=== PATIENT | female | born 1945 | race Caucasian/White ===

== ENCOUNTER → 2016-10-30 | Outpatient (REF) | payer MEDICARE, OTHER ==
[~2016-10-30] MED LIST: /ADVA50050; /BENA10TA; /ESCI10TA; /WARF25TA OR; ACE65ERTAB PO; ACET500C PO; ACET65TA; ACIPHEX; ADVA230A INH; ALBU17IN INH; ASPI1TAB6 PO; ASPI325T; ATEN25TA OR; ATEN50TA2; ATEN50TA2 OR; BACL-67 PO; BACL10TA2 PO; BYST10TA2 PO; BYST2.5T2 PO; CIPR250T3; CITRTAB14 PO; CITRTAB15 PO; CO Q200C PO; COLA100C PO; DICL13PA TD; FERR325T3 PO; HYDR12.55 PO; HYDR25TA6; I CAP; LEXA1TAB PO; LUTE25CA PO; LUTE6CAP2 PO; LYRI75CA PO; MAG-OX PO; NASACORT; NEUR300C PO; OCEA0.654; OMEG100011 PO; OPTIVE; PERC5TAB8 OR; PERC7.5T8 OR; POTA10CA OR; PRAV40TA2 PO; PRED20TA PO; PREG50CA PO; PRIL20CA PO; REFR0.1D OU; REFR0.5D8 OU; SPIR25TA2 PO; TELM1TAB PO; TRAM50TA2 PO; TUMS500C; TYLE325T5 PO; TYLE500T78 PO; VITAMIN D50000 UNT OR; XARELTO PO; XOPE1.252 INH; XOPENEX
[2016-10-30 19:16] LABS: FERRITIN 5 NG/ML (8-252)
== END ==
LOC: M LAB REF 16:48
PROVIDERS: ATTEND Family Medicine
DX: D50.9 Iron deficiency anemia, unspecified (principal)

== ENCOUNTER → 2016-11-13 | Outpatient (CLI) | payer MEDICARE, OTHER ==
[~2016-11-13] MED LIST changes: -PRIL20CA PO; +PRIL20CA9 PO
--- NOTE | 2016-11-15 23:40 | ECWPNPC ---
PATIENT NAME: SON BUCKNER : 1945 GENDER: FEMALE VISIT DATE: 11/13/2016 DISCHARGE DATE: 11/13/16 1247 VISIT LOCKED DATE TIME: PHYSICIAN: SON CHAPMAN RESOURCE: SON CHAPMAN REASON FOR APPOINTMENT 1. BACK HISTORY OF PRESENT ILLNESS HISTORY OF PRESENT ILLNESS: PAIN THE PATIENT DESCRIBES THE PAIN... FALL RISK SCREENING: SCREENING :NO FALLS IN THE PAST YEAR TODAY'S VISIT: NOTES: RATES PAIN TODAY 5/10. PAIN IS STARTING TO SHOOT DOWN RIGHT LEG. IS S/P BILATERAL SIJ INJECTION WHICH PRODUCED SIGNIFICANT PAIN RELIEF AND IMPROVED THE ABILITY TO FULLY URINATE. WAS NOT PREMEDICATRED WITH PREDNISONE AND HAD NO ISSUES WITH MARCAINE ANESTHETIC AGENT. THIS IS BEGINNING TO RETURN TO A DIFFICULT STATE. HAS BEEN HAVING INCREASED BALANCE ISSUES AND SOME MEMORY TROUBLES. WILL BE SEEING DR ELAINE AT [facility] NEUROS[facility]ERY AND HAVING A REPEAT CT OF BRAIN 12/13/16. STILL WAITING ON REFERRAL TO RHEUMATOLOGY. CURRENT MEDICATIONS TAKING SOMA 350 MG TABLET 1 TABLET NEEDED ORALLY BEFORE BEDTIME FOR SPASMS AND PAIN MDD1 TAKING SPIRONOLACTONE 25 MG TABLET ONE TABLET ORALLY DAILY TAKING MAGNESIUM OXIDE 400 MG CAPSULE 1 CAP ORALLY ONCE DAILY TAKING BYSTOLIC 2.5 MG TABLET 1 TABLET ORALLY ONCE A DAY TAKING XARELTO 20 MG TABLET 1 TABLET WITH FOOD ORALLY ONCE A DAY TAKING PRAVASTATIN SODIUM 40 MG TABLET 1 TABLET ORALLY ONCE A DAY TAKING OMEPRAZOLE 20 MG CAPSULE DELAYED RELEASE 1 CAPSULE ORALLY ONCE A DAY TAKING ACETAMINOPHEN 650 MG TABLET 1 ORALLY BID TAKING LUTEIN-ZEAXANTHIN 25-5 MG CAPSULE ORALLY DAILY TAKING COQ-10 200 MG CAPSULE 1 CAPSULE WITH A MEAL ORALLY ONCE A DAY TAKING CITRACAL + D 1500-200 MG-IU TABLET 1 TABLET WITH MEALS ORALLY DAILY TAKING OMEGA 3 1000 MG CAPSULE 1 CAPSULE ORALLY ONCE A DAY TAKING ADVAIR DISKUS 500-50 MCG/DOSE MISCELLANEOUS 1 INHALATION EVERY 12 HRS TAKING LEXAPRO 10 MG TABLET 1 TABLET ORALLY ONCE A DAY TAKING NASACORT AQ 55 MCG/ACT AEROSOL SOLUTION 2 PUFFS IN EACH NOSTRIL NASALLY ONCE A DAY TAKING DRISDOL 19218 UNIT CAPSULE 1 CAPSULE ORALLY ONCE A WEEK TAKING ULTRAM 50 MG TABLET 1 TABLET NEEDED FOR PAIN ORALLY EVERY 6 HRS TAKING BACLOFEN 10 MG TABLET 2 TABS ORALLY AT HS NEEDED TAKING REFRESH OPTIVE . 2 DROPS OU TWICE DAILY TAKING PROAIR HFA 2 PUFFS NEEDED DIRECTED TAKING GABAPENTIN 100 MG CAPSULE 2 CAP ORALLY BID TAKING DILTIAZEM CD 240 MG CAPSULE EXTENDED RELEASE 24 HOUR 1 CAPSULE ORALLY ONCE A DAY TAKING TORSEMIDE 20 MG TABLET ORALLY DAILY TAKING TORSEMIDE 10 MG TABLET 1 TABLET ORALLY ONCE A DAY AT 1600 NOT-TAKING VOLTAREN 1 % GEL DIRECTED TRANSDERMAL APPLY 4 GM FOUR TIMES DAILY TO LOW BACK NEEDED NOT-TAKING LASIX 20 MG TABLET 1 TABLET ORALLY ONCE A DAY NOT-TAKING PREDNISONE 10 MG TABLET 5 TABLET ORALLY TAKE 5 TABS DAY PRIOR , 5 TABS, MORNING OF PROCEDURE AND 1 TAB EVERY 8 HRS UNTIL COMPLETED, NOTES: 08/19/16 1100 NOT-TAKING BENADRYL 50 MG CAPSULE 2CAPSULE ORALLY PRE [PROCEDURE, NOTES: 08/19/16 1200 NOT-TAKING LORTAB 5-325 MG TABLET 1 TABLET NEEDED ORALLY EVERY 6 HRS, NOTES: 06-21-16 0400 NOT-TAKING FERROUS SULFATE 325 (65 FE) MG TABLET 1 TABLET ORALLY ONCE A DAY NOT-TAKING ALBUTEROL SULFATE HFA 108 (90 BASE) MCG/ACT AEROSOL SOLUTION 2 PUFFS INHALATION ONCE A DAY NOT-TAKING TUMS 500 MG TABLET CHEWABLE 2 TABLETS ORALLY THREE TIMES A DAY NOT-TAKING OPTIVE SENSITIVE 0.5-0.9 % SOLUTION DIRECTED OPHTHALMIC MEDICATION LIST REVIEWED AND RECONCILED WITH THE PATIENT PAST MEDICAL HISTORY HTN ASTHMA OA SPINAL STENOSIS GERD ATRIAL FIB DJD ARTHRITIS ELEVATED CHOL HYDROCEPHALUS ALLERGIES LIDOCAINE: ANAPHYLAXIS: ALLERGY NOVOCAIN: ANAPHYLAXIS: ALLERGY DOXYCYCLINE (ROSACEA): RASH: ALLERGY ALL NSAIDS INCLUDING VOLTAREN GEL: CARDIAC CONCERNS PER DR WILL: CONTRAINDICATION SOCIAL HISTORY GENERAL: TOBACCO USE ARE YOU A:NONSMOKER LEARNING BARRIERS / SPECIAL NEEDS ORIENTED TO PLAN OF CARE: PATIENT, PAIN MANAGEMENT PATIENT, ORIENTED TO PLAN OF CARE: PATIENT, PAIN MANAGEMENT PATIENT. NEW PATIENT PAIN DIARY TODAY'S VISITNOTES FROM 0-10, WHAT LEVEL IS YOUR PAIN TODAY?0 PAIN CLINIC PFS, CLERGY, PUBLIC HEALTH REFERRALS PFS REFERRAL NEEDED?NO CLERGY REFERRAL NEEDED?NO PUBLIC HEALTH REFERRAL NEEDED?NO WAS THE PROVIDER NOTIFIED OF ANY PERTINENT INFO?NO PFS REFERRAL NEEDED?NO CLERGY REFERRAL NEEDED?NO PUBLIC HEALTH REFERRAL NEEDED?NO WAS THE PROVIDER NOTIFIED OF ANY PERTINENT INFO?NO REVIEW OF SYSTEMS CONSTITUTIONAL: ANY CHANGE IN YOUR MEDICAL CONDITION? NO . CHILLS NO . FEVER NO . INFECTION: DO YOU HAVE NEW INFECTIONS? NO . DO YOU HAVE HISTORY OF MRSA? NO . MUSCULOSKELETAL: ANY NEW PATTERNS OF PAIN OR NUMBNESS? NO . GASTROENTEROLOGY: ANY NEW CHANGE IN BOWEL CONTROL? NO . GENITOURINARY: ANY NEW CHANGE IN BLADDER CONTROL? YES, DIFFICULTY/DELAY IN URINATING . IS THERE A CHANCE YOU COULD BE ? NO . HEMATOLOGY/LYMPH: DO YOU TAKE ANY BLOOD THINNERS? (FOR EXAMPLE- COUMADIN, PLAVIX, AGGRENOX, PLATEL, PRADAXA, OR XARELTO) YES, XARELTO . WHEN WAS YOUR LAST DOSE? DATE: TIME: . NEUROLOGY: HAVE YOU FALLEN IN THE PAST 6 MONTHS? NO . ANY NEW EXTREMITY NUMBNESS OR WEAKNESS? NO . CARDIOLOGY: DO YOU HAVE A PACEMAKER OR DEFIBRILLATOR? NO . RESPIRATORY: HAVE YOU BEEN SICK IN THE PAST WEEK? NO . FEVER NO . FLU LIKE SYMPTOMS? NO . COUGH NO . INTEGUMENTARY: DO YOU HAVE ANY RASHES OR OPEN SORES? NO . ALLERGIC/IMMUNO: ARE YOU ALLERGIC TO SHELLFISH OR IV DYE? NO . ANY NEW ALLERGIES? NO . PSYCHIATRIC: DO YOU HAVE THOUGHTS OF HURTING YOURSELF OR SOMEONE ELSE? NO . ARE YOU ABUSED, NEGLECTED, OR IN AN UNSAFE ENVIRONMENT? NO . ENDOCRINOLOGY: ARE YOU DIABETIC? NO . OTHER: DO YOU NEED ANY PRESCRIPTIONS? YES . IF YES, PLEASE LIST: SOMA . ANY NEW PROBLEMS WITH YOUR MEDICATIONS? NO . WHEN DID YOU LAST EAT? ____ . WHEN DID YOU LAST DRINK? ____ . WHAT DID YOU LAST DRINK? ____ . NAME OF PERSON DRIVING YOU HOME? ____ . DO YOU HAVE ANY OTHER QUESTIONS OR CONCERNS YES, INCREASED PRICKLING IN ENTIRE RIGHT LEG INTO FOOT . REVIEWED BY: PROVIDER: SON MCCLURE . VITAL SIGNS WT 196.2 LBS, HT 63 IN, BMI 34.75 INDEX, BP 142/67 MM HG, HR 84 /MIN, RR 16 /MIN, TEMP 97.2 F, OXYGEN SAT % 94, NA INITIALS TL 1201, REVIEWED BY: CS. EXAMINATION GENERAL EXAMINATION: PSYCHALERT , APPROPRIATE MOOD AND AFFECT , ORIENTED X 3 . SPEACH SOFT AND QUIET. LUNGS:CLEAR TO AUSCULTATION BILATERALLY. HEART:HEART RATE REGULAR. MUSCULOSKELETAL:TENDERNESS WITH PALPATION OVER LUMBAR FACETS BILATERALLY. MILD WEAKNESS NOTED IN QUADRICEP MUSCLES, ABLE TO FLEX AND EXTEND AT HIP AND ANKLES. POSTURE STOOPED. POOR BALANCE. POINT TENDERNESS OVER BILATERAL SACRAL ILIAC JOINTS.. ASSESSMENTS SACROILIITIS - M46.1 (PRIMARY) MYALGIA - M79.1 TREATMENT SACROILIITIS REFILL SOMA TABLET, 350 MG, 1 TABLET NEEDED, ORALLY, BEFORE BEDTIME FOR SPASMS AND PAIN MDD1, 30 DAY(S), 20, REFILLS 0 INJECTION ANESTHETIC SACROILIAC JOINTSON CHAPMAN 11/13/2016 12:31:28 PM > BILATERAL. NO ALLERGY TO MARCAINE PER [employer] TENDER NOTES: #128 - SCREENING BMI AND F/U PLAN IN : BMI ABOVE NORMAL TODAY. DISCUSSED WITH PATIENT NUTRITIONAL FOOD CHOICES TO ASSIST WITH WEIGHT LOSS. RECCOMMENDED REDUCING SALT, SUGAR, SODA INTAKE. RECOMMEND INCREASE ACTIVITY TO INCLUDE WALKING ON A REGULAR BASIS. REFERRAL TO: REASON: PROCEDURE CODES FA211 ESTABILISHED PATIENT [facility] FACILITY CHARGE G8783 BP SCR PRFRM RCMDD DEFIND SCR INTVL G8730 PAIN ASSESS POS TOOL F/U PLAN DOC 3016F PT SCRND UNHLTHY [place] USE 1123F ACP DISCUSS/DSCN MKR DOCD 1036F TOBACCO NON-USER 0518F FALL PLAN OF CARE DOCD G8427 DOC MEDS VERIFIED W/PT OR RE G8417 BMI >=30 CALCUATE W/FOLLOWUP 3288F FALL RISK ASSESSMENT DOCD FOLLOW UP BILATERAL SIJ NEARLY NEXT WEEK (REASON: LETTER TO DR WILL WITH OK TO STOP XARALTO FOR FUTURE PROCEDURES) ELECTRONICALLY SIGNED BY APURVA FAITH ON 11/15/2016 AT 10:41 AM EST DISCLAIMER : THIS IS A VISIT SUMMARY EXTRACTED FROM THE [employer] CHART. IT IS NOT A COPY OF THE [employer] PROGRESS NOTE. MTDD
== END ==
LOC: M PAIN 11:40
PROVIDERS: ATTEND Nurse Practitioner Family
DX: M46.1 Sacroiliitis, not elsewhere classified (principal); M79.1 Myalgia; Z79.891 Long term (current) use of opiate analgesic; Z79.899 Other long term (current) drug therapy; Z88.1 Allergy status to other antibiotic agents; Z88.6 Allergy status to analgesic agent

== ENCOUNTER → 2016-11-20 | Outpatient (CLI) | payer MEDICARE, OTHER ==
[~2016-11-20] MED LIST changes: +BUPIVACAINE HCL 0.25% 30 ML VIAL As Ordered ONE; +CARD240T2 PO; +CARI350T20 PO; +CITRTAB18 PO; +DRIS50002 PO; +FLUC100T PO; +FLUTISP; +GABA-279 PO; +INSUDET SC; +INSUHUMDS SC; +ISOVUE-M 300 61% 15ML VIAL (Q9967) As Ordered ONE; +LIDOCAINE 1% SDV INJ 30 ML VIAL As Ordered ONE; +MAGN400T5 PO; +TORS10TA3 PO; +TORS20TA2 PO; +TRIAMCINOLONE ACETONIDE SUSP 40 MG/ML VIAL (J3301) As Ordered ONE; +XARE20TA PO; +diazePAM 5 MG TAB As Ordered ONE
--- NOTE | 2016-11-20 18:11 | REP ---
SI joint series: Two views: History: SI joint injection for pain. 23 seconds of fluoroscopy time is reported. Findings: A sequence of two fluoroscopically obtained intraprocedural spot radiographs of the SI joints document needle position for SI joint injection procedure. Signed by Willam More MD 11/20/2016 06:42 P
--- NOTE | 2016-11-22 00:07 | ECWPNPC ---
PATIENT NAME: SON BUCKNER : 1945 GENDER: FEMALE VISIT DATE: 11/20/2016 DISCHARGE DATE: 11/20/16 1528 VISIT LOCKED DATE TIME: PHYSICIAN: TAMELA CASTANEDA RESOURCE: TAMELA CASTANEDA REASON FOR APPOINTMENT 1. BILATERAL SIJ HISTORY OF PRESENT ILLNESS HISTORY OF PRESENT ILLNESS: PAIN THE PATIENT DESCRIBES THE PAIN... FALL RISK SCREENING: SCREENING :NO FALLS IN THE PAST YEAR CURRENT MEDICATIONS TAKING SPIRONOLACTONE 25 MG TABLET ONE TABLET ORALLY DAILY, NOTES: 11-20-16799 TAKING MAGNESIUM OXIDE 400 MG CAPSULE 1 CAP ORALLY ONCE DAILY, NOTES: 11-20-16799 TAKING BYSTOLIC 2.5 MG TABLET 1 TABLET ORALLY ONCE A DAY, NOTES: 11-20-16799 TAKING XARELTO 20 MG TABLET 1 TABLET WITH FOOD ORALLY ONCE A DAY, NOTES: 11-19-16 1800 TAKING PRAVASTATIN SODIUM 40 MG TABLET 1 TABLET ORALLY ONCE A DAY, NOTES: 11-19-162099 TAKING OMEPRAZOLE 20 MG CAPSULE DELAYED RELEASE 1 CAPSULE ORALLY ONCE A DAY, NOTES: 11-19-162199 TAKING ACETAMINOPHEN 650 MG TABLET 1 ORALLY BID, NOTES: 11-20-16799 TAKING LUTEIN-ZEAXANTHIN 25-5 MG CAPSULE ORALLY DAILY, NOTES: 11-20-16799 TAKING COQ-10 200 MG CAPSULE 1 CAPSULE WITH A MEAL ORALLY ONCE A DAY, NOTES: 11-20-16799 TAKING CITRACAL + D 1500-200 MG-IU TABLET 1 TABLET WITH MEALS ORALLY DAILY, NOTES: 11-20-16799 TAKING OMEGA 3 1000 MG CAPSULE 1 CAPSULE ORALLY ONCE A DAY, NOTES: 11-20-16799 TAKING ADVAIR DISKUS 500-50 MCG/DOSE MISCELLANEOUS 1 INHALATION EVERY 12 HRS, NOTES: 11-20-16799 TAKING LEXAPRO 10 MG TABLET 1 TABLET ORALLY ONCE A DAY, NOTES: 11-19-162199 TAKING NASACORT AQ 55 MCG/ACT AEROSOL SOLUTION 2 PUFFS IN EACH NOSTRIL NASALLY ONCE A DAY, NOTES: 11-20-16799 TAKING DRISDOL 85964 UNIT CAPSULE 1 CAPSULE ORALLY ONCE A WEEK, NOTES: 11-19-16 TAKING ULTRAM 50 MG TABLET 1 TABLET NEEDED FOR PAIN ORALLY EVERY 6 HRS, NOTES: 11-20-16699 TAKING BACLOFEN 10 MG TABLET 2 TABS ORALLY AT HS NEEDED, NOTES: NONE TAKING REFRESH OPTIVE . 2 DROPS OU TWICE DAILY, NOTES: 11-20-16 08 TAKING PROAIR HFA 2 PUFFS NEEDED DIRECTED, NOTES: NONE TAKING GABAPENTIN 100 MG CAPSULE 2 CAP ORALLY BID, NOTES: 11-20-16 08 TAKING DILTIAZEM CD 240 MG CAPSULE EXTENDED RELEASE 24 HOUR 1 CAPSULE ORALLY ONCE A DAY, NOTES: 11-20-16 08 TAKING TORSEMIDE 20 MG TABLET ORALLY DAILY, NOTES: 11-20-16 08 TAKING TORSEMIDE 10 MG TABLET 1 TABLET ORALLY ONCE A DAY AT 1600, NOTES: 11-19-16 1600 TAKING SOMA 350 MG TABLET 1 TABLET NEEDED ORALLY BEFORE BEDTIME FOR SPASMS AND PAIN MDD1, NOTES: NONE NOT-TAKING BENADRYL 50 MG CAPSULE 2CAPSULE ORALLY PRE [PROCEDURE, NOTES: 08/19/16 1200 NOT-TAKING ALBUTEROL SULFATE HFA 108 (90 BASE) MCG/ACT AEROSOL SOLUTION 2 PUFFS INHALATION ONCE A DAY NOT-TAKING TUMS 500 MG TABLET CHEWABLE 2 TABLETS ORALLY THREE TIMES A DAY NOT-TAKING OPTIVE SENSITIVE 0.5-0.9 % SOLUTION DIRECTED OPHTHALMIC DISCONTINUED VOLTAREN 1 % GEL DIRECTED TRANSDERMAL APPLY 4 GM FOUR TIMES DAILY TO LOW BACK NEEDED DISCONTINUED LASIX 20 MG TABLET 1 TABLET ORALLY ONCE A DAY DISCONTINUED PREDNISONE 10 MG TABLET 5 TABLET ORALLY TAKE 5 TABS DAY PRIOR , 5 TABS, MORNING OF PROCEDURE AND 1 TAB EVERY 8 HRS UNTIL COMPLETED, NOTES: 08/19/16 1100 DISCONTINUED LORTAB 5-325 MG TABLET 1 TABLET NEEDED ORALLY EVERY 6 HRS, NOTES: 06-21-16 0400 DISCONTINUED FERROUS SULFATE 325 (65 FE) MG TABLET 1 TABLET ORALLY ONCE A DAY MEDICATION LIST REVIEWED AND RECONCILED WITH THE PATIENT PAST MEDICAL HISTORY HTN ASTHMA OA SPINAL STENOSIS GERD ATRIAL FIB DJD ARTHRITIS ELEVATED CHOL HYDROCEPHALUS ALLERGIES LIDOCAINE: ANAPHYLAXIS: ALLERGY NOVOCAIN: ANAPHYLAXIS: ALLERGY DOXYCYCLINE (ROSACEA): RASH: ALLERGY ALL NSAIDS INCLUDING VOLTAREN GEL: CARDIAC CONCERNS PER DR WILL: CONTRAINDICATION SOCIAL HISTORY GENERAL: TOBACCO USE ARE YOU A:NONSMOKER LEARNING BARRIERS / SPECIAL NEEDS ORIENTED TO PLAN OF CARE: PATIENT, PAIN MANAGEMENT PATIENT, ORIENTED TO PLAN OF CARE: PATIENT, PAIN MANAGEMENT PATIENT. NEW PATIENT PAIN DIARY TODAY'S VISITNOTES FROM 0-10, WHAT LEVEL IS YOUR PAIN TODAY?0 PAIN CLINIC PFS, CLERGY, PUBLIC HEALTH REFERRALS PFS REFERRAL NEEDED?NO CLERGY REFERRAL NEEDED?NO PUBLIC HEALTH REFERRAL NEEDED?NO WAS THE PROVIDER NOTIFIED OF ANY PERTINENT INFO?NO PFS REFERRAL NEEDED?NO CLERGY REFERRAL NEEDED?NO PUBLIC HEALTH REFERRAL NEEDED?NO WAS THE PROVIDER NOTIFIED OF ANY PERTINENT INFO?NO REVIEW OF SYSTEMS CONSTITUTIONAL: ANY CHANGE IN YOUR MEDICAL CONDITION? NO . CHILLS NO . FEVER NO . INFECTION: DO YOU HAVE NEW INFECTIONS? NO . DO YOU HAVE HISTORY OF MRSA? NO . MUSCULOSKELETAL: ANY NEW PATTERNS OF PAIN OR NUMBNESS? NO . GASTROENTEROLOGY: ANY NEW CHANGE IN BOWEL CONTROL? NO . GENITOURINARY: ANY NEW CHANGE IN BLADDER CONTROL? NO . IS THERE A CHANCE YOU COULD BE ? NO . HEMATOLOGY/LYMPH: DO YOU TAKE ANY BLOOD THINNERS? (FOR EXAMPLE- COUMADIN, PLAVIX, AGGRENOX, PLATEL, PRADAXA, OR XARELTO) YES, XARELTO . WHEN WAS YOUR LAST DOSE? DATE: TIME: 11-19-16 1800 . NEUROLOGY: HAVE YOU FALLEN IN THE PAST 6 MONTHS? NO . ANY NEW EXTREMITY NUMBNESS OR WEAKNESS? NO . CARDIOLOGY: DO YOU HAVE A PACEMAKER OR DEFIBRILLATOR? NO . RESPIRATORY: HAVE YOU BEEN SICK IN THE PAST WEEK? NO . FEVER NO . FLU LIKE SYMPTOMS? NO . COUGH NO . INTEGUMENTARY: DO YOU HAVE ANY RASHES OR OPEN SORES? NO . ALLERGIC/IMMUNO: ARE YOU ALLERGIC TO SHELLFISH OR IV DYE? NO . ANY NEW ALLERGIES? NO . PSYCHIATRIC: DO YOU HAVE THOUGHTS OF HURTING YOURSELF OR SOMEONE ELSE? NO . ARE YOU ABUSED, NEGLECTED, OR IN AN UNSAFE ENVIRONMENT? NO . ENDOCRINOLOGY: ARE YOU DIABETIC? NO . OTHER: DO YOU NEED ANY PRESCRIPTIONS? NO . IF YES, PLEASE LIST: ____ . ANY NEW PROBLEMS WITH YOUR MEDICATIONS? NO . WHEN DID YOU LAST EAT? 11-20-16 0700 . WHEN DID YOU LAST DRINK? 11-20-16 1100 . WHAT DID YOU LAST DRINK? WATER/ SPRITE . NAME OF PERSON DRIVING YOU HOME? SCOTT . DO YOU HAVE ANY OTHER QUESTIONS OR CONCERNS NO . REVIEWED BY: PROVIDER: . VITAL SIGNS WT 196 LBS, HT 63 IN, BMI 34.72 INDEX, BP 140/64 MM HG, HR 77 /MIN, RR 18 /MIN, TEMP 97.3 F, OXYGEN SAT % 97, NA INITIALS TL 1339, REVIEWED BY: CM. ASSESSMENTS SACROILIITIS, NOT ELSEWHERE CLASSIFIED - M46.1 (PRIMARY) PROCEDURES PN SI PRE PROCEDURE DIAGNOSIS SACROILIITIS, SACROILIAC JOINT DYSFUNCTION POST PROCEDURE DIAGNOSIS SACROILIITIS, SACROILIAC JOINT DYSFUNCTION PROCEDURE BILATERAL SACROILIAC JOINT BLOCK SURGEON DR. TAMELA CASTANEDA [employer] OPERATOR NONE ANESTHESIA LOCAL PRE PROCEDURE NOTE PATIENT WITH HISTORY OF CHRONIC LOW BACK PAIN. I EVALUATED THE PATIENT AND REVIEWED THE CHART. I WENT OVER THE RISKS, ALTERNATIVES, AND BENEFITS ASSOCIATED WITH THIS PROCEDURE. THE PATIENT WOULD LIKE TO PROCEED AND GAVE CONSENT TO PERFORM THE PROCEDURE. THE PATIENT DENIES UNEXPLAINABLE WEIGHT LOSS, FEVER, CHILLS, OR NEW CHANGES IN URINARY OR BOWEL CONTROL DESCRIPTION OF PROCEDURE THE PATIENT WAS BROUGHT TO THE PROCEDURE ROOM AND PLACED IN THE PRONE POSITION. THE LUMBOSACRAL AREA WAS CLEANED WITH CHLORAPREP SOLUTION AND DRAPED ASEPTICALLY. THE PROCEDURE WAS DONE UNDER STERILE CONDITIONS. I CHECKED LATERALITY AND THE LEVEL WHERE THE PROCEDURE WAS GOING TO BE PERFORMED WITH THE PATIENT AND THE SUPPORTING STAFF AT THE MOMENT OF THE TIME OUT IN THE PROCEDURE ROOM. UNDER FLUOROSCOPIC GUIDANCE, TARGET POINT WAS SELECTED AT THE LOWER BORDER OF THE RIGHT AND LEFT SACROILIAC JOINT. TARGET POINT WAS SELECTED AFTER MEDIAL ROTATION AND TILT OF THE MAGNIFIER OF THE C-ARM. LIDOCAINE WAS USED TO NUMB THE SKIN AND SUBCUTANEOUS TISSUE BELOW IT. A SPINAL NEEDLE, 22-GAUGE, WAS ADVANCED UNDER FLUOROSCOPIC GUIDANCE AND FOLLOWING PATIENT FEEDBACK UNTIL THE TARGET AREA WAS TOUCHED. THE POSITION OF THE NEEDLE WAS VERIFIED WITH AP AND LATERAL VIEWS. AFTER PROPER POSITION OF THE NEEDLE WAS ACHIEVED, ISOVUE M DYE 30%, 0.25 ML, WAS INJECTED SHOWING SPREAD OF THE DYE. THEN, A SOLUTION OF 20 MG OF KENALOG WAS INJECTED IN RIGHT JOINT WITH 3 ML OF BUPIVACAINE 0.125%. THERE WAS NO EVIDENCE OF BLOOD, PARESTHESIA OR CEREBROSPINAL FLUID DURING THE PROCEDURE. THE PATIENT WAS SENT TO THE RECOVERY ROOM. THE PATIENT WAS MOVING THE EXTREMITIES AND DOING WELL. THERE WAS NO COMPLICATION DURING THE PROCEDURE. FLUOROSCOPY TIME WAS 23 SECONDS POST PROCEDURE NOTE THE PATIENT WILL BE SEEN IN A FOLLOW UP IN THE NEXT FEW WEEKS. INSTRUCTIONS WERE GIVEN, QUESTIONS WERE ANSWERED, AND THE PATIENT EXPRESSED UNDERSTANDING AND AGREED WITH THE PLAN. I, KERRY QIU, DOCUMENTED THE ABOVE INFORMATION ACTING A SCRIBE FOR DR. CASTANEDA. I, DR. CASTANEDA, HAVE REVIEWED THE ABOVE DOCUMENT, SCRIBED BY KERRY QIU, AND I VERIFY THAT IT IS [facility] FLUORO GUIDANCE (PAIN)[id number] PROCEDURE CODES 62039 INJECT SACROILIAC JOINT 6045F RADXPS IN END [id number] PXD FOLLOW UP 3 WEEKS ELECTRONICALLY SIGNED BY TAMELA CASTANEDA MD ON 11/21/2016 AT 08:44 PM EST DISCLAIMER : THIS IS A VISIT SUMMARY EXTRACTED FROM THE [employer] CHART. IT IS NOT A COPY OF THE [employer] PROGRESS NOTE. MTDD
== END ==
LOC: M PAIN 13:20
PROVIDERS: ATTEND Anesthesiology
DX: G89.29 Other chronic pain (principal); M46.1 Sacroiliitis, not elsewhere classified; Z79.899 Other long term (current) drug therapy
CPT/HCPCS: G0260; J3301; Q9967

== ENCOUNTER 2016-11-29 10:28 | Inpatient (IN) | payer MEDICARE, BC, OTHER ==
[~2016-11-29] VITALS: Ht 157.5 cm; Wt 81.9 kg
[2016-11-29] MEDS: ADVAIR HFA 230/21 INHALER INH SCH (08:30)
[~2016-11-29 10:28] MED LIST changes: -ACETAMINOPHEN TAB 650MG DOSE (2X325MG) PO PRN; -CARD240T2 PO; -CARI350T20 PO; -CITRTAB18 PO; -DEXTROSE 50% 50 ML SYRINGE IV PRN; -DRIS50002 PO; -FLUC100T PO; -FLUTISP; -GABA-279 PO; -GLUCAGON FOR INJ 1 MG VIAL (J1610) SC PRN; -GLUCOSE 4 GM CHEW TABLET PO PRN; -HEPARIN SOD (PORCINE) 5000 UNITS/ML VIAL SC SCH; -HumaLOG INSULIN (NovoLOG) PER UNIT SC SCH; -INSUDET SC; -INSUHUMDS SC; -LEVEMIR (INSULIN DETEMIR) 1 UNITS/0.01ML SC SCH; -MAGN400T5 PO; -NS 1,000 ML IV SCH; -ONDANSETRON 4MG/2ML VIAL (J2405) IV PRN; -PANTOPRAZOLE 40MG TAB (PROTONIX) PO SCH; -TORS10TA3 PO; -TORS20TA2 PO; -XARE20TA PO
[2016-11-29 11:48] LABS: VENOUS BASE EXCESS -3.9 (-2.0-2.0); VENOUS O2 SATURATION 73.7 % (60.0-80.0); VENOUS PARTIAL PRESSURE CO2 37.7 mmHg (38.0-50.0); VENOUS PARTIAL PRESSURE O2 43.3 mmHg (30.0-50.0); VENOUS STANDARD HCO3 20.8 MEQ/L; VENOUS TOTAL CO2 22.2 MEQ/L (24.0-28.0)
[2016-11-29 11:57] LABS: INR 1.58
[2016-11-29 12:06] LABS: BASO % 0.1 % (0.0-1.0); EOS % 0.1 % (0.0-3.0); LARGE UNSTAINED CELL # 0.2 K/mm3 (0.0-0.4); LARGE UNSTAINED CELL % 1.4 % (0.0-4.0); LYMPH # 1.2 K/mm3 (1.5-4.5); LYMPH % 7.5 % (24.0-44.0); MEAN CORPUSCULAR HEMOGLOBIN 19.2 pg (27.0-33.0); MEAN CORPUSCULAR HGB CONC 28.3 g/dl (32.0-36.5); MONO # 0.7 K/mm3 (0.0-0.8); MONO % 4.7 % (0.0-5.0); NEUTROPHILS # 13.7 K/mm3 (1.8-7.7); NEUTROPHILS % 86.2 % (36.0-66.0); PLATELET COUNT, AUTOMATED 547 k/mm3 (150-450); RED CELL DISTRIBUTION WIDTH 16.6 % (11.5-14.5); WHITE BLOOD COUNT 15.9 K/mm3 (4.0-10.0)
[2016-11-29 12:08] LABS: ADD MORPHOLOGY? YES
[2016-11-29 12:16] LABS: CALCIUM LEVEL 9.9 MG/DL (8.8-10.2); CREATININE FOR GFR 1.72 MG/DL (0.55-1.02); POTASSIUM SERUM 4.4 MEQ/L (3.5-5.1)
[2016-11-29 12:27] LABS: ANISOCYTOSIS 2+; HYPOCHROMASIA 2+; MICROCYTOSIS 2+; POIKILOCYTOSIS 1+
[2016-11-29] MEDS ORDERED: HumuLIN R (REGULAR) INSULIN (NovoLIN R) **100U/ML** PER UNIT As Ordered ONE (13:06)
--- NOTE | 2016-11-29 14:03 | REP ---
Abdominal series: Four views. History: Vomiting. Findings: EKG monitoring electrodes overlie the chest. There are clips in the right axillary soft tissues. Post thoracotomy changes are noted on the right. Heart size is borderline. Lung conner are otherwise clear. Supine and cross-table lateral views of the abdomen demonstrate a normal bowel gas pattern with air and stool in a nondistended colon. There is no evidence of free air. No evidence of obstruction is seen. The patient is status post L3-4 posterior element fusion with transpedicular screws and rods. Impression: Normal bowel gas pattern. Right-sided ventriculoperitoneal shunt. Post thoracotomy changes on the right. Status post lumbar spine fusion. Signed by Willam More MD 11/29/2016 07:27 P
[2016-11-29] MEDS ORDERED: TORS10TA3 PO (15:37)
[2016-11-29] MEDS ORDERED: TORS20TA2 PO (15:40)
[2016-11-29] MEDS ORDERED: MAGN400T5 PO (15:41)
[2016-11-29] MEDS ORDERED: XARE20TA PO (15:41)
[2016-11-29] MEDS ORDERED: ALBU17IN INH (15:41)
[2016-11-29] MEDS ORDERED: DRIS50002 PO (15:41)
[2016-11-29] MEDS ORDERED: FLUTISP (15:41)
[2016-11-29] MEDS ORDERED: CARD240T2 PO (15:44)
[2016-11-29] MEDS ORDERED: GABA-279 PO (15:44)
[2016-11-29] MEDS ORDERED: CARI350T20 PO (15:44)
[2016-11-29] MEDS ORDERED: CITRTAB18 PO (15:44)
[2016-11-29] MEDS ORDERED: FLUC100T PO (15:44)
[2016-11-29] MEDS ORDERED: GLUCOSE 4 GM CHEW TABLET PO PRN (16:00)
[2016-11-29] MEDS ORDERED: ONDANSETRON 4MG/2ML VIAL (J2405) IV PRN (16:00)
[2016-11-29] MEDS ORDERED: ACETAMINOPHEN TAB 650MG DOSE (2X325MG) PO PRN (16:00)
[2016-11-29] MEDS ORDERED: DEXTROSE 50% 50 ML SYRINGE IV PRN (16:00)
[2016-11-29] MEDS ORDERED: GLUCAGON FOR INJ 1 MG VIAL (J1610) SC PRN (16:00)
--- NOTE | 2016-11-29 16:10 | HPEPDOC ---
General Date of Admission 11/29/16 408PM Chief Complaint The patient is a 71-year-old female Presented to the ER from [facility] because of abnormal lab work. History of Present Illness Patient is a 71 year old female with a PMHx of HTN, DLP, COPD, BRANDON on CPAP, Lung CA (s/p R lobectomy), Pulm HTN, A. fib (on Xarelto), R breast CA (s/ p mastectomy), NPH s/p C.O.D. BILLER shunt, Neuropathy and GERD who presented to the ER from [facility] because of abnormal lab work. Patient noted that she went to the infusion center today to receive iron infusion because she was unable to tolerate oral pills. Patient has a history of iron deficiency anemia. Her last colonoscopy and EGD was in in 2006 and was reported normal. She denies any blood in her stool, weight loss or change in appetite. Patient noted that over the last 1 week she has been getting short of breath and having palpitations. She noticed that over the last 3 days she has been having increased urinary frequency, and thirst. She notes that she has been a pre-diabetic in the past, but has not required medications. She has had nausea and vomiting this morning, and vomited 3 times (non bloody, non bilious, mostly food stuff). She notes her appetite has been poor and. She denies any dysuria. She denies any chest pain, cough, fever or chills. Denies abdominal pain, constipation or diarrhea. Home Medications Scheduled (Co Q-10) 200 Mg Cap 200 MG PO QHS (Reported) (Lutein/Zeaxanthin 25-5 mg) 1 Cap Cap 1 CAP PO DAILY (Reported) (Citracal + D3 Maximum 315-250 mg-Unit) 1 Tab Tab 1 TAB PO DAILY (Reported) Carboxymethylcellulose Sodium (Refresh Plus) 1 [place] 1 DROP OU BID (Reported) Diltiazem HCl (Cardizem LA) 240 Mg Tab 240 MG PO DAILY (Reported) Escitalopram Oxalate (Lexapro) 10 Mg Tab 10 MG PO QHS (Reported) Fluconazole (Fluconazole) 100 Mg Tab 100 MG PO DAILY (Reported) FILLED 11/26/16 FOR 7 DAYS Fluticasone Propionate (Fluticasone Propionate) 50 Mcg/Act Spr 2 SPRAY NA QHS ( Reported) Gabapentin (Gabapentin) 100 Mg Cap 200 MG PO BID (Reported) Magnesium Oxide (Magnesium Oxide 400) 400 Mg Tab 400 MG PO DAILY (Reported) Nebivolol (Bystolic) 2.5 Mg Tab 2.5 MG PO DAILY (Reported) [place] 3 Polyunsat Fatty Acids ([place] 3 1000 mg) 1 Cap Cap 1 CAP PO DAILY ( Reported) Omeprazole (Prilosec) 20 Mg Cap 20 MG PO QHS (Reported) Pravastatin Sod (Pravastatin Sodium) 40 Mg Tab 40 MG PO QHS (Reported) Rivaroxaban (Xarelto) 20 Mg Tab 20 MG PO QPM (Reported) Salmeterol/Fluticasone (Advair Hfa 230-21 Mcg/Act) 1 Aer Aer 1 PUFF INH BID ( Reported) Spironolactone (Spironolactone) 25 Mg Tab 25 MG PO DAILY (Reported) Torsemide (Torsemide) 10 Mg Tab 10 MG PO QPM (Reported) TAKES AT 1600 Torsemide (Torsemide) 20 Mg Tab 20 MG PO QAM (Reported) Vitamin D (Drisdol) 50,000 Unit Cap 50,000 UNIT PO QWEEK (Reported) TUESDAYS Scheduled PRN Albuterol Sulfate (Ventolin Hfa) 200 Puff/8 Gm Aers 2 PUFF INH QID PRN PRN SHORTNESS OF BREATH (Reported) Baclofen (Baclofen) 20 Mg Tab 20 MG PO QHS PRN PRN SPASMS (Reported) Carisoprodol (Carisoprodol) 350 Mg Tab 350 MG PO QHS PRN PRN SPASMS (Reported) Tramadol HCl (Tramadol HCl) 50 Mg Tab 50 MG PO Q4HP PRN PRN PAIN (Reported) Allergies Coded Allergies: Tetracycline (Verified Allergy, Intermediate, RASH, 01/26/13) Doxycycline (Unverified Allergy, Unknown, RASH, 11/29/16) Lidocaine (Verified Adverse Reaction, Severe, INCREASED PULSE, DECREASED BP, 01/26/13) Procaine (Verified Adverse Reaction, Severe, INCREASED PULSE, DECREASED BP , 01/26/13) Past Medical History Medical History HTN, DLP, COPD, BRANDON on CPAP, Lung CA (s/p R lobectomy), Pulm HTN, A. fib (on Xarelto), R breast CA (s/p mastectomy), NPH s/p C.O.D. BILLER shunt, Neuropathy and GERD Surgical History Right knee replacement Left knee arthroscopy Left breast reduction Right breast mastectomy Right eye cataract surgery Right lobectomy C.O.D. 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 Review of Symptoms Other systems Constitutional: Denies weight loss, change in appetite, or recent trauma Eyes: No visual changes or eye pain Ears, Nose, Throat: Denies nose bleeds, or difficulty swallowing Cardiovascular: Denies chest pain, sweating, or orthopnea Respiratory: Denies cough, or wheezing, Positive shortness of breath GI: Positive nausea and vomiting, Denies abdominal pain, diarrhea or constipation : Denies pain with urination, but positive for frequency Musculoskeletal: Denies joint pain or swelling Neuro / Psych: Denies muscle weakness or sensory loss Skin: No skin rashes noted All other review of systems negative; otherwise stated in history of present illness Screening: - Colonoscopy and EGD done in 2006 reported normal - Pap smear no longer done - Mammogram done 2016 reported normal Vital Signs - Vitals: BP 169/78, HR 88, RR 20, Sat 99%RA, Temp 98.9F - General: Lying in bed, No acute distress, Speaking in full sentences, AAOx3 - HEENT: NC, AT, PERRLA, EOMI, Pale conjunctiva - CVS: RRR, +S1S2, - Murmurs / rubs / gallops - Lungs: Fair air entry bilaterally, Clear to auscultation, No wheezing / rales / rhonchi - Abdomen: Soft, Non-distended, Mild tenderness at Left lower quadrant, + Bowel sounds x 4, - Extremities: + PPx4, No lower extremity edema, No calf tenderness - Neuro: No focal motor or sensory deficit - Skin: No visible rashes Laboratory Data Labs 24H Laboratory Tests 2 11/29/16 00:00: Estimated Mean Plasma Glucose 269H, Hemoglobin A1c 11.0H 11/29/16 11:16: Urine Amorphous Sediment , Urine Appearance CLEAR, Urine Color STRAW, Urine pH 5.0, Urine Specific [place] 1.026, Urine Protein NEGATIVE, Urine Glucose (UA) 3+ H, Urine Ketones TRACEH, Urine Urobilinogen 0.2, Urine Bilirubin NEGATIVE, Urine Leukocyte Esterase NEGATIVE, Urine Bacteria (Auto) NEGATIVE, Urine Blood NEGATIVE, Urine Calcium Carbonate Cryst(Auto) , Urine Calcium Oxalate Cryst ( Auto) , Urine Calcium Phosphate Marissa (Auto) , Urine Cellular Casts , Urine Cystine Crystals , Urine Granular Casts (Auto) , Urine Hyaline Casts (Auto) 0, Urine Leucine Crystals , Urine Mucus (Auto) , Urine Nitrite NEGATIVE, Urine Oval Fat Bodies (Auto) , Urine RBC (Auto) 4H, Urine Renal Epithelial Cells , Urine Sperm (Auto) , Urine Squamous Epithelial Cells 0, Urine Transitional Epithelial Cells , Urine Trichomonas (Auto) , Urine Triple Phosphate Cryst (Auto ) , Urine Tyrosine Crystals , Urine Uric Acid Crystals (Auto) , Urine WBC (Auto ) 2, Urine Waxy Casts (Auto) , Urine Yeast-Like Cells (Auto) 11/29/16 11:41: Activated Partial Thromboplast Time 24.7L, Anion Gap 14, Anisocytosis 2+, White Blood Count 15.9H, Red Blood Count 5.01, Hemoglobin 9.6L, Hematocrit 34.0L, Mean Corpuscular Volume 68.0L, Mean Corpuscular Hemoglobin 19.2L, Mean Corpuscular Hemoglobin Concent 28.3L, Red Cell Distribution Width 16.6H, Platelet Count 547H, Neutrophils (%) (Auto) 86.2H, Lymphocytes (%) (Auto) 7.5L, Monocytes (%) (Auto) 4.7, Eosinophils (%) (Auto) 0.1, Basophils (%) (Auto) 0.1, Neutrophils # (Auto) 13.7H, Lymphocytes # (Auto) 1.2L, Monocytes # (Auto) 0.7, Eosinophils # (Auto) 0.0, Basophils # (Auto) 0.0, Blood Gas Bicarbonate Standard 20.8, Blood Urea Nitrogen 34H, Creatinine 1.72H, Sodium Level 142, Potassium Level 4.4, Chloride Level 103, Carbon Dioxide Level 25, Calcium Level 9.9, Glomerular Filtration Rate 31.0L, Hypochromasia 2+, Large Unclassified Cells # 0.2, Large Unclassified Cells % 1.4, Magnesium Level 3.0H, Microcytosis 2+, Platelet Estimate INCREASED, Poikilocytosis 1+, Prothromb Time International Ratio 1.58, Prothrombin Time 19.0H, Venous Blood Base Excess -3.9L , Venous Blood pH 7.364, Venous Blood Partial Pressure CO2 37.7L, Venous Blood Partial Pressure O2 43.3, Venous Blood Total Carbon Dioxide 22.2L, Venous Blood HCO3 21.0L, Venous Blood Oxygen Saturation 73.7 11/29/16 14:03: Bedside Glucose (Misc Panel) 386H CBC/BMP Laboratory Tests 11/29/16 11:41 Calcium Level 9.9, Red Blood Count 5.01, Mean Corpuscular Volume 68.0 L, Mean Corpuscular Hemoglobin 19.2 L, Mean Corpuscular Hemoglobin Concent 28.3 L, Red Cell Distribution Width 16.6 H, Neutrophils (%) (Auto) 86.2 H, Lymphocytes (%) ( Auto) 7.5 L, Monocytes (%) (Auto) 4.7, Eosinophils (%) (Auto) 0.1, Basophils (% ) (Auto) 0.1, Neutrophils # (Auto) 13.7 H, Lymphocytes # (Auto) 1.2 L, Monocytes # (Auto) 0.7, Eosinophils # (Auto) 0.0, Basophils # (Auto) 0.0 Plan / VTE VTE Prophylaxis Ordered?: Yes Plan Plan Hyperglycemia likely 2/2 newly diagnosed DM2 - Presented with increased urinary frequency and thirst - History of pre-diabetes as an outpatient - HbA1c of 11.0, Glucose on admission was 574 - No acidosis, no anion gap - Has received IV fluid bolus of 1 liter NS and 5 units of Regular Insulin in the ER - Will c/w IV fluid hydration - Will start Levemir 10 units QHS and insulin sliding scale Acute kidney injury likely 2/2 dehydration from hyperglycemia - Creatinine baseline of < 1.0, currently at 1.72 - Will check urine electrolytes, osmolality and urinalysis - Will start IV fluid hydration with NS Microcytic anemia likely 2/2 iron deficiency anemia - Was supposed to receive iron infusion today, but was deferred because of hyperglycemia symptoms - Iron panel consistent with [place] - Will check reticulocyte count - Suspicion of celiac disease by Hematology; will perform serology workup - Will need outpatient referral for EGD and Colonoscopy - Will monitor CBC Leukocytosis possibly 2/2 infection, possibly 2/2 reactive etiology - No history of fevers, cough, - Has episode of nausea and vomiting today, has some Left lower quadrant abdominal pain - Leukocytosis with left shift - UA inconsistent with infection - Will check blood culture, urine culture - XR abdomen unrevealing - Will check CT abdomen - Will hold off on antibiotics at this time HTN - will c/w home BP medications (Bisoprolola and Cardizem) with holding parameters - Will hold Torsemide and Spironolactone for now DLP - c/w pravastatin COPD - no evidence of exacerbation at this time - will c/w home inhaled therapy BRANDON on CPAP - allow home CPAP use Lung CA - s/p R lobectomy - no history of chemotherapy or radiation Pulmonary HTN A. fib (on Xarelto) - c/w rate control with Cardizem - c/w anticoagulation with Xarelto R breast CA - s/p mastectomy - No chemotherapy or radiation - Last mammogram was in 2015 reported normal NPH s/p C.O.D. BILLER shunt - procedure was done in May 2016 Neuropathy - c/w gabapentin GERD - c/w omeprazole DVT prophylaxis - Will c/w full anticoagulation with Xarelto Case will be signed out to MAGALY Plata MD Nov 29, 2016 16:09
[2016-11-29] MEDS ORDERED: CARISOPRODOL 350 MG TAB PO PRN (16:15)
[2016-11-29] MEDS ORDERED: ALBUTEROL 90 MCG/ACT 8GM HFA INHALER INH PRN (16:15)
[2016-11-29] MEDS ORDERED: BACLOFEN 10 MG TAB PO PRN (16:15)
[2016-11-29 16:27] LABS: RETIC HEMOGLOBIN CONTENT CHr 21.4 PG (24-36); RETICULOCYTE ABSOLUTE ADVIA212 105 x10(9)/L (17-77)
[2016-11-29] MEDS ORDERED: NS 1,000 ML IV SCH (17:00)
[2016-11-29 17:10] VITALS: BP 165/70
--- NOTE | 2016-11-29 17:16 | EDDOCDS ---
Physician Documentation [facility] Name: Nhi Ramirez Age: 71 yrs Sex: Female : 1945 Arrival Date: 11/29/2016 Time: 10:28 Bed 15 Private MD: Nu Johns F. Disposition: 11/29 15:07 Critical Care: Critical care not applicable. pc Disposition: 11/29/16 15:11 Hospitalization ordered by Shayla Ruiz for Inpatient Admission. Preliminary diagnosis are Dehydration, Acute kidney failure, Type 2 diabetes mellitus with hyperglycemia. - Bed requested for 4 Cato. - Status is Inpatient Admission. rs3 - Condition is Stable. - Problem is new. - Symptoms have improved. HPI: 11:18 This 71 yrs old Female presents to ER via Walkin/Carried/Asstd with pc complaints of Abnormal Lab Results. 11:18 The history is obtained from the patient. pc 13:23 She was seen at Hematology today, having been referred for ongoing iron deficiency pc anemia. She arrived today, had complained of vomiting twice this morning, was clinically dehydrated and had a FSBS of 500+. She was sent here for evaluation. She complains of excessive thirst but feeling dehydrated. She denies any fevers or chills, Resp or GI symptoms. The patient has not experienced similar symptoms in the past. The patient has been recently seen by their primary care provider, for a routine, regularly scheduled appointment. Review of her EMR shows that she has had impaired glucose tolerance for 6-7 years. She also has had iron deficiency since 2007, that was treated briefly with iron replacement but was stopped and has had persistent low iron levels since. Historical: - Allergies: Doxycycline; Lidocaine; Novocain; - Home Meds: 1. spironolactone 25 mg Oral tab 1 tab once daily 2. torsemide 20 mg oral tab 1 tab twice a day 20mg in the morning and 10mg at 1600 3. magnesium oxide 400 mg Oral cap 400 mg daily 4. Bystolic 2.5 mg oral tab 1 tabs once daily 5. Xarelto 20 mg oral tab 1 tab once daily 6. pravastatin 40 mg oral tab 1 tab once daily 7. omeprazole 20 mg Oral cpDR 1 cap once daily 8. Advair Diskus 230/15 Inhl dsdv 1 puff 2 times per day 9. escitalopram oxalate 10 mg oral tab 1 tab nightly 10. albuterol sulfate 90 mcg/actuation Inhl HFAA 1 puff every 4-6 hours 11. fluticasone 50 mcg/actuation nasal spsn 1 spray 2 times per day 12. Drisdol 50,000 unit Oral cap 1 cap once wkly 13. Refresh Tears 0.5 % ophthalmic drop twice a day 14. lutein-zeaxanthin 25-5 mg oral cap daily 15. CoQ-10 100 mg oral cap 2 tab daily 16. Citracal with Vitamin D Maximum oral 600mg/1000mg oral daily 17. Luckey-3 oral oral 1000 mg daily 18. tramadol 50 mg Oral tab 1 tab every 4 hours 19. baclofen 10 mg Oral tab 2 tabs nightly 20. gabapentin 200mg Oral cap twice a day 21. Cardizem 240 mg Oral tab 1 tab daily 22. 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 - Social history: Smoking status: Patient states former smoker of tobacco. No barriers to communication noted, The patient speaks fluent Croatian. - : The pt / caregiver states he / she is on anticoagulants: Xarelto Home medication list is obtained from the patient. - Hospitalizations: : No recent hospitalization is reported. - Exposure Risk Screening:: None identified. - Immunization history:: All immunizations up-to-date. - Family history: Not pertinent. - Social history:: the patient is a former smoker, the patient drinks alcohol, socially. ROS: 13:29 All systems are negative except as listed. pc Exam: 13:29 General Appearance: alert, the patient is in mild distress. pc 13:29 EENT: ears, nose and throat normal, pale conjunctiva, mucous membranes dry. 13:29 Neck: The exam reveals no acute abnormalities. ROM is normal and painless. No nuchal rigidity is noted.. 13:29 Respiratory: no respiratory distress, normal breath sounds. 13:29 CVS: regular pulse rate, regular rhythm, normal S1 and S2, no murmurs, strong peripheral pulses. 13:29 Abdomen: soft, non-tender, no organomegaly, normal bowel sounds. 13:29 Back: normal inspection. 13:29 Skin: skin color is normal, warm, dry, the skin turgor is poor. 13:29 Extremities: The extremities have a grossly normal appearance, are non-tender, without acute ROM abnormalities. 13:29 Neuro: oriented x 3, cranial nerves normal as tested, no motor deficits, no sensory deficits. 13:29 Psych: normal mood. Vital Signs: 10:31 BP 181 / 70; Pulse 91; Resp 24; Temp 98.9; Pulse Ox 100% ; Weight 81.65 kg / 180.01 elp lbs; Height 5 ft. 2 in. (157.48 cm); Pain 0/10; 11:25 Pulse 90 MON; Pulse Ox 100% ; rs3 11:47 Pulse 84 MON; Pulse Ox 99% ; rs3 11:51 BP 166 / 82 (auto/); rs3 11:51 Pulse 84 MON; Pulse Ox 97% ; rs3 12:51 BP 177 / 76 (auto/); rs3 12:52 Pulse 90 MON; Pulse Ox 100% ; rs3 13:06 BP 176 / 76 (auto/); rs3 13:07 Pulse 88 MON; Pulse Ox 98% ; rs3 13:21 BP 169 / 78 (auto/); rs3 13:22 Pulse 88 MON; Pulse Ox 99% ; rs3 15:24 Pulse 92 MON; Resp 18; rs3 16:03 BP 187 / 79 (auto/); rs3 16:04 Pulse 90 MON; Pulse Ox 98% ; rs3 16:18 BP 167 / 72 (auto/); rs3 16:27 BP 167 / 72; Pulse 92 MON; Resp 18; Temp 100(TE); Pulse Ox 98% on R/A; Pain 0/10; rs3 16:34 Pulse 92 MON; Pulse Ox 99% ; rs3 10:31 Body Mass Index 32.92 (81.65 kg, 157.48 cm) elp MDM: 11:18 IV Saline Lock ordered. pc 11:19 Venous Blood Gas (large pea green tube on ice) Ordered. EDMS 11:19 CBC with Diff Ordered. EDMS 11:19 MED Profile Ordered. EDMS 11:19 Magnesium Level Ordered. EDMS 11:19 Urinalysis Ordered. EDMS 11:19 Pt & Aptt Ordered. EDMS 11:30 Financial registration complete. lg 11:54 [facility] Payment Agreement was scanned into [employer] and attached to record. lg 12:29 Venous Blood Gas (large pea green tube on ice) Reviewed. pc 12:29 CBC with Diff Reviewed. pc 12:29 Urinalysis Reviewed. pc 12:29 Pt & Aptt Reviewed. pc 12:51 MED Profile Reviewed. pc 12:51 Magnesium Level Reviewed. pc 12:51 RBC MORPH PROF NO CHARGE Reviewed. pc 12:52 NS 0.9% 1000 ml IV at bolus once ordered. pc 12:52 Insulin Regular Human 5 units IVP once ordered. pc 12:53 A1C Ordered. EDMS 12:53 Abdomen, Flat\E\Upright,PA Chest Ordered. EDMS 13:29 Differential Diagnosis: dehydration; new onset DM; chronic iron deficiency. Plan: labs, pc IVF. 14:16 Fingerstick Blood Sugar Reviewed. pc 14:16 Abdomen, Flat\E\Upright,PA Chest Reviewed. pc 14:32 A1C Reviewed. pc 14:56 NS 0.9% 1000 ml IV at 100 mL/hr continuous ordered. pc 14:57 BED REQUEST+ADM ordered. EDMS 15:06 Data reviewed: old medical records, vital signs, nurses notes, lab test results, all pc radiology studies and available results. 15:07 Test interpretation: LAB - all labs as ordered have been reviewed, interpreted and pc considered in the overall management of the clinical presentation; X-RAY - interpreted by Radiologist and personally reviewed, 3-view abdomen series; no acute disease. The patient has been re-examined and re-evaluated. The patient's symptoms have markedly improved after treatment. Physician consultation: Dr. Garrison Fox regarding patient's condition, and he requests she be admitted . 15:07 Physician consultation: Dr. Shayla Ruiz was contacted at 15:07, regarding admission, pc and will see patient in ED, shortly. Disposition: The historical points, examination findings, and any diagnostic results supporting the provided diagnosis, were discussed with the patient or legal guardian. The need for further work-up and/or treatment in the hospital was explained. 15:59 Admission / Observation Status ordered. EDMS 15:59 ELECTROCARDIOGRAM ADULT ordered. EDMS 15:59 CONSISTENT CARBOHYDRATES ordered. EDMS 16:00 ANTI-GLIADIN ANTIBODY Ordered. EDMS 16:00 TISSUE TRANSGLUTAMINASE IgA Ordered. EDMS 16:00 TISSUE TRANSGLUTAMINASE IgG Ordered. EDMS 16:00 ENDOMYSIAL IgA ANTIBODIES Ordered. EDMS 16:00 CREATININE,RANDOM URINE Ordered. EDMS 16:00 SODIUM,RANDOM URINE Ordered. EDMS 16:01 OSMOLALITY, SERUM Ordered. EDMS 16:01 OSMOLALITY,URINE Ordered. EDMS 16:01 URINE CULTURE Ordered. EDMS 16:01 BLOOD CULTURES Ordered. EDMS 16:23 RETICULOCYTE COUNT Ordered. EDMS Administered Medications: 13:12 Drug: NS 0.9% 1000 ml [sodium chloride 0.9 % intravenous solution] Route: IV; Rate: rs3 bolus; Site: left antecubital; 15:21 Follow up: IV Status: Completed infusion rs3 13:13 Drug: Insulin Regular Human 5 units [insulin regular human 100 unit/mL injection rs3 solution (0.05 mL)] {Co-Signature: marialuisa (Wyatt Bolden RN).} Route: IVP; Site: left antecubital; 15:21 Drug: NS 0.9% 1000 ml [sodium chloride 0.9 % intravenous solution] Route: IV; Rate: 100 rs3 mL/hr; Site: left antecubital; Signatures: Dispatcher [employer] EDIA Cordell Escamilla MD MD pc Daly, Linda, Manager [facility] Scott Garcia, Clark Reg lg Elizabeth Escobar RN RN rs3 Elissa Hopper RN RN ead Smith, Mallory, RN RN [id number] Wyatt elam The chart was reviewed and I authenticate all verbal orders and agree with the evaluation and treatment provided.Corrections: (The following items were deleted from the chart) 16:25 16:00 RETICULOCYTE COUNT ordered. EDMS EDMS Attachments: 11:54 [facility] [place] [facility]
--- NOTE | 2016-11-29 17:17 | EDDOCDS ---
Nurse's Notes [facility] Name: Nhi Ramirez Age: 71 yrs Sex: Female : 1945 Arrival Date: 11/29/2016 Time: 10:28 Bed 15 Private MD: Nu Johns F. Diagnosis: Dehydration;Acute kidney failure;Type 2 diabetes mellitus with hyperglycemia Presentation: 11/29 10:35 Presenting complaint: pt's cousin states that the pt is SOB, vomited a few times, her ms18 BGL is 590, and her white blood cell count is 19.8. Adult Sepsis Screening: The patient does not have new or worsening altered mentation. Patient's respiratory rate is less than 22. Systolic blood pressure is greater than 100. Patient has a qSOFA score of 0- Negative Sepsis Screen. Suicide/Homicide risk assessment- the patient denies having any suicidal and/or homicidal ideations and does not present with any other emotional, behavioral or mental health complaints. Status: Patient is not a customer service attendant or dependent. Transition of care: patient was received from a primary care office; Dr. Garrison Fox's office. 10:35 Acuity: AICHA Level 3 ms18 10:35 Method Of Arrival: Walkin/Carried/Asstd ms18 Triage Assessment: 10:47 General: Appears in no apparent distress, ill, uncomfortable, Behavior is appropriate ms18 for age, cooperative. Pain: Denies pain. Neurological: Level of Consciousness is awake, alert, obeys commands. Respiratory: Airway is patent Respiratory effort is even, unlabored. Derm: Skin is pink, warm & dry. Historical: - Allergies: Doxycycline; Lidocaine; Novocain; - Home Meds: 1. spironolactone 25 mg Oral tab 1 tab once daily 2. torsemide 20 mg oral tab 1 tab twice a day 20mg in the morning and 10mg at 1600 3. magnesium oxide 400 mg Oral cap 400 mg daily 4. Bystolic 2.5 mg oral tab 1 tabs once daily 5. Xarelto 20 mg oral tab 1 tab once daily 6. pravastatin 40 mg oral tab 1 tab once daily 7. omeprazole 20 mg Oral cpDR 1 cap once daily 8. Advair Diskus 230/15 Inhl dsdv 1 puff 2 times per day 9. escitalopram oxalate 10 mg oral tab 1 tab nightly 10. albuterol sulfate 90 mcg/actuation Inhl HFAA 1 puff every 4-6 hours 11. fluticasone 50 mcg/actuation nasal spsn 1 spray 2 times per day 12. Drisdol 50,000 unit Oral cap 1 cap once wkly 13. Refresh Tears 0.5 % ophthalmic drop twice a day 14. lutein-zeaxanthin 25-5 mg oral cap daily 15. CoQ-10 100 mg oral cap 2 tab daily 16. Citracal with Vitamin D Maximum oral 600mg/1000mg oral daily 17. [place]-3 oral oral 1000 mg daily 18. tramadol 50 mg Oral tab 1 tab every 4 hours 19. baclofen 10 mg Oral tab 2 tabs nightly 20. gabapentin 200mg Oral cap twice a day 21. Cardizem 240 mg Oral tab 1 tab daily 22. 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 - Social history: Smoking status: Patient states former smoker of tobacco. No barriers to communication noted, The patient speaks fluent Greenlandic. - : The pt / caregiver states he / she is on anticoagulants: Xarelto Home medication list is obtained from the patient. - Hospitalizations: : No recent hospitalization is reported. - Exposure Risk Screening:: None identified. - Immunization history:: All immunizations up-to-date. - Family history: Not pertinent. - Social history:: the patient is a former smoker, the patient drinks alcohol, socially. Screenin:47 Screening information is obtained from the patient. Fall risk: No risks identified. rs3 Assistance ADL's: requires no assistance with activities of daily living. Abuse/DV Screen: The patient / caregiver reports he/she is: not in a situation that causes fear, pain or injury. Nutritional screening: No deficits noted. home support is adequate. Assessment: 11:47 General: Appears in no apparent distress, Behavior is appropriate for age, cooperative. rs3 Pain: Denies pain. Neurological: Level of Consciousness is awake, alert, Oriented to person, place, time. EENT: Oral mucosa is dry. cobblestone tongue dry and parched. gingival hyperplasia noted. Cardiovascular: Capillary refill < 3 seconds Heart tones S1 S2 present Rhythm is regular Chest pain is denied. Respiratory: Airway is patent Respiratory effort is even, unlabored, Breath sounds are clear bilaterally. Reports shortness of breath on exertion. Derm: Skin is pink, warm & dry. 12:45 General: Appears in no apparent distress, Denies of pain/distress. resting comfortable rs3 at rest. patient used bedside commode. tolerated well. family at bedside. . 13:27 General: Appears in no apparent distress, Behavior is appropriate for age, IVF NS bolus rs3 infusing. Tolerating well. regular insulin 5 units IVP given. 14:30 General: Appears in no apparent distress, patient returned from x-ray. denies of rs3 distress/pain/sob. tolerating well. resting comfortable on stretcher. IVF NS bolus infusing. repeat FSBS 386. 15:28 General: Appears in no apparent distress, admitting provider with patient. denies of rs3 distress. Mary raman given. consistent carb diet ordered. family at bedside. IVF NS infusing at 100cc/hr. 16:32 General: Appears in no apparent distress, Behavior is appropriate for age, cooperative, rs3 patient resting comfortable. denies of pain/distress. waiting for admission room availability . family at bedside. breathes easy. Vital Signs: 10:31 BP 181 / 70; Pulse 91; Resp 24; Temp 98.9; Pulse Ox 100% ; Weight 81.65 kg; Height 5 elp ft. 2 in. (157.48 cm); Pain 0/10; 11:25 Pulse 90 MON; Pulse Ox 100% ; rs3 11:47 Pulse 84 MON; Pulse Ox 99% ; rs3 11:51 BP 166 / 82 (auto/); rs3 11:51 Pulse 84 MON; Pulse Ox 97% ; rs3 12:51 BP 177 / 76 (auto/); rs3 12:52 Pulse 90 MON; Pulse Ox 100% ; rs3 13:06 BP 176 / 76 (auto/); rs3 13:07 Pulse 88 MON; Pulse Ox 98% ; rs3 13:21 BP 169 / 78 (auto/); rs3 13:22 Pulse 88 MON; Pulse Ox 99% ; rs3 15:24 Pulse 92 MON; Resp 18; rs3 16:03 BP 187 / 79 (auto/); rs3 16:04 Pulse 90 MON; Pulse Ox 98% ; rs3 16:18 BP 167 / 72 (auto/); rs3 16:27 BP 167 / 72; Pulse 92 MON; Resp 18; Temp 100(TE); Pulse Ox 98% on R/A; Pain 0/10; rs3 16:34 Pulse 92 MON; Pulse Ox 99% ; rs3 10:31 Body Mass Index 32.92 (81.65 kg, 157.48 cm) elp Vitals: 10:31 Log In Time: November 29, 2016 at 10:29. elp ED Course: 10:31 Patient visited by Steffanie Avila PCA. elp 10:31 BoonNu is Private Physician. elp 10:31 Patient moved to Waiting elp 10:32 Patient visited by Steffanie Avila PCA. elp 10:34 Patient moved to Pre RCE elp 10:37 Triage Initiated ms18 10:44 Patient moved to 15 jb5 10:52 Cordell Escamilla MD is Attending Physician. pc 11:07 Patient visited by Cordell Escamilla MD. pc 11:46 Elizabeth Escobar RN is Primary Nurse. rs3 11:47 Patient visited by Elizabeth Escobar RN. rs3 11:47 Venous Blood Gas (large pea green tube on ice) Sent. rs3 11:47 Pt & Aptt Sent. rs3 11:47 Magnesium Level Sent. rs3 11:47 MED Profile Sent. rs3 11:47 CBC with Diff Sent. rs3 11:47 Inserted saline lock: 20 gauge in left antecubital area and blood collected. rs3 11:54 [facility] Payment Agreement was scanned into [employer] and attached to record. lg 12:39 Notified attending ED physician of Critical lab value. this nurse notified by lab of ead blood glucose of 574. Je Escamilla notified. . 12:51 Patient visited by Cordell Escamilla MD. pc 13:25 Patient visited by Elizabeth Escobar,WYATT. rs3 14:01 Patient visited by Elizabeth Escobar RN. rs3 14:04 Abdomen, Flat\E\Upright,PA Chest Returned. EDMS 14:50 Patient visited by Elizabeth Escobar RN. rs3 15:10 Shayla Ruiz is Hospitalizing Provider. pc 16:48 The patient / caregiver is instructed regarding the plan of care and ED course. rs3 16:48 No procedures done that require assistance. rs3 Administered Medications: 13:12 Drug: NS 0.9% 1000 ml [sodium chloride 0.9 % intravenous solution] Route: IV; Rate: rs3 bolus; Site: left antecubital; 15:21 Follow up: IV Status: Completed infusion rs3 13:13 Drug: Insulin Regular Human 5 units [insulin regular human 100 unit/mL injection rs3 solution (0.05 mL)] {Co-Signature: marialuisa (Wyatt Bolden RN).} Route: IVP; Site: left antecubital; 15:21 Drug: NS 0.9% 1000 ml [sodium chloride 0.9 % intravenous solution] Route: IV; Rate: 100 rs3 mL/hr; Site: left antecubital; Order Results: Lab Order: Venous Blood Gas (large pea green tube on ice); SPEC'M 11/29/16 11:41 Test: VENOUS PH; Value: 7.364; Range: 7.330-7.430; Units: UNITS; Status: F Test: VENOUS PARTIAL PRESSURE CO2; Value: 37.7; Range: 38.0-50.0; Abnormal: Below low normal; Units: mmHg; Status: F Test: VENOUS PARTIAL PRESSURE O2; Value: 43.3; Range: 30.0-50.0; Units: mmHg; Status: F Test: VENOUS TOTAL CO2; Value: 22.2; Range: 24.0-28.0; Abnormal: Below low normal; Units: MEQ/L; Status: F Test: VENOUS HCO3; Value: 21.0; Range: 23.0-27.0; Abnormal: Below low normal; Units: MEQ/L; Status: F Test: VENOUS BASE EXCESS; Value: -3.9; Range: -2.0-2.0; Abnormal: Below low normal; Status: F Test: VENOUS STANDARD HCO3; Value: 20.8; Units: MEQ/L; Status: F Test: VENOUS O2 SATURATION; Value: 73.7; Range: 60.0-80.0; Units: %; Status: F Lab Order: CBC with Diff; SPEC'M 11/29/16 11:41 Test: WHITE BLOOD COUNT; Value: 15.9; Range: 4.0-10.0; Abnormal: Above high normal; Units: K/mm3; Status: F Test: RED BLOOD COUNT; Value: 5.01; Range: 4.00-5.40; Units: M/mm3; Status: F Test: HEMOGLOBIN; Value: 9.6; Range: 12.0-16.0; Abnormal: Below low normal; Units: g/dl; Status: F Test: HEMATOCRIT; Value: 34.0; Range: 36.0-47.0; Abnormal: Below low normal; Units: %; Status: F Test: MEAN CORPUSCULAR VOLUME; Value: 68.0; Range: 80.0-96.0; Abnormal: Below low normal; Units: fl; Status: F Test: MEAN CORPUSCULAR HEMOGLOBIN; Value: 19.2; Range: 27.0-33.0; Abnormal: Below low normal; Units: pg; Status: F Test: MEAN CORPUSCULAR HGB CONC; Value: 28.3; Range: 32.0-36.5; Abnormal: Below low normal; Units: g/dl; Status: F Test: RED CELL DISTRIBUTION WIDTH; Value: 16.6; Range: 11.5-14.5; Abnormal: Above high normal; Units: %; Status: F Test: PLATELET COUNT, AUTOMATED; Value: 547; Range: 150-450; Abnormal: Above high normal; Units: k/mm3; Status: F Test: NEUTROPHILS %; Value: 86.2; Range: 36.0-66.0; Abnormal: Above high normal; Units: %; Status: F Test: LYMPH %; Value: 7.5; Range: 24.0-44.0; Abnormal: Below low normal; Units: %; Status: F Test: MONO %; Value: 4.7; Range: 0.0-5.0; Units: %; Status: F Test: EOS %; Value: 0.1; Range: 0.0-3.0; Units: %; Status: F Test: BASO %; Value: 0.1; Range: 0.0-1.0; Units: %; Status: F Test: LARGE UNSTAINED CELL %; Value: 1.4; Range: 0.0-4.0; Units: %; Status: F Test: NEUTROPHILS #; Value: 13.7; Range: 1.8-7.7; Abnormal: Above high normal; Units: K/mm3; Status: F Test: LYMPH #; Value: 1.2; Range: 1.5-4.5; Abnormal: Below low normal; Units: K/mm3; Status: F Test: MONO #; Value: 0.7; Range: 0.0-0.8; Units: K/mm3; Status: F Test: EOS #; Value: 0.0; Range: 0.0-0.50; Units: K/mm3; Status: F Test: BASO #; Value: 0.0; Range: 0.0-0.2; Units: K/mm3; Status: F Test: LARGE UNSTAINED CELL #; Value: 0.2; Range: 0.0-0.4; Units: K/mm3; Status: F Lab Order: [facility] Profile; [facility]'M 11/29/16 11:41 Test: GLUCOSE, FASTING; Value: 574; Range: 83-110; Abnormal: Above upper panic limits; Units: MG/DL; Status: F Test: BLOOD UREA NITROGEN; Value: 34; Range: 7-18; Abnormal: Above high normal; Units: MG/DL; Status: F Test: CREATININE FOR GFR; Value: 1.72; Range: 0.55-1.02; Abnormal: Above high normal; Units: MG/DL; Status: F Test: GLOMERULAR FILTRATION RATE; Value: 31.0; Range: >39; Abnormal: Below low normal; Status: F Test: SODIUM LEVEL; Value: 142; Range: 136-145; Units: MEQ/L; Status: F Test: POTASSIUM SERUM; Value: 4.4; Range: 3.5-5.1; Units: MEQ/L; Status: F Test: CHLORIDE LEVEL; Value: 103; Range: 98-107; Units: MEQ/L; Status: F Test: CARBON DIOXIDE LEVEL; Value: 25; Range: 21-32; Units: MEQ/L; Status: F Test: ANION GAP; Value: 14; Range: 8-16; Units: MEQ/L; Status: F Test: CALCIUM LEVEL; Value: 9.9; Range: 8.8-10.2; Units: MG/DL; Status: F Test Note: ; Units are mL/min/1.73 m2 Chronic Kidney Disease Staging per NKF: Stage I & II GFR >=60 Normal to Mildly Decreased Stage III GFR 30-59 Moderately Decreased Stage IV GFR 15-29 Severely Decreased Stage V GFR <15 Very Little GFR Left ESRD GFR <15 on MASS COMMUNICATIONS INSTRUCTOR Lab Order: Magnesium Level; SPEC'M 11/29/16 11:41 Test: MAGNESIUM LEVEL; Value: 3.0; Range: 1.8-2.4; Abnormal: Above high normal; Units: MG/DL; Status: F Lab Order: Urinalysis; SPEC'M 11/29/16 11:16 Test: APPEARANCE, URINE; Value: CLEAR; Range: CLEAR; Status: F Test: COLOR, URINE; Value: STRAW; Range: YELLOW; Status: F Test: PH,URINE; Value: 5.0; Range: 5.0-9.0; Units: UNITS; Status: F Test: SPECIFIC GRAVITY URINE AUTO; Value: 1.026; Range: 1.002-1.035; Status: F Test: PROTEIN, URINE AUTO; Value: NEGATIVE; Range: NEGATIVE; Units: mg/dL; Status: F Test: GLUCOSE, URINE (UA) AUTO; Value: 3+; Range: NEGATIVE; Abnormal: Above high normal; Units: mg/dL; Status: F Test: KETONE, URINE AUTO; Value: TRACE; Range: NEGATIVE; Abnormal: Above high normal; Units: mg/dL; Status: F Test: UROBILINOGEN, URINE AUTO; Value: 0.2; Range: 0.0-2.0; Units: mg/dL; Status: F Test: BILIRUBIN, URINE AUTO; Value: NEGATIVE; Range: NEGATIVE; Status: F Test: NITRITE, URINE AUTO; Value: NEGATIVE; Range: NEGATIVE; Status: F Test: LEUKOCYTE ESTERASE, URINE AUTO; Value: NEGATIVE; Range: NEGATIVE; Status: F Test: BLOOD, URINE BLOOD; Value: NEGATIVE; Range: NEGATIVE; Status: F Test: WBC, URINE AUTO; Value: 2; Range: 0-3; Units: /HPF; Status: F Test: RBC, URINE AUTO; Value: 4; Range: 0-3; Abnormal: Above high normal; Units: /HPF; Status: F Test: BACTERIA, URINE AUTO; Value: NEGATIVE; Range: NEGATIVE; Status: F Test: SQUAMOUS EPITHELIAL CELL UR AU; Value: 0; Range: 0-6; Units: /HPF; Status: F Test: HYALINE CAST, URINE AUTO; Value: 0; Range: 0-1; Units: /LPF; Status: F Lab Order: Pt & Aptt; [facility] 11/29/16 11:41 Test: PROTHROMBIN TIME; Value: 19.0; Range: 12.3-14.5; Abnormal: Above high normal; Units: SECONDS; Status: F Test: INR; Value: 1.58; Status: F Test: PARTIAL THROMBOPLASTIN TIME; Value: 24.7; Range: 26.6-37.1; Abnormal: Below low normal; Units: SECONDS; Status: F Test Note: ; THERAPUTIC HUMAN INR VALUES INDICATIONS NORMAL RANGES PROPHYLAXIS/TREATMENT OF: VENOUS THROMBOSIS 2.0-3.0 PULMONARY EMBOLISM 2.0-3.0 PREVENTION OF SYSTEMIC EMBOLISM FROM: TISSUE HEART VALVES 2.0-3.0 ACUTE MYOCARDIAL INFARCTION 2.0-3.0 VALVULAR HEART DISEASE 2.0-3.0 ATRIAL FIBRILLATION 2.0-3.0 MECHANICAL VALVES(HIGH RISK) 2.5-3.5 RECURRENT MYOCARDIAL INFARCTION 2.5-3.5 Lab Order: RBC MORPH PROF NO CHARGE; [facility] 11/29/16 11:41 Test: PLATELET ESTIMATE; Range: NORMAL; Status: I Test: HYPOCHROMASIA; Value: 2+; Status: F Test: POIKILOCYTOSIS; Value: 1+; Status: F Test: ANISOCYTOSIS; Value: 2+; Status: F Test: MICROCYTOSIS; Value: 2+; Status: F Test: PLATELET ESTIMATE; Value: INCREASED; Range: NORMAL; Status: F Lab Order: A1C; [facility] 11/29/16 00:00 Test: HEMOGLOBIN A1c; Value: 11.0; Range: 4.5-6.2; Abnormal: Above high normal; Units: %; Status: F Test: ESTIMATED AVERAGE GLUCOSE; Value: 269; Range: 60-110; Abnormal: Above high normal; Units: MG/DL; Status: F Lab Order: Fingerstick Blood Sugar; [facility] 11/29/16 14:03 Test: BEDSIDE GLUCOSE; Value: 386; Range: 83-110; Abnormal: Above high normal; Units: MG/DL; Status: F Lab Order: RETICULOCYTE COUNT; SPEC'M 11/29/16 11:41 Test: RETICULOCYTE % [id number]; Value: 2.20; Range: 0.5-1.5; Abnormal: Above high normal; Units: %; Status: F Test: RETICULOCYTE ABSOLUTE [id number]; Value: 105; Range: 17-77; Abnormal: Above high normal; Units: x10(9)/L; Status: F Test: RETIC HEMOGLOBIN CONTENT CHr; Value: 21.4; Range: 24-36; Abnormal: Below low normal; Units: PG; Status: F Radiology Order: Abdomen, Flat\E\Upright,PA Chest Test: Abdomen, Flat\E\Upright,PA Chest REASON FOR EXAMINATION: vomiting; Abdominal series: Four views.; ; History: Vomiting.; ; Findings: EKG monitoring electrodes overlie the chest. There are clips in the; right axillary soft tissues. Post thoracotomy changes are noted on the right.; Heart size is borderline. Lung conner are otherwise clear.; ; Supine and cross-table lateral views of the abdomen demonstrate a normal bowel; gas pattern with air and stool in a nondistended colon. There is no evidence of; free air. No evidence of obstruction is seen. The patient is status post L3-4; posterior element fusion with transpedicular screws and rods.; ; Impression:; ; Normal bowel gas pattern. Right-sided ventriculoperitoneal shunt. Post; thoracotomy changes on the right. Status post lumbar spine fusion.; ; ; ; ; Unreviewed; Outcome: 15:11 Decision to Hospitalize by Provider. 16:47 Discharge Assessment: patient administered narcotics - no. The following High Risk rs3 Discharge criteria are identified: None. Admitted to Med/Surg accompanied by tech, family with patient, via stretcher, with chart. Condition: stable. CT Study completed. Property :Personal belongings accompany Pt. 17:16 Patient left the ED. rs3 Signatures: Dispatcher [employer] Cordell Reese MD MD pc Ganter, LoriLee, Chen Davis lg, EXPLOSIVE EXPERT EXPLOSIVE EXPERT [email or web address] Elizabeth Escobar RN RN rs3 Steffanie Avila, EXPLOSIVE EXPERT EXPLOSIVE EXPERT Elissa Curtis RN RN ead Smith, Mallory, RN RN ms18 Wyatt Bolden RN jmk Corrections: (The following items were deleted from the chart) 15:28 14:30 General: Appears in no apparent distress, patient returned from x-ray. denies of rs3 distress/pain/sob. tolerating well. resting comfortable on stretcher. IVF NS bolus infusing. repeat FSBS 342. rs3 15:29 15:24 Pulse 92bpm; Monitor; rs3 rs3 16:27 16:18 BP 167 / 72; Pulse 92bpm; MonitorResp 18bpm; Pulse Ox 98% RA; Temp 100F Temporal; rs3 Pain 0/10; rs3 MTDD
[2016-11-29] MEDS: HumaLOG INSULIN (NovoLOG) PER UNIT SC SCH ×2 (18:11→21:15)
[2016-11-29] MEDS: RIVAROXABAN 20 MG TAB (XARELTO) PO SCH (18:11)
[2016-11-29] MEDS: GABAPENTIN 100 MG CAP PO SCH (21:14)
[2016-11-29] MEDS: ESCITALOPRAM OXALATE 10 MG TAB (LEXAPRO) PO SCH (21:14)
[2016-11-29] MEDS: PRAVASTATIN 20 MG TAB PO SCH (21:14)
[2016-11-29] MEDS: HEPARIN SOD (PORCINE) 5000 UNITS/ML VIAL SC SCH (21:14)
[2016-11-29] MEDS: LEVEMIR (INSULIN DETEMIR) 1 UNITS/0.01ML SC SCH (21:14)
[2016-11-29] MEDS: OMEPRAZOLE 20 MG CAP PO SCH (21:14)
[2016-11-29] MEDS: FLUTICASONE PROP 0.05% NASAL SPRAY 16 GM (FLONASE) SCH (21:15)
[2016-11-29 22:00] VITALS: BP 154/68
[2016-11-30 02:00] VITALS: BP 155/71
[2016-11-30] MEDS: HEPARIN SOD (PORCINE) 5000 UNITS/ML VIAL SC SCH (05:19)
[2016-11-30 06:00] VITALS: BP 150/78
[2016-11-30] MEDS: ADVAIR HFA 230/21 INHALER INH SCH ×2 (08:55→20:27)
[2016-11-30] MEDS: HumaLOG INSULIN (NovoLOG) PER UNIT SC SCH ×4 (08:59→21:02)
[2016-11-30] MEDS ORDERED: PANTOPRAZOLE 40MG TAB (PROTONIX) PO SCH (09:00)
[2016-11-30] MEDS: GABAPENTIN 100 MG CAP PO SCH ×2 (09:01→21:04)
[2016-11-30] MEDS: NEBIVOLOL 5 MG TAB (BYSTOLIC) PO SCH (09:01)
[2016-11-30] MEDS: MAGNESIUM OXIDE 400 MG TAB (MAG-OX) PO SCH (09:01)
[2016-11-30 10:00] VITALS: BP 131/60
[2016-11-30 11:29] LABS: MEAN CORPUSCULAR HEMOGLOBIN 19.3 pg (27.0-33.0); MEAN CORPUSCULAR HGB CONC 28.6 g/dl (32.0-36.5); MEAN CORPUSCULAR VOLUME 67.3 fl (80.0-96.0); RED CELL DISTRIBUTION WIDTH 17.2 % (11.5-14.5); WHITE BLOOD COUNT 12.5 K/mm3 (4.0-10.0)
[2016-11-30 11:57] LABS: ALBUMIN 3.4 GM/DL (3.2-5.2); ALBUMIN/GLOBULIN RATIO 1.1 (1.00-1.93); BILIRUBIN,TOTAL 0.2 MG/DL (0.2-1.0); CALCIUM LEVEL 8.7 MG/DL (8.8-10.2); CREATININE FOR GFR 1.21 MG/DL (0.55-1.02); GLOMERULAR FILTRATION RATE 46.6 (>39); MAGNESIUM LEVEL 2.4 MG/DL (1.8-2.4); TOTAL PROTEIN 6.5 GM/DL (6.4-8.2)
[2016-11-30 14:00] VITALS: BP 147/66
--- NOTE | 2016-11-30 14:04 | IPNPDOC ---
Assessment/Plan Date Seen The patient was seen on 11/30/16. Problems Problems: (1) Uncontrolled diabetes mellitus Status: Acute Problem Text: newly diagnosed diabetes will start insulin teaching start carb consistant diet (2) Atrial fibrillation with rapid ventricular response Onset Date: 05/05/2014 Status: Chronic Response to Treatment: Stable (3) Anemia Status: Acute Plan / VTE VTE Prophylaxis Ordered?: Yes Subjective Review of Systems CC/HPI The patient is a 71-year-old female admitted with a reason for visit of Uncontrolled Dm. Constitutional: Denies: Chills, Fever, Malaise, Night Sweats, Weakness Cardiovascular: Denies: Chest Pain, Lt Headedness, Orthopnea, Palpitations, Paroxysmal Noc. Dyspnea Gastrointestinal: Denies: Abdominal Pain, Diarrhea, Nausea, Vomiting Objective Physical Examination General Exam: Positive: No Acute Distress Eye Exam: Positive: Conjunctiva & lids normal, EOMI, PERRLA, Negative: Sclera icteric Chest Exam: Positive: Clear to auscultation, Normal air movement Heart Exam: Positive: Normal S1, Normal S2, Rate Normal, Regular Rhythm, Negative: Murmurs, Rubs Abdomen Exam: Positive: Normal bowel sounds, Soft, Negative: Hepatospenomegaly, Tenderness Extremity Exam: Positive: Normal pulses, Negative: Clubbing, Cyanosis, Edema Vital Signs/I&O Vital Signs Date Time Temp Pulse Resp B/P Pulse Ox O2 Delivery O2 Flow Rate FiO2 11/30/16 10:00 97.2 90 16 131/60 98 Room Air I&O- Last 24 Hours up to 6 AM 11/30/16 06:00 Intake Total 1260 ml Output Total 100 ml Balance 1160 ml Laboratory Data Labs 24H Laboratory Tests 2 11/29/16 14:03: Bedside Glucose (Misc Panel) 386H 11/29/16 17:15: Osmolality 327H 11/29/16 17:28: Bedside Glucose (Misc Panel) 335H 11/29/16 20:25: Bedside Glucose (Misc Panel) 378H 11/30/16 05:54: 11/30/16 06:40: Bedside Glucose (Misc Panel) 280H 11/30/16 11:17: Blood Urea Nitrogen 26H, Creatinine 1.21H, Sodium Level 142, Potassium Level 4.0 , Chloride Level 110H, Carbon Dioxide Level 23, Calcium Level 8.7L, Aspartate Amino Transf (AST/SGOT) 24, Alanine Aminotransferase (ALT/SGPT) 27, Alkaline Phosphatase 89, Total Bilirubin 0.2, Total Protein 6.5, Albumin 3.4, Albumin/ Globulin Ratio 1.10, Anion Gap 9, Glomerular Filtration Rate 46.6, Magnesium Level 2.4 11/30/16 11:37: Bedside Glucose (Misc Panel) 239H CBC/BMP Laboratory Tests 11/30/16 11:17 Calcium Level 8.7 L, Aspartate Amino Transf (AST/SGOT) 24, Alanine Aminotransferase (ALT/SGPT) 27, Alkaline Phosphatase 89, Total Bilirubin 0.2, Total Protein 6.5, Albumin 3.4, Red Blood Count 4.28, Mean Corpuscular Volume 67.3 L, Mean Corpuscular Hemoglobin 19.3 L, Mean Corpuscular Hemoglobin Concent 28.6 L, Red Cell Distribution Width 17.2 H FSBS Laboratory Tests Test 11/29/16 14:03 11/29/16 17:28 11/29/16 20:25 11/30/16 06:40 Range/Units Bedside Glucose (Misc Panel) 386 335 378 280 83-110 MG/DL Test 11/30/16 11:37 Range/Units Bedside Glucose (Misc Panel) 239 83-110 MG/DL Microbiology Microbiology 11/29/16 Blood Culture, Received Pending 11/29/16 Urine Culture, Received Pending MAISHA GALLEGO DO Nov 30, 2016 14:04
[2016-11-30] MEDS: DOCUSATE SODIUM 100 MG CAP PO PRN (17:33)
[2016-11-30] MEDS: RIVAROXABAN 20 MG TAB (XARELTO) PO SCH (17:33)
[2016-11-30 18:00] VITALS: BP 148/70
[2016-11-30] MEDS: LEVEMIR (INSULIN DETEMIR) 1 UNITS/0.01ML SC SCH (21:03)
[2016-11-30] MEDS: OMEPRAZOLE 20 MG CAP PO SCH (21:04)
[2016-11-30] MEDS: ESCITALOPRAM OXALATE 10 MG TAB (LEXAPRO) PO SCH (21:04)
[2016-11-30] MEDS: FLUTICASONE PROP 0.05% NASAL SPRAY 16 GM (FLONASE) SCH (21:05)
[2016-11-30] MEDS: PRAVASTATIN 20 MG TAB PO SCH (21:05)
[2016-11-30 22:00] VITALS: BP 144/76
[2016-12-01 02:00] VITALS: BP 127/60
[2016-12-01] MEDS: DOCUSATE SODIUM 100 MG CAP PO PRN ×2 (05:49→22:03)
[2016-12-01 06:00] VITALS: BP 141/65
[2016-12-01] MEDS: HumaLOG INSULIN (NovoLOG) PER UNIT SC SCH ×4 (08:03→21:51)
[2016-12-01] MEDS: GABAPENTIN 100 MG CAP PO SCH ×2 (08:04→21:50)
[2016-12-01] MEDS: MAGNESIUM OXIDE 400 MG TAB (MAG-OX) PO SCH (08:04)
[2016-12-01] MEDS: NEBIVOLOL 5 MG TAB (BYSTOLIC) PO SCH (08:04)
[2016-12-01] MEDS: ADVAIR HFA 230/21 INHALER INH SCH (08:43)
[2016-12-01 10:00] VITALS: BP 150/71
[2016-12-01] MEDS ORDERED: INSUHUMDS SC ×2 (10:08)
[2016-12-01] MEDS ORDERED: INSUDET SC (10:08)
[2016-12-01 10:56] LABS: ALBUMIN 3.4 GM/DL (3.2-5.2); ALBUMIN/GLOBULIN RATIO 1.36 (1.00-1.93); BILIRUBIN,TOTAL 0.3 MG/DL (0.2-1.0); CALCIUM LEVEL 8.5 MG/DL (8.8-10.2); CREATININE FOR GFR 1.08 MG/DL (0.55-1.02); GLOMERULAR FILTRATION RATE 53.1 (>39); POTASSIUM SERUM 4.3 MEQ/L (3.5-5.1); TOTAL PROTEIN 5.9 GM/DL (6.4-8.2)
[2016-12-01 11:15] LABS: MEAN CORPUSCULAR HEMOGLOBIN 19.2 pg (27.0-33.0); MEAN CORPUSCULAR HGB CONC 29.1 g/dl (32.0-36.5); MEAN CORPUSCULAR VOLUME 65.9 fl (80.0-96.0); PLATELET COUNT, AUTOMATED 369 k/mm3 (150-450); RED CELL DISTRIBUTION WIDTH 17.2 % (11.5-14.5); WHITE BLOOD COUNT 13.4 K/mm3 (4.0-10.0)
[2016-12-01 11:33] LABS: BANDS 3 % (< 11)
[2016-12-01 11:34] LABS: HYPOCHROMASIA 3+; MICROCYTOSIS 3+
--- NOTE | 2016-12-01 13:40 | IPNPDOC ---
Assessment/Plan Date Seen The patient was seen on 12/01/16. Problems Problems: (1) Uncontrolled diabetes mellitus Status: Acute Problem Text: newly diagnosed diabetes continue start insulin teaching start carb consistant diet (2) Atrial fibrillation with rapid ventricular response Onset Date: 05/05/2014 Status: Chronic Response to Treatment: Stable Problem Text: rate controlled, continue xarelto (3) Anemia Status: Acute Problem Text: * will tranfuse one unit of blood * pt feels fatigued today * pt's was to start iron infusion outpt * that's when her elevated sugar level was discovered (4) BRANDON on CPAP Status: Chronic Response to Treatment: Stable (5) HLD (hyperlipidemia) Status: Chronic Response to Treatment: Stable Plan / VTE VTE Prophylaxis Ordered?: Yes Subjective Review of Systems CC/HPI The patient is a 71-year-old female admitted with a reason for visit of Uncontrolled Dm. Events since last encounter pt seen and examined, feels tired today, continues diabetic teaching, no other event Objective Physical Examination General Exam: Positive: No Acute Distress Eye Exam: Positive: Conjunctiva & lids normal, EOMI, PERRLA, Negative: Sclera icteric Chest Exam: Positive: Clear to auscultation, Normal air movement Heart Exam: Positive: Normal S1, Normal S2, Rate Normal, Regular Rhythm, Negative: Murmurs, Rubs Abdomen Exam: Positive: Normal bowel sounds, Soft, Negative: Hepatospenomegaly, Tenderness Extremity Exam: Positive: Normal pulses, Negative: Clubbing, Cyanosis, Edema Vital Signs/I&O Vital Signs Date Time Temp Pulse Resp B/P Pulse Ox O2 Delivery O2 Flow Rate FiO2 12/01/16 10:00 98.6 86 18 150/71 99 Room Air I&O- Last 24 Hours up to 6 AM 12/01/16 06:00 Intake Total 1360 ml Output Total 1600 ml Balance -240 ml Laboratory Data Labs 24H Laboratory Tests 2 11/30/16 17:19: Bedside Glucose (Misc Panel) 295H 11/30/16 17:25: Bedside Glucose (Misc Panel) 264H 11/30/16 20:20: Bedside Glucose (Misc Panel) 324H 12/01/16 05:44: Bedside Glucose (Misc Panel) 259H 12/01/16 10:11: Blood Urea Nitrogen 24H, Creatinine 1.08H, Sodium Level 141, Potassium Level 4.3 , Chloride Level 109H, Carbon Dioxide Level 20L, Calcium Level 8.5L, Aspartate Amino Transf (AST/SGOT) 25, Alanine Aminotransferase (ALT/SGPT) 35, Alkaline Phosphatase 91, Total Bilirubin 0.3, Total Protein 5.9L, Albumin 3.4, Albumin/ Globulin Ratio 1.36, Anion Gap 12, Glomerular Filtration Rate 53.1 12/01/16 11:05: Atypical Lymphocytes 3, Band Neutrophils 3, White Blood Count 13.4H, Red Blood Count 4.28, Hemoglobin 8.2L, Hematocrit 28.2L, Mean Corpuscular Volume 65.9L, Mean Corpuscular Hemoglobin 19.2L, Mean Corpuscular Hemoglobin Concent 29.1L, Red Cell Distribution Width 17.2H, Platelet Count 369, Neutrophils (%) (Auto) , Lymphocytes (%) (Auto) , Monocytes (%) (Auto) , Eosinophils (%) (Auto) , Basophils (%) (Auto) , Neutrophils # (Auto) , Lymphocytes # (Auto) , Monocytes # (Auto) , Eosinophils # (Auto) , Basophils # (Auto) , Hypochromasia 3+, Large Unclassified Cells # , Large Unclassified Cells % , Lymphocytes (Manual) 4L, Macrocytosis , Metamyelocytes 1H, Microcytosis 3+, Monocytes (Manual) 6, Neutrophils 83H, Platelet Estimate NORMAL 12/01/16 11:45: [facility] CBC/BMP Laboratory Tests 12/01/16 10:11 Calcium Level 8.5 L, Aspartate Amino Transf (AST/SGOT) 25, Alanine Aminotransferase (ALT/SGPT) 35, Alkaline Phosphatase 91, Total Bilirubin 0.3, Total Protein 5.9 L, Albumin 3.4 12/01/16 11:05 Red Blood Count 4.28, Mean Corpuscular Volume 65.9 L, Mean Corpuscular Hemoglobin 19.2 L, Mean Corpuscular Hemoglobin Concent 29.1 L, Red Cell Distribution Width 17.2 H, Neutrophils (%) (Auto) , Lymphocytes (%) (Auto) , Monocytes (%) (Auto) , Eosinophils (%) (Auto) , Basophils (%) (Auto) , Neutrophils # (Auto) , Lymphocytes # (Auto) , Monocytes # (Auto) , Eosinophils # (Auto) , Basophils # (Auto) FSBS Laboratory Tests Test 11/30/16 17:19 11/30/16 17:25 11/30/16 20:20 12/01/16 05:44 Range/Units Bedside Glucose (Misc Panel) 295 264 324 259 83-110 MG/DL Test 12/01/16 11:45 Range/Units Bedside Glucose (Misc Panel) 231 83-110 MG/DL Microbiology Microbiology 11/29/16 Blood Culture - Preliminary, Resulted No growth after 24 hours . All specim... 11/29/16 Urine Culture - Final, Complete MAISHA GALLEGO DO Dec 01, 2016 13:40
[2016-12-01 14:00] VITALS: BP 150/67
[2016-12-01 18:00] VITALS: BP 140/70
[2016-12-01] MEDS: RIVAROXABAN 20 MG TAB (XARELTO) PO SCH (18:04)
--- NOTE | 2016-12-01 18:16 | EDDOCDS ---
Physician Documentation [facility] Name: Nhi Ramirez Age: 71 yrs Sex: Female : 1945 Arrival Date: 11/29/2016 Time: 10:28 Bed 15 Private MD: Nu Johns F. Disposition: 11/29 15:07 Critical Care: Critical care not applicable. pc Disposition: 11/29/16 15:11 Hospitalization ordered by Shayla Ruiz for Inpatient Admission. Preliminary diagnosis are Dehydration, Acute kidney failure, Type 2 diabetes mellitus with hyperglycemia. - Bed requested for 4 Sullivan. - Status is Inpatient Admission. rs3 - Condition is Stable. - Problem is new. - Symptoms have improved. HPI: 11:18 This 71 yrs old Female presents to ER via Walkin/Carried/Asstd with pc complaints of Abnormal Lab Results. 11:18 The history is obtained from the patient. pc 13:23 She was seen at Hematology today, having been referred for ongoing iron deficiency pc anemia. She arrived today, had complained of vomiting twice this morning, was clinically dehydrated and had a FSBS of 500+. She was sent here for evaluation. She complains of excessive thirst but feeling dehydrated. She denies any fevers or chills, Resp or GI symptoms. The patient has not experienced similar symptoms in the past. The patient has been recently seen by their primary care provider, for a routine, regularly scheduled appointment. Review of her EMR shows that she has had impaired glucose tolerance for 6-7 years. She also has had iron deficiency since 2007, that was treated briefly with iron replacement but was stopped and has had persistent low iron levels since. Historical: - Allergies: Doxycycline; Lidocaine; Novocain; - Home Meds: 1. spironolactone 25 mg Oral tab 1 tab once daily 2. torsemide 20 mg oral tab 1 tab twice a day 20mg in the morning and 10mg at 1600 3. magnesium oxide 400 mg Oral cap 400 mg daily 4. Bystolic 2.5 mg oral tab 1 tabs once daily 5. Xarelto 20 mg oral tab 1 tab once daily 6. pravastatin 40 mg oral tab 1 tab once daily 7. omeprazole 20 mg Oral cpDR 1 cap once daily 8. Advair Diskus 230/15 Inhl dsdv 1 puff 2 times per day 9. escitalopram oxalate 10 mg oral tab 1 tab nightly 10. albuterol sulfate 90 mcg/actuation Inhl HFAA 1 puff every 4-6 hours 11. fluticasone 50 mcg/actuation nasal spsn 1 spray 2 times per day 12. Drisdol 50,000 unit Oral cap 1 cap once wkly 13. Refresh Tears 0.5 % ophthalmic drop twice a day 14. lutein-zeaxanthin 25-5 mg oral cap daily 15. CoQ-10 100 mg oral cap 2 tab daily 16. Citracal with Vitamin D Maximum oral 600mg/1000mg oral daily 17. Brohard-3 oral oral 1000 mg daily 18. tramadol 50 mg Oral tab 1 tab every 4 hours 19. baclofen 10 mg Oral tab 2 tabs nightly 20. gabapentin 200mg Oral cap twice a day 21. Cardizem 240 mg Oral tab 1 tab daily 22. Soma 350 mg Oral tab nightly as needed - PMHx: Asthma; Atrial Fib; hydrocephalis; Hypertension; lung CA; Pulmonary Hypertension; Irono Deficiency Anemia; - PSHx: right knee; Hysterectomy; Appendectomy; Mastectomy; Lobectomy; GOLF [employer] Shunt Placement; Spinal Fusion; - The history from nurses notes was reviewed: and elements of the historical information I have obtained differs from that reported to nursing. - Social history: Smoking status: Patient states former smoker of tobacco. No barriers to communication noted, The patient speaks fluent Latvian. - : The pt / caregiver states he / she is on anticoagulants: Xarelto Home medication list is obtained from the patient. - Hospitalizations: : No recent hospitalization is reported. - Exposure Risk Screening:: None identified. - Immunization history:: All immunizations up-to-date. - Family history: Not pertinent. - Social history:: the patient is a former smoker, the patient drinks alcohol, socially. ROS: 13:29 All systems are negative except as listed. pc Exam: 13:29 General Appearance: alert, the patient is in mild distress. pc 13:29 EENT: ears, nose and throat normal, pale conjunctiva, mucous membranes dry. 13:29 Neck: The exam reveals no acute abnormalities. ROM is normal and painless. No nuchal rigidity is noted.. 13:29 Respiratory: no respiratory distress, normal breath sounds. 13:29 CVS: regular pulse rate, regular rhythm, normal S1 and S2, no murmurs, strong peripheral pulses. 13:29 Abdomen: soft, non-tender, no organomegaly, normal bowel sounds. 13:29 Back: normal inspection. 13:29 Skin: skin color is normal, warm, dry, the skin turgor is poor. 13:29 Extremities: The extremities have a grossly normal appearance, are non-tender, without acute ROM abnormalities. 13:29 Neuro: oriented x 3, cranial nerves normal as tested, no motor deficits, no sensory deficits. 13:29 Psych: normal mood. Vital Signs: 10:31 BP 181 / 70; Pulse 91; Resp 24; Temp 98.9; Pulse Ox 100% ; Weight 81.65 kg / 180.01 elp lbs; Height 5 ft. 2 in. (157.48 cm); Pain 0/10; 11:25 Pulse 90 MON; Pulse Ox 100% ; rs3 11:47 Pulse 84 MON; Pulse Ox 99% ; rs3 11:51 BP 166 / 82 (auto/); rs3 11:51 Pulse 84 MON; Pulse Ox 97% ; rs3 12:51 BP 177 / 76 (auto/); rs3 12:52 Pulse 90 MON; Pulse Ox 100% ; rs3 13:06 BP 176 / 76 (auto/); rs3 13:07 Pulse 88 MON; Pulse Ox 98% ; rs3 13:21 BP 169 / 78 (auto/); rs3 13:22 Pulse 88 MON; Pulse Ox 99% ; rs3 15:24 Pulse 92 MON; Resp 18; rs3 16:03 BP 187 / 79 (auto/); rs3 16:04 Pulse 90 MON; Pulse Ox 98% ; rs3 16:18 BP 167 / 72 (auto/); rs3 16:27 BP 167 / 72; Pulse 92 MON; Resp 18; Temp 100(TE); Pulse Ox 98% on R/A; Pain 0/10; rs3 16:34 Pulse 92 MON; Pulse Ox 99% ; rs3 10:31 Body Mass Index 32.92 (81.65 kg, 157.48 cm) elp MDM: 11:18 IV Saline Lock ordered. pc 11:19 Venous Blood Gas (large pea green tube on ice) Ordered. EDMS 11:19 CBC with Diff Ordered. EDMS 11:19 MED Profile Ordered. EDMS 11:19 Magnesium Level Ordered. EDMS 11:19 Urinalysis Ordered. EDMS 11:19 Pt & Aptt Ordered. EDMS 11:30 Financial registration complete. lg 11:54 [facility] Payment Agreement was scanned into [employer] and attached to record. lg 12:29 Venous Blood Gas (large pea green tube on ice) Reviewed. pc 12:29 CBC with Diff Reviewed. pc 12:29 Urinalysis Reviewed. pc 12:29 Pt & Aptt Reviewed. pc 12:51 MED Profile Reviewed. pc 12:51 Magnesium Level Reviewed. pc 12:51 RBC MORPH PROF NO CHARGE Reviewed. pc 12:52 NS 0.9% 1000 ml IV at bolus once ordered. pc 12:52 Insulin Regular Human 5 units IVP once ordered. pc 12:53 A1C Ordered. EDMS 12:53 Abdomen, Flat\E\Upright,PA Chest Ordered. EDMS 13:29 Differential Diagnosis: dehydration; new onset DM; chronic iron deficiency. Plan: labs, pc IVF. 14:16 Fingerstick Blood Sugar Reviewed. pc 14:16 Abdomen, Flat\E\Upright,PA Chest Reviewed. pc 14:32 A1C Reviewed. pc 14:56 NS 0.9% 1000 ml IV at 100 mL/hr continuous ordered. pc 14:57 BED REQUEST+ADM ordered. EDMS 15:06 Data reviewed: old medical records, vital signs, nurses notes, lab test results, all pc radiology studies and available results. 15:07 Test interpretation: LAB - all labs as ordered have been reviewed, interpreted and pc considered in the overall management of the clinical presentation; X-RAY - interpreted by Radiologist and personally reviewed, 3-view abdomen series; no acute disease. The patient has been re-examined and re-evaluated. The patient's symptoms have markedly improved after treatment. Physician consultation: Dr. Garrison Fox regarding patient's condition, and he requests she be admitted . 15:07 Physician consultation: Dr. Shayla Ruiz was contacted at 15:07, regarding admission, pc and will see patient in ED, shortly. Disposition: The historical points, examination findings, and any diagnostic results supporting the provided diagnosis, were discussed with the patient or legal guardian. The need for further work-up and/or treatment in the hospital was explained. 15:59 Admission / Observation Status ordered. EDMS 15:59 ELECTROCARDIOGRAM ADULT ordered. EDMS 15:59 CONSISTENT CARBOHYDRATES ordered. EDMS 16:00 ANTI-GLIADIN ANTIBODY Ordered. EDMS 16:00 TISSUE TRANSGLUTAMINASE IgA Ordered. EDMS 16:00 TISSUE TRANSGLUTAMINASE IgG Ordered. EDMS 16:00 ENDOMYSIAL IgA ANTIBODIES Ordered. EDMS 16:00 CREATININE,RANDOM URINE Ordered. EDMS 16:00 SODIUM,RANDOM URINE Ordered. EDMS 16:01 OSMOLALITY, SERUM Ordered. EDMS 16:01 OSMOLALITY,URINE Ordered. EDMS 16:01 URINE CULTURE Ordered. EDMS 16:01 BLOOD CULTURES Ordered. EDMS 16:23 RETICULOCYTE COUNT Ordered. EDMS Administered Medications: 13:12 Drug: NS 0.9% 1000 ml [sodium chloride 0.9 % intravenous solution] Route: IV; Rate: rs3 bolus; Site: left antecubital; 15:21 Follow up: IV Status: Completed infusion rs3 13:13 Drug: Insulin Regular Human 5 units [insulin regular human 100 unit/mL injection rs3 solution (0.05 mL)] {Co-Signature: marialuisa (Wyatt Bolden RN).} Route: IVP; Site: left antecubital; 15:21 Drug: NS 0.9% 1000 ml [sodium chloride 0.9 % intravenous solution] Route: IV; Rate: 100 rs3 mL/hr; Site: left antecubital; Signatures: Dispatcher [employer] EDKS Cordell Escamilal MD MD pc Daly, Linda, Slurry Worker Unit lbd Scott Garcia, Clark Reg lg Elizabeth Escobar RN RN rs3 Elissa Hopper RN RN ead Smith, Mallory, RN RN [id number] Wyatt elam The chart was reviewed and I authenticate all verbal orders and agree with the evaluation and treatment provided.Corrections: (The following items were deleted from the chart) 16:25 16:00 RETICULOCYTE COUNT ordered. EDMS EDMS Attachments: 11:54 [facility] Payment Agreement lg Chart Complete MTDD
--- NOTE | 2016-12-01 18:16 | EDDOCDS ---
Nurse's Notes [facility] Name: Nhi Ramirez Age: 71 yrs Sex: Female : 1945 Arrival Date: 11/29/2016 Time: 10:28 Bed 15 Private MD: Nu Johns F. Diagnosis: Dehydration;Acute kidney failure;Type 2 diabetes mellitus with hyperglycemia Presentation: 11/29 10:35 Presenting complaint: pt's cousin states that the pt is SOB, vomited a few times, her ms18 BGL is 590, and her white blood cell count is 19.8. Adult Sepsis Screening: The patient does not have new or worsening altered mentation. Patient's respiratory rate is less than 22. Systolic blood pressure is greater than 100. Patient has a qSOFA score of 0- Negative Sepsis Screen. Suicide/Homicide risk assessment- the patient denies having any suicidal and/or homicidal ideations and does not present with any other emotional, behavioral or mental health complaints. 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 Transition of care: patient was received from a primary care office; Dr. Garrison Fox's office. 10:35 Acuity: AICHA Level 3 ms18 10:35 Method Of Arrival: Walkin/Carried/Asstd ms18 Triage Assessment: 10:47 General: Appears in no apparent distress, ill, uncomfortable, Behavior is appropriate ms18 for age, cooperative. Pain: Denies pain. Neurological: Level of Consciousness is awake, alert, obeys commands. Respiratory: Airway is patent Respiratory effort is even, unlabored. Derm: Skin is pink, warm & dry. Historical: - Allergies: Doxycycline; Lidocaine; Novocain; - Home Meds: 1. spironolactone 25 mg Oral tab 1 tab once daily 2. torsemide 20 mg oral tab 1 tab twice a day 20mg in the morning and 10mg at 1600 3. magnesium oxide 400 mg Oral cap 400 mg daily 4. Bystolic 2.5 mg oral tab 1 tabs once daily 5. Xarelto 20 mg oral tab 1 tab once daily 6. pravastatin 40 mg oral tab 1 tab once daily 7. omeprazole 20 mg Oral cpDR 1 cap once daily 8. Advair Diskus 230/15 Inhl dsdv 1 puff 2 times per day 9. escitalopram oxalate 10 mg oral tab 1 tab nightly 10. albuterol sulfate 90 mcg/actuation Inhl HFAA 1 puff every 4-6 hours 11. fluticasone 50 mcg/actuation nasal spsn 1 spray 2 times per day 12. Drisdol 50,000 unit Oral cap 1 cap once wkly 13. Refresh Tears 0.5 % ophthalmic drop twice a day 14. lutein-zeaxanthin 25-5 mg oral cap daily 15. CoQ-10 100 mg oral cap 2 tab daily 16. Citracal with Vitamin D Maximum oral 600mg/1000mg oral daily 17. [place]-3 oral oral 1000 mg daily 18. tramadol 50 mg Oral tab 1 tab every 4 hours 19. baclofen 10 mg Oral tab 2 tabs nightly 20. gabapentin 200mg Oral cap twice a day 21. Cardizem 240 mg Oral tab 1 tab daily 22. 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 - Social history: Smoking status: Patient states former smoker of tobacco. No barriers to communication noted, The patient speaks fluent Turkish. - : The pt / caregiver states he / she is on anticoagulants: Xarelto Home medication list is obtained from the patient. - Hospitalizations: : No recent hospitalization is reported. - Exposure Risk Screening:: None identified. - Immunization history:: All immunizations up-to-date. - Family history: Not pertinent. - Social history:: the patient is a former smoker, the patient drinks alcohol, socially. Screenin:47 Screening information is obtained from the patient. Fall risk: No risks identified. rs3 Assistance ADL's: requires no assistance with activities of daily living. Abuse/DV Screen: The patient / caregiver reports he/she is: not in a situation that causes fear, pain or injury. Nutritional screening: No deficits noted. home support is adequate. Assessment: 11:47 General: Appears in no apparent distress, Behavior is appropriate for age, cooperative. rs3 Pain: Denies pain. Neurological: Level of Consciousness is awake, alert, Oriented to person, place, time. EENT: Oral mucosa is dry. cobblestone tongue dry and parched. gingival hyperplasia noted. Cardiovascular: Capillary refill < 3 seconds Heart tones S1 S2 present Rhythm is regular Chest pain is denied. Respiratory: Airway is patent Respiratory effort is even, unlabored, Breath sounds are clear bilaterally. Reports shortness of breath on exertion. Derm: Skin is pink, warm & dry. 12:45 General: Appears in no apparent distress, Denies of pain/distress. resting comfortable rs3 at rest. patient used bedside commode. tolerated well. family at bedside. . 13:27 General: Appears in no apparent distress, Behavior is appropriate for age, IVF NS bolus rs3 infusing. Tolerating well. regular insulin 5 units IVP given. 14:30 General: Appears in no apparent distress, patient returned from x-ray. denies of rs3 distress/pain/sob. tolerating well. resting comfortable on stretcher. IVF NS bolus infusing. repeat FSBS 386. 15:28 General: Appears in no apparent distress, admitting provider with patient. denies of rs3 distress. Mary raman given. consistent carb diet ordered. family at bedside. IVF NS infusing at 100cc/hr. 16:32 General: Appears in no apparent distress, Behavior is appropriate for age, cooperative, rs3 patient resting comfortable. denies of pain/distress. waiting for admission room availability . family at bedside. breathes easy. Vital Signs: 10:31 BP 181 / 70; Pulse 91; Resp 24; Temp 98.9; Pulse Ox 100% ; Weight 81.65 kg; Height 5 elp ft. 2 in. (157.48 cm); Pain 0/10; 11:25 Pulse 90 MON; Pulse Ox 100% ; rs3 11:47 Pulse 84 MON; Pulse Ox 99% ; rs3 11:51 BP 166 / 82 (auto/); rs3 11:51 Pulse 84 MON; Pulse Ox 97% ; rs3 12:51 BP 177 / 76 (auto/); rs3 12:52 Pulse 90 MON; Pulse Ox 100% ; rs3 13:06 BP 176 / 76 (auto/); rs3 13:07 Pulse 88 MON; Pulse Ox 98% ; rs3 13:21 BP 169 / 78 (auto/); rs3 13:22 Pulse 88 MON; Pulse Ox 99% ; rs3 15:24 Pulse 92 MON; Resp 18; rs3 16:03 BP 187 / 79 (auto/); rs3 16:04 Pulse 90 MON; Pulse Ox 98% ; rs3 16:18 BP 167 / 72 (auto/); rs3 16:27 BP 167 / 72; Pulse 92 MON; Resp 18; Temp 100(TE); Pulse Ox 98% on R/A; Pain 0/10; rs3 16:34 Pulse 92 MON; Pulse Ox 99% ; rs3 10:31 Body Mass Index 32.92 (81.65 kg, 157.48 cm) elp Vitals: 10:31 Log In Time: November 29, 2016 at 10:29. elp ED Course: 10:31 Patient visited by Steffanie Avila PCA. elp 10:31 [place] is Private Physician. elp 10:31 Patient moved to Waiting elp 10:32 Patient visited by Steffanie Avila PCA. elp 10:34 Patient moved to Pre RCE elp 10:37 Triage Initiated ms18 10:44 Patient moved to 15 jb5 10:52 Cordell Escamilla MD is Attending Physician. pc 11:07 Patient visited by Cordell Escamilla MD. pc 11:46 Elizabeth Escobar RN is Primary Nurse. rs3 11:47 Patient visited by Elizabeth Escobar RN. rs3 11:47 Venous Blood Gas (large pea green tube on ice) Sent. rs3 11:47 Pt & Aptt Sent. rs3 11:47 Magnesium Level Sent. rs3 11:47 MED Profile Sent. rs3 11:47 CBC with Diff Sent. rs3 11:47 Inserted saline lock: 20 gauge in left antecubital area and blood collected. rs3 11:54 [facility] Payment Agreement was scanned into Exposed Vocals and attached to record. lg 12:39 Notified attending ED physician of Critical lab value. this nurse notified by lab of ead blood glucose of 574. Je Escamilla notified. . 12:51 Patient visited by Cordell Escamilla MD. pc 13:25 Patient visited by Elizabeth Escobar,WYATT. rs3 14:01 Patient visited by Elizabeth Escobar RN. rs3 14:04 Abdomen, Flat\E\Upright,PA Chest Returned. EDMS 14:50 Patient visited by Elizabeth Escobar RN. rs3 15:10 Shayla Ruiz is Hospitalizing Provider. pc 16:48 The patient / caregiver is instructed regarding the plan of care and ED course. rs3 16:48 No procedures done that require assistance. rs3 Administered Medications: 13:12 Drug: NS 0.9% 1000 ml [sodium chloride 0.9 % intravenous solution] Route: IV; Rate: rs3 bolus; Site: left antecubital; 15:21 Follow up: IV Status: Completed infusion rs3 13:13 Drug: Insulin Regular Human 5 units [insulin regular human 100 unit/mL injection rs3 solution (0.05 mL)] {Co-Signature: marialuisa (Wyatt Bolden RN).} Route: IVP; Site: left antecubital; 15:21 Drug: NS 0.9% 1000 ml [sodium chloride 0.9 % intravenous solution] Route: IV; Rate: 100 rs3 mL/hr; Site: left antecubital; Order Results: Lab Order: Venous Blood Gas (large pea green tube on ice); SPEC'M 11/29/16 11:41 Test: VENOUS PH; Value: 7.364; Range: 7.330-7.430; Units: UNITS; Status: F Test: VENOUS PARTIAL PRESSURE CO2; Value: 37.7; Range: 38.0-50.0; Abnormal: Below low normal; Units: mmHg; Status: F Test: VENOUS PARTIAL PRESSURE O2; Value: 43.3; Range: 30.0-50.0; Units: mmHg; Status: F Test: VENOUS TOTAL CO2; Value: 22.2; Range: 24.0-28.0; Abnormal: Below low normal; Units: MEQ/L; Status: F Test: VENOUS HCO3; Value: 21.0; Range: 23.0-27.0; Abnormal: Below low normal; Units: MEQ/L; Status: F Test: VENOUS BASE EXCESS; Value: -3.9; Range: -2.0-2.0; Abnormal: Below low normal; Status: F Test: VENOUS STANDARD HCO3; Value: 20.8; Units: MEQ/L; Status: F Test: VENOUS O2 SATURATION; Value: 73.7; Range: 60.0-80.0; Units: %; Status: F Lab Order: CBC with Diff; SPEC'M 11/29/16 11:41 Test: WHITE BLOOD COUNT; Value: 15.9; Range: 4.0-10.0; Abnormal: Above high normal; Units: K/mm3; Status: F Test: RED BLOOD COUNT; Value: 5.01; Range: 4.00-5.40; Units: M/mm3; Status: F Test: HEMOGLOBIN; Value: 9.6; Range: 12.0-16.0; Abnormal: Below low normal; Units: g/dl; Status: F Test: HEMATOCRIT; Value: 34.0; Range: 36.0-47.0; Abnormal: Below low normal; Units: %; Status: F Test: MEAN CORPUSCULAR VOLUME; Value: 68.0; Range: 80.0-96.0; Abnormal: Below low normal; Units: fl; Status: F Test: MEAN CORPUSCULAR HEMOGLOBIN; Value: 19.2; Range: 27.0-33.0; Abnormal: Below low normal; Units: pg; Status: F Test: MEAN CORPUSCULAR HGB CONC; Value: 28.3; Range: 32.0-36.5; Abnormal: Below low normal; Units: g/dl; Status: F Test: RED CELL DISTRIBUTION WIDTH; Value: 16.6; Range: 11.5-14.5; Abnormal: Above high normal; Units: %; Status: F Test: PLATELET COUNT, AUTOMATED; Value: 547; Range: 150-450; Abnormal: Above high normal; Units: k/mm3; Status: F Test: NEUTROPHILS %; Value: 86.2; Range: 36.0-66.0; Abnormal: Above high normal; Units: %; Status: F Test: LYMPH %; Value: 7.5; Range: 24.0-44.0; Abnormal: Below low normal; Units: %; Status: F Test: MONO %; Value: 4.7; Range: 0.0-5.0; Units: %; Status: F Test: EOS %; Value: 0.1; Range: 0.0-3.0; Units: %; Status: F Test: BASO %; Value: 0.1; Range: 0.0-1.0; Units: %; Status: F Test: LARGE UNSTAINED CELL %; Value: 1.4; Range: 0.0-4.0; Units: %; Status: F Test: NEUTROPHILS #; Value: 13.7; Range: 1.8-7.7; Abnormal: Above high normal; Units: K/mm3; Status: F Test: LYMPH #; Value: 1.2; Range: 1.5-4.5; Abnormal: Below low normal; Units: K/mm3; Status: F Test: MONO #; Value: 0.7; Range: 0.0-0.8; Units: K/mm3; Status: F Test: EOS #; Value: 0.0; Range: 0.0-0.50; Units: K/mm3; Status: F Test: BASO #; Value: 0.0; Range: 0.0-0.2; Units: K/mm3; Status: F Test: LARGE UNSTAINED CELL #; Value: 0.2; Range: 0.0-0.4; Units: K/mm3; Status: F Lab Order: [facility] Profile; [facility] 11/29/16 11:41 Test: GLUCOSE, FASTING; Value: 574; Range: 83-110; Abnormal: Above upper panic limits; Units: MG/DL; Status: F Test: BLOOD UREA NITROGEN; Value: 34; Range: 7-18; Abnormal: Above high normal; Units: MG/DL; Status: F Test: CREATININE FOR GFR; Value: 1.72; Range: 0.55-1.02; Abnormal: Above high normal; Units: MG/DL; Status: F Test: GLOMERULAR FILTRATION RATE; Value: 31.0; Range: >39; Abnormal: Below low normal; Status: F Test: SODIUM LEVEL; Value: 142; Range: 136-145; Units: MEQ/L; Status: F Test: POTASSIUM SERUM; Value: 4.4; Range: 3.5-5.1; Units: MEQ/L; Status: F Test: CHLORIDE LEVEL; Value: 103; Range: 98-107; Units: MEQ/L; Status: F Test: CARBON DIOXIDE LEVEL; Value: 25; Range: 21-32; Units: MEQ/L; Status: F Test: ANION GAP; Value: 14; Range: 8-16; Units: MEQ/L; Status: F Test: CALCIUM LEVEL; Value: 9.9; Range: 8.8-10.2; Units: MG/DL; Status: F Test Note: ; Units are mL/min/1.73 m2 Chronic Kidney Disease Staging per NKF: Stage I & II GFR >=60 Normal to Mildly Decreased Stage III GFR 30-59 Moderately Decreased Stage IV GFR 15-29 Severely Decreased Stage V GFR <15 Very Little GFR Left ESRD GFR <15 on DAY GUARD Lab Order: Magnesium Level; SPEC'M 11/29/16 11:41 Test: MAGNESIUM LEVEL; Value: 3.0; Range: 1.8-2.4; Abnormal: Above high normal; Units: MG/DL; Status: F Lab Order: Urinalysis; SPEC'M 11/29/16 11:16 Test: APPEARANCE, URINE; Value: CLEAR; Range: CLEAR; Status: F Test: COLOR, URINE; Value: STRAW; Range: YELLOW; Status: F Test: PH,URINE; Value: 5.0; Range: 5.0-9.0; Units: UNITS; Status: F Test: SPECIFIC GRAVITY URINE AUTO; Value: 1.026; Range: 1.002-1.035; Status: F Test: PROTEIN, URINE AUTO; Value: NEGATIVE; Range: NEGATIVE; Units: mg/dL; Status: F Test: GLUCOSE, URINE (UA) AUTO; Value: 3+; Range: NEGATIVE; Abnormal: Above high normal; Units: mg/dL; Status: F Test: KETONE, URINE AUTO; Value: TRACE; Range: NEGATIVE; Abnormal: Above high normal; Units: mg/dL; Status: F Test: UROBILINOGEN, URINE AUTO; Value: 0.2; Range: 0.0-2.0; Units: mg/dL; Status: F Test: BILIRUBIN, URINE AUTO; Value: NEGATIVE; Range: NEGATIVE; Status: F Test: NITRITE, URINE AUTO; Value: NEGATIVE; Range: NEGATIVE; Status: F Test: LEUKOCYTE ESTERASE, URINE AUTO; Value: NEGATIVE; Range: NEGATIVE; Status: F Test: BLOOD, URINE BLOOD; Value: NEGATIVE; Range: NEGATIVE; Status: F Test: WBC, URINE AUTO; Value: 2; Range: 0-3; Units: /HPF; Status: F Test: RBC, URINE AUTO; Value: 4; Range: 0-3; Abnormal: Above high normal; Units: /HPF; Status: F Test: BACTERIA, URINE AUTO; Value: NEGATIVE; Range: NEGATIVE; Status: F Test: SQUAMOUS EPITHELIAL CELL UR AU; Value: 0; Range: 0-6; Units: /HPF; Status: F Test: HYALINE CAST, URINE AUTO; Value: 0; Range: 0-1; Units: /LPF; Status: F Lab Order: Pt & Aptt; [facility] 11/29/16 11:41 Test: PROTHROMBIN TIME; Value: 19.0; Range: 12.3-14.5; Abnormal: Above high normal; Units: SECONDS; Status: F Test: INR; Value: 1.58; Status: F Test: PARTIAL THROMBOPLASTIN TIME; Value: 24.7; Range: 26.6-37.1; Abnormal: Below low normal; Units: SECONDS; Status: F Test Note: ; THERAPUTIC HUMAN INR VALUES INDICATIONS NORMAL RANGES PROPHYLAXIS/TREATMENT OF: VENOUS THROMBOSIS 2.0-3.0 PULMONARY EMBOLISM 2.0-3.0 PREVENTION OF SYSTEMIC EMBOLISM FROM: TISSUE HEART VALVES 2.0-3.0 ACUTE MYOCARDIAL INFARCTION 2.0-3.0 VALVULAR HEART DISEASE 2.0-3.0 ATRIAL FIBRILLATION 2.0-3.0 MECHANICAL VALVES(HIGH RISK) 2.5-3.5 RECURRENT MYOCARDIAL INFARCTION 2.5-3.5 Lab Order: RBC MORPH PROF NO CHARGE; [facility] 11/29/16 11:41 Test: PLATELET ESTIMATE; Range: NORMAL; Status: I Test: HYPOCHROMASIA; Value: 2+; Status: F Test: POIKILOCYTOSIS; Value: 1+; Status: F Test: ANISOCYTOSIS; Value: 2+; Status: F Test: MICROCYTOSIS; Value: 2+; Status: F Test: PLATELET ESTIMATE; Value: INCREASED; Range: NORMAL; Status: F Lab Order: A1C; [facility] 11/29/16 00:00 Test: HEMOGLOBIN A1c; Value: 11.0; Range: 4.5-6.2; Abnormal: Above high normal; Units: %; Status: F Test: ESTIMATED AVERAGE GLUCOSE; Value: 269; Range: 60-110; Abnormal: Above high normal; Units: MG/DL; Status: F Lab Order: Fingerstick Blood Sugar; [facility] 11/29/16 14:03 Test: BEDSIDE GLUCOSE; Value: 386; Range: 83-110; Abnormal: Above high normal; Units: MG/DL; Status: F Lab Order: RETICULOCYTE COUNT; SPEC'M 11/29/16 11:41 Test: RETICULOCYTE % [id number]; Value: 2.20; Range: 0.5-1.5; Abnormal: Above high normal; Units: %; Status: F Test: RETICULOCYTE ABSOLUTE [id number]; Value: 105; Range: 17-77; Abnormal: Above high normal; Units: x10(9)/L; Status: F Test: RETIC HEMOGLOBIN CONTENT CHr; Value: 21.4; Range: 24-36; Abnormal: Below low normal; Units: PG; Status: F Radiology Order: Abdomen, Flat\E\Upright,PA Chest Test: Abdomen, Flat\E\Upright,PA Chest REASON FOR EXAMINATION: vomiting; Abdominal series: Four views.; ; History: Vomiting.; ; Findings: EKG monitoring electrodes overlie the chest. There are clips in the; right axillary soft tissues. Post thoracotomy changes are noted on the right.; Heart size is borderline. Lung conner are otherwise clear.; ; Supine and cross-table lateral views of the abdomen demonstrate a normal bowel; gas pattern with air and stool in a nondistended colon. There is no evidence of; free air. No evidence of obstruction is seen. The patient is status post L3-4; posterior element fusion with transpedicular screws and rods.; ; Impression:; ; Normal bowel gas pattern. Right-sided ventriculoperitoneal shunt. Post; thoracotomy changes on the right. Status post lumbar spine fusion.; ; ; ; ; Unreviewed; Outcome: 15:11 Decision to Hospitalize by Provider. 16:47 Discharge Assessment: patient administered narcotics - no. The following High Risk rs3 Discharge criteria are identified: None. Admitted to Med/Surg accompanied by tech, family with patient, via stretcher, with chart. Condition: stable. CT Study completed. Property :Personal belongings accompany Pt. 17:16 Patient left the ED. rs3 Signatures: Dispatcher [employer] Cordell Reese MD MD pc Ganter, LoriLee, Chen Davis lg, SALES ESTIMATOR SALES ESTIMATOR [email or web address] Elizabeth Escobar RN RN rs3 Steffanie Avila, SALES ESTIMATOR SALES ESTIMATOR Elissa Curtis RN RN ead Smith, Mallory, RN RN ms18 Wyatt Bolden RN jmk Corrections: (The following items were deleted from the chart) 15:28 14:30 General: Appears in no apparent distress, patient returned from x-ray. denies of rs3 distress/pain/sob. tolerating well. resting comfortable on stretcher. IVF NS bolus infusing. repeat FSBS 342. rs3 15:29 15:24 Pulse 92bpm; Monitor; rs3 rs3 16:27 16:18 BP 167 / 72; Pulse 92bpm; MonitorResp 18bpm; Pulse Ox 98% RA; Temp 100F Temporal; rs3 Pain 0/10; rs3 Chart Complete MTDD
[2016-12-01] MEDS: OMEPRAZOLE 20 MG CAP PO SCH (21:50)
[2016-12-01] MEDS: ESCITALOPRAM OXALATE 10 MG TAB (LEXAPRO) PO SCH (21:50)
[2016-12-01] MEDS: PRAVASTATIN 20 MG TAB PO SCH (21:50)
[2016-12-01] MEDS: LEVEMIR (INSULIN DETEMIR) 1 UNITS/0.01ML SC SCH (21:51)
[2016-12-01] MEDS: FLUTICASONE PROP 0.05% NASAL SPRAY 16 GM (FLONASE) SCH (21:51)
[2016-12-01 22:00] VITALS: BP 137/65
[2016-12-01] MEDS ORDERED: SENNA 8.6 MG TAB (SENOKOT) PO PRN (22:45)
[2016-12-01] MEDS ORDERED: MIRALAX *UNIT DOSE* 17GM PACKET PO ONE (22:45)
[2016-12-02 02:00] VITALS: BP 136/65
[2016-12-02 06:00] VITALS: BP 130/66
[2016-12-02] MEDS: GABAPENTIN 100 MG CAP PO SCH (08:05)
[2016-12-02] MEDS: NEBIVOLOL 5 MG TAB (BYSTOLIC) PO SCH (08:05)
[2016-12-02] MEDS: HumaLOG INSULIN (NovoLOG) PER UNIT SC SCH ×2 (08:06→12:08)
[2016-12-02] MEDS: MAGNESIUM OXIDE 400 MG TAB (MAG-OX) PO SCH (08:06)
[2016-12-02 08:07] VITALS: BP 166/79
[2016-12-02] MEDS: ADVAIR HFA 230/21 INHALER INH SCH ×2 (08:53→09:00)
[2016-12-02 10:34] LABS: BASO % 0.2 % (0.0-1.0); EOS # 0.1 K/mm3 (0.0-0.50); EOS % 0.5 % (0.0-3.0); LARGE UNSTAINED CELL # 0.2 K/mm3 (0.0-0.4); LARGE UNSTAINED CELL % 1.7 % (0.0-4.0); LYMPH # 1.9 K/mm3 (1.5-4.5); LYMPH % 13.8 % (24.0-44.0); MEAN CORPUSCULAR HEMOGLOBIN 19.9 pg (27.0-33.0); MEAN CORPUSCULAR HGB CONC 29.6 g/dl (32.0-36.5); MEAN CORPUSCULAR VOLUME 67.1 fl (80.0-96.0); MONO # 0.7 K/mm3 (0.0-0.8); MONO % 4.8 % (0.0-5.0); NEUTROPHILS # 10.7 K/mm3 (1.8-7.7); PLATELET COUNT, AUTOMATED 297 k/mm3 (150-450); RED CELL DISTRIBUTION WIDTH 17.6 % (11.5-14.5); WHITE BLOOD COUNT 13.5 K/mm3 (4.0-10.0)
[2016-12-02 10:36] LABS: ALBUMIN 3.2 GM/DL (3.2-5.2); ALBUMIN/GLOBULIN RATIO 1.07 (1.00-1.93); ALKALINE PHOSPHATASE 88 U/L (45-117); ALT/SGPT 33 U/L (12-78); ANION GAP 12 MEQ/L (8-16); AST/SGOT 12 U/L (15-37); BILIRUBIN,TOTAL 0.2 MG/DL (0.2-1.0); BLOOD UREA NITROGEN 19 MG/DL (7-18); CALCIUM LEVEL 8.4 MG/DL (8.8-10.2); CARBON DIOXIDE LEVEL 20 MEQ/L (21-32); CHLORIDE LEVEL 109 MEQ/L (98-107); CREATININE FOR GFR 0.96 MG/DL (0.55-1.02); GLOMERULAR FILTRATION RATE > 60.0 (>39); GLUCOSE, FASTING 232 MG/DL (83-110); POTASSIUM SERUM 3.7 MEQ/L (3.5-5.1); SODIUM LEVEL 141 MEQ/L (136-145); TOTAL PROTEIN 6.2 GM/DL (6.4-8.2)
[2016-12-02 11:27] LABS: ADD MORPHOLOGY? YES
[2016-12-02 11:29] LABS: ANISOCYTOSIS 2+; HYPOCHROMASIA 2+; MICROCYTOSIS 2+; OVALOCYTES 1+; POIKILOCYTOSIS 1+
[2016-12-03 00:06] LABS: ENDOMYSIAL ABY IgA Negative (Negative); TISSUE TRANSGLUTAMINASE IgG <2 U/mL (0-5)
--- NOTE | 2016-12-03 07:07 | DSES ---
DATE OF ADMISSION: 11/29/2016 DATE OF DISCHARGE: 12/02/2016 REASON FOR ADMISSION: Abnormal blood work. PRIMARY CARE PROVIDER: Dr. Fox. FINAL DIAGNOSES: 1. Newly diagnosed diabetes. 2. Atrial fibrillation. 3. Anemia. 4. Obstructive sleep apnea, on CPAP. 5. Hyperlipidemia. HISTORY OF PRESENT ILLNESS: The patient is a 71-year-old female with past medical history significant for hypertension, hyperlipidemia, chronic obstructive pulmonary disease (COPD), obstructive sleep apnea on CPAP, lung cancer status post right lobectomy, pulmonary hypertension, atrial fibrillation on Xarelto, right breast cancer, normal pressure hydrocephalus (NPH) with a ventriculoperitoneal (BASKETBALL ASSEMBLER) shunt, neuropathy, and gastroesophageal reflux disease who presented to the emergency room from the infusion center after she was found to have abnormal blood work. The patient was to get iron infusion that was to be started today. She stated she has been unable to tolerate oral iron so she was instructed to start an iron infusion for her iron deficiency anemia. Her last colonoscopy and esophagogastroduodenoscopy (EGD) were back in 2006 that was reportedly normal. She denies any blood in the stool, any weight loss or change in appetite. When she presented to the infusion center, she was found to have elevated blood sugar in the 500s and was sent to the emergency room. The patient had a newly diagnosed diabetes. She was admitted under the hospitalists. HOSPITAL COURSE: The patient was started on insulin teaching. She was started on Levemir at bedtime and insulin sliding scale. The following day; however, she continued to complain of fatigue. She had a mild trending in her hemoglobin, likely secondary to her chronic iron deficiency anemia. She was transfused 1 unit of blood and corrected appropriately. The patient was instructed to follow up with her primary care provider for referral to colonoscopy and EGD. Once the medications were sent to pharmacy and they were approved the patient was discharged home. DISCHARGE INSTRUCTIONS: The patient is to follow up with Dr. Fox in 2-5 days. She will need a referral for colonoscopy and EGD in the near future. DIET: Diabetic. ACTIVITIES: As tolerated. DISCHARGE MEDICATIONS (include): - Levemir 10 units at bedtime - Humalog sliding scale with meals and at bedtime - albuterol sulfate 2 puffs inhaled four times a day as needed shortness of breath - baclofen 20 mg by mouth at bedtime as needed spasms - carisoprodol 350 mg by mouth at bedtime as needed spasms - CoQ10 200 mg at bedtime - diltiazem 240 mg by mouth daily - Lexapro 10 mg by mouth at bedtime - fluconazole 100 mg by mouth daily - gabapentin 200 mg by mouth twice a day - magnesium oxide 400 mg by mouth daily - Bystolic 2.5 mg by mouth daily - omeprazole 20 mg by mouth at bedtime - pravastatin 40 mg by mouth at bedtime - Xarelto 20 mg by mouth at bedtime - Advair 1 puff inhaled twice a day - spironolactone 25 mg by mouth daily - torsemide 10 mg by mouth at bedtime and 20 mg in the morning - tramadol 50 mg every 4 hours as needed for pain - vitamin D 50,000 units by mouth weekly DISCHARGE CONDITION: Stable.
== END 2016-12-02 13:36 | disposition home or self-care (01) | DRG 638 ==
LOC: M ED 10:28 → M ED INP 15:54 → M MSPAV 17:03
PROVIDERS: ADMIT Internal Medicine; ATTEND Internal Medicine
DX: E11.9 Type 2 diabetes mellitus without complications (principal); G91.2 (Idiopathic) normal pressure hydrocephalus; N17.9 Acute kidney failure, unspecified; Z85.118 Personal history of other malignant neoplasm of bronchus and lung; I27.89 Other specified pulmonary heart diseases; G47.33 Obstructive sleep apnea (adult) (pediatric); D50.9 Iron deficiency anemia, unspecified; E78.5 Hyperlipidemia, unspecified; I10 Essential (primary) hypertension; J44.9 Chronic obstructive pulmonary disease, unspecified; I48.91 Unspecified atrial fibrillation; Z85.3 Personal history of malignant neoplasm of breast; K21.9 Gastro-esophageal reflux disease without esophagitis; Z79.899 Other long term (current) drug therapy

== ENCOUNTER → 2016-11-29 | Outpatient (REF) | payer MEDICARE, BC, OTHER ==
[~2016-11-29] MED LIST changes: +ACETAMINOPHEN TAB 650MG DOSE (2X325MG) PO PRN; -BUPIVACAINE HCL 0.25% 30 ML VIAL As Ordered ONE; +DEXTROSE 50% 50 ML SYRINGE IV PRN; +GLUCAGON FOR INJ 1 MG VIAL (J1610) SC PRN; +GLUCOSE 4 GM CHEW TABLET PO PRN; +HEPARIN SOD (PORCINE) 5000 UNITS/ML VIAL SC SCH; +HumaLOG INSULIN (NovoLOG) PER UNIT SC SCH; -ISOVUE-M 300 61% 15ML VIAL (Q9967) As Ordered ONE; +LEVEMIR (INSULIN DETEMIR) 1 UNITS/0.01ML SC SCH; -LIDOCAINE 1% SDV INJ 30 ML VIAL As Ordered ONE; +NS 1,000 ML IV SCH; +ONDANSETRON 4MG/2ML VIAL (J2405) IV PRN; +PANTOPRAZOLE 40MG TAB (PROTONIX) PO SCH; -TRIAMCINOLONE ACETONIDE SUSP 40 MG/ML VIAL (J3301) As Ordered ONE; -diazePAM 5 MG TAB As Ordered ONE
[2016-11-29 13:49] LABS: FERRITIN 6 NG/ML (8-252); PERCENT SATURATION 3.2 % (13.2-37.4); TOTAL IRON BINDING CAPACITY 678 UG/DL (250-450); TOTAL PROTEIN 7.7 GM/DL (6.4-8.2)
--- NOTE | 2016-11-29 17:44 | REP ---
CT abdomen and pelvis without IV or oral contrast: History: Left lower quadrant abdominal pain. Comparison is made with today's radiographs. CT findings: Digital choir accompanist radiograph demonstrates mid lumbar spine fusion hardware and a unremarkable bowel gas pattern. There is a right-sided ventriculoperitoneal shunt. Axial CT images demonstrate that the lung bases are clear. The liver and the spleen are normal in size homogeneous in texture. The gallbladder and the pancreas are unremarkable. No adrenal lesion is seen on either side. The kidneys are morphologically intact. No intrarenal calculus or hydronephrosis is seen. There are small cortical cysts bilaterally. No retroperitoneal mass or adenopathy is seen. The right-sided ventriculoperitoneal shunt catheter enters the right midabdomen and loops in the anterior peritoneum terminating beneath the umbilicus. No abdominal wall defect is seen. There is diverticulosis affecting the sigmoid colon without CT evidence of diverticulitis. Formed stool is seen in the left and right colon but no colonic dilation is seen. Small bowel is not dilated. The appendix is surgically absent. Lumbar spine fusion is seen. No bony destructive lesion. Impression: Left colonic diverticulosis without CT evidence of diverticulitis. Right-sided ventriculoperitoneal shunt catheter. Formed stool throughout the colon without dilation. No acute intra-abdominal abnormality seen. Signed by Willam More MD 11/29/2016 07:30 P
[2016-12-01 00:07] LABS: FREE KAPPA LIGHT CHAINS SERUM 8.74 mg/L (3.30-19.40); FREE LAMBDA LIGHT CHAINS SERUM 9.8 mg/L (5.71-26.30); KAPPA/LAMBDA RATIO SERUM 0.89 (0.26-1.65)
[2016-12-02 11:31] LABS: ALBUMIN 4.84 GM/DL (3.29-5.55); ALBUMIN % 62.9 % (55.8-66.1); GAMMA GLOBULIN % 7.3 % (11.1-18.8)
== END ==
LOC: M LAB REF 13:15
PROVIDERS: ATTEND Internal Medicine Medical Oncology
DX: D64.9 Anemia, unspecified (principal); Z85.118 Personal history of other malignant neoplasm of bronchus and lung; K57.30 Diverticulosis of large intestine without perforation or abscess without bleeding

== ENCOUNTER → 2016-12-05 | Outpatient (CLI) | payer MEDICARE, BC, OTHER ==
[~2016-12-05] MED LIST changes: +CARD240T2 PO; +CARI350T20 PO; +CITRTAB18 PO; +DRIS50002 PO; +FLUC100T PO; +FLUTISP; +GABA-279 PO; +INSUDET SC; +INSUHUMDS SC; +MAGN400T5 PO; +TORS10TA3 PO; +TORS20TA2 PO; +XARE20TA PO
[2016-12-05 19:40] LABS: ALBUMIN 3.5 GM/DL (3.2-5.2); CALCIUM LEVEL 8.9 MG/DL (8.8-10.2); CREATININE FOR GFR 1.05 MG/DL (0.55-1.02); GLOMERULAR FILTRATION RATE 54.8 (>39); PHOSPHORUS LEVEL 3.1 MG/DL (2.5-4.9); POTASSIUM SERUM 3.7 MEQ/L (3.5-5.1)
== END ==
LOC: M WUC 14:27
PROVIDERS: ATTEND Internal Medicine Cardiovascular Disease
DX: R06.02 Shortness of breath (principal); R60.0 Localized edema

== ENCOUNTER → 2016-12-16 | Outpatient (CLI) | payer MEDICARE, OTHER ==
--- NOTE | 2016-12-19 23:52 | ECWPNPC ---
PATIENT NAME: SON BUCKNER : 1945 GENDER: FEMALE VISIT DATE: 12/16/2016 DISCHARGE DATE: 12/16/16 1541 VISIT LOCKED DATE TIME: PHYSICIAN: SON CHAPMAN RESOURCE: SON CHAPMAN REASON FOR APPOINTMENT 1. POST PROCEDURE HISTORY OF PRESENT ILLNESS HISTORY OF PRESENT ILLNESS: PAIN THE PATIENT DESCRIBES THE PAIN... FALL RISK SCREENING: SCREENING :NO FALLS IN THE PAST YEAR TODAY'S VISIT: NOTES: S/P BILATERAL SIJ INJECTION COMPLETED ON11/20/16. INITIALLY PAIN 5/10, DECREASED TO 0/10 FOR ALMOST 1 MONTH. TODAY RATES PAIN 4/10. HAS HAD IMPROVEMENT IN BOWEL AND BLADDER FUNCTION. IS ABLE TO STAND. WALKING IS LIMITIED DUE TO TO BREATHING ISSUES. MOST PAIN CURRENTLY IS AT NITE. MORE IN RIGHT SIJ REGION AND RADIATING DOWN 4-5 INCHES TO BUTTUCK. . CURRENT MEDICATIONS TAKING SPIRONOLACTONE 25 MG TABLET ONE TABLET ORALLY DAILY TAKING MAGNESIUM OXIDE 400 MG CAPSULE 1 CAP ORALLY ONCE DAILY TAKING XARELTO 20 MG TABLET 1 TABLET WITH FOOD ORALLY ONCE A DAY TAKING BYSTOLIC 2.5 MG TABLET 1 TABLET ORALLY ONCE A DAY TAKING PRAVASTATIN SODIUM 40 MG TABLET 1 TABLET ORALLY ONCE A DAY TAKING OMEPRAZOLE 20 MG CAPSULE DELAYED RELEASE 1 CAPSULE ORALLY ONCE A DAY TAKING ACETAMINOPHEN 650 MG TABLET 1 ORALLY BID TAKING LUTEIN-ZEAXANTHIN 25-5 MG CAPSULE ORALLY DAILY TAKING COQ-10 200 MG CAPSULE 1 CAPSULE WITH A MEAL ORALLY ONCE A DAY TAKING CITRACAL + D 1500-200 MG-IU TABLET 1 TABLET WITH MEALS ORALLY DAILY TAKING OMEGA 3 1000 MG CAPSULE 1 CAPSULE ORALLY ONCE A DAY TAKING ADVAIR DISKUS 500-50 MCG/DOSE MISCELLANEOUS 1 INHALATION EVERY 12 HRS TAKING LEXAPRO 10 MG TABLET 1 TABLET ORALLY ONCE A DAY AT HS TAKING NASACORT AQ 55 MCG/ACT AEROSOL SOLUTION 2 PUFFS IN EACH NOSTRIL NASALLY ONCE A DAY TAKING DRISDOL 83993 UNIT CAPSULE 1 CAPSULE ORALLY ONCE A WEEK TAKING ULTRAM 50 MG TABLET 1 TABLET NEEDED FOR PAIN ORALLY EVERY 6 HRS TAKING BACLOFEN 10 MG TABLET 2 TABS ORALLY AT HS NEEDED TAKING REFRESH OPTIVE . 2 DROPS OU TWICE DAILY TAKING PROAIR HFA 2 PUFFS NEEDED DIRECTED TAKING GABAPENTIN 100 MG CAPSULE 2 CAP ORALLY BID TAKING DILTIAZEM CD 240 MG CAPSULE EXTENDED RELEASE 24 HOUR 1 CAPSULE ORALLY ONCE A DAY TAKING TORSEMIDE 20 MG TABLET ORALLY DAILY TAKING TORSEMIDE 10 MG TABLET 1 TABLET ORALLY ONCE A DAY AT 1600 TAKING SOMA 350 MG TABLET 1 TABLET NEEDED ORALLY BEFORE BEDTIME FOR SPASMS AND PAIN MDD1 TAKING NOVOLOG 100 UNIT/ML SOLUTION SLIDING SCALE SUBCUTANEOUS FOUR TIMES DAILY TAKING LEVEMIR FLEXPEN 100 UNIT/ML SOLUTION 10 UNITS SUBCUTANEOUS BEFORE BEDTIME NOT-TAKING BENADRYL 50 MG CAPSULE 2CAPSULE ORALLY PRE [PROCEDURE, NOTES: 08/19/16 1200 NOT-TAKING ALBUTEROL SULFATE HFA 108 (90 BASE) MCG/ACT AEROSOL SOLUTION 2 PUFFS INHALATION ONCE A DAY NOT-TAKING TUMS 500 MG TABLET CHEWABLE 2 TABLETS ORALLY THREE TIMES A DAY NOT-TAKING OPTIVE SENSITIVE 0.5-0.9 % SOLUTION DIRECTED OPHTHALMIC MEDICATION LIST REVIEWED AND RECONCILED WITH THE PATIENT PAST MEDICAL HISTORY HTN ASTHMA OA SPINAL STENOSIS GERD ATRIAL FIB DJD ARTHRITIS ELEVATED CHOL HYDROCEPHALUS ALLERGIES LIDOCAINE: ANAPHYLAXIS: ALLERGY NOVOCAIN: ANAPHYLAXIS: ALLERGY DOXYCYCLINE (ROSACEA): RASH: ALLERGY ALL NSAIDS INCLUDING VOLTAREN GEL: CARDIAC CONCERNS PER DR WILL: CONTRAINDICATION SURGICAL HISTORY EDY/BSO R MASTECTOMY 1981 R 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 YES , POINTS 0 , INTERPRETATION NEGATIVE . RECREATIONAL DRUG USE DENIES. LEARNING BARRIERS / SPECIAL NEEDS ABILITY TO UNDERSTAND VERBAL INSTRUCTIONS GOOD :, ABILITY TO UNDERSTAND WRITTEN INSTRUCTIONS GOOD , KNOWLEDGE OF EDUCATIONAL NEEDS/TREATMENT PLAN GOOD , PRESYBETERIAN? YES , PLANS TO OVERCOME BARRIERS NONE NEEDED, LEARNING PREFERENCE NO PREFERENCE , ORIENTED TO PLAN OF CARE: PATIENT , PAIN MANAGEMENT PATIENT , TEACHING MATERIALS DEMONSTRATION/VERBAL INSTRUCTION, MEDICATION SHEETS, PRINTED HANDOUT , RESPONSE TO EDUCATION DEMOSTRATES INDEPENDENTELY , ORIENTED TO PLAN OF CARE: PATIENT, PAIN MANAGEMENT PATIENT, ORIENTED TO PLAN OF CARE: PATIENT, PAIN MANAGEMENT PATIENT. NEW PATIENT PAIN DIARY TODAY'S VISITNOTES FROM 0-10, WHAT LEVEL IS YOUR PAIN TODAY?0 PAIN CLINIC PFS, CLERGY, PUBLIC HEALTH REFERRALS PFS REFERRAL NEEDED?NO CLERGY REFERRAL NEEDED?NO PUBLIC HEALTH REFERRAL NEEDED?NO WAS THE PROVIDER NOTIFIED OF ANY PERTINENT INFO?NO PFS REFERRAL NEEDED?NO CLERGY REFERRAL NEEDED?NO PUBLIC HEALTH REFERRAL NEEDED?NO WAS THE PROVIDER NOTIFIED OF ANY PERTINENT INFO?NO ADVANCED DIRECTIVES HEALTH CARE PROXY?YES POWER OF SILK SCREEN PRINTING RACKER?YES REVIEW OF SYSTEMS CONSTITUTIONAL: ANY CHANGE IN YOUR MEDICAL CONDITION? YES, NEWLY DIAGNOSED WITH DIABETES. WAS IN THE HOSPITAL FOR 3 DAYS 2 WEEKS AGO AND DIAGNOSED THEN. STARTED ON NOVOLOG AND LEVEMIR . CHILLS NO . FEVER NO . INFECTION: DO YOU HAVE NEW INFECTIONS? NO . DO YOU HAVE HISTORY OF MRSA? NO . MUSCULOSKELETAL: ANY NEW PATTERNS OF PAIN OR NUMBNESS? NO . GASTROENTEROLOGY: ANY NEW CHANGE IN BOWEL CONTROL? NO . GENITOURINARY: ANY NEW CHANGE IN BLADDER CONTROL? NO . IS THERE A CHANCE YOU COULD BE ? NO . HEMATOLOGY/LYMPH: GENERAL IS STILL RECEIVING IRON INFUSIONS . DO YOU TAKE ANY BLOOD THINNERS? (FOR EXAMPLE- COUMADIN, PLAVIX, AGGRENOX, PLATEL, PRADAXA, OR XARELTO) YES, XARELTO . WHEN WAS YOUR LAST DOSE? DATE: TIME: . NEUROLOGY: HAVE YOU FALLEN IN THE PAST 6 MONTHS? NO . ANY NEW EXTREMITY NUMBNESS OR WEAKNESS? NO . 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 . CARDIOLOGY: DO YOU HAVE A PACEMAKER OR DEFIBRILLATOR? NO . RESPIRATORY: HAVE YOU BEEN SICK IN THE PAST WEEK? NO . FEVER NO . FLU LIKE SYMPTOMS? NO . COUGH NO . INTEGUMENTARY: DO YOU HAVE ANY RASHES OR OPEN SORES? NO . ALLERGIC/IMMUNO: ARE YOU ALLERGIC TO SHELLFISH OR IV DYE? NO . ANY NEW ALLERGIES? NO . PSYCHIATRIC: DO YOU HAVE THOUGHTS OF HURTING YOURSELF OR SOMEONE ELSE? NO . ARE YOU ABUSED, NEGLECTED, OR IN AN UNSAFE ENVIRONMENT? NO . ENDOCRINOLOGY: ARE YOU DIABETIC? YES = NEW DIAGNOSIS. STARTED ON INSULIN . OTHER: DO YOU NEED ANY PRESCRIPTIONS? NO . IF YES, PLEASE LIST: ____ . ANY NEW PROBLEMS WITH YOUR MEDICATIONS? NO . WHEN DID YOU LAST EAT? ____ . WHEN DID YOU LAST DRINK? ____ . WHAT DID YOU LAST DRINK? ____ . NAME OF PERSON DRIVING YOU HOME? ____ . DO YOU HAVE ANY OTHER QUESTIONS OR CONCERNS NO . REVIEWED BY: PROVIDER: SON MCCLURE . VITAL SIGNS WT 188.4 LBS, HT 63 IN, BMI 33.37 INDEX, BP 142/69 MM HG, HR 77 /MIN, RR 16 /MIN, TEMP 98.2 F, OXYGEN SAT % 98%, NA INITIALS SC 14:45, REVIEWED BY: JUVENTINO. EXAMINATION GENERAL EXAMINATION: PSYCHALERT , APPROPRIATE MOOD AND AFFECT , ORIENTED X 3 . SPEACH SOFT AND QUIET. LUNGS:CLEAR TO AUSCULTATION BILATERALLY. HEART:HEART RATE REGULAR. MUSCULOSKELETAL:TENDERNESS WITH PALPATION OVER LUMBAR FACETS BILATERALLY. MILD WEAKNESS NOTED IN QUADRICEP MUSCLES, ABLE TO FLEX AND EXTEND AT HIP AND ANKLES. POSTURE STOOPED. POOR BALANCE. POINT TENDERNESS OVER BILATERAL SACRAL ILIAC JOINTS.. ASSESSMENTS SACROILIITIS - M46.1 (PRIMARY) MYALGIA - M79.1 TREATMENT SACROILIITIS NOTES: CONTINUE WALKING AND STRETCHES. ICE/HEAT TO SACRUM NEEDED. CALL IF INCREASE IN PAIN. PROCEDURE CODES G8730 PAIN ASSESS POS TOOL F/U PLAN DOC G8427 DOC MEDS VERIFIED W/PT OR RE DISPOSITION & COMMUNICATION FOLLOW UP 2 MONTHS (REASON: OK TO CALL FOR SIJ IN 1 MONTH) ELECTRONICALLY SIGNED BY APURVA FAITH ON 12/19/2016 AT 11:41 AM EST DISCLAIMER : THIS IS A VISIT SUMMARY EXTRACTED FROM THE [employer] CHART. IT IS NOT A COPY OF THE [employer] PROGRESS NOTE. KARMEN
== END ==
LOC: M PAIN 14:40
PROVIDERS: ATTEND Nurse Practitioner Family
DX: Z09 Encounter for follow-up examination after completed treatment for conditions other than malignant neoplasm (principal); G89.29 Other chronic pain; M46.1 Sacroiliitis, not elsewhere classified; M79.1 Myalgia; I10 Essential (primary) hypertension; G91.9 Hydrocephalus, unspecified; E11.9 Type 2 diabetes mellitus without complications; J45.909 Unspecified asthma, uncomplicated; M19.90 Unspecified osteoarthritis, unspecified site; M48.00 Spinal stenosis, site unspecified; K21.9 Gastro-esophageal reflux disease without esophagitis; E78.00 Pure hypercholesterolemia, unspecified; Z98.2 Presence of cerebrospinal fluid drainage device; Z90.11 Acquired absence of right breast and nipple; Z88.6 Allergy status to analgesic agent; Z88.4 Allergy status to anesthetic agent; Z88.1 Allergy status to other antibiotic agents; Z79.01 Long term (current) use of anticoagulants; Z79.51 Long term (current) use of inhaled steroids; Z79.4 Long term (current) use of insulin; Z79.899 Other long term (current) drug therapy

== ENCOUNTER → 2016-12-27 | Outpatient (CLI) | payer MEDICARE, OTHER ==
[2016-12-27 16:44] LABS: CALCIUM LEVEL 9.3 MG/DL (8.8-10.2); CREATININE FOR GFR 1.11 MG/DL (0.55-1.02); GLOMERULAR FILTRATION RATE 51.4 (>39); MAGNESIUM LEVEL 2.1 MG/DL (1.8-2.4); POTASSIUM SERUM 4.1 MEQ/L (3.5-5.1)
[2016-12-27 16:45] LABS: BASO % 0.2 % (0.0-1.0); EOS # 0.1 K/mm3 (0.0-0.50); EOS % 1.3 % (0.0-3.0); LARGE UNSTAINED CELL # 0.2 K/mm3 (0.0-0.4); LARGE UNSTAINED CELL % 1.8 % (0.0-4.0); LYMPH # 2.3 K/mm3 (1.5-4.5); LYMPH % 21.1 % (24.0-44.0); MEAN CORPUSCULAR HGB CONC 29.1 g/dl (32.0-36.5); MEAN CORPUSCULAR VOLUME 68.6 fl (80.0-96.0); MONO # 0.9 K/mm3 (0.0-0.8); MONO % 8.7 % (0.0-5.0); NEUTROPHILS # 6.6 K/mm3 (1.8-7.7); NEUTROPHILS % 66.8 % (36.0-66.0); PLATELET COUNT, AUTOMATED 505 k/mm3 (150-450); RED CELL DISTRIBUTION WIDTH 18.3 % (11.5-14.5); WHITE BLOOD COUNT 9.9 K/mm3 (4.0-10.0)
[2016-12-27 16:46] LABS: ADD MORPHOLOGY? YES
[2016-12-27 17:54] LABS: ANISOCYTOSIS 2+; MICROCYTOSIS 3+
[2016-12-27 17:55] LABS: HYPOCHROMASIA 2+
== END ==
LOC: M WUC 14:48
PROVIDERS: ATTEND Family Medicine
DX: D64.9 Anemia, unspecified (principal); N18.3 Chronic kidney disease, stage 3 (moderate); E83.42 Hypomagnesemia; D50.9 Iron deficiency anemia, unspecified

== ENCOUNTER → 2016-12-27 | Outpatient (CLI) | payer MEDICARE, OTHER | LOC: M WUC 14:44 | PROVIDERS: ATTEND Internal Medicine Gastroenterology | DX: D50.9 Iron deficiency anemia, unspecified (principal) ==

== ENCOUNTER → 2017-01-06 | Outpatient (REF) | payer MEDICARE, BC, OTHER ==
[~2017-01-06] MED LIST changes: +STOO100C PO
== END ==
LOC: M LAB REF 17:28
PROVIDERS: ATTEND Surgery
DX: C44.622 Squamous cell carcinoma of skin of right upper limb, including shoulder (principal); L57.0 Actinic keratosis

== ENCOUNTER → 2017-01-10 | Outpatient (CLI) | payer MEDICARE, BC, OTHER ==
[~2017-01-10] VITALS: Ht 157.5 cm; Wt 82.6 kg
[~2017-01-10] MED LIST changes: +AMOXICILLIN 500 MG CAP PO ONE; +LIDOCAINE 2% INJ 100 MG/5 ML SDV (FOR ANES.) As Ordered ONE; +NS 1,000 ML IV SCH; +PROPOFOL 500 MG/50 ML VIAL As Ordered ONE
--- NOTE | 2017-01-10 07:42 | ROOR ---
Patient Name: Nhi Ramirez Procedure Date: 01/10/2017 7:34 AM Date of : 1945 Age: 71 Room: [facility] Gender: Female Note Status: Finalized Procedure: Upper GI endoscopy Indications: Iron deficiency anemia Providers: Deshaun TIWARI MD Referring MD: Garrison Fox MD Requesting Provider: Medicines: Monitored Anesthesia Care Complications: No immediate complications. Procedure: Pre-Anesthesia Assessment: - The heart rate, respiratory rate, oxygen saturations, blood pressure, adequacy of pulmonary ventilation, and response to care were monitored throughout the procedure. The Endoscope was introduced through the mouth, and advanced to the third part of duodenum. The upper GI endoscopy was accomplished without difficulty. The patient tolerated the procedure well. Findings: The esophagus was normal. The stomach was normal. The examined duodenum was normal. Impression: - Normal esophagus. - Normal stomach. - Normal examined duodenum. - No specimens collected. Recommendation: - Perform a colonoscopy today. Deshaun Tiwari MD Deshaun TIWARI MD 01/10/2017 7:42:04 AM This report has been signed electronically. Number of Addenda: 0 Note Initiated On: 01/10/2017 7:34 AM Estimated Blood Loss: Estimated blood loss: none.
--- NOTE | 2017-01-10 08:08 | ROOR ---
Patient Name: Nhi Ramirez Procedure Date: 01/10/2017 7:35 AM Date of : 1945 Age: 71 Room: [facility] Gender: Female Note Status: Finalized Procedure: Colonoscopy Indications: Iron deficiency anemia Providers: Deshaun TIWARI MD Referring MD: Garrison Fox MD Requesting Provider: Medicines: Monitored Anesthesia Care Complications: No immediate complications. Procedure: Pre-Anesthesia Assessment: - The heart rate, respiratory rate, oxygen saturations, blood pressure, adequacy of pulmonary ventilation, and response to care were monitored throughout the procedure. The Colonoscope was introduced through the anus and advanced to the terminal ileum, with identification of the appendiceal orifice and IC valve. The colonoscopy was somewhat difficult due to multiple diverticula in the colon. Successful completion of the procedure was aided by applying abdominal pressure. The patient tolerated the procedure well. The quality of the bowel preparation was excellent. Findings: The perianal exam findings include skin tags. Internal hemorrhoids were found during retroflexion. The hemorrhoids were medium-sized. A 4 mm polyp was found in the cecum. The polyp was sessile. The polyp was removed with a cold snare. Resection and retrieval were complete. Multiple small and large-mouthed diverticula were found in the sigmoid colon. There was narrowing of the colon in association with the diverticular opening. The exam was otherwise without abnormality. Source for iron deficit is not determined. Impression: - Perianal skin tags found on perianal exam. - Internal hemorrhoids. - One 4 mm polyp in the cecum, removed with a cold snare. Resected and retrieved. - Moderate diverticulosis in the sigmoid colon. There was narrowing of the colon in association with the diverticular opening. - The examination was otherwise normal. Recommendation: - Perform a small bowel follow through at appointment to be scheduled. Deshaun Tiwari MD Deshaun TIWARI MD 01/10/2017 8:07:55 AM This report has been signed electronically. Number of Addenda: 0 Note Initiated On: 01/10/2017 7:35 AM Estimated Blood Loss: Estimated blood loss: none.
[2017-01-10 08:45] VITALS: BP 127/71
== END | disposition home or self-care (01) ==
LOC: M OPP 06:37
PROVIDERS: ATTEND Internal Medicine Gastroenterology
DX: D50.9 Iron deficiency anemia, unspecified (principal); D12.0 Benign neoplasm of cecum; K57.30 Diverticulosis of large intestine without perforation or abscess without bleeding; K64.4 Residual hemorrhoidal skin tags; K64.8 Other hemorrhoids; I48.91 Unspecified atrial fibrillation; I10 Essential (primary) hypertension; E78.5 Hyperlipidemia, unspecified; E11.9 Type 2 diabetes mellitus without complications; R12 Heartburn; S61.401D Unspecified open wound of right hand, subsequent encounter; Z98.2 Presence of cerebrospinal fluid drainage device; J45.909 Unspecified asthma, uncomplicated; I27.2 Other secondary pulmonary hypertension; R06.83 Snoring; G47.30 Sleep apnea, unspecified; K21.9 Gastro-esophageal reflux disease without esophagitis; Z86.79 Personal history of other diseases of the circulatory system; Z85.3 Personal history of malignant neoplasm of breast; Z85.43 Personal history of malignant neoplasm of ovary; Z98.1 Arthrodesis status; Z90.11 Acquired absence of right breast and nipple; Z87.891 Personal history of nicotine dependence; Z88.8 Allergy status to other drugs, medicaments and biological substances; Z79.4 Long term (current) use of insulin; Z79.01 Long term (current) use of anticoagulants; Z79.899 Other long term (current) drug therapy; Z80.0 Family history of malignant neoplasm of digestive organs; X58.XXXD Exposure to other specified factors, subsequent encounter; Y93.9 Activity, unspecified; Y92.9 Unspecified place or not applicable; Y99.8 Other external cause status

== ENCOUNTER → 2017-01-22 | Outpatient (CLI) | payer MEDICARE, BC, OTHER ==
[~2017-01-22] MED LIST changes: -AMOXICILLIN 500 MG CAP PO ONE; -LIDOCAINE 2% INJ 100 MG/5 ML SDV (FOR ANES.) As Ordered ONE; -NS 1,000 ML IV SCH; -PROPOFOL 500 MG/50 ML VIAL As Ordered ONE
--- NOTE | 2017-01-22 11:03 | REP ---
Clinical: Right upper quadrant pain. Technique: Real time vale scale ultrasound examination using curved array transducer. Findings: The liver is increased echogenicity suggesting fatty infiltration without focal hepatic lesion identified. Pancreas is unremarkable. The gallbladder there are straits few echogenic foci without shadowing measuring up to 6 mm likely representing polyps. There is no gallbladder wall thickening or pericholecystic fluid. A positive sonographic Robertson's sign was elicited. There is no biliary ductal dilatation and the common bile duct measures 4 mm diameter. The right kidney is normal in reniform shape with evidence for chronic medical renal disease and no hydronephrosis. Right kidney measures 9.8 x 4.5 x 428 cm. Impression: 1. Few presumed gallbladder polyps up to 6 mm. 2. Sonographic Robertson's sign without wall thickening or pericholecystic fluid is nonspecific and to be correlated clinically. 3. Hepatosteatosis. 4. Chronic medical renal disease. Signed by Lebron Barnes MD 01/22/2017 10:54 A
== END ==
LOC: M RAD 09:00
PROVIDERS: ATTEND Nurse Practitioner Family
DX: R10.11 Right upper quadrant pain (principal); K76.0 Fatty (change of) liver, not elsewhere classified; N18.9 Chronic kidney disease, unspecified

== ENCOUNTER → 2017-01-27 | Outpatient (CLI) | payer MEDICARE, BC, OTHER ==
[~2017-01-27] MED LIST changes: -COLA100C PO; +COLA100C3 PO; +E-Z PAQUE 60% w/v SUSP 355ML BOTTLE As Ordered ONE; +ENTERO VU 24% w/v SUSP BTL 600ML As Ordered ONE
--- NOTE | 2017-01-27 13:30 | REP ---
SMALL FOLLOW-THROUGH STUDY: HISTORY: Iron deficiency anemia. FINDINGS: An intact ventriculoperitoneal shunt catheter is seen looping in the abdomen and terminating in the right side of the pelvis. There is a surgical clip in the left pelvis. The patient status post L3-4 lumbar spine fusion. Bowel gas pattern is normal on shuttle fixer view. Sequential films taken after the ingestion of oral contrast show normal jejunal and ileal small bowel loops. There is no evidence of mass, obstruction or fold thickening. No fistula is seen. The ileocecal valve is unremarkable. IMPRESSION: Normal small bowel follow-through study. Fluoroscopy time is 34 seconds. Signed by Willam More MD 01/28/2017 07:29 A
== END ==
LOC: M RAD 09:32
PROVIDERS: ATTEND Internal Medicine Gastroenterology
DX: D50.9 Iron deficiency anemia, unspecified (principal)

== ENCOUNTER 2017-02-10 12:13 | Emergency (ER) | payer MEDICARE, BC, OTHER ==
[~2017-02-10] VITALS: Ht 157.5 cm; Wt 77.1 kg
[~2017-02-10 12:13] MED LIST changes: -E-Z PAQUE 60% w/v SUSP 355ML BOTTLE As Ordered ONE; -ENTERO VU 24% w/v SUSP BTL 600ML As Ordered ONE
[2017-02-10 12:14] VITALS: BP 126/59
[2017-02-10] MEDS ORDERED: AUGM875T27 PO (13:13)
== END 2017-02-10 14:07 | disposition home or self-care (01) ==
LOC: M ED 13:21
DX: S60.571A Other superficial bite of hand of right hand, initial encounter (principal); W54.0XXA Bitten by dog, initial encounter; Y92.099 Unspecified place in other non-institutional residence as the place of occurrence of the external cause; Y93.9 Activity, unspecified; Y99.9 Unspecified external cause status; Z88.1 Allergy status to other antibiotic agents; Z88.4 Allergy status to anesthetic agent

== ENCOUNTER → 2017-03-18 | Outpatient (CLI) | payer MEDICARE, OTHER ==
[~2017-03-18] MED LIST changes: +AUGM875T27 PO
--- NOTE | 2017-04-03 00:36 | ECWPNPC ---
PATIENT NAME: SON BUCKNER : 1945 GENDER: FEMALE VISIT DATE: 03/18/2017 DISCHARGE DATE: 03/18/17 1138 VISIT LOCKED DATE TIME: PHYSICIAN: SON CHAPMAN RESOURCE: SON CHAPMAN REASON FOR APPOINTMENT 1. BACK HISTORY OF PRESENT ILLNESS HISTORY OF PRESENT ILLNESS: PAIN THE PATIENT DESCRIBES THE PAIN... FALL RISK SCREENING: SCREENING :NO FALLS IN THE PAST YEAR TODAY'S VISIT: NOTES: RATES PAIN LEVEL TODAY 6/10. DESCRIBES PAIN CONSTANT, ACHING, BURNING TENDER AND SORE. NOTES PAIN IS CENTERED AT LOWBACK AND COCYX, WELL OVER LEFT HIPHAS BEEN HAVING INCREASING PAIN OVER THE LAST MONTH. HAS CUT BACK ON GABAPENTIN DUE TO SWELLING IN LEGS PER DR WILL. SWELLING HAS IMPROVED. HAS BEEN HAVING MORE NEUROPATHY PAIN IN FEET.. CURRENT MEDICATIONS TAKING SPIRONOLACTONE 25 MG TABLET ONE TABLET ORALLY DAILY TAKING MAGNESIUM OXIDE 400 MG CAPSULE 1 CAP ORALLY ONCE DAILY TAKING XARELTO 20 MG TABLET 1 TABLET WITH FOOD ORALLY ONCE A DAY TAKING BYSTOLIC 2.5 MG TABLET 1 TABLET ORALLY ONCE A DAY TAKING PRAVASTATIN SODIUM 40 MG TABLET 1 TABLET ORALLY ONCE A DAY TAKING OMEPRAZOLE 20 MG CAPSULE DELAYED RELEASE 1 CAPSULE ORALLY ONCE A DAY TAKING ACETAMINOPHEN 650 MG TABLET 1 ORALLY BID TAKING LUTEIN-ZEAXANTHIN 25-5 MG CAPSULE ORALLY DAILY TAKING COQ-10 200 MG CAPSULE 1 CAPSULE WITH A MEAL ORALLY ONCE A DAY TAKING CITRACAL + D 1500-200 MG-IU TABLET 1 TABLET WITH MEALS ORALLY DAILY TAKING OMEGA 3 1000 MG CAPSULE 1 CAPSULE ORALLY ONCE A DAY TAKING ADVAIR DISKUS 500-50 MCG/DOSE MISCELLANEOUS 1 INHALATION EVERY 12 HRS TAKING LEXAPRO 10 MG TABLET 1 TABLET ORALLY ONCE A DAY AT HS TAKING NASACORT AQ 55 MCG/ACT AEROSOL SOLUTION 2 PUFFS IN EACH NOSTRIL NASALLY ONCE A DAY TAKING DRISDOL 66333 UNIT CAPSULE 1 CAPSULE ORALLY ONCE A WEEK TAKING ULTRAM 50 MG TABLET 1 TABLET NEEDED FOR PAIN ORALLY EVERY 6 HRS TAKING REFRESH OPTIVE . 2 DROPS OU TWICE DAILY TAKING PROAIR HFA 2 PUFFS NEEDED DIRECTED TAKING GABAPENTIN 100 MG CAPSULE 2 CAP ORALLY BID TAKING DILTIAZEM CD 240 MG CAPSULE EXTENDED RELEASE 24 HOUR 1 CAPSULE ORALLY ONCE A DAY TAKING TORSEMIDE 10 MG TABLET 1 TABLET ORALLY ONCE A DAY AT 1600 TAKING SOMA 350 MG TABLET 1 TABLET NEEDED ORALLY BEFORE BEDTIME FOR SPASMS AND PAIN MDD1 TAKING LEVEMIR FLEXPEN 100 UNIT/ML SOLUTION 10 UNITS SUBCUTANEOUS BEFORE BEDTIME TAKING METFORMIN HCL 1000 MG TABLET 1 TABLET WITH MEALS ORALLY TWICE A DAY NOT-TAKING BACLOFEN 10 MG TABLET 2 TABS ORALLY AT HS NEEDED NOT-TAKING TORSEMIDE 20 MG TABLET ORALLY DAILY NOT-TAKING NOVOLOG 100 UNIT/ML SOLUTION SLIDING SCALE SUBCUTANEOUS FOUR TIMES DAILY NOT-TAKING BENADRYL 50 MG CAPSULE 2CAPSULE ORALLY PRE [PROCEDURE, NOTES: 08/19/16 1200 NOT-TAKING ALBUTEROL SULFATE HFA 108 (90 BASE) MCG/ACT AEROSOL SOLUTION 2 PUFFS INHALATION ONCE A DAY NOT-TAKING TUMS 500 MG TABLET CHEWABLE 2 TABLETS ORALLY THREE TIMES A DAY NOT-TAKING OPTIVE SENSITIVE 0.5-0.9 % SOLUTION DIRECTED OPHTHALMIC MEDICATION LIST REVIEWED AND RECONCILED WITH THE PATIENT PAST MEDICAL HISTORY HTN ASTHMA OA SPINAL STENOSIS GERD ATRIAL FIB DJD ARTHRITIS ELEVATED CHOL HYDROCEPHALUS DM TYPE II ALLERGIES LIDOCAINE: ANAPHYLAXIS: ALLERGY NOVOCAIN: ANAPHYLAXIS: ALLERGY DOXYCYCLINE (ROSACEA): RASH: ALLERGY ALL NSAIDS INCLUDING VOLTAREN GEL: CARDIAC CONCERNS PER DR WILL: CONTRAINDICATION SURGICAL HISTORY EDY/BSO R MASTECTOMY 1981 R 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 YES . CHILLS NO . FEVER NO . INFECTION: DO YOU HAVE NEW INFECTIONS? NO . DO YOU HAVE HISTORY OF MRSA? NO . MUSCULOSKELETAL: ANY NEW PATTERNS OF PAIN OR NUMBNESS? YES . GASTROENTEROLOGY: ANY NEW CHANGE IN BOWEL CONTROL? NO . GENITOURINARY: ANY NEW CHANGE IN BLADDER CONTROL? NO . IS THERE A CHANCE YOU COULD BE ? NO . HEMATOLOGY/LYMPH: DO YOU TAKE ANY BLOOD THINNERS? (FOR EXAMPLE- COUMADIN, PLAVIX, AGGRENOX, PLATEL, PRADAXA, OR XARELTO) YES . WHEN WAS YOUR LAST DOSE? DATE: TIME: . NEUROLOGY: HAVE YOU FALLEN IN THE PAST 6 MONTHS? NO . ANY NEW EXTREMITY NUMBNESS OR WEAKNESS? NO . CARDIOLOGY: DO YOU HAVE A PACEMAKER OR DEFIBRILLATOR? NO . RESPIRATORY: HAVE YOU BEEN SICK IN THE PAST WEEK? NO . FEVER NO . FLU LIKE SYMPTOMS? NO . COUGH NO . INTEGUMENTARY: DO YOU HAVE ANY RASHES OR OPEN SORES? NO . ALLERGIC/IMMUNO: ARE YOU ALLERGIC TO SHELLFISH OR IV DYE? NO . ANY NEW ALLERGIES? NO . PSYCHIATRIC: DO YOU HAVE THOUGHTS OF HURTING YOURSELF OR SOMEONE ELSE? NO . ARE YOU ABUSED, NEGLECTED, OR IN AN UNSAFE ENVIRONMENT? NO . ENDOCRINOLOGY: ARE YOU DIABETIC? YES . OTHER: DO YOU NEED ANY PRESCRIPTIONS? YES . IF YES, PLEASE LIST: ____SOMA . ANY NEW PROBLEMS WITH YOUR MEDICATIONS? NO . WHEN DID YOU LAST EAT? ____ . WHEN DID YOU LAST DRINK? ____ . WHAT DID YOU LAST DRINK? ____ . NAME OF PERSON DRIVING YOU HOME? ____ . DO YOU HAVE ANY OTHER QUESTIONS OR CONCERNS NO . REVIEWED BY: PROVIDER: SON MCCLURE . VITAL SIGNS WT 168.2 LBS, HT 63 IN, BMI 29.79 INDEX, BP 119/57 MM HG, HR 75 /MIN, RR 16 /MIN, TEMP 98.7 F, OXYGEN SAT % 96%, NA INITIALS TL 1040, REVIEWED BY: CL. EXAMINATION GENERAL EXAMINATION: PSYCHALERT , APPROPRIATE MOOD AND AFFECT , ORIENTED X 3 . SPEACH SOFT AND QUIET. LUNGS:CLEAR TO AUSCULTATION BILATERALLY. HEART:HEART RATE REGULAR. MUSCULOSKELETAL:TENDERNESS WITH PALPATION OVER LUMBAR FACETS BILATERALLY. MILD WEAKNESS NOTED IN QUADRICEP MUSCLES, ABLE TO FLEX AND EXTEND AT HIP AND ANKLES. POSTURE STOOPED. POOR BALANCE. POINT TENDERNESS OVER BILATERAL SACRAL ILIAC JOINTS. POSITIVE CONNER SIGN. SLOW TO RISE TO STANDING POSITION. GAIT ANTALGIC. ASSESSMENTS SACROILIITIS - M46.1 (PRIMARY) MYALGIA - M79.1 LUMBAR POST-LAMINECTOMY SYNDROME - M96.1 TREATMENT SACROILIITIS REFILL SOMA TABLET, 350 MG, 1 TABLET NEEDED, ORALLY, BEFORE BEDTIME FOR SPASMS AND PAIN MDD1, 30 DAY(S), 20, REFILLS 0 INJECTION ANESTHETIC SACROILIAC JOINTSON CHAPMAN 03/18/2017 11:26:29 AM > BILATERAL SIJ NO LIDOCAINE - MARCAINE OK NOTES: HOLD XARALTO FOR FULL 72 HOURS - 3 DAYS,FACET JOINT INJECTION: YOUR EXPERIENCE MATERIAL WAS PRINTED. PROCEDURE CODES 50096 INJECT SACROILIAC JOINT FA211 ESTABILISHED PATIENT [facility] FACILITY CHARGE R9958 PAIN ASSESS POS TOOL F/U PLAN DOC G8427 DOC MEDS VERIFIED W/PT OR RE DISPOSITION & COMMUNICATION FOLLOW UP AFTER INJECTION (REASON: CHECK AUTH FOR BILATERAL SIJ) ELECTRONICALLY SIGNED BY APURVA FAITH ON 04/02/2017 AT 08:53 AM EDT DISCLAIMER : THIS IS A VISIT SUMMARY EXTRACTED FROM THE [employer] CHART. IT IS NOT A COPY OF THE [employer] PROGRESS NOTE. KARMEN
== END ==
LOC: M PAIN 10:00
PROVIDERS: ATTEND Nurse Practitioner Family
DX: M96.1 Postlaminectomy syndrome, not elsewhere classified (principal); M46.1 Sacroiliitis, not elsewhere classified; M79.1 Myalgia; I10 Essential (primary) hypertension; J45.909 Unspecified asthma, uncomplicated; G47.30 Sleep apnea, unspecified; M48.00 Spinal stenosis, site unspecified; K21.9 Gastro-esophageal reflux disease without esophagitis; I48.91 Unspecified atrial fibrillation; M19.90 Unspecified osteoarthritis, unspecified site; E78.00 Pure hypercholesterolemia, unspecified; E11.9 Type 2 diabetes mellitus without complications; Z88.4 Allergy status to anesthetic agent; Z88.6 Allergy status to analgesic agent; Z88.8 Allergy status to other drugs, medicaments and biological substances; Z79.01 Long term (current) use of anticoagulants; Z79.1 Long term (current) use of non-steroidal anti-inflammatories (NSAID); Z79.84 Long term (current) use of oral hypoglycemic drugs; Z79.899 Other long term (current) drug therapy

== ENCOUNTER → 2017-03-26 | Outpatient (CLI) | payer MEDICARE, OTHER ==
[~2017-03-26] MED LIST changes: +BUPIVACAINE HCL 0.25% 30 ML VIAL As Ordered ONE; +ISOVUE-M 300 61% 15ML VIAL (Q9967) As Ordered ONE; +TRIAMCINOLONE ACETONIDE SUSP 40 MG/ML VIAL (J3301) As Ordered ONE; +diphenhydrAMINE 25 MG CAP As Ordered ONE; +oxyCODONE 5MG TAB As Ordered ONE
--- NOTE | 2017-03-26 17:49 | REP ---
FLUOROSCOPIC GUIDANCE: The images were reviewed with Dr. Noel. The patient has a history of low back pain. The portable C-ARM was provided in the OR by Dr. Mead for fluoroscopic guidance. 6 intraoperative fluoroscopic spot films were obtained for needle placement verification for bilateral SI joint injection. The films are on the PACS system and are available for review. 21 seconds of fluoroscopic time was utilized for this procedure. Reviewed by ADIS Blevins 03/27/2017 12:36 PEdited and Signed by Jordan Noel MD 03/27/2017 07:22 P
--- NOTE | 2017-03-30 23:24 | ECWPNPC ---
PATIENT NAME: SON BUCKNER : 1945 GENDER: FEMALE VISIT DATE: 03/26/2017 DISCHARGE DATE: 03/26/17 1317 VISIT LOCKED DATE TIME: PHYSICIAN: TAMELA CASTANEDA RESOURCE: TAMELA CASTANEDA REASON FOR APPOINTMENT 1. BILATERAL SIJ HISTORY OF PRESENT ILLNESS HISTORY OF PRESENT ILLNESS: PAIN THE PATIENT DESCRIBES THE PAIN... FALL RISK SCREENING: SCREENING :NO FALLS IN THE PAST YEAR CURRENT MEDICATIONS TAKING SPIRONOLACTONE 25 MG TABLET ONE TABLET ORALLY DAILY, NOTES: 03/25/17 TAKING MAGNESIUM OXIDE 400 MG CAPSULE 1 CAP ORALLY ONCE DAILY, NOTES: 03/25/17 TAKING XARELTO 20 MG TABLET 1 TABLET WITH FOOD ORALLY ONCE A DAY, NOTES: 03/22/17 TAKING BYSTOLIC 2.5 MG TABLET 1 TABLET ORALLY ONCE A DAY, NOTES: 03/25/17 TAKING PRAVASTATIN SODIUM 40 MG TABLET 1 TABLET ORALLY ONCE A DAY, NOTES: 03/25/17 TAKING OMEPRAZOLE 20 MG CAPSULE DELAYED RELEASE 1 CAPSULE ORALLY ONCE A DAY, NOTES: 03/25/17 TAKING ACETAMINOPHEN 650 MG TABLET 1 ORALLY BID, NOTES: 03/25/17 TAKING LUTEIN-ZEAXANTHIN 25-5 MG CAPSULE ORALLY DAILY, NOTES: 03/25/17 TAKING COQ-10 200 MG CAPSULE 1 CAPSULE WITH A MEAL ORALLY ONCE A DAY, NOTES: TAKING CITRACAL + D 1500-200 MG-IU TABLET 1 TABLET WITH MEALS ORALLY DAILY, NOTES: TAKING OMEGA 3 1000 MG CAPSULE 1 CAPSULE ORALLY ONCE A DAY, NOTES: TAKING ADVAIR DISKUS 500-50 MCG/DOSE MISCELLANEOUS 1 INHALATION EVERY 12 HRS, NOTES: TAKING LEXAPRO 10 MG TABLET 1 TABLET ORALLY ONCE A DAY AT HS, NOTES: TAKING NASACORT AQ 55 MCG/ACT AEROSOL SOLUTION 2 PUFFS IN EACH NOSTRIL NASALLY ONCE A DAY, NOTES: 2 DAYS AGO TAKING DRISDOL 50351 UNIT CAPSULE 1 CAPSULE ORALLY ONCE A WEEK, NOTES: 03/25/17 TAKING ULTRAM 50 MG TABLET 1 TABLET NEEDED FOR PAIN ORALLY EVERY 6 HRS, NOTES: TAKING REFRESH OPTIVE . 2 DROPS OU TWICE DAILY, NOTES: 03/25/17@0900 TAKING PROAIR HFA 2 PUFFS NEEDED DIRECTED, NOTES: 3 DAYS AGO TAKING GABAPENTIN 100 MG CAPSULE 2 CAP ORALLY BID, NOTES: 02/3017@1000 TAKING DILTIAZEM CD 240 MG CAPSULE EXTENDED RELEASE 24 HOUR 1 CAPSULE ORALLY ONCE A DAY, NOTES: 03/25/17@0900 TAKING TORSEMIDE 10 MG TABLET 1 TABLET ORALLY ONCE A DAY AT 1600, NOTES: 03/25/17@899 TAKING LEVEMIR FLEXPEN 100 UNIT/ML SOLUTION 10 UNITS SUBCUTANEOUS BEFORE BEDTIME, NOTES: 07/26/17@2199 TAKING METFORMIN HCL 1000 MG TABLET 1 TABLET WITH MEALS ORALLY TWICE A DAY, NOTES: 03/25/17 TAKING SOMA 350 MG TABLET 1 TABLET NEEDED ORALLY BEFORE BEDTIME FOR SPASMS AND PAIN MDD1, NOTES: 03/25/17@2199 NOT-TAKING BACLOFEN 10 MG TABLET 2 TABS ORALLY AT HS NEEDED NOT-TAKING TORSEMIDE 20 MG TABLET ORALLY DAILY NOT-TAKING NOVOLOG 100 UNIT/ML SOLUTION SLIDING SCALE SUBCUTANEOUS FOUR TIMES DAILY NOT-TAKING BENADRYL 50 MG CAPSULE 2CAPSULE ORALLY PRE [PROCEDURE, NOTES: 08/19/16 1200 NOT-TAKING ALBUTEROL SULFATE HFA 108 (90 BASE) MCG/ACT AEROSOL SOLUTION 2 PUFFS INHALATION ONCE A DAY NOT-TAKING TUMS 500 MG TABLET CHEWABLE 2 TABLETS ORALLY THREE TIMES A DAY NOT-TAKING OPTIVE SENSITIVE 0.5-0.9 % SOLUTION DIRECTED OPHTHALMIC MEDICATION LIST REVIEWED AND RECONCILED WITH THE PATIENT PAST MEDICAL HISTORY HTN ASTHMA OA SPINAL STENOSIS GERD ATRIAL FIB DJD ARTHRITIS ELEVATED CHOL HYDROCEPHALUS DM TYPE II ALLERGIES LIDOCAINE: ANAPHYLAXIS: ALLERGY NOVOCAIN: ANAPHYLAXIS: ALLERGY DOXYCYCLINE (ROSACEA): RASH: ALLERGY ALL NSAIDS INCLUDING VOLTAREN GEL: CARDIAC CONCERNS PER DR WILL: CONTRAINDICATION REVIEW OF SYSTEMS CONSTITUTIONAL: ANY CHANGE IN YOUR MEDICAL CONDITION? NO . CHILLS NO . FEVER NO . INFECTION: DO YOU HAVE NEW INFECTIONS? NO . DO YOU HAVE HISTORY OF MRSA? NO . MUSCULOSKELETAL: ANY NEW PATTERNS OF PAIN OR NUMBNESS? NO . GASTROENTEROLOGY: ANY NEW CHANGE IN BOWEL CONTROL? NO . GENITOURINARY: ANY NEW CHANGE IN BLADDER CONTROL? NO . IS THERE A CHANCE YOU COULD BE ? NO . HEMATOLOGY/LYMPH: DO YOU TAKE ANY BLOOD THINNERS? (FOR EXAMPLE- COUMADIN, PLAVIX, AGGRENOX, PLATEL, PRADAXA, OR XARELTO) YES . WHEN WAS YOUR LAST DOSE? DATE: TIME: 03/22/17@1800 . NEUROLOGY: HAVE YOU FALLEN IN THE PAST 6 MONTHS? NO . ANY NEW EXTREMITY NUMBNESS OR WEAKNESS? NO . CARDIOLOGY: DO YOU HAVE A PACEMAKER OR DEFIBRILLATOR? NO . RESPIRATORY: HAVE YOU BEEN SICK IN THE PAST WEEK? NO . FEVER NO . FLU LIKE SYMPTOMS? NO . COUGH NO . INTEGUMENTARY: DO YOU HAVE ANY RASHES OR OPEN SORES? NO . ALLERGIC/IMMUNO: ARE YOU ALLERGIC TO SHELLFISH OR IV DYE? NO . ANY NEW ALLERGIES? NO . PSYCHIATRIC: DO YOU HAVE THOUGHTS OF HURTING YOURSELF OR SOMEONE ELSE? NO . ARE YOU ABUSED, NEGLECTED, OR IN AN UNSAFE ENVIRONMENT? NO . ENDOCRINOLOGY: ARE YOU DIABETIC? YES . OTHER: DO YOU NEED ANY PRESCRIPTIONS? NO . IF YES, PLEASE LIST: ____ . ANY NEW PROBLEMS WITH YOUR MEDICATIONS? NO . WHEN DID YOU LAST EAT? ____0500 . WHEN DID YOU LAST DRINK? ____0900 . WHAT DID YOU LAST DRINK? ____WATER . NAME OF PERSON DRIVING YOU HOME? ____CHARLES . DO YOU HAVE ANY OTHER QUESTIONS OR CONCERNS NO . REVIEWED BY: PROVIDER: . VITAL SIGNS WT 168.2 LBS, HT 63 IN, BMI 29.79 INDEX, BP 122/65 MM HG, HR 67 /MIN, RR 16 /MIN, TEMP 97.4 F, OXYGEN SAT % 99%, NA INITIALS SC 11:02, REVIEWED BY: VD. ASSESSMENTS SACROILIITIS, NOT ELSEWHERE CLASSIFIED - M46.1 (PRIMARY) PROCEDURES PN SI PRE PROCEDURE DIAGNOSIS SACROILIITIS, SACROILIAC JOINT DYSFUNCTION POST PROCEDURE DIAGNOSIS SACROILIITIS, SACROILIAC JOINT DYSFUNCTION PROCEDURE BILATERAL SACROILIAC JOINT BLOCK SURGEON DR. TAMELA CASTANEDA PROTECTIVE SIGNAL REPAIRER HELPER NONE ANESTHESIA LOCAL PRE PROCEDURE NOTE PATIENT WITH HISTORY OF CHRONIC LOW BACK PAIN. I EVALUATED THE PATIENT AND REVIEWED THE CHART. I WENT OVER THE RISKS, ALTERNATIVES, AND BENEFITS ASSOCIATED WITH THIS PROCEDURE. THE PATIENT WOULD LIKE TO PROCEED AND GAVE CONSENT TO PERFORM THE PROCEDURE. THE PATIENT DENIES UNEXPLAINABLE WEIGHT LOSS, FEVER, CHILLS, OR NEW CHANGES IN URINARY OR BOWEL CONTROL DESCRIPTION OF PROCEDURE THE PATIENT WAS BROUGHT TO THE PROCEDURE ROOM AND PLACED IN THE PRONE POSITION. THE LUMBOSACRAL AREA WAS CLEANED WITH CHLORAPREP SOLUTION AND DRAPED ASEPTICALLY. THE PROCEDURE WAS DONE UNDER STERILE CONDITIONS. I CHECKED LATERALITY AND THE LEVEL WHERE THE PROCEDURE WAS GOING TO BE PERFORMED WITH THE PATIENT AND THE SUPPORTING STAFF AT THE MOMENT OF THE TIME OUT IN THE PROCEDURE ROOM. UNDER FLUOROSCOPIC GUIDANCE, TARGET POINT WAS SELECTED AT THE LOWER BORDER OF THE RIGHT AND LEFT SACROILIAC JOINT. TARGET POINT WAS SELECTED AFTER MEDIAL ROTATION AND TILT OF THE MAGNIFIER OF THE C-ARM. LIDOCAINE WAS USED TO NUMB THE SKIN AND SUBCUTANEOUS TISSUE BELOW IT. A SPINAL NEEDLE, 22-GAUGE, WAS ADVANCED UNDER FLUOROSCOPIC GUIDANCE AND FOLLOWING PATIENT FEEDBACK UNTIL THE TARGET AREA WAS TOUCHED. THE POSITION OF THE NEEDLE WAS VERIFIED WITH AP AND LATERAL VIEWS. AFTER PROPER POSITION OF THE NEEDLE WAS ACHIEVED, ISOVUE M DYE 30%, 0.25 ML, WAS INJECTED SHOWING SPREAD OF THE DYE. THEN, A SOLUTION OF 20 MG OF KENALOG WAS INJECTED IN RIGHT JOINT WITH 3 ML OF BUPIVACAINE 0.125%. THERE WAS NO EVIDENCE OF BLOOD, PARESTHESIA OR CEREBROSPINAL FLUID DURING THE PROCEDURE. THE PATIENT WAS SENT TO THE RECOVERY ROOM. THE PATIENT WAS MOVING THE EXTREMITIES AND DOING WELL. THERE WAS NO COMPLICATION DURING THE PROCEDURE. FLUOROSCOPY TIME WAS 21 SECONDS POST PROCEDURE NOTE THE PATIENT WILL BE SEEN IN A FOLLOW UP IN THE NEXT FEW WEEKS. INSTRUCTIONS WERE GIVEN, QUESTIONS WERE ANSWERED, AND THE PATIENT EXPRESSED UNDERSTANDING AND AGREED WITH THE PLAN. I, KERRY QIU, DOCUMENTED THE ABOVE INFORMATION ACTING A SCRIBE FOR DR. CASTANEDA. I HAVE REVIEWED THE ABOVE DOCUMENT, WRITTEN BY KERRY ESTRADA AND I VERIFY THAT IT IS [facility] FLUORO GUIDANCE (PAIN)[id number] PROCEDURE CODES 80556 INJECT SACROILIAC JOINT 6045F RADXPS IN END [id number] PXD DISPOSITION & COMMUNICATION FOLLOW UP 3 WEEKS ELECTRONICALLY SIGNED BY TAMELA CASTANEDA MD ON 03/30/2017 AT 05:21 PM EDT DISCLAIMER : THIS IS A VISIT SUMMARY EXTRACTED FROM THE [employer] CHART. IT IS NOT A COPY OF THE [employer] PROGRESS NOTE. KARMEN
== END ==
LOC: M PAIN 11:00
PROVIDERS: ATTEND Anesthesiology
DX: G89.29 Other chronic pain (principal); M46.1 Sacroiliitis, not elsewhere classified; M53.88 Other specified dorsopathies, sacral and sacrococcygeal region; I10 Essential (primary) hypertension; J45.909 Unspecified asthma, uncomplicated; M19.90 Unspecified osteoarthritis, unspecified site; M48.00 Spinal stenosis, site unspecified; K21.9 Gastro-esophageal reflux disease without esophagitis; I48.91 Unspecified atrial fibrillation; E78.00 Pure hypercholesterolemia, unspecified; E11.9 Type 2 diabetes mellitus without complications; Z88.4 Allergy status to anesthetic agent; Z88.6 Allergy status to analgesic agent; Z88.8 Allergy status to other drugs, medicaments and biological substances; Z79.01 Long term (current) use of anticoagulants; Z79.1 Long term (current) use of non-steroidal anti-inflammatories (NSAID); Z79.84 Long term (current) use of oral hypoglycemic drugs; Z79.891 Long term (current) use of opiate analgesic; Z79.899 Other long term (current) drug therapy
CPT/HCPCS: G0260; J3301; Q9967

== ENCOUNTER → 2017-03-31 | Outpatient (REF) | payer MEDICARE ==
[~2017-03-31] MED LIST changes: -BUPIVACAINE HCL 0.25% 30 ML VIAL As Ordered ONE; -ISOVUE-M 300 61% 15ML VIAL (Q9967) As Ordered ONE; -TRIAMCINOLONE ACETONIDE SUSP 40 MG/ML VIAL (J3301) As Ordered ONE; -diphenhydrAMINE 25 MG CAP As Ordered ONE; -oxyCODONE 5MG TAB As Ordered ONE
[2017-03-31 17:48] LABS: PERCENT SATURATION 9.4 % (13.2-37.4)
== END ==
LOC: M LAB REF 16:58
PROVIDERS: ATTEND Nurse Practitioner Family
DX: D50.9 Iron deficiency anemia, unspecified (principal)

== ENCOUNTER → 2017-05-28 | Outpatient (CLI) | payer MEDICARE, OTHER ==
[~2017-05-28] MED LIST changes: -AUGM875T27 PO; +AUGM875T28 PO; -BACL-67 PO; +BACL1TAB9 PO; +CARI350T PO; -CARI350T20 PO; -CO Q200C PO; +CO Q200C10 PO; -COLA100C3 PO; +COLA100C5 PO
== END ==
LOC: M PAIN 10:20
PROVIDERS: ATTEND Nurse Practitioner Family
DX: Z53.29 Procedure and treatment not carried out because of patient's decision for other reasons (principal)

== ENCOUNTER → 2017-06-05 | Outpatient (CLI) | payer MEDICARE, BC, OTHER ==
--- NOTE | 2017-06-21 23:22 | ECWPNPC ---
PATIENT NAME: SON BUCKNER : 1945 GENDER: FEMALE VISIT DATE: 06/05/2017 DISCHARGE DATE: 06/05/17 1208 VISIT LOCKED DATE TIME: PHYSICIAN: SON CHAPMAN RESOURCE: SON CHAPMAN HISTORY OF PRESENT ILLNESS HISTORY OF PRESENT ILLNESS: PAIN THE PATIENT DESCRIBES THE PAIN... FALL RISK SCREENING: SCREENING :NO FALLS IN THE PAST YEAR TODAY'S VISIT: NOTES: IS S/P BILATERAL SIJ 03/26/17 AND THIS SIGNIFICANTLY IMPROVED PAIN AND THE NUMBNESS IN RIGHT LATERAL THIGH. NOW HAS SOME INCREASE IN NUMBNESS AND TENDERNESS OVER SACRUM WITH PROLONGED SITTING. . CURRENT MEDICATIONS TAKING SPIRONOLACTONE 25 MG TABLET ONE TABLET ORALLY DAILY, NOTES: 03/25/17@899 TAKING MAGNESIUM OXIDE 400 MG CAPSULE 1 CAP ORALLY ONCE DAILY, NOTES: 03/25/17 TAKING XARELTO 20 MG TABLET 1 TABLET WITH FOOD ORALLY ONCE A DAY, NOTES: 03/22/17@1800 TAKING BYSTOLIC 2.5 MG TABLET 1 TABLET ORALLY ONCE A DAY, NOTES: 03/25/17 TAKING PRAVASTATIN SODIUM 40 MG TABLET 1 TABLET ORALLY ONCE A DAY, NOTES: 03/25/17 TAKING OMEPRAZOLE 20 MG CAPSULE DELAYED RELEASE 1 CAPSULE ORALLY ONCE A DAY, NOTES: 03/25/17 TAKING ACETAMINOPHEN 650 MG TABLET 1 ORALLY BID, NOTES: 03/25/17 TAKING LUTEIN-ZEAXANTHIN 25-5 MG CAPSULE ORALLY DAILY, NOTES: 03/25/17 TAKING CITRACAL + D 1500-200 MG-IU TABLET 1 TABLET WITH MEALS ORALLY DAILY, NOTES: TAKING ADVAIR DISKUS 500-50 MCG/DOSE MISCELLANEOUS 1 INHALATION EVERY 12 HRS, NOTES: TAKING LEXAPRO 10 MG TABLET 1 TABLET ORALLY ONCE A DAY AT HS, NOTES: TAKING NASACORT AQ 55 MCG/ACT AEROSOL SOLUTION 2 PUFFS IN EACH NOSTRIL NASALLY ONCE A DAY, NOTES: 2 DAYS AGO TAKING DRISDOL 01194 UNIT CAPSULE 1 CAPSULE ORALLY ONCE A WEEK, NOTES: 03/25/17@00 TAKING ULTRAM 50 MG TABLET 1 TABLET NEEDED FOR PAIN ORALLY EVERY 6 HRS, NOTES: @2199 TAKING REFRESH OPTIVE . 2 DROPS OU TWICE DAILY, NOTES: 03/25/17@0900 TAKING PROAIR HFA 2 PUFFS NEEDED DIRECTED, NOTES: 3 DAYS AGO TAKING GABAPENTIN 100 MG CAPSULE 2 CAP ORALLY BID, NOTES: 02/3017@1000 TAKING DILTIAZEM CD 240 MG CAPSULE EXTENDED RELEASE 24 HOUR 1 CAPSULE ORALLY ONCE A DAY, NOTES: 03/25/17@0900 TAKING TORSEMIDE 10 MG TABLET 1 TABLET ORALLY ONCE A DAY AT 1600, NOTES: 03/25/17 TAKING METFORMIN HCL 1000 MG TABLET 1 TABLET WITH MEALS ORALLY TWICE A DAY, NOTES: 03/25/17@2199 TAKING SOMA 350 MG TABLET 1 TABLET NEEDED ORALLY BEFORE BEDTIME FOR SPASMS AND PAIN MDD1, NOTES: 03/25/17 TAKING TRULICITY 1.5 MG/0.5ML SOLUTION PEN-INJECTOR 0.5 ML SUBCUTANEOUS TAKING IRON 325 (65 FE) MG TABLET 1 TABLET ORALLY ONCE A DAY NOT-TAKING COQ-10 200 MG CAPSULE 1 CAPSULE WITH A MEAL ORALLY ONCE A DAY, NOTES: NOT-TAKING OMEGA 3 1000 MG CAPSULE 1 CAPSULE ORALLY ONCE A DAY, NOTES: NOT-TAKING LEVEMIR FLEXPEN 100 UNIT/ML SOLUTION 10 UNITS SUBCUTANEOUS BEFORE BEDTIME, NOTES: 07/26/17@2199 NOT-TAKING BACLOFEN 10 MG TABLET 2 TABS ORALLY AT HS NEEDED NOT-TAKING TORSEMIDE 20 MG TABLET ORALLY DAILY NOT-TAKING NOVOLOG 100 UNIT/ML SOLUTION SLIDING SCALE SUBCUTANEOUS FOUR TIMES DAILY NOT-TAKING BENADRYL 50 MG CAPSULE 2CAPSULE ORALLY PRE [PROCEDURE, NOTES: 08/19/16 1200 NOT-TAKING ALBUTEROL SULFATE HFA 108 (90 BASE) MCG/ACT AEROSOL SOLUTION 2 PUFFS INHALATION ONCE A DAY NOT-TAKING TUMS 500 MG TABLET CHEWABLE 2 TABLETS ORALLY THREE TIMES A DAY NOT-TAKING OPTIVE SENSITIVE 0.5-0.9 % SOLUTION DIRECTED OPHTHALMIC MEDICATION LIST REVIEWED AND RECONCILED WITH THE PATIENT PAST MEDICAL HISTORY HTN ASTHMA OA SPINAL STENOSIS GERD ATRIAL FIB DJD ARTHRITIS ELEVATED CHOL HYDROCEPHALUS DM TYPE II ALLERGIES LIDOCAINE: ANAPHYLAXIS: ALLERGY NOVOCAIN: ANAPHYLAXIS: ALLERGY DOXYCYCLINE (ROSACEA): RASH: ALLERGY ALL NSAIDS INCLUDING VOLTAREN GEL: CARDIAC CONCERNS PER DR WILL: CONTRAINDICATION REVIEW OF SYSTEMS REVIEWED BY: PROVIDER: SON MCCLURE . CONSTITUTIONAL: ANY CHANGE IN YOUR MEDICAL CONDITION? NO . CHILLS NO . FEVER NO . INFECTION: DO YOU HAVE NEW INFECTIONS? NO . DO YOU HAVE HISTORY OF MRSA? NO . MUSCULOSKELETAL: ANY NEW PATTERNS OF PAIN OR NUMBNESS? NO . GASTROENTEROLOGY: ANY NEW CHANGE IN BOWEL CONTROL? NO . GENITOURINARY: ANY NEW CHANGE IN BLADDER CONTROL? NO . IS THERE A CHANCE YOU COULD BE ? NO . HEMATOLOGY/LYMPH: DO YOU TAKE ANY BLOOD THINNERS? (FOR EXAMPLE- COUMADIN, PLAVIX, AGGRENOX, PLATEL, PRADAXA, OR XARELTO) NO . WHEN WAS YOUR LAST DOSE? DATE: TIME: . NEUROLOGY: HAVE YOU FALLEN IN THE PAST 6 MONTHS? YES ANDERS D 2 FALLS SINCE YOU LAST SAW HER/ WE DISCUSSED SAFETY. . ANY NEW EXTREMITY NUMBNESS OR WEAKNESS? NO . CARDIOLOGY: DO YOU HAVE A PACEMAKER OR DEFIBRILLATOR? NO . RESPIRATORY: HAVE YOU BEEN SICK IN THE PAST WEEK? NO . FEVER NO . FLU LIKE SYMPTOMS? NO . COUGH NO . INTEGUMENTARY: DO YOU HAVE ANY RASHES OR OPEN SORES? NO . ALLERGIC/IMMUNO: ARE YOU ALLERGIC TO SHELLFISH OR IV DYE? NO . ANY NEW ALLERGIES? NO . PSYCHIATRIC: DO YOU HAVE THOUGHTS OF HURTING YOURSELF OR SOMEONE ELSE? NO . ARE YOU ABUSED, NEGLECTED, OR IN AN UNSAFE ENVIRONMENT? NO . ENDOCRINOLOGY: ARE YOU DIABETIC? YES . OTHER: DO YOU NEED ANY PRESCRIPTIONS? NO . IF YES, PLEASE LIST: ____ . ANY NEW PROBLEMS WITH YOUR MEDICATIONS? NO . WHEN DID YOU LAST EAT? ____ . WHEN DID YOU LAST DRINK? ____ . WHAT DID YOU LAST DRINK? ____ . NAME OF PERSON DRIVING YOU HOME? ____ . DO YOU HAVE ANY OTHER QUESTIONS OR CONCERNS NO . VITAL SIGNS WT 145 LBS, HT 63 IN, BMI 25.68 INDEX, BP 114/56 MM HG, HR 70 /MIN, RR 16 /MIN, TEMP 98.5 F, OXYGEN SAT % 97%, NA INITIALS AW 1111, REVIEWED BY: YES. EXAMINATION GENERAL EXAMINATION: PSYCHALERT , ORIENTED X 3, APPROPRIATE MOOD AND AFFECT . LUNGS:CLEAR TO AUSCULTATION BILATERALLY. HEART:HEART RATE REGULAR. MUSCULOSKELETAL:TENDER OVDER RIGHT> LEFT SIJ. SLOW TO RISE TO STANDING POSITION. GAIT ANTALGIC. ASSESSMENTS SACROILIITIS - M46.1 (PRIMARY) MYALGIA - M79.1 LUMBAR POST-LAMINECTOMY SYNDROME - M96.1 TREATMENT SACROILIITIS START CARISOPRODOL TABLET, 350 MG, 1 TABLET NEEDED, ORALLY, BEFORE BEDTIME PRN SPASM MDD=1 MAX 20 PER 30 DAYS, 30 DAY(S), 20, REFILLS 3 NOTES: OK TO CALL AND SCHEDULE SACRAL ILIAC JOINT INJECTION. PREVENTIVE MEDICINE PAIN CLINIC TEACHING: MEDICATIONS MICKY. PROCEDURE CODES FA211 ESTABILISHED PATIENT [facility] CHARGE G8730 PAIN ASSESS POS TOOL F/U PLAN DOC G8427 DOC MEDS VERIFIED W/PT OR RE DISPOSITION & COMMUNICATION FOLLOW UP AUGUST (REASON: OK TO CALL AND REQUEST/SCHEDULE BILATERAL SIJ INJECTION) ELECTRONICALLY SIGNED BY APURVA FAITH ON 06/21/2017 AT 04:52 PM EDT DISCLAIMER : THIS IS A VISIT SUMMARY EXTRACTED FROM THE [employer] CHART. IT IS NOT A COPY OF THE [employer] PROGRESS NOTE. KARMEN
== END ==
LOC: M PAIN 11:00
PROVIDERS: ATTEND Nurse Practitioner Family
DX: M96.1 Postlaminectomy syndrome, not elsewhere classified (principal); M46.1 Sacroiliitis, not elsewhere classified; M79.1 Myalgia; I10 Essential (primary) hypertension; J45.909 Unspecified asthma, uncomplicated; G47.30 Sleep apnea, unspecified; K21.9 Gastro-esophageal reflux disease without esophagitis; M19.90 Unspecified osteoarthritis, unspecified site; E78.00 Pure hypercholesterolemia, unspecified; E11.9 Type 2 diabetes mellitus without complications; Z88.6 Allergy status to analgesic agent; Z88.8 Allergy status to other drugs, medicaments and biological substances; Z79.01 Long term (current) use of anticoagulants; Z79.1 Long term (current) use of non-steroidal anti-inflammatories (NSAID); Z79.84 Long term (current) use of oral hypoglycemic drugs; Z79.891 Long term (current) use of opiate analgesic; Z79.899 Other long term (current) drug therapy

== ENCOUNTER → 2017-06-18 | Outpatient (CLI) | payer MEDICARE, OTHER ==
[2017-06-18 14:23] LABS: BLOOD UREA NITROGEN 17 MG/DL (7-18); CREATININE FOR GFR 0.95 MG/DL (0.55-1.02); GLOMERULAR FILTRATION RATE > 60.0 (>39)
== END ==
LOC: M WUC 10:56
PROVIDERS: ATTEND Neurological Surgery
DX: D32.9 Benign neoplasm of meninges, unspecified (principal); Z13.89 Encounter for screening for other disorder

== ENCOUNTER → 2017-07-08 | Outpatient (CLI) | payer MEDICARE, BC, OTHER ==
[~2017-07-08] MED LIST changes: +BUPIVACAINE HCL 0.25% 30 ML VIAL As Ordered ONE; +ISOVUE-M 300 61% 15ML VIAL (Q9967) As Ordered ONE; +TRIAMCINOLONE ACETONIDE SUSP 40 MG/ML VIAL (J3301) As Ordered ONE; +diphenhydrAMINE 25 MG CAP As Ordered ONE
--- NOTE | 2017-07-08 15:24 | REP ---
FLUOROSCOPIC GUIDANCE FOR SI JOINT INJECTIONS: 07/08/2017. Clinical history: Low back pain. Findings: Eight images from C-arm fluoroscopy provided to Dr. Lancaster from the pain clinic for bilateral SI joint steroid injection. Four images for each side with needle overlying the SI joint and contrast injected from the needle in at least two locations for each side. Fluoroscopy time: 21 seconds. Signed by Iglesia Romano MD 07/08/2017 04:15 P
--- NOTE | 2017-07-09 23:51 | ECWPNPC ---
PATIENT NAME: SON BUCKNER : 1945 GENDER: FEMALE VISIT DATE: 07/08/2017 DISCHARGE DATE: 07/08/17 1250 VISIT LOCKED DATE TIME: PHYSICIAN: TAMELA CASTANEDA RESOURCE: TAMELA CASTANEDA REASON FOR APPOINTMENT 1. KAMRON SIJ HISTORY OF PRESENT ILLNESS HISTORY OF PRESENT ILLNESS: PAIN THE PATIENT DESCRIBES THE PAIN... FALL RISK SCREENING: SCREENING :NO FALLS IN THE PAST YEAR CURRENT MEDICATIONS TAKING SPIRONOLACTONE 25 MG TABLET ONE TABLET ORALLY DAILY, NOTES: 07/08/17 050 TAKING MAGNESIUM OXIDE 400 MG CAPSULE 1 CAP ORALLY ONCE DAILY, NOTES: 07/07/17 09 TAKING XARELTO 20 MG TABLET 1 TABLET WITH FOOD ORALLY ONCE A DAY, NOTES: 07/07/171699 TAKING BYSTOLIC 2.5 MG TABLET 1 TABLET ORALLY ONCE A DAY, NOTES: 07/08/17499 TAKING PRAVASTATIN SODIUM 40 MG TABLET 1 TABLET ORALLY ONCE A DAY, NOTES: 07/07/172099 TAKING OMEPRAZOLE 20 MG CAPSULE DELAYED RELEASE 1 CAPSULE ORALLY ONCE A DAY, NOTES: 07/07/172099 TAKING ACETAMINOPHEN 650 MG TABLET 1 ORALLY BID, NOTES: 07/08/17499 TAKING LUTEIN-ZEAXANTHIN 25-5 MG CAPSULE ORALLY DAILY, NOTES: 07/08/17499 TAKING CITRACAL + D 1500-200 MG-IU TABLET 1 TABLET WITH MEALS ORALLY DAILY, NOTES: 07/07/171699 TAKING ADVAIR DISKUS 500-50 MCG/DOSE MISCELLANEOUS 1 INHALATION EVERY 12 HRS, NOTES: 07/08 08 TAKING LEXAPRO 10 MG TABLET 1 TABLET ORALLY ONCE A DAY AT HS, NOTES: 07/07/172099 TAKING NASACORT AQ 55 MCG/ACT AEROSOL SOLUTION 2 PUFFS IN EACH NOSTRIL NASALLY ONCE A DAY, NOTES: 07/08/17499 TAKING DRISDOL 15469 UNIT CAPSULE 1 CAPSULE ORALLY ONCE A WEEK, NOTES: 07/08/17499 TAKING ULTRAM 50 MG TABLET 1 TABLET NEEDED FOR PAIN ORALLY EVERY 6 HRS, NOTES: 07/08/17499 TAKING REFRESH OPTIVE . 2 DROPS OU TWICE DAILY, NOTES: 07/08/17 0800 TAKING PROAIR HFA 2 PUFFS NEEDED DIRECTED, NOTES: NONE RECENT TAKING GABAPENTIN 100 MG CAPSULE 2 CAP ORALLY BID, NOTES: 9/12/17 0500 TAKING DILTIAZEM CD 240 MG CAPSULE EXTENDED RELEASE 24 HOUR 1 CAPSULE ORALLY ONCE A DAY, NOTES: 07/08/17 0500 TAKING TORSEMIDE 10 MG TABLET 1 TABLET ORALLY ONCE A DAY AT 1600, NOTES: 07/08/17 0500 TAKING METFORMIN HCL 1000 MG TABLET 1 TABLET WITH MEALS ORALLY TWICE A DAY, NOTES: 07/08/17 0500 TAKING TRULICITY 1.5 MG/0.5ML SOLUTION PEN-INJECTOR 0.5 ML SUBCUTANEOUS , NOTES: 07/07/17 0800 TAKING IRON 325 (65 FE) MG TABLET 1 TABLET ORALLY ONCE A DAY, NOTES: 07/07/17 2100 TAKING CARISOPRODOL 350 MG TABLET 1 TABLET NEEDED ORALLY BEFORE BEDTIME PRN SPASM MDD=1 MAX 20 PER 30 DAYS, NOTES: 07/06/17 NOT-TAKING COQ-10 200 MG CAPSULE 1 CAPSULE WITH A MEAL ORALLY ONCE A DAY, NOTES: 03/25@0900 NOT-TAKING OMEGA 3 1000 MG CAPSULE 1 CAPSULE ORALLY ONCE A DAY, NOTES: 03/25@0900 NOT-TAKING LEVEMIR FLEXPEN 100 UNIT/ML SOLUTION 10 UNITS SUBCUTANEOUS BEFORE BEDTIME, NOTES: 07/26/17@2200 NOT-TAKING BACLOFEN 10 MG TABLET 2 TABS ORALLY AT HS NEEDED NOT-TAKING TORSEMIDE 20 MG TABLET ORALLY DAILY NOT-TAKING NOVOLOG 100 UNIT/ML SOLUTION SLIDING SCALE SUBCUTANEOUS FOUR TIMES DAILY NOT-TAKING BENADRYL 50 MG CAPSULE 2CAPSULE ORALLY PRE [PROCEDURE, NOTES: 08/19/16 1200 NOT-TAKING ALBUTEROL SULFATE HFA 108 (90 BASE) MCG/ACT AEROSOL SOLUTION 2 PUFFS INHALATION ONCE A DAY NOT-TAKING TUMS 500 MG TABLET CHEWABLE 2 TABLETS ORALLY THREE TIMES A DAY NOT-TAKING OPTIVE SENSITIVE 0.5-0.9 % SOLUTION DIRECTED OPHTHALMIC DISCONTINUED SOMA 350 MG TABLET 1 TABLET NEEDED ORALLY BEFORE BEDTIME FOR SPASMS AND PAIN MDD1, NOTES: 07/06/17 MEDICATION LIST REVIEWED AND RECONCILED WITH THE PATIENT PAST MEDICAL HISTORY HTN ASTHMA OA SPINAL STENOSIS GERD ATRIAL FIB DJD ARTHRITIS ELEVATED CHOL HYDROCEPHALUS DM TYPE II ALLERGIES LIDOCAINE: ANAPHYLAXIS: ALLERGY NOVOCAIN: ANAPHYLAXIS: ALLERGY DOXYCYCLINE (ROSACEA): RASH: ALLERGY ALL NSAIDS INCLUDING VOLTAREN GEL: CARDIAC CONCERNS PER DR WILL: CONTRAINDICATION SOCIAL HISTORY GENERAL: TOBACCO USE ARE YOU A:NONSMOKER ALCOHOL SCREENING DID YOU HAVE A DRINK CONTAINING ALCOHOL IN THE PAST YEAR? YES , POINTS 0 , INTERPRETATION NEGATIVE . RECREATIONAL DRUG USE DENIES. LEARNING BARRIERS / SPECIAL NEEDS ABILITY TO UNDERSTAND VERBAL INSTRUCTIONS GOOD :, ABILITY TO UNDERSTAND WRITTEN INSTRUCTIONS GOOD , KNOWLEDGE OF EDUCATIONAL NEEDS/TREATMENT PLAN GOOD , MOSQUE? YES , PLANS TO OVERCOME BARRIERS NONE NEEDED, LEARNING PREFERENCE NO PREFERENCE , ORIENTED TO PLAN OF CARE: PATIENT , PAIN MANAGEMENT PATIENT , TEACHING MATERIALS DEMONSTRATION/VERBAL INSTRUCTION, MEDICATION SHEETS, PRINTED HANDOUT , RESPONSE TO EDUCATION DEMOSTRATES INDEPENDENTELY , ORIENTED TO PLAN OF CARE: PATIENT, PAIN MANAGEMENT PATIENT, ORIENTED TO PLAN OF CARE: PATIENT, PAIN MANAGEMENT PATIENT. NEW PATIENT PAIN DIARY TODAY'S VISITNOTES FROM 0-10, WHAT LEVEL IS YOUR PAIN TODAY?0 PAIN CLINIC PFS, CLERGY, PUBLIC HEALTH REFERRALS PFS REFERRAL NEEDED?NO CLERGY REFERRAL NEEDED?NO PUBLIC HEALTH REFERRAL NEEDED?NO WAS THE PROVIDER NOTIFIED OF ANY PERTINENT INFO?NO HAS THE PATIENT BEEN EDUCATED REGARDING HIS/HER PLAN OF CARE?YES HAS THE PATIENT BEEN EDUCATED REGARDING PAIN, THE RISK FOR PAIN, THE IMPORTANCE OF EFFECTIVE PAIN MANAGEMENT, AND THE PAIN ASSESSMENT PROCESS?YES ADVANCE DIRECTIVES HEALTH CARE PROXY?YES POWER OF [place] TECHNICIAN?YES DOMESTIC VIOLENCE DO YOU FEEL SAFE IN YOUR ENVIRONMENT?YES REVIEW OF SYSTEMS REVIEWED BY: PROVIDER: . CONSTITUTIONAL: ANY CHANGE IN YOUR MEDICAL CONDITION? NO . CHILLS NO . FEVER NO . INFECTION: DO YOU HAVE NEW INFECTIONS? NO . DO YOU HAVE HISTORY OF MRSA? NO . MUSCULOSKELETAL: ANY NEW PATTERNS OF PAIN OR NUMBNESS? NO . GASTROENTEROLOGY: ANY NEW CHANGE IN BOWEL CONTROL? NO . GENITOURINARY: ANY NEW CHANGE IN BLADDER CONTROL? NO . IS THERE A CHANCE YOU COULD BE ? NO . HEMATOLOGY/LYMPH: DO YOU TAKE ANY BLOOD THINNERS? (FOR EXAMPLE- COUMADIN, PLAVIX, AGGRENOX, PLATEL, PRADAXA, OR XARELTO) YES,XARELTO . WHEN WAS YOUR LAST DOSE? DATE: TIME: 07/07/17 1700 . NEUROLOGY: HAVE YOU FALLEN IN THE PAST 6 MONTHS? YES, 2 MONTHS AGO. PEPE BARN BOSS IS AWARE. . ANY NEW EXTREMITY NUMBNESS OR WEAKNESS? NO . CARDIOLOGY: DO YOU HAVE A PACEMAKER OR DEFIBRILLATOR? NO . RESPIRATORY: HAVE YOU BEEN SICK IN THE PAST WEEK? NO . FEVER NO . FLU LIKE SYMPTOMS? NO . COUGH NO . INTEGUMENTARY: DO YOU HAVE ANY RASHES OR OPEN SORES? NO . ALLERGIC/IMMUNO: ARE YOU ALLERGIC TO SHELLFISH OR IV DYE? NO . ANY NEW ALLERGIES? NO . PSYCHIATRIC: DO YOU HAVE THOUGHTS OF HURTING YOURSELF OR SOMEONE ELSE? NO . ARE YOU ABUSED, NEGLECTED, OR IN AN UNSAFE ENVIRONMENT? NO . ENDOCRINOLOGY: ARE YOU DIABETIC? YES. FSBS 90 THIS A.M. @0430 . OTHER: DO YOU NEED ANY PRESCRIPTIONS? NO . IF YES, PLEASE LIST: ____ . ANY NEW PROBLEMS WITH YOUR MEDICATIONS? NO . WHEN DID YOU LAST EAT? 07/08 043 . WHEN DID YOU LAST DRINK? 07/08/17 0830 . WHAT DID YOU LAST DRINK? WATER . NAME OF PERSON DRIVING YOU HOME? SCOTT . DO YOU HAVE ANY OTHER QUESTIONS OR CONCERNS NO . VITAL SIGNS WT 145 LBS, HT 63 IN, BMI 25.68 INDEX, BP 104/55 MM HG, HR 74 /MIN, RR 16 /MIN, TEMP 98.2 F, OXYGEN SAT % 97%, NA INITIALS SC 10:46, REVIEWED BY: AD. ASSESSMENTS SACROILIITIS, NOT ELSEWHERE CLASSIFIED - M46.1 (PRIMARY) PROCEDURES PN SI PRE PROCEDURE DIAGNOSIS SACROILIITIS, SACROILIAC JOINT DYSFUNCTION POST PROCEDURE DIAGNOSIS SACROILIITIS, SACROILIAC JOINT DYSFUNCTION PROCEDURE BILATERAL SACROILIAC JOINT BLOCK SURGEON DR. TAMELA CASTANEDA EMPLOYEE RELATIONS ADVISOR NONE ANESTHESIA NONE PRE PROCEDURE NOTE PATIENT WITH HISTORY OF CHRONIC LOW BACK PAIN. I EVALUATED THE PATIENT AND REVIEWED THE CHART. I WENT OVER THE RISKS, ALTERNATIVES, AND BENEFITS ASSOCIATED WITH THIS PROCEDURE. THE PATIENT WOULD LIKE TO PROCEED AND GAVE CONSENT TO PERFORM THE PROCEDURE. THE PATIENT DENIES UNEXPLAINABLE WEIGHT LOSS, FEVER, CHILLS, OR NEW CHANGES IN URINARY OR BOWEL CONTROL DESCRIPTION OF PROCEDURE THE PATIENT WAS BROUGHT TO THE PROCEDURE ROOM AND PLACED IN THE PRONE POSITION. THE LUMBOSACRAL AREA WAS CLEANED WITH CHLORAPREP SOLUTION AND DRAPED ASEPTICALLY. THE PROCEDURE WAS DONE UNDER STERILE CONDITIONS. I CHECKED LATERALITY AND THE LEVEL WHERE THE PROCEDURE WAS GOING TO BE PERFORMED WITH THE PATIENT AND THE SUPPORTING STAFF AT THE MOMENT OF THE TIME OUT IN THE PROCEDURE ROOM. UNDER FLUOROSCOPIC GUIDANCE, TARGET POINT WAS SELECTED AT THE LOWER BORDER OF THE RIGHT AND LEFT SACROILIAC JOINT. TARGET POINT WAS SELECTED AFTER MEDIAL ROTATION AND TILT OF THE MAGNIFIER OF THE C-ARM. LIDOCAINE WAS USED TO NUMB THE SKIN AND SUBCUTANEOUS TISSUE BELOW IT. A SPINAL NEEDLE, 22-GAUGE, WAS ADVANCED UNDER FLUOROSCOPIC GUIDANCE AND FOLLOWING PATIENT FEEDBACK UNTIL THE TARGET AREA WAS TOUCHED. THE POSITION OF THE NEEDLE WAS VERIFIED WITH AP AND LATERAL VIEWS. AFTER PROPER POSITION OF THE NEEDLE WAS ACHIEVED A SOLUTION OF 20 MG OF KENALOG WAS INJECTED IN RIGHT JOINT WITH 3 ML OF BUPIVACAINE 0.125%. NO DYE WAS USED .THERE WAS NO EVIDENCE OF BLOOD, PARESTHESIA OR CEREBROSPINAL FLUID DURING THE PROCEDURE. THE PATIENT WAS SENT TO THE RECOVERY ROOM. THE PATIENT WAS MOVING THE EXTREMITIES AND DOING WELL. THERE WAS NO COMPLICATION DURING THE PROCEDURE. FLUOROSCOPY TIME WAS 21 SECONDS POST PROCEDURE NOTE THE PATIENT WILL BE SEEN IN A FOLLOW UP IN THE NEXT FEW WEEKS. INSTRUCTIONS WERE GIVEN, QUESTIONS WERE ANSWERED, AND THE PATIENT EXPRESSED UNDERSTANDING AND AGREED WITH THE PLAN. I, KERRY QIU, DOCUMENTED THE ABOVE INFORMATION ACTING A SCRIBE FOR DR. CASTANEDA. I HAVE REVIEWED THE ABOVE DOCUMENT, WRITTEN BY KERRY ANDERSONIBXin AND I VERIFY THAT IT IS [facility] FLUORO GUIDANCE (PAIN)[id number] PROCEDURE CODES 80609 INJECT SACROILIAC JOINT 6045F RADXPS IN END [id number] PXD DISPOSITION & COMMUNICATION FOLLOW UP 3 WEEKS ELECTRONICALLY SIGNED BY TAMELA CASTANEDA MD ON 07/09/2017 AT 09:49 PM EDT DISCLAIMER : THIS IS A VISIT SUMMARY EXTRACTED FROM THE [employer] CHART. IT IS NOT A COPY OF THE [employer] PROGRESS NOTE. MTDD
== END ==
LOC: M PAIN 10:45
PROVIDERS: ATTEND Anesthesiology
DX: G89.29 Other chronic pain (principal); M54.5 Low back pain; M46.1 Sacroiliitis, not elsewhere classified; Z79.84 Long term (current) use of oral hypoglycemic drugs; I10 Essential (primary) hypertension; E11.9 Type 2 diabetes mellitus without complications; J45.909 Unspecified asthma, uncomplicated; I48.91 Unspecified atrial fibrillation; Z79.4 Long term (current) use of insulin; Z79.899 Other long term (current) drug therapy; Z88.6 Allergy status to analgesic agent; Z88.8 Allergy status to other drugs, medicaments and biological substances
CPT/HCPCS: G0260; J3301; Q9967

== ENCOUNTER → 2017-09-25 | Outpatient (CLI) | payer MEDICARE, OTHER ==
[~2017-09-25] MED LIST changes: -BUPIVACAINE HCL 0.25% 30 ML VIAL As Ordered ONE; -ISOVUE-M 300 61% 15ML VIAL (Q9967) As Ordered ONE; -TRIAMCINOLONE ACETONIDE SUSP 40 MG/ML VIAL (J3301) As Ordered ONE; -diphenhydrAMINE 25 MG CAP As Ordered ONE
--- NOTE | 2017-10-25 01:55 | ECWPNPC ---
PATIENT NAME: SON BUCKNER : 1945 GENDER: FEMALE VISIT DATE: 09/25/2017 DISCHARGE DATE: 09/25/17 1136 VISIT LOCKED DATE TIME: PHYSICIAN: SON CHAPMAN RESOURCE: SON CHAPMAN REASON FOR APPOINTMENT 1. MEDS HISTORY OF PRESENT ILLNESS HISTORY OF PRESENT ILLNESS: PAIN THE PATIENT DESCRIBES THE PAIN... FALL RISK SCREENING: SCREENING :NO FALLS IN THE PAST YEAR TODAY'S VISIT: NOTES: S/P BILATERAL SIJ INJECTIONS COMPLETED ON 07/08/17. PAIN LEVEL PRIOR WAS 5/10, POST 0/10 SINCE INJECTIONS WITH 100% RELIEF OF PAIN. IS STILL HAVING DIFFICULTY WITH NUMBNESS IN RIGHT LEG. THIS DID IMPROVE 100% FOR 2 WEEKS AFTER THE INJECTION. NO WEAKNESS IN LEGS AT PRESENT. . CURRENT MEDICATIONS TAKING SPIRONOLACTONE 25 MG TABLET ONE TABLET ORALLY DAILY TAKING MAGNESIUM OXIDE 400 MG CAPSULE 1 CAP ORALLY ONCE DAILY TAKING XARELTO 20 MG TABLET 1 TABLET WITH FOOD ORALLY ONCE A DAY TAKING BYSTOLIC 2.5 MG TABLET 1 TABLET ORALLY ONCE A DAY TAKING PRAVASTATIN SODIUM 40 MG TABLET 1 TABLET ORALLY ONCE A DAY TAKING OMEPRAZOLE 20 MG CAPSULE DELAYED RELEASE 1 CAPSULE ORALLY ONCE A DAY TAKING ACETAMINOPHEN 650 MG TABLET 1 ORALLY BID TAKING LUTEIN-ZEAXANTHIN 25-5 MG CAPSULE ORALLY DAILY TAKING CITRACAL + D 1500-200 MG-IU TABLET 1 TABLET WITH MEALS ORALLY DAILY TAKING ADVAIR DISKUS 500-50 MCG/DOSE MISCELLANEOUS 1 INHALATION EVERY 12 HRS TAKING LEXAPRO 10 MG TABLET 1 TABLET ORALLY ONCE A DAY AT HS TAKING NASACORT AQ 55 MCG/ACT AEROSOL SOLUTION 2 PUFFS IN EACH NOSTRIL NASALLY ONCE A DAY TAKING DRISDOL 79211 UNIT CAPSULE 1 CAPSULE ORALLY ONCE A WEEK TAKING ULTRAM 50 MG TABLET 1 TABLET NEEDED FOR PAIN ORALLY EVERY 6 HRS TAKING REFRESH OPTIVE . 2 DROPS OU TWICE DAILY TAKING PROAIR HFA 2 PUFFS NEEDED DIRECTED TAKING GABAPENTIN 100 MG CAPSULE 2 CAP ORALLY BID TAKING DILTIAZEM CD 240 MG CAPSULE EXTENDED RELEASE 24 HOUR 1 CAPSULE ORALLY ONCE A DAY TAKING TORSEMIDE 10 MG TABLET 1 TABLET ORALLY ONCE A DAY AT 1600 TAKING METFORMIN HCL 1000 MG TABLET 1 TABLET WITH MEALS ORALLY TWICE A DAY TAKING IRON 325 (65 FE) MG TABLET 1 TABLET ORALLY ONCE A DAY TAKING CARISOPRODOL 350 MG TABLET 1 TABLET NEEDED ORALLY BEFORE BEDTIME PRN SPASM MDD=1 MAX 20 PER 30 DAYS NOT-TAKING TRULICITY 1.5 MG/0.5ML SOLUTION PEN-INJECTOR 0.5 ML SUBCUTANEOUS NOT-TAKING COQ-10 200 MG CAPSULE 1 CAPSULE WITH A MEAL ORALLY ONCE A DAY, NOTES: 03/25@0900 NOT-TAKING OMEGA 3 1000 MG CAPSULE 1 CAPSULE ORALLY ONCE A DAY, NOTES: 03/25@0900 NOT-TAKING LEVEMIR FLEXPEN 100 UNIT/ML SOLUTION 10 UNITS SUBCUTANEOUS BEFORE BEDTIME, NOTES: 07/26/17@2200 NOT-TAKING BACLOFEN 10 MG TABLET 2 TABS ORALLY AT HS NEEDED NOT-TAKING TORSEMIDE 20 MG TABLET ORALLY DAILY NOT-TAKING NOVOLOG 100 UNIT/ML SOLUTION SLIDING SCALE SUBCUTANEOUS FOUR TIMES DAILY NOT-TAKING BENADRYL 50 MG CAPSULE 2CAPSULE ORALLY PRE [PROCEDURE, NOTES: 08/19/16 1200 NOT-TAKING ALBUTEROL SULFATE HFA 108 (90 BASE) MCG/ACT AEROSOL SOLUTION 2 PUFFS INHALATION ONCE A DAY NOT-TAKING TUMS 500 MG TABLET CHEWABLE 2 TABLETS ORALLY THREE TIMES A DAY NOT-TAKING OPTIVE SENSITIVE 0.5-0.9 % SOLUTION DIRECTED OPHTHALMIC MEDICATION LIST REVIEWED AND RECONCILED WITH THE PATIENT PAST MEDICAL HISTORY HTN ASTHMA OA SPINAL STENOSIS GERD ATRIAL FIB DJD ARTHRITIS ELEVATED CHOL HYDROCEPHALUS DM TYPE II ALLERGIES LIDOCAINE: ANAPHYLAXIS: ALLERGY NOVOCAIN: ANAPHYLAXIS: ALLERGY DOXYCYCLINE (ROSACEA): RASH: ALLERGY ALL NSAIDS INCLUDING VOLTAREN GEL: CARDIAC CONCERNS PER DR WILL: CONTRAINDICATION SURGICAL HISTORY EDY/BSO R MASTECTOMY 1981 R LABECTOMY 2007 COLLEGE ATHLETE SHUNT FOR HYDROCEPHALUS 06/03/2016 SOCIAL HISTORY GENERAL: TOBACCO USE ARE YOU A:NONSMOKER ALCOHOL SCREENING DID YOU HAVE A DRINK CONTAINING ALCOHOL IN THE PAST YEAR? YES , POINTS 0 , INTERPRETATION NEGATIVE . RECREATIONAL DRUG USE DENIES. LEARNING BARRIERS / SPECIAL NEEDS ABILITY TO UNDERSTAND VERBAL INSTRUCTIONS GOOD :, ABILITY TO UNDERSTAND WRITTEN INSTRUCTIONS GOOD , KNOWLEDGE OF EDUCATIONAL NEEDS/TREATMENT PLAN GOOD , VOODOO? YES , PLANS TO OVERCOME BARRIERS NONE NEEDED, LEARNING PREFERENCE NO PREFERENCE , ORIENTED TO PLAN OF CARE: PATIENT , PAIN MANAGEMENT PATIENT , TEACHING MATERIALS DEMONSTRATION/VERBAL INSTRUCTION, MEDICATION SHEETS, PRINTED HANDOUT , RESPONSE TO EDUCATION DEMOSTRATES INDEPENDENTELY , ORIENTED TO PLAN OF CARE: PATIENT, PAIN MANAGEMENT PATIENT, ORIENTED TO PLAN OF CARE: PATIENT, PAIN MANAGEMENT PATIENT. NEW PATIENT PAIN DIARY TODAY'S VISITNOTES FROM 0-10, WHAT LEVEL IS YOUR PAIN TODAY?0 PAIN CLINIC PFS, CLERGY, PUBLIC HEALTH REFERRALS PFS REFERRAL NEEDED?NO CLERGY REFERRAL NEEDED?NO PUBLIC HEALTH REFERRAL NEEDED?NO WAS THE PROVIDER NOTIFIED OF ANY PERTINENT INFO?NO HAS THE PATIENT BEEN EDUCATED REGARDING HIS/HER PLAN OF CARE?YES HAS THE PATIENT BEEN EDUCATED REGARDING PAIN, THE RISK FOR PAIN, THE IMPORTANCE OF EFFECTIVE PAIN MANAGEMENT, AND THE PAIN ASSESSMENT PROCESS?YES ADVANCE DIRECTIVES HEALTH CARE PROXY?YES POWER OF FENDER MECHANIC?YES DOMESTIC VIOLENCE DO YOU FEEL SAFE IN YOUR ENVIRONMENT?YES HOSPITALIZATION/MAJOR DIAGNOSTIC PROCEDURE SURGERY RELATED REVIEW OF SYSTEMS REVIEWED BY: PROVIDER: . CONSTITUTIONAL: ANY CHANGE IN YOUR MEDICAL CONDITION? NO . CHILLS NO . FEVER NO . INFECTION: DO YOU HAVE NEW INFECTIONS? NO . DO YOU HAVE HISTORY OF MRSA? NO . MUSCULOSKELETAL: ANY NEW PATTERNS OF PAIN OR NUMBNESS? NO . GASTROENTEROLOGY: ANY NEW CHANGE IN BOWEL CONTROL? NO . GENITOURINARY: ANY NEW CHANGE IN BLADDER CONTROL? NO . IS THERE A CHANCE YOU COULD BE ? NO . HEMATOLOGY/LYMPH: GENERAL BEING WORKED UP FOFR ANEMIA. . DO YOU TAKE ANY BLOOD THINNERS? (FOR EXAMPLE- COUMADIN, PLAVIX, AGGRENOX, PLATEL, PRADAXA, OR XARELTO) YES, XARELTO . WHEN WAS YOUR LAST DOSE? DATE: TIME: . NEUROLOGY: HAVE YOU FALLEN IN THE PAST 6 MONTHS? NO . ANY NEW EXTREMITY NUMBNESS OR WEAKNESS? NO . CARDIOLOGY: DO YOU HAVE A PACEMAKER OR DEFIBRILLATOR? NO . RESPIRATORY: HAVE YOU BEEN SICK IN THE PAST WEEK? NO . FEVER NO . FLU LIKE SYMPTOMS? NO . COUGH NO . INTEGUMENTARY: DO YOU HAVE ANY RASHES OR OPEN SORES? NO . ALLERGIC/IMMUNO: ARE YOU ALLERGIC TO SHELLFISH OR IV DYE? NO . ANY NEW ALLERGIES? NO . PSYCHIATRIC: DO YOU HAVE THOUGHTS OF HURTING YOURSELF OR SOMEONE ELSE? NO . ARE YOU ABUSED, NEGLECTED, OR IN AN UNSAFE ENVIRONMENT? NO . ENDOCRINOLOGY: ARE YOU DIABETIC? YES - MUCH IMPROVED WITH WEIGHT LOSS. MEDS ADJUSTED DOWN . OTHER: DO YOU NEED ANY PRESCRIPTIONS? NO . IF YES, PLEASE LIST: ____ . ANY NEW PROBLEMS WITH YOUR MEDICATIONS? NO . WHEN DID YOU LAST EAT? ____ . WHEN DID YOU LAST DRINK? ____ . WHAT DID YOU LAST DRINK? ____ . NAME OF PERSON DRIVING YOU HOME? ____ . DO YOU HAVE ANY OTHER QUESTIONS OR CONCERNS NO . VITAL SIGNS WT 128 LBS, HT 63 IN, BMI 22.67 INDEX, BP 107/58 MM HG, HR 74 /MIN, RR 16 /MIN, TEMP 98.2 F, OXYGEN SAT % 100%, NA INITIALS SC 11:06, REVIEWED BY: RAIN. EXAMINATION GENERAL EXAMINATION: PSYCHALERT , ORIENTED X 3, APPROPRIATE MOOD AND AFFECT . LUNGS:CLEAR TO AUSCULTATION BILATERALLY . HEART:HEART RATE REGULAR . MUSCULOSKELETAL:POINT TENDERNESS OVER RIGHT SACRUM AND SIJ ONLY. RISES EASILY TO THE STANDING POSITION. EXTREMITIES:NO EDEMA. ASSESSMENTS SACROILIITIS - M46.1 (PRIMARY) MYALGIA - M79.1 LUMBAR POST-LAMINECTOMY SYNDROME - M96.1 TREATMENT SACROILIITIS NOTES: CONTINUE EXERCISES AND STRETCHES. CALL IF PAIN INCREASES. PROCEDURE CODES FA211 ESTABILISHED PATIENT [facility] FACILITY CHARGE G8730 PAIN ASSESS POS TOOL F/U PLAN DOC G8427 DOC MEDS VERIFIED W/PT OR RE DISPOSITION & COMMUNICATION FOLLOW UP JANUARY (REASON: BACK PAINROI - NEED MRI LUMBAR SPINE DONE AT [facility]) ELECTRONICALLY SIGNED BY APURVA FAITH ON 10/23/2017 AT 08:33 AM EST DISCLAIMER : THIS IS A VISIT SUMMARY EXTRACTED FROM THE [employer] CHART. IT IS NOT A COPY OF THE [employer] PROGRESS NOTE. KARMEN
== END ==
LOC: M PAIN 11:00
PROVIDERS: ATTEND Nurse Practitioner Family
DX: M46.1 Sacroiliitis, not elsewhere classified (principal); M79.1 Myalgia; M96.1 Postlaminectomy syndrome, not elsewhere classified; Z79.84 Long term (current) use of oral hypoglycemic drugs; Z79.899 Other long term (current) drug therapy; K21.9 Gastro-esophageal reflux disease without esophagitis; I10 Essential (primary) hypertension; J45.909 Unspecified asthma, uncomplicated; E11.9 Type 2 diabetes mellitus without complications; Z88.8 Allergy status to other drugs, medicaments and biological substances

== ENCOUNTER 2017-10-07 13:15 | Outpatient (CLI) | payer MEDICARE, BC, OTHER ==
[~2017-10-07] VITALS: Ht 157.5 cm; Wt 60.0 kg
[2017-10-07 13:30] VITALS: BP 142/68
== END 2017-10-07 19:26 | disposition home or self-care (01) ==
LOC: M OPCLIPED 13:15 → M PED 13:17 → M OPCLIPED 19:26
PROVIDERS: ATTEND Family Medicine
DX: D64.9 Anemia, unspecified (principal); Z88.8 Allergy status to other drugs, medicaments and biological substances; Z88.1 Allergy status to other antibiotic agents; Z79.4 Long term (current) use of insulin; Z79.899 Other long term (current) drug therapy
CPT/HCPCS: 36430; 82728; 86850; 86900; 86901; 86920; P9016

== ENCOUNTER → 2017-10-07 | Outpatient (REF) | payer MEDICARE, OTHER | LOC: M LAB REF 17:30 | PROVIDERS: ATTEND Family Medicine | DX: D64.9 Anemia, unspecified (principal) ==

== ENCOUNTER → 2017-10-28 | Outpatient (REF) | payer MEDICARE, OTHER ==
[2017-10-28 18:13] LABS: RETIC HEMOGLOBIN EQUIVALENT 22.4 pg (24-36); RETICULOCYTE # 35.1 10^9/L (17-77); RETICULOCYTE % 0.9 % (0.5-1.5)
[2017-10-28 18:29] LABS: FERRITIN 6 NG/ML (8-252); IRON (FE) 25 UG/DL (50-170); PERCENT SATURATION 4.9 % (13.2-45.0); TOTAL IRON BINDING CAPACITY 511 UG/DL (250-450)
== END ==
LOC: M LAB REF 17:43
DX: D50.9 Iron deficiency anemia, unspecified (principal)
CPT/HCPCS: 83550

== ENCOUNTER → 2017-12-08 | Outpatient (REF) | payer MEDICARE, OTHER ==
[2017-12-08 15:09] LABS: FERRITIN 520 NG/ML (8-252); IRON (FE) 71 UG/DL (50-170); PERCENT SATURATION 21.2 % (13.2-45.0); TOTAL IRON BINDING CAPACITY 335 UG/DL (250-450)
== END ==
LOC: M LAB REF 13:36
DX: D50.9 Iron deficiency anemia, unspecified (principal)
CPT/HCPCS: 83550

== ENCOUNTER 2018-01-14 12:52 | Day surgery (SDC) | payer MEDICARE, BC, OTHER ==
[~2018-01-14 12:52] MED LIST changes: -/ADVA50050; -/BENA10TA; -/ESCI10TA; -/WARF25TA OR; -ACE65ERTAB PO; -ACET500C PO; -ACET65TA; -ACIPHEX; -ADVA230A INH; -ALBU17IN INH; -ASPI1TAB6 PO; -ASPI325T; -ATEN25TA OR; -ATEN50TA2; -ATEN50TA2 OR; -AUGM875T28 PO; -BACL10TA2 PO; -BACL1TAB9 PO; -BYST10TA2 PO; -BYST2.5T2 PO; -CARD240T2 PO; -CARI350T PO; +CETACAINE SPRAY 5GM As Ordered; -CIPR250T3; -CITRTAB14 PO; -CITRTAB15 PO; -CITRTAB18 PO; -CO Q200C10 PO; -COLA100C5 PO; -DICL13PA TD; -DRIS50002 PO; -FERR325T3 PO; -FLUC100T PO; -FLUTISP; -GABA-279 PO; -HYDR12.55 PO; -HYDR25TA6; -I CAP; -INSUDET SC; -INSUHUMDS SC; -LEXA1TAB PO; +LIDOCAINE VISCOUS 2% SOLN 15ML UDC As Ordered; -LUTE25CA PO; -LUTE6CAP2 PO; -LYRI75CA PO; -MAG-OX PO; -MAGN400T5 PO; -NASACORT; -NEUR300C PO; -OCEA0.654; -OMEG100011 PO; -OPTIVE; -PERC5TAB8 OR; -PERC7.5T8 OR; -POTA10CA OR; -PRAV40TA2 PO; -PRED20TA PO; -PREG50CA PO; -PRIL20CA9 PO; -REFR0.1D OU; -REFR0.5D8 OU; -SPIR25TA2 PO; -STOO100C PO; -TELM1TAB PO; -TORS10TA3 PO; -TORS20TA2 PO; -TRAM50TA2 PO; -TUMS500C; -TYLE325T5 PO; -TYLE500T78 PO; -VITAMIN D50000 UNT OR; -XARE20TA PO; -XARELTO PO; -XOPE1.252 INH; -XOPENEX
[2018-01-14] MEDS ORDERED: MIDAZOLAM INJ 2 MG/2 ML VIAL (J2250) As Ordered ×2 (13:25→13:26)
[2018-01-14] MEDS ORDERED: PROPOFOL 200 MG/20 ML VIAL As Ordered (15:57)
== END 2018-01-14 17:00 | disposition home or self-care (01) ==
LOC: M OPP 12:52
DX: I48.0 Paroxysmal atrial fibrillation (principal); I10 Essential (primary) hypertension; R60.0 Localized edema; E78.00 Pure hypercholesterolemia, unspecified; J45.909 Unspecified asthma, uncomplicated; G47.30 Sleep apnea, unspecified; E11.9 Type 2 diabetes mellitus without complications; K21.9 Gastro-esophageal reflux disease without esophagitis; Z79.899 Other long term (current) drug therapy; Z79.01 Long term (current) use of anticoagulants; Z88.8 Allergy status to other drugs, medicaments and biological substances; Z85.3 Personal history of malignant neoplasm of breast; Z85.118 Personal history of other malignant neoplasm of bronchus and lung; Z98.1 Arthrodesis status; Z87.891 Personal history of nicotine dependence
CPT/HCPCS: J2250

== ENCOUNTER 2018-01-23 08:49 | Day surgery (SDC) | payer MEDICARE, BC, OTHER ==
[2018-01-23] MEDS: NS 1,000 ML IV (09:14)
[2018-01-23] MEDS ORDERED: PROPOFOL 200 MG/20 ML VIAL As Ordered (09:41)
== END 2018-01-23 11:09 | disposition home or self-care (01) ==
LOC: M OPP 08:49
DX: D64.9 Anemia, unspecified (principal); D12.5 Benign neoplasm of sigmoid colon; D12.3 Benign neoplasm of transverse colon; K57.30 Diverticulosis of large intestine without perforation or abscess without bleeding; K64.8 Other hemorrhoids; K31.7 Polyp of stomach and duodenum; I48.91 Unspecified atrial fibrillation; I10 Essential (primary) hypertension; E78.5 Hyperlipidemia, unspecified; Z86.79 Personal history of other diseases of the circulatory system; E11.9 Type 2 diabetes mellitus without complications; K21.9 Gastro-esophageal reflux disease without esophagitis; R12 Heartburn; I27.0 Primary pulmonary hypertension; J45.909 Unspecified asthma, uncomplicated; E55.9 Vitamin D deficiency, unspecified; Z98.2 Presence of cerebrospinal fluid drainage device; M19.90 Unspecified osteoarthritis, unspecified site; F32.9 Major depressive disorder, single episode, unspecified; Z98.890 Other specified postprocedural states; Z78.0 Asymptomatic menopausal state; Z85.118 Personal history of other malignant neoplasm of bronchus and lung; Z85.3 Personal history of malignant neoplasm of breast; Z92.3 Personal history of irradiation; Z96.651 Presence of right artificial knee joint; Z90.11 Acquired absence of right breast and nipple; R06.83 Snoring; G47.30 Sleep apnea, unspecified; Z88.8 Allergy status to other drugs, medicaments and biological substances; Z88.1 Allergy status to other antibiotic agents; Z88.4 Allergy status to anesthetic agent; Z79.01 Long term (current) use of anticoagulants; Z79.899 Other long term (current) drug therapy; Z79.4 Long term (current) use of insulin; Z80.0 Family history of malignant neoplasm of digestive organs
CPT/HCPCS: 45385

== ENCOUNTER → 2018-02-20 | Outpatient (REF) | payer MEDICARE, BC, OTHER ==
[2018-02-20 14:30] LABS: FERRITIN 106 NG/ML (8-252)
== END ==
LOC: M LAB REF 13:38
DX: D50.9 Iron deficiency anemia, unspecified (principal)
CPT/HCPCS: 82728

== ENCOUNTER → 2018-02-23 | Outpatient (CLI) | payer MEDICARE, BC, OTHER ==
[~2018-02-23] MED LIST changes: -CETACAINE SPRAY 5GM As Ordered; -LIDOCAINE VISCOUS 2% SOLN 15ML UDC As Ordered; +PROHANCE 279.3MG/ML 15ML VIAL (A9576) As Ordered
== END ==
LOC: M RAD 14:36
DX: D41.01 Neoplasm of uncertain behavior of right kidney (principal); D37.6 Neoplasm of uncertain behavior of liver, gallbladder and bile ducts
CPT/HCPCS: A9576

== ENCOUNTER → 2018-03-11 | Outpatient (CLI) | payer MEDICARE, BC, OTHER | LOC: M PLARAD 08:15 | DX: N28.89 Other specified disorders of kidney and ureter (principal); Z85.3 Personal history of malignant neoplasm of breast; Z85.118 Personal history of other malignant neoplasm of bronchus and lung | CPT/HCPCS: 78815 ==

== ENCOUNTER → 2018-03-17 | Outpatient (REF) | payer MEDICARE, BC, OTHER ==
[2018-03-17 14:43] LABS: FERRITIN 78 NG/ML (8-252); IRON (FE) 49 UG/DL (50-170); TOTAL IRON BINDING CAPACITY 349 UG/DL (250-450)
== END ==
LOC: M LAB REF 13:44
DX: D50.9 Iron deficiency anemia, unspecified (principal)
CPT/HCPCS: 83550

== ENCOUNTER → 2018-03-26 | Outpatient (CLI) | payer MEDICARE, BC, OTHER ==
[2018-03-26 17:35] LABS: BLOOD UREA NITROGEN 19 MG/DL (7-18)
[2018-03-26 17:35] LABS: CREATININE FOR GFR 0.99 MG/DL (0.55-1.30); GLOMERULAR FILTRATION RATE 58.5 (>39)
== END ==
LOC: M WUC 13:59
DX: Z13.89 Encounter for screening for other disorder (principal); D32.9 Benign neoplasm of meninges, unspecified
CPT/HCPCS: 82565

== ENCOUNTER → 2018-04-01 | Outpatient (CLI) | payer MEDICARE, BC, OTHER | LOC: M RAD 13:19 | DX: I73.9 Peripheral vascular disease, unspecified (principal); D33.4 Benign neoplasm of spinal cord; Z98.2 Presence of cerebrospinal fluid drainage device | CPT/HCPCS: A9576 ==

== ENCOUNTER 2018-05-13 20:09 | Emergency (ER) | payer MEDICARE, BC, OTHER ==
[2018-05-13] MEDS: LIDOCAINE W/EPINEPHRINE 1% 20ML VIAL SC (21:45)
[2018-05-13] MEDS: SILVER NITRATE APPLICATOR TOP (21:45)
[2018-05-13] MEDS: BUPIVACAINE/EPIN 0.5% 30 ML VIAL XX (22:00)
== END 2018-05-13 22:43 | disposition home or self-care (01) ==
LOC: M ED 20:09
DX: L76.22 Postprocedural hemorrhage of skin and subcutaneous tissue following other procedure (principal); E11.9 Type 2 diabetes mellitus without complications; I10 Essential (primary) hypertension; J44.9 Chronic obstructive pulmonary disease, unspecified; Z79.01 Long term (current) use of anticoagulants; Z79.899 Other long term (current) drug therapy; Z88.1 Allergy status to other antibiotic agents; Z88.6 Allergy status to analgesic agent; Z88.8 Allergy status to other drugs, medicaments and biological substances; Z87.891 Personal history of nicotine dependence
CPT/HCPCS: 99283

== ENCOUNTER → 2018-06-08 | Outpatient (CLI) | payer MEDICARE, BC, OTHER ==
[~2018-06-08] MED LIST changes: +GASTROGRAFIN SOLUTION 30ML (Q9963) As Ordered; +ISOVUE-370 76% 100ML VIAL (Q9967) As Ordered; -PROHANCE 279.3MG/ML 15ML VIAL (A9576) As Ordered
[2018-06-08 11:37] LABS: BASO % 0.2 % (0.0-1.0); EOS # 0.1 10^3/uL (0.0-0.50); EOS % 1.2 % (0.0-3.0); HEMATOCRIT 32.8 % (36.0-47.0); HEMOGLOBIN 10.2 g/dl (12.0-15.5); IMMATURE GRANULOCYTE % 0.5 % (0-3.0); LYMPH # 1.9 10^3/uL (1.5-4.5); LYMPH % 22.1 % (24.0-44.0); MEAN CORPUSCULAR HEMOGLOBIN 27.9 pg (27.0-33.0); MEAN CORPUSCULAR HGB CONC 31.1 g/dl (32.0-36.5); MEAN CORPUSCULAR VOLUME 89.6 fl (80.0-96.0); MONO # 0.8 10^3/uL (0.0-0.8); MONO % 9.8 % (0.0-5.0); NEUTROPHILS # 5.7 10^3/uL (1.8-7.7); NEUTROPHILS % 66.2 % (36.0-66.0); PLATELET COUNT, AUTOMATED 338 10^3/uL (150-450); RED BLOOD COUNT 3.66 10^6/uL (4.00-5.40); RED CELL DISTRIBUTION WIDTH 14.6 % (11.5-14.5); WHITE BLOOD COUNT 8.6 10^3/uL (4.0-10.0)
[2018-06-08 13:27] LABS: ALBUMIN 3.7 GM/DL (3.2-5.2); ALBUMIN/GLOBULIN RATIO 1.32 (1.00-1.93); ALKALINE PHOSPHATASE 67 U/L (45-117); ALT/SGPT 17 U/L (12-78); ANION GAP 7 MEQ/L (8-16); AST/SGOT 9 U/L (7-37); BILIRUBIN,TOTAL 0.2 MG/DL (0.2-1.0); BLOOD UREA NITROGEN 17 MG/DL (7-18); CALCIUM LEVEL 9.6 MG/DL (8.8-10.2); CARBON DIOXIDE LEVEL 28 MEQ/L (21-32); CHLORIDE LEVEL 108 MEQ/L (98-107); CREATININE FOR GFR 0.88 MG/DL (0.55-1.30); FERRITIN 10 NG/ML (8-252); GLOMERULAR FILTRATION RATE > 60.0 (>39); GLUCOSE, FASTING 84 MG/DL (70-100); IRON (FE) 44 UG/DL (50-170); PERCENT SATURATION 11.3 % (13.2-45.0); POTASSIUM SERUM 4.1 MEQ/L (3.5-5.1); SODIUM LEVEL 143 MEQ/L (136-145); TOTAL IRON BINDING CAPACITY 391 UG/DL (250-450); TOTAL PROTEIN 6.5 GM/DL (6.4-8.2)
== END ==
LOC: M RAD 11:15
DX: D64.9 Anemia, unspecified (principal); R91.1 Solitary pulmonary nodule; Z98.1 Arthrodesis status; R93.5 Abnormal findings on diagnostic imaging of other abdominal regions, including retroperitoneum
CPT/HCPCS: Q9963

== ENCOUNTER 2018-07-15 02:59 | Emergency (ER) | payer MEDICARE, BC, OTHER ==
[2018-07-15 03:37] LABS: BASO % 0.3 % (0.0-1.0); EOS # 0.1 10^3/uL (0.0-0.50); EOS % 1.6 % (0.0-3.0); HEMATOCRIT 32.2 % (36.0-47.0); HEMOGLOBIN 10.2 g/dl (12.0-15.5); IMMATURE GRANULOCYTE % 0.4 % (0-3.0); LYMPH # 1.9 10^3/uL (1.5-4.5); MEAN CORPUSCULAR HEMOGLOBIN 26.6 pg (27.0-33.0); MEAN CORPUSCULAR HGB CONC 31.7 g/dl (32.0-36.5); MEAN CORPUSCULAR VOLUME 84.1 fl (80.0-96.0); MONO # 0.7 10^3/uL (0.0-0.8); MONO % 9.1 % (0.0-5.0); NEUTROPHILS % 64.6 % (36.0-66.0); PLATELET COUNT, AUTOMATED 332 10^3/uL (150-450); RED BLOOD COUNT 3.83 10^6/uL (4.00-5.40); RED CELL DISTRIBUTION WIDTH 13.7 % (11.5-14.5); WHITE BLOOD COUNT 7.7 10^3/uL (4.0-10.0)
[2018-07-15 03:47] LABS: INR 1.94; PROTHROMBIN TIME 22.5 SECONDS (12.1-14.4)
[2018-07-15 03:48] LABS: PARTIAL THROMBOPLASTIN TIME 47.8 SECONDS (25.4-37.6)
[2018-07-15 04:04] LABS: ANION GAP 9 MEQ/L (8-16); BLOOD UREA NITROGEN 23 MG/DL (7-18); CALCIUM LEVEL 9.5 MG/DL (8.8-10.2); CARBON DIOXIDE LEVEL 30 MEQ/L (21-32); CHLORIDE LEVEL 106 MEQ/L (98-107); CPK CREATINE PHOSPHOKINASE 37 U/L (26-192); CREATININE FOR GFR 0.94 MG/DL (0.55-1.30); FREE T4 1.01 NG/DL (0.76-1.46); GLOMERULAR FILTRATION RATE > 60.0 (>39); GLUCOSE, FASTING 87 MG/DL (70-100); MB/CK RELATIVE INDEX 2.97 (< OR =4); POTASSIUM SERUM 4.1 MEQ/L (3.5-5.1); SODIUM LEVEL 145 MEQ/L (136-145); TROPONIN I < 0.02 NG/ML (< 0.10)
[2018-07-15] MEDS ORDERED: ISOVUE-370 76% 100ML VIAL (Q9967) As Ordered (05:40)
[2018-07-15 10:02] LABS: CK-MB VALUE MASS < 1.0 NG/ML (<3.6); CPK CREATINE PHOSPHOKINASE 30 U/L (26-192); MB/CK RELATIVE INDEX 3.33 (< OR =4); TROPONIN I < 0.02 NG/ML (< 0.10)
== END 2018-07-15 10:27 | disposition home or self-care (01) ==
LOC: M ED 02:59
DX: R07.9 Chest pain, unspecified (principal); R06.00 Dyspnea, unspecified; I10 Essential (primary) hypertension; J44.9 Chronic obstructive pulmonary disease, unspecified; I48.91 Unspecified atrial fibrillation; K21.9 Gastro-esophageal reflux disease without esophagitis; M19.90 Unspecified osteoarthritis, unspecified site; Z85.3 Personal history of malignant neoplasm of breast; Z85.118 Personal history of other malignant neoplasm of bronchus and lung; Z79.899 Other long term (current) drug therapy; Z79.01 Long term (current) use of anticoagulants; Z88.1 Allergy status to other antibiotic agents; Z88.6 Allergy status to analgesic agent; Z88.8 Allergy status to other drugs, medicaments and biological substances; Z87.891 Personal history of nicotine dependence
CPT/HCPCS: Q9967

== ENCOUNTER → 2018-08-20 | Outpatient (REF) | payer MEDICARE, OTHER | LOC: M LAB REF 16:46 | DX: L08.9 Local infection of the skin and subcutaneous tissue, unspecified (principal) | CPT/HCPCS: 87186 ==

== ENCOUNTER 2018-09-08 12:58 | Outpatient (CLI) | payer MEDICARE, BC, OTHER ==
[2018-09-08] MEDS: diphenhydrAMINE 25 MG CAP PO (13:32)
[2018-09-08] MEDS: ACETAMINOPHEN TAB 650MG DOSE (2X325MG) PO (13:32)
== END 2018-09-08 17:45 | disposition home or self-care (01) ==
LOC: M INFU 12:58
DX: D64.9 Anemia, unspecified (principal); Z79.899 Other long term (current) drug therapy; Z88.8 Allergy status to other drugs, medicaments and biological substances
CPT/HCPCS: 36430

== ENCOUNTER → 2019-02-03 | Outpatient (CLI) | payer MEDICARE, BC, OTHER ==
[~2019-02-03] MED LIST changes: +/BENA10TA; +ACE65ERTAB PO; +ACET500C PO; +ACET65TA; +ACIPHEX; +ADV100INH INH; +ADVA1AER2; +ADVA230A INH; +ALBU17IN INH; +ASPI1TAB6 PO; +ASPI325T; +ATEN25TA OR; +ATEN50TA2; +ATEN50TA2 OR; +AUGM875T28 PO; +BACL10TA2 PO; +BACL1TAB9 PO; +BYST10TA2 PO; +BYST2.5T2 PO; +CARD240T2 PO; +CARI1TAB7 PO; +CIPR250T3; +CITRTAB14 PO; +CITRTAB15 PO; +CITRTAB18 PO; +CO Q200C10 PO; +COLA100C5 PO; +COUM1TAB18 OR; +DICL13PA TD; +DILT1CAP6 PO; +DRIS50003 PO; +FERR325T3 PO; +FLUC100T PO; +FLUTISP; +GABA-1171 PO; -GASTROGRAFIN SOLUTION 30ML (Q9963) As Ordered; +HYDR12.55 PO; +HYDR25TA6; +I CAP; +INSUDET SC; +INSUHUMDS SC; -ISOVUE-370 76% 100ML VIAL (Q9967) As Ordered; +LEXA1TAB; +LEXA1TAB PO; +LUTE25CA PO; +LUTE6CAP2 PO; +LYRI75CA PO; +MAG-OX PO; +MAGN400T5 PO; +METF500T13 PO; +NASACORT; +NEUR300C PO; +OCEA0.654; +OMEG100011 PO; +OPTIVE; +PERC5TAB8 OR; +PERC7.5T8 OR; +POTA10CA OR; +PRAV40TA2 PO; +PRED20TA PO; +PREG50CA PO; +PRIL20CA9 PO; +REFR0.1D OP; +REFR0.1D OU; +REFR0.5D8 OU; +SPIR-10 PO; +STOO100C PO; +TELM1TAB PO; +TORS10TA3 PO; +TORS20TA2 PO; +TRAM50TA2 PO; +TRUL10IN SC; +TUMS500C; +TYLE325T5 PO; +TYLE500T78 PO; +VENTAER INH; +VITAMIN D50000 UNT OR; +XARE20TA PO; +XARELTO PO; +XOPE1.252 INH; +XOPENEX
--- NOTE | 2019-02-03 13:06 | REP ---
RENAL AND BLADDER ULTRASOUND: Real-time sonographic evaluation of the kidneys performed and compared to prior CT 06/08/2018 as well a other prior exams. Right kidney measures 9.4 x 4.3 x 4.3 cm and left kidney 9.6 x 4.2 x 4.7 cm. There is no hydronephrosis bilaterally. In the lower pole of the right kidney a complex nodule is seen measuring 1.1 x 1.2 x 1.3 cm. This is at the site of a previously identified enhancing nodule on CT. Size is essentially stable. There is an adjacent cyst 1 cm in diameter. There is a cyst also seen in the upper pole of the left kidney 9 x 13 x 10 mm and in the lower pole of the left kidney 8 x 7 x 8 mm. Urinary bladder is distended with no mass or calculus. IMPRESSION: Stable hypoechoic nodule lower pole right kidney, previously shown to represent an enhancing solid mass. Size is unchanged compared back to prior CT 02/03/2018 at [facility]. There is an adjacent 1 cm cyst in the lower pole of the right kidney. Two cysts are seen in the left kidney as discussed above. Electronically Signed by Jordan Noel MD 02/03/2019 03:23 P
== END ==
LOC: M RAD 10:58
PROVIDERS: ATTEND Urology
DX: D41.01 Neoplasm of uncertain behavior of right kidney (principal); N28.1 Cyst of kidney, acquired

== ENCOUNTER 2019-05-14 16:02 | Emergency (ER) | payer MEDICARE, BC, OTHER ==
[~2019-05-14] VITALS: Ht 157.5 cm; Wt 57.7 kg
[~2019-05-14 16:02] MED LIST changes: +FLUT50SP21 NARES; +MAGN400T2 PO; +MM S100C PO; +QC A650T3 PO; -REFR0.1D OP; -STOO100C PO
--- NOTE | 2019-05-14 16:55 | REP ---
CT brain without contrast: History: Weakness. There is apparently a history of lung and breast carcinoma. No comparison brain CT. Comparison brain MRI study is from April 01, 2018. CT findings: A ventriculoperitoneal shunt catheter is noted on vacuum drier operator image. This is seen to courses from the right frontal bone into the right to lateral ventricle near the foramen of Monro. There is no evidence of hydrocephalous. No extra-axial fluid collection is seen. There is evidence of a mass lesion with adjacent vasogenic edema in the left frontoparietal region. The mass lesion measures 1.7 cm in greatest diameter but there is surrounding vasogenic edema up to 4 cm in total dimension. There is no evidence of intracranial hemorrhage. No other focal brain parenchymal nodule is seen. No bony destructive lesion is seen. No intraorbital abnormality is noted. Impression: New left frontoparietal parenchymal mass lesion with surrounding vasogenic edema suggestive of primary versus metastatic neoplasm. Right-sided ventriculostomy catheter in place. Ventricles unchanged from the MRI study. The mass lesion is new. Electronically Signed by Willam More MD 05/14/2019 04:58 P
[2019-05-14 17:05] LABS: BASO % 0.5 % (0.0-1.0); EOS # 0.2 10^3/uL (0.0-0.50); EOS % 1.8 % (0.0-3.0); HEMATOCRIT 33.4 % (36.0-47.0); HEMOGLOBIN 10.5 g/dl (12.0-15.5); LYMPH # 1.9 10^3/uL (1.5-4.5); LYMPH % 22.3 % (24.0-44.0); MEAN CORPUSCULAR HEMOGLOBIN 27.3 pg (27.0-33.0); MEAN CORPUSCULAR HGB CONC 31.4 g/dl (32.0-36.5); MONO # 0.9 10^3/uL (0.0-0.8); MONO % 10.1 % (0.0-5.0); NEUTROPHILS # 5.6 10^3/uL (1.8-7.7); PLATELET COUNT, AUTOMATED 350 10^3/uL (150-450); RED BLOOD COUNT 3.84 10^6/uL (4.00-5.40); WHITE BLOOD COUNT 8.7 10^3/uL (4.0-10.0)
[2019-05-14 17:30] LABS: OSMOLALITY SERUM 305 MOSM/KG (280-301)
[2019-05-14 17:51] LABS: ALBUMIN 3.7 GM/DL (3.2-5.2); ALT/SGPT 16 U/L (12-78); BILIRUBIN,DIRECT < 0.1 MG/DL (0.0-0.2); BILIRUBIN,TOTAL 0.1 MG/DL (0.2-1.0); BLOOD UREA NITROGEN 23 MG/DL (7-18); CALCIUM LEVEL 9.6 MG/DL (8.8-10.2); CARBON DIOXIDE LEVEL 28 MEQ/L (21-32); CHLORIDE LEVEL 106 MEQ/L (98-107); CK-MB VALUE MASS 2.4 NG/ML (<3.6); CPK CREATINE PHOSPHOKINASE 54 U/L (26-192); CREATININE FOR GFR 1.07 MG/DL (0.55-1.30); GLOMERULAR FILTRATION RATE 53.4 (>39); GLUCOSE, FASTING 86 MG/DL (70-100); MB/CK RELATIVE INDEX 4.44 (< OR =4); POTASSIUM SERUM 4.3 MEQ/L (3.5-5.1); SODIUM LEVEL 144 MEQ/L (136-145); TOTAL PROTEIN 6.6 GM/DL (6.4-8.2); TROPONIN I < 0.02 NG/ML (< 0.10)
[2019-05-14] MEDS ORDERED: dexameTHASONE 20 MG/5 ML VIAL (J1100) IV ONE (18:00)
[2019-05-14] MEDS ORDERED: levETIRAcetam INJection 1,000 MG in D5W 100 ML IV ONE (19:00)
[2019-05-14 20:11] VITALS: BP 144/59
--- NOTE | 2019-05-14 21:14 | ECGEPIP ---
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
== END 2019-05-14 20:14 | disposition short-term general hospital (02) ==
LOC: M ED 16:02
DX: D49.6 Neoplasm of unspecified behavior of brain (principal); I48.91 Unspecified atrial fibrillation; Z85.3 Personal history of malignant neoplasm of breast; Z85.118 Personal history of other malignant neoplasm of bronchus and lung; Z79.01 Long term (current) use of anticoagulants; Z88.4 Allergy status to anesthetic agent; Z88.8 Allergy status to other drugs, medicaments and biological substances
CPT/HCPCS: 36415; 70450; 80048; 80076; 82140; 82550; 82553; 83930; 84443; 84484; 85025; 93005; 93041; 94760; 96365; 96375; 99285; J1100; J1953

== ENCOUNTER → 2019-05-20 | Outpatient (CLI) | payer MEDICARE, BC, OTHER ==
[~2019-05-20] MED LIST changes: +REFR0.1D OP
--- NOTE | 2019-05-20 20:51 | REPVR ---
EXAM: MR Lumbar Spine Without and With Contrast. EXAM DATE/TIME: 05/20/2019 4:55 PM CLINICAL HISTORY: 73 years old, female; Low back pain; Prior surgery; Surgery date: 6+ months; Surgery type: Lower back surgery; Additional info: Lumbar spinal stenosis, meningioma TECHNIQUE: Imaging protocol: Multiplanar magnetic resonance images of the lumbar spine without and with intravenous contrast. Contrast material: PROHANCE;Contrast volume: 11 ml;Contrast route: IV; COMPARISON: MRI-LS SPINE W/O FOLL WITH CON 04/01/2018 2:13 PM FINDINGS: Vertebrae: There is a transitional segment at the caudal end of the spine which previously has been designated L5 and will be considered the same in this report. Correlation with complete spine x-rays suggested. Status post interbody fusion of L3 and L4. Anterolisthesis of L3 on L4. Spinal cord: Enhancing intradural nodules in L1 measure 9 mm and 4 mm. Enhancing intradural nodule at the superior margin of L2 measures 4 mm. 5 mm enhancing intradural nodule at L4. Findings are grossly stable in comparison with the prior study allowing for alodize machine operator dependent variation in measurement. L1-L2: No significant disc disease. No significant spinal stenosis. L2-L3: There is a moderate to severe central spinal stenosis at L2-3 secondary to diffuse annular bulging, thickened ligamentum flavum and facet joint arthropathy. L3-L4: There is a diffuse bulging annulus at L3-4 without evidence of a spinal stenosis with adequate decompression of the thecal sac secondary to laminectomies. L4-L5: There is a moderate central spinal stenosis at L4-5 secondary to diffuse annular bulging, thickened ligamentum flavum and facet joint arthropathy. L5-S1: Bilateral facet joint arthropathy at L5-S1. Mild annular bulge and small central disc protrusion without evidence of a spinal stenosis. Soft tissues: Unremarkable. IMPRESSION: 1. Status post interbody fusion of L3 and L4. 2. Degenerative spondylosis with moderate to severe central spinal stenosis at L2-3, moderate central spinal stenosis at L4-5. 3. Bulging annulus with central disc protrusion at L5-S1. No spinal stenosis. 4. Multiple enhancing intradural nodules consistent with meningiomas. 5. Transitional vertebral segment of the colon to the spine as described above. Electronically signed by: Capo Wallace On 05/20/2019 20:50:57 PM
== END ==
LOC: M RAD 14:44
PROVIDERS: ATTEND Neurological Surgery
DX: D33.4 Benign neoplasm of spinal cord (principal); M48.061 Spinal stenosis, lumbar region without neurogenic claudication; Z98.1 Arthrodesis status; M51.27 Other intervertebral disc displacement, lumbosacral region

== ENCOUNTER 2019-05-31 10:46 | Inpatient (IN) | payer MEDICARE, BC, OTHER ==
[~2019-05-31] VITALS: Ht 157.5 cm; Wt 53.0 kg
[~2019-05-31 10:46] MED LIST changes: -REFR0.1D OP
[2019-05-31 12:55] VITALS: BP 137/66
[2019-05-31] MEDS ORDERED: BISACODYL 10 MG SUPP PR PRN (13:30)
[2019-05-31] MEDS ORDERED: GLUCAGON FOR INJ 1 MG VIAL (J1610) SC PRN (13:45)
[2019-05-31] MEDS ORDERED: oxyCODONE 5MG TAB PO PRN (13:45)
[2019-05-31] MEDS ORDERED: DEXTROSE 50% 50 ML SYRINGE IV PRN (13:45)
[2019-05-31] MEDS ORDERED: GLUCOSE 4 GM CHEW TABLET PO PRN (13:45)
[2019-05-31 14:00] VITALS: BP 122/57
[2019-05-31] MEDS ORDERED: PILL CUTTER 1 EACH XX PRN (14:00)
[2019-05-31] MEDS ORDERED: METF500T4 PO (14:26)
[2019-05-31] MEDS ORDERED: KEPP1TAB PO (14:26)
[2019-05-31] MEDS ORDERED: SODI1TAB12 PO (14:26)
[2019-05-31] MEDS ORDERED: SENN8.6T58 PO (14:40)
[2019-05-31] MEDS ORDERED: ADVA115A INH (14:40)
[2019-05-31] MEDS ORDERED: DEXA4TA PO (14:42)
--- NOTE | 2019-05-31 15:07 | CR.PDOC ---
General Date of Consultation: May 31, 2019 Referring Provider: ES DESAI MD Attending Physician: PAVEL AGUILERA MD Consultation REASON FOR CONSULTATION/CHIEF COMPLAINT:Medical Management HISTORY OF PRESENT ILLNESS: Ashley Hankins is a 73 year old female, prior medical history significant for paroxysmal atrial fibrillation, hypertension, type 2 diabetes mellitus, prior breast and lung cancer, who presented to this facility 05/14/2019, with complaints of right-sided weakness. CT of her brain showed an old ventriculoperitoneal shunt and a mass lesion with adjacent vasogenic edema in the left frontoparietal region. The mass lesion measured 1.7 cm in greatest diameter, but there was surrounding vasogenic edema up to 4 cm in total dimension. Patient was referred to [facility] for further evaluation and management. At that facility. She had elective stereotactic brain tumor biopsy with laser interstitial therapy. Postoperative CT of her brain revealed postsurgical tension pneumocephalus and focal hyperdense lesion with surrounding vasogenic edema in the left frontoparietal lobe. 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 According to discharge records, patient indicated she would like to be treated closer to home and she was discharged back to our inpatient rehabilitation facility for rehabilitation and management. ALLERGIES: Please see below. HOME MEDICATIONS: Please see below. PAST MEDICAL HISTORY: 1. Schwannoma of spinal cord 2. Meningioma 3. Hypertension 4. Lung cancer. 5. Breast cancer 6. Obstructive sleep apnea 7. GERD 8. Type 2 diabetes mellitus 9. Paroxysmal atrial fibrillation 10. Osteoarthritis 11. Anemia 12. Hydrocephalus PAST SURGICAL HISTORY: 1. Appendectomy 2. Left breast surgery. 3. Cardiac ablation. 4. Tract extraction 5. Left knee arthroscopy. 6. Right upper lobe lobectomy. 7. Right radical mastectomy. 8. Oophorectomy. 9. Lumbar fusion. 10. SPIN INSTRUCTOR shunt placement right side. 11. Right knee replacement FAMILY HISTORY: Father: Diabetes mellitus, myocardial infarction, CVA SOCIAL HISTORY: Tobacco use: Denies ETOH: Rare Illicit drug use: Denies REVIEW OF SYSTEMS: A pertinent 10 point review of systems is completed, negative except as stated in the history of presenting illness PHYSICAL EXAMINATION: GENERAL: NAD SKIN : Warm, dry intact HEENT: Atraumatic, normocephalic, PERRL, moist mucous membrane CARDIOVASCULAR: Regular rate and rhythm, S1S2, no JVD, no edema, distal pulses + palpable RESP: CTAB, no accessory muscle use noted ABDOMEN: BS+ non distended non tender MS: no joint deformities NEURO: Alert and oriented x 3, CN2-12 grossly intact PSYCH: no anxiety or agitation, appropriate mood and affect. LABORATORY DATA: Please see below. ASSESSMENT/PLAN: Left frontoparietal lobe glioblastoma -S/P stereotactic brain tumor biopsy with laser interstitial therapy -Rehabilitation of neuro deficits by primary team -Monitoring of sodium levels to keep within 135, 145 range -follow-up with Dr. Katarina Moreno in [place] June 03 at 10:30 AM Intracranial vasogenic edema -Continue Decadron 2 mg twice a day till weaned off by oncologist -Continue Keppra for seizure prophylaxis till weaned off by oncologist Diabetes mellitus type 2 -Finger stick checks prior to meals and at bedtime -Diabetic diet -Metformin 1000 mg every. 12 hours -Trulicity every week Paroxysmal atrial fibrillation -S/P cardiac ablation -Rate control with beta aden -Restart anticoagulation therapy with Xarelto on the of this month DVT prophylaxis -Anticoagulation therapy contraindicated in the setting of recent cerebral i nstrumentation Vital Signs/I&O Vital Signs Date Time Temp Pulse Resp B/P (MAP) Pulse Ox O2 Delivery O2 Flow Rate FiO2 05/31/19 12:55 98.0 68 18 137/66 (89) 99 Laboratory Data Labs 24H Laboratory Tests 2 05/31/19 13:28: Bedside Glucose (Misc Panel) 198H Allergies Coded Allergies: doxycycline (Verified Allergy, Intermediate, rash, 01/21/19) MEMO Inhibitors (Verified Allergy, Unknown, 01/21/19) NSAIDS (Non-Steroidal Anti-Inflamma (Verified Allergy, Unknown, 01/21/19) lidocaine (Verified Adverse Reaction, Severe, increased pulse, decreased bp, 01/21/19) NOTE: PATIENT HAS RECEIVED LIDOCAINE & BUPIVACAINE SEVERAL TIMES WHILE AT [facility] w/o PROBLEM procaine (Verified Adverse Reaction, Severe, increased pulse, decreased bp, 01/21/19) Home Medications Scheduled Dexamethasone (Dexamethasone) 4 Mg Tablet, 4 MG PO ASDIRECTED, (Reported) 4MG Q8H X 2 DAYS, 4MG BID X 3 DAYS, 3MG BID X 3 DAYS, 2MG X 3 DAYS Diltiazem HCl (Diltiazem 24Hr ER) 240 Mg Cap, 240 MG PO DAILY, (Reported) Dulaglutide (Trulicity) 0.75 Mg/0.5 Ml Inj, 0.75 MG SC 1XWK, (Reported) FRIDAY Ergocalciferol (Vitamin D2) (Drisdol) 50,000 Unit Cap, 50,000 UNIT PO QWEEK, (Reported) TUESDAYS Fluticasone Propion/Salmeterol (Advair Hfa 115-21 Mcg Inhaler) 12 Gm Hfa.aer.ad, 2 PUFF INH BID, (Reported) Gabapentin (Gabapentin) 100 Mg Cap, 200 MG PO BID, (Reported) Levetiracetam (Keppra) 500 Mg Tablet, 500 MG PO ASDIRECTED, (Reported) 500MG BID X 2 DAYS, 500MG DAILY X 7 DAYS, 250MG DAILY X 7 DAYS Lutein/Zeaxanthin (Lutein-Zeaxanthin 25-5 mg Sfgl) 1 Cap Cap, 1 CAP PO DAILY, (Reported) Magnesium Oxide (Magnesium Oxide) 400 Mg Tablet, 400 MG PO DAILY, (Reported) Metformin HCl (Metformin HCl ER) 500 Mg Tab.er.24h, 1,000 MG PO BID, (Reported) Nebivolol HCl (Bystolic) 2.5 Mg Tab, 2.5 MG PO DAILY, (Reported) Pravastatin Sodium (Pravastatin Sodium) 40 Mg Tab, 40 MG PO QHS, (Reported) Rivaroxaban (Xarelto) 20 Mg Tab, 20 MG PO QPM, (Reported) Sodium Chloride (Sodium Chloride) 1 Gm Tablet, 2 GM PO TID, (Reported) [facility] Spironolactone (Spironolactone) 25 Mg Tab, 12.5 MG PO DAILY, (Reported) Scheduled PRN Albuterol Sulfate (Ventolin Hfa) 108 Mcg/Act Aer, 2 PUFF INH Q4H PRN for SHORTNESS OF BREATH, (Reported) Carboxymethylcellulose Sodium (Refresh Plus) 0.5 % Aris, 1 DROP OU Q4H PRN for DRY EYES, (Reported) Fluticasone Propionate (Fluticasone Propionate) 15.8 Ml [place].susp, 2 SPRAY NARES DAILY PRN for NASAL CONGESTION, (Reported) Sennosides (Senna) 8.6 Mg Tablet, 2 TABS PO QHS PRN for CONSTIPATION, (Reported) OTUBELU,ADAORA C. HEADING AND PRIMING TOOL SETTER May 31, 2019 15:07
[2019-05-31] MEDS: CALCIUM/VITAMIN D 500 MG TAB PO SCH (18:46)
[2019-05-31] MEDS: metFORMIN XR 500MG TAB *GLUCOPHAGE XR PO SCH (18:47)
[2019-05-31] MEDS: POLYVINYL ALCOHOL OPHTH SOLN 15 ML(LIQUITEARS) OU SCH ×2 (18:47→22:08)
[2019-05-31] MEDS: HumaLOG INSULIN (NovoLOG) PER UNIT SC SCH ×2 (18:48→20:38)
[2019-05-31 20:00] VITALS: BP 114/51
[2019-05-31] MEDS: ADVAIR HFA 230/21MCG INHALER INH SCH (20:40)
[2019-05-31] MEDS: SODIUM CHLORIDE 1 GM TAB PO SCH ×2 (21:00→22:08)
[2019-05-31] MEDS: HEPARIN SOD (PORCINE) 5000 UNITS/ML VIAL SC SCH (22:06)
[2019-05-31] MEDS: SENNA 8.6 MG TAB (SENOKOT) PO SCH (22:07)
[2019-05-31] MEDS: GABAPENTIN 100 MG CAP PO SCH (22:07)
[2019-05-31] MEDS: levETIRAcetam 250MG TABLET (KEPPRA) PO SCH (22:07)
[2019-05-31] MEDS: DOCUSATE SODIUM 100 MG CAP PO SCH (22:07)
[2019-05-31] MEDS: PRAVASTATIN 20 MG TAB PO SCH (22:08)
[2019-06-01 05:29] VITALS: BP 110/55
[2019-06-01 07:01] LABS: HEMATOCRIT 35.6 % (36.0-47.0); HEMOGLOBIN 11.8 g/dl (12.0-15.5); MEAN CORPUSCULAR HEMOGLOBIN 28.1 pg (27.0-33.0); MEAN CORPUSCULAR HGB CONC 33.1 g/dl (32.0-36.5); MEAN CORPUSCULAR VOLUME 84.8 fl (80.0-96.0); PLATELET COUNT, AUTOMATED 191 10^3/uL (150-450); WHITE BLOOD COUNT 14.7 10^3/uL (4.0-10.0)
[2019-06-01 07:26] LABS: LYMPHOCYTES 11 % (16-52); MONOCYTES 8 % (0-8); NEUTROPHILS 81 % (35-75); PLATELET ESTIMATE NORMAL (NORMAL)
[2019-06-01 07:32] LABS: ALBUMIN 2.7 GM/DL (3.2-5.2); ALT/SGPT 34 U/L (12-78); BILIRUBIN,TOTAL 0.3 MG/DL (0.2-1.0); BLOOD UREA NITROGEN 33 MG/DL (7-18); CALCIUM LEVEL 8.8 MG/DL (8.8-10.2); CARBON DIOXIDE LEVEL 19 MEQ/L (21-32); CHLORIDE LEVEL 107 MEQ/L (98-107); CREATININE FOR GFR 0.82 MG/DL (0.55-1.30); GLOMERULAR FILTRATION RATE > 60.0 (>39); GLUCOSE, FASTING 217 MG/DL (70-100); POTASSIUM SERUM 4.5 MEQ/L (3.5-5.1); SODIUM LEVEL 137 MEQ/L (136-145); TOTAL PROTEIN 5.1 GM/DL (6.4-8.2)
[2019-06-01] MEDS: ADVAIR HFA 230/21MCG INHALER INH SCH ×2 (07:36→20:20)
[2019-06-01] MEDS: NEBIVOLOL 5 MG TAB (BYSTOLIC) PO SCH (09:00)
[2019-06-01] MEDS: FLUTICASONE PROP 0.05% NASAL SPRAY 16 GM (FLONASE) NARES SCH (09:00)
[2019-06-01] MEDS: DOCUSATE SODIUM 100 MG CAP PO SCH ×2 (09:00→21:05)
[2019-06-01] MEDS: POLYVINYL ALCOHOL OPHTH SOLN 15 ML(LIQUITEARS) OU SCH ×3 (09:00→21:06)
[2019-06-01] MEDS: HumaLOG INSULIN (NovoLOG) PER UNIT SC SCH ×4 (09:38→21:00)
[2019-06-01] MEDS: metFORMIN XR 500MG TAB *GLUCOPHAGE XR PO SCH ×2 (09:39→17:59)
[2019-06-01] MEDS: SPIRONOLACTONE 12.5MG PER 1/2 TABLET PO SCH (09:39)
[2019-06-01] MEDS: HEPARIN SOD (PORCINE) 5000 UNITS/ML VIAL SC SCH ×2 (09:39→21:06)
[2019-06-01] MEDS: SODIUM CHLORIDE 1 GM TAB PO SCH ×2 (09:40→21:05)
[2019-06-01] MEDS: levETIRAcetam 250MG TABLET (KEPPRA) PO SCH ×2 (09:40→21:05)
[2019-06-01] MEDS: PANTOPRAZOLE 40MG TAB (PROTONIX) PO SCH (09:40)
[2019-06-01] MEDS: GABAPENTIN 100 MG CAP PO SCH ×2 (09:40→21:05)
[2019-06-01] MEDS: MAGNESIUM OXIDE 400 MG TAB (MAG-OX) PO SCH (09:40)
[2019-06-01] MEDS: CALCIUM/VITAMIN D 500 MG TAB PO SCH (09:42)
--- NOTE | 2019-06-01 10:35 | HPEPDOC ---
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 MRI on 05/16/19 showed, Heterogeneously thick rim irregular enhancing lesion in the left frontoparietal region with surrounding vasogenic edema, likely represents metastasis given the patient's history. However, infection is another possibility, although less likely, not typical on the DWI...Right greater wing of sphenoid meningioma. She underwent an elective stereotactic brain Biopsy with laser interstitial therapy, no intraoperative complications, with post-op CT head on May 26 2019 showing Status post stereotactic brain biopsy with postsurgical tension pneumocephalus...Focal hyperdense lesion with surrounding vasogenic edema in the left frontoparietal lobe. No evidence of acute intracranial hemorrhage or large territorial infarct. Subsequent imaging showed a diminishment in size of her post-op pneumocephalus. She was started on Keppra and Decadron with tapering dosing. She had significant hyponatremia and was started on sodium tablets. Brain biopsy pathology showed grade 4 glioblastoma and an appointment was made for her to be seen by radiation oncologist Dr. Mcarthur on June 03. She was evaluated by therapy and found to have deficits in ambulation and adl management, then deemed medically appropriate for discharge to [facility] on 05-31-2019. REVIEW OF SYSTEMS: The following is a completed review of systems and has been reviewed. Review of systems otherwise unremarkable. PAIN: Patient self reports no pain EYES: No recent vision changes EARS, NOSE, & THROAT: No throat pain, or dysphagia, or rhinorrhea CARDIOVASCULAR: Denies chest pain or palpitations PULMONARY: Denies shortness of breath GASTROINTESTINAL: Denies constipation/diarrhea GENITOURINARY: no dysuria MUSCULOSKELETAL: right upper extremity weakness NEUROLOGICAL: right upper extremity weakness, apraxia SKIN: Skull incision PSYCHIATRIC: Unremarkable All other review of systems found to be negative. PAST MEDICAL HISTORY: as per HPI PAST SURGICAL HISTORY: Appendectomy breast surgery cataract extraction, hysterectomy, knee replacement right lung lobectomy, right radical mastectomy, oophorectomy, PROJECT BUYER shunt, lumbar Fusion ALLERGIES: Please see below. MEDICATIONS: Please see below. 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 GENERAL: Pleasant and cooperative. No acute distress. HEENT: PERRL. Extraocular movements intact. Clear conjunctiva, +PROJECT BUYER shunt CARDIOVASCULAR: Regular rate and rhythm. No murmurs, rubs, or gallops LUNGS: Clear to auscultation bilaterally. No wheezes. No rhonchi ABDOMEN: Soft, nontender, nondistended. Positive bowel sounds. Normal active bowel sounds NEUROLOGICAL: Alert and oriented times three. Cranial nerves II through XII grossly intact. Sensation grossly intact to light touch all four limbs (-) babinkski, no clonus +apraxia when asked to move her limbs EXTREMITIES: 5\5 strength left upper extremities, 4/5 RUE >3/5 strength right lower extremity(apraxic) >4/5 strength in left lower extremity (apraxic) SKIN: coronal skull incision c/d/i LABORATORY DATA: Please see below. IMAGING:Imaging documentation personally reviewed by record FUNCTIONAL STATUS: Premorbid: Independent with all activities of daily life as well as mobility On Admission: Minimal assistance for toileting, upper body dressing, brushing teeth , requiring maximum assistance for bed mobility and functional transfers, Minimal assistance for initiation of ambulation, modern assistance for ambulation with rolling walker and stairs GOALS: Mod-I with rolling walker for ambulation, stairs, functional transfers, bathing, dressing, toileting, medical optimization, fall recovery, dynamic balance training, caregiver training. ASSESSMENT:73-year-old F with past medical history of new onset RUE weakness who presents status post brain biopsy, found to have grade 4 GBM. PLAN: 1. Rehab: PT- fall prevention, improve safety with ambulation and transfers, OT- strengthen RUE, teach compensatory strategies, enhance ADl management LITIGATION CLAIM REPRESENTATIVE- assess for cognitive dysfunction and treat 2. Neuro: recent dx of grade 4 gliobslatoma multiforme- c/u Keppra and Decadron taper per d/c recs, monitor for seizure activity 3. Heme/Onc: h lung and breast cancer, now with GBM and possible meningioma, will be treated by Dr. Mcarthur- appointment 06/03/19 4. CArdaic: pmh Afib, Xarelto to be restarted 06/05/19, c/u Cardizem, Bystolic, and Aldactone, medicine consulted to assist in management -HLD- statin 5. resp: encourage incentive spirometry 6. Endo: pmh DM c/u metformin and ISS, patient to bring in trulicity 7. Pain: gabapentin and tylenol 8. GI: optimize bowel care 9. : monitor PVRs 10. Hyponatremia: c/u salt tabs and taper 11. DVT ppx: heparin to be stopped once XArelo started and TEDs 11. Dispo: TBD POST ADMISSION PHYSICIAN EVALUATION: Medical and functional status: Description of medical status, medical assessment: As above. Rehabilitation diagnosis and current and prior cold morbid medical conditions as above. Risk of complications and plans to mitigate them as above. Description of functional status current status is as above. Prior status as above. Status compared to preadmission: There are no clinically significant differences between the patient's current status and the information described on the preadmission screening document. Treatment plan anticipated: Treatment plan is as described above. Required disciplines including physical therapy, occupational therapy, others as noted above Intensity of services: 3 hours a day, 6 days a week. Special considerations: there are no specific special or safety considerations that would likely preclude immediate implementation of an intensive rehabilitation program or subsequently influence the plan of care ATTESTATION: Considering all the information above, it is my best judgment that this patient requires intensive rehabilitation therapy as described above and an inpatient hospital environment due to the complexity of nursing, medical, and rehabilitation needs required by the patient. Furthermore, this patient can reasonably be expected to participate in an benefit from an inpatient rehabilitation stay with an interdisciplinary team approach to the delivery of rehabilitation care under the direction and supervision of rehabilitation physician PROGNOSIS: fair ESTIMATED LENGTH OF STAY:12-14 days. PROJECTED DISCHARGE DESTINATION: Home with family support and any durable medical equipment required to increase functional safety and mobility TIME SPENT COUNSELING AND COORDINATING INITIAL CARE: Greater than 70 minutes. Vital Signs Vital Sign - Last 24 Hours 05/31/19 05/31/19 05/31/19 06/01/19 12:55 14:00 20:00 05:29 Temp 98.0 98.1 97.6 97.3 Pulse 68 68 63 65 Resp 18 18 18 18 B/P (MAP) 137/66 (89) 122/57 (78) 114/51 (72) 110/55 (73) Pulse Ox 99 99 98 97 06/01/19 06/01/19 09:00 09:42 Pulse 65 65 B/P (MAP) 110/55 110/55 Laboratory Data CBC/BMP Laboratory Tests 06/01/19 06:38 Red Blood Count 4.20, Mean Corpuscular Volume 84.8, Mean Corpuscular Hemoglobin 28.1, Mean Corpuscular Hemoglobin Concent 33.1, Red Cell Distribution Width 15.0 H, Calcium Level 8.8, Aspartate Amino Transf (AST/SGOT) 8, Alanine Aminotransferase (ALT/SGPT) 34, Alkaline Phosphatase 59, Total Bilirubin 0.3, Total Protein 5.1 L, Albumin 2.7 L Labs 24H Laboratory Tests 2 05/31/19 13:28: Bedside Glucose (Misc Panel) 198H 05/31/19 17:24: Bedside Glucose (Misc Panel) 361H 05/31/19 20:15: Bedside Glucose (Misc Panel) 243H 06/01/19 06:13: Bedside Glucose (Misc Panel) 219H 06/01/19 06:38: Immature Granulocyte % (Auto) , Nucleated Red Blood Cells % (auto) 0.0, Ne utrophils 81H, Lymphocytes (Manual) 11L, Monocytes (Manual) 8, Platelet Estimate NORMAL, Red Blood Cell Morphology NORMAL, Anion Gap 11, Glomerular Filtration Rate > 60.0, Blood Urea Nitrogen 33H, Creatinine 0.82, Sodium Level 137, Potassium Level 4.5, Chloride Level 107, Carbon Dioxide Level 19L, Calcium Level 8.8, Aspartate Amino Transf (AST/SGOT) 8, Alanine Aminotransferase (ALT/SGPT) 34, Alkaline Phosphatase 59, Total Bilirubin 0.3, Total Protein 5.1L, Albumin 2.7L, Albumin/Globulin Ratio 1.13 FSBS Laboratory Tests Test 05/31/19 13:28 05/31/19 17:24 05/31/19 20:15 06/01/19 06:13 Range/Units Bedside Glucose (Misc Panel) 198 361 243 219 83-110 MG/DL Home Medications Scheduled Dexamethasone (Dexamethasone) 4 Mg Tablet, 4 MG PO ASDIRECTED, (Reported) 4MG Q8H X 2 DAYS, 4MG BID X 3 DAYS, 3MG BID X 3 DAYS, 2MG X 3 DAYS Diltiazem HCl (Diltiazem 24Hr ER) 240 Mg Cap, 240 MG PO DAILY, (Reported) Dulaglutide (Trulicity) 0.75 Mg/0.5 Ml Inj, 0.75 MG SC 1XWK, (Reported) FRIDAY Ergocalciferol (Vitamin D2) (Drisdol) 50,000 Unit Cap, 50,000 UNIT PO QWEEK, (Reported) TUESDAYS Fluticasone Propion/Salmeterol (Advair Hfa 115-21 Mcg Inhaler) 12 Gm Hfa.aer.ad, 2 PUFF INH BID, (Reported) Gabapentin (Gabapentin) 100 Mg Cap, 200 MG PO BID, (Reported) Levetiracetam (Keppra) 500 Mg Tablet, 500 MG PO ASDIRECTED, (Reported) 500MG BID X 2 DAYS, 500MG DAILY X 7 DAYS, 250MG DAILY X 7 DAYS Lutein/Zeaxanthin (Lutein-Zeaxanthin 25-5 mg Sfgl) 1 Cap Cap, 1 CAP PO DAILY, (Reported) Magnesium Oxide (Magnesium Oxide) 400 Mg Tablet, 400 MG PO DAILY, (Reported) Metformin HCl (Metformin HCl ER) 500 Mg Tab.er.24h, 1,000 MG PO BID, (Reported) Nebivolol HCl (Bystolic) 2.5 Mg Tab, 2.5 MG PO DAILY, (Reported) Pravastatin Sodium (Pravastatin Sodium) 40 Mg Tab, 40 MG PO QHS, (Reported) Rivaroxaban (Xarelto) 20 Mg Tab, 20 MG PO QPM, (Reported) Sodium Chloride (Sodium Chloride) 1 Gm Tablet, 2 GM PO TID, (Reported) [facility] Spironolactone (Spironolactone) 25 Mg Tab, 12.5 MG PO DAILY, (Reported) Scheduled PRN Albuterol Sulfate (Ventolin Hfa) 108 Mcg/Act Aer, 2 PUFF INH Q4H PRN for SHORTNESS OF BREATH, (Reported) Carboxymethylcellulose Sodium (Refresh Plus) 0.5 % Aris, 1 DROP OU Q4H PRN for DRY EYES, (Reported) Fluticasone Propionate (Fluticasone Propionate) 15.8 Ml [place].susp, 2 SPRAY NARES DAILY PRN for NASAL CONGESTION, (Reported) Sennosides (Senna) 8.6 Mg Tablet, 2 TABS PO QHS PRN for CONSTIPATION, (Reported) Allergies Coded Allergies: doxycycline (Verified Allergy, Intermediate, rash, 01/21/19) MEMO Inhibitors (Verified Allergy, Unknown, 01/21/19) NSAIDS (Non-Steroidal Anti-Inflamma (Verified Allergy, Unknown, 01/21/19) lidocaine (Verified Adverse Reaction, Severe, increased pulse, decreased bp, 01/21/19) NOTE: PATIENT HAS RECEIVED LIDOCAINE & BUPIVACAINE SEVERAL TIMES WHILE AT [facility] w/o PROBLEM procaine (Verified Adverse Reaction, Severe, increased pulse, decreased bp, 01/21/19) A-FIB/CHADSVASC A-FIB History Current/History of A-Fib/PAF?: Yes Current PO Anticoag Therapy: No ES DESAI MD Jun 01, 2019 10:35
--- NOTE | 2019-06-01 11:22 | IPNPDOC ---
PM&R Progress Note DATE OF SERVICE: Jun 01, 2019 Diesel Stationary Engineer Progress Note Subjective: Patient seen resting in bed, stating she walked pretty well today and feels he is getting stronger. REVIEW OF SYSTEMS: The following is a completed review of systems and has been reviewed. Review of systems otherwise unremarkable. PAIN: Patient self reports no pain EYES: No recent vision changes EARS, NOSE, & THROAT: No throat pain, or dysphagia, or rhinorrhea CARDIOVASCULAR: Denies chest pain or palpitations PULMONARY: Denies shortness of breath GASTROINTESTINAL: Denies constipation/diarrhea GENITOURINARY: no dysuria MUSCULOSKELETAL: right upper extremity weakness NEUROLOGICAL: right upper extremity weakness, apraxia SKIN: Skull incision PSYCHIATRIC: Unremarkable All other review of systems found to be negative. PHYSICAL EXAMINATION: VITAL SIGNS: Please see below. GENERAL: Pleasant and cooperative. No acute distress. HEENT: PERRL. Extraocular movements intact. Clear conjunctiva, +DIRECTOR OF CHANNEL MARKETING shunt CARDIOVASCULAR: Regular rate and rhythm. No murmurs, rubs, or gallops LUNGS: Clear to auscultation bilaterally. No wheezes. No rhonchi ABDOMEN: Soft, nontender, nondistended. Positive bowel sounds. Normal active bowel sounds NEUROLOGICAL: Alert and oriented times three. Cranial nerves II through XII grossly intact. Sensation grossly intact to light touch all four limbs (-) babinkski, no clonus +apraxia when asked to move her limbs EXTREMITIES: 5\5 strength left upper extremities, 4/5 RUE >3/5 strength right lower extremity(apraxic) >4/5 strength in left lower extremity (apraxic) SKIN: coronal skull incision c/d/i ASSESSMENT:73-year-old F with past medical history of new onset RUE weakness who presents status post brain biopsy, found to have grade 4 GBM. PLAN: 1. Rehab: PT- fall prevention, improve safety with ambulation and transfers, OT- strengthen RUE, teach compensatory strategies, enhance ADl management INTERNATIONAL FREIGHT FORWARDER- assess for cognitive dysfunction and treat 2. Neuro: recent dx of grade 4 glioblastoma multiforme- c/u Keppra and Decadron taper per d/c recs, monitor for seizure activity 3. Heme/Onc: [facility] lung and breast cancer, now with GBM and possible meningioma, will be treated by Dr. Mcarthur- appointment 06/03/19 4. Cardiac: pmh Afib, Xarelto to be restarted 06/05/19, c/u Cardizem, Bystolic, and Aldactone, medicine consulted to assist in management -HLD- statin 5. resp: encourage incentive spirometry 6. Endo: pmh DM c/u metformin and ISS, patient to bring in trulicity 7. Pain: gabapentin and tylenol 8. GI: optimize bowel care 9. : monitor PVRs 10. Hyponatremia: c/u salt tabs and taper 11. DVT ppx: heparin to be stopped once Xarelto started and TEDs 11. Dispo: TBD Allergies Coded Allergies: doxycycline (Verified Allergy, Intermediate, rash, 01/21/19) MEMO Inhibitors (Verified Allergy, Unknown, 01/21/19) NSAIDS (Non-Steroidal Anti-Inflamma (Verified Allergy, Unknown, 01/21/19) lidocaine (Verified Adverse Reaction, Severe, increased pulse, decreased bp, 01/21/19) NOTE: PATIENT HAS RECEIVED LIDOCAINE & BUPIVACAINE SEVERAL TIMES WHILE AT [facility] w/o PROBLEM procaine (Verified Adverse Reaction, Severe, increased pulse, decreased bp, 01/21/19) Vital Signs Vital Signs Date Time Temp Pulse Resp B/P (MAP) Pulse Ox O2 Delivery O2 Flow Rate FiO2 06/01/19 09:42 65 110/55 06/01/19 05:29 97.3 18 97 Laboratory Data CBC/BMP Laboratory Tests 06/01/19 06:38 Red Blood Count 4.20, Mean Corpuscular Volume 84.8, Mean Corpuscular Hemoglobin 28.1, Mean Corpuscular Hemoglobin Concent 33.1, Red Cell Distribution Width 15.0 H, Calcium Level 8.8, Aspartate Amino Transf (AST/SGOT) 8, Alanine Aminotransferase (ALT/SGPT) 34, Alkaline Phosphatase 59, Total Bilirubin 0.3, Total Protein 5.1 L, Albumin 2.7 L Labs 24H Laboratory Tests 2 05/31/19 13:28: Bedside Glucose (Misc Panel) 198H 05/31/19 17:24: Bedside Glucose (Misc Panel) 361H 05/31/19 20:15: Bedside Glucose (Misc Panel) 243H 06/01/19 06:13: Bedside Glucose (Misc Panel) 219H 06/01/19 06:38: Immature Granulocyte % (Auto) , Nucleated Red Blood Cells % (auto) 0.0, Neutrophils 81H, Lymphocytes (Manual) 11L, Monocytes (Manual) 8, Platelet Estimate NORMAL, Red Blood Cell Morphology NORMAL, Anion Gap 11, Glomerular Filtration Rate > 60.0, Blood Urea Nitrogen 33H, Creatinine 0.82, Sodium Level 137, Potassium Level 4.5, Chloride Level 107, Carbon Dioxide Level 19L, Calcium Level 8.8, Aspartate Amino Transf (AST/SGOT) 8, Alanine Aminotransferase (ALT/SGPT) 34, Alkaline Phosphatase 59, Total Bilirubin 0.3, Total Protein 5.1L, Albumin 2.7L, Albumin/Globulin Ratio 1.13 Current Medications Current Medications Current Medications Medications (Trade) Dose Ordered Sig/Haley Route PRN Reason Start Time Stop Time Status Last Admin Dose Admin Acetaminophen (Tylenol Tab) 650 mg Q4HP PRN PO fever/MILD PAIN (PS 1-4) 05/31/19 13:30 Artificial Tears (Akwa Tears) 2 drop TID OU 05/31/19 16:00 05/31/19 22:08 Bisacodyl (Dulcolax Suppository) 10 mg DAILYPRN PRN NM CONSTIPATION 05/31/19 13:30 Calcium/Vitamin D (Oscal D) 1,000 mg DAILY PO 05/31/19 09:00 06/01/19 09:42 Dexamethasone (Decadron) 2 mg Q12H PO 06/10/19 06:00 Dexamethasone (Decadron) 3 mg Q12H PO 06/06/19 06:00 06/09/19 23:59 Dexamethasone (Decadron) 4 mg Q12H PO 06/02/19 06:00 06/05/19 23:59 Dexamethasone (Decadron) 4 mg Q8H PO 05/31/19 14:00 06/01/19 23:59 06/01/19 05:52 Dextrose (Dextrose 50%) 25 ml ASDIRECTED PRN IV SEE LABEL COMMENTS 05/31/19 13:45 Diltiazem HCl (Cardizem Cd) 240 mg DAILY PO 06/01/19 09:00 06/01/19 09:42 Docusate Sodium (Colace) 100 mg BID PO 05/31/19 21:00 05/31/19 22:07 Fluticasone Propionate (Flonase 0.05% Nasal [place]) 2 SPRAYS IN EACH NOSTRIL DAILY NARES 06/01/19 09:00 Gabapentin (Neurontin) 200 mg BID PO 05/31/19 21:00 06/01/19 09:40 Glucagon (Glucagon) 1 mg ASDIRECTED PRN SC SEE LABEL COMMENTS 05/31/19 13:45 Glucose (Glucose) 16 GM ASDIRECTED PRN PO SEE LABEL COMMENTS 05/31/19 13:45 Heparin Sodium (Porcine) (Heparin) 5,000 units Q12H SC 05/31/19 21:00 06/04/19 23:59 06/01/19 09:39 Home Med (Med Rec Complete!) ASDIRECTED XX 05/31/19 15:00 05/31/19 15:18 DC Insulin Human Lispro (HumaLOG INSULIN) SEE PROTOCOL TABLE AC SC 05/31/19 17:30 06/01/19 09:38 Insulin Human Lispro (HumaLOG INSULIN) SEE PROTOCOL TABLE QHS SC 05/31/19 21:00 Levetiracetam (Keppra) 250 mg DAILY PO 06/09/19 09:00 06/15/19 23:59 Levetiracetam (Keppra) 500 mg BID PO 05/31/19 21:00 06/01/19 23:59 06/01/19 09:40 Levetiracetam (Keppra) 500 mg DAILY PO 06/02/19 09:00 06/08/19 23:59 Magnesium Oxide (Mag-Ox) 400 mg DAILY PO 06/01/19 09:00 06/01/19 09:40 Metformin HCl (Glucophage Xr) 1,000 mg BID@0800,1800 PO 05/31/19 18:00 06/01/19 09:39 Nebivolol (Bystolic) 2.5 mg DAILY PO 06/01/19 09:00 Oxycodone HCl (Roxicodone, Oxyir) 2.5 mg Q4HP PRN PO PAIN 05/31/19 13:45 Pantoprazole Sodium (Protonix) 40 mg DAILY PO 06/01/19 09:00 06/01/19 09:40 Pravastatin Sodium (Pravachol) 40 mg QHS PO 05/31/19 21:00 05/31/19 22:08 Rivaroxaban (Xarelto) 20 mg DAILY@18 PO 06/05/19 18:00 Salmeterol Xinafoate/ Fluticasone (Advair Hfa 230/ 21) 2 puff BID INH 05/31/19 21:00 06/01/19 07:36 Senna (Senokot) 1 tab QHS PO 05/31/19 21:00 05/31/19 22:07 Sodium Chloride (Sodium Chloride) 2 gm TID PO 05/31/19 16:00 06/01/19 09:40 Spironolactone (Aldactone) 12.5 mg DAILY PO 06/01/19 09:00 06/01/19 09:39 ES DESAI MD Jun 01, 2019 11:22
--- NOTE | 2019-06-01 11:54 | IPNPDOC ---
Text Note Date of Service The patient was seen on 06/01/19. NOTE Objective: Patient has no complaints at this time, denies chest pain, denies shortness of breath, denies weakness, nausea, abdominal pain, diarrhea. GENERAL: NAD SKIN : Warm, dry intact HEENT: Atraumatic, normocephalic, PERRL, moist mucous membrane CARDIOVASCULAR: Regular rate and rhythm, S1S2, no JVD, no edema, distal pulses + palpable RESP: CTAB, no accessory muscle use noted ABDOMEN: BS+ non distended non tender MS: no joint deformities NEURO: Alert and oriented x 3, CN2-12 grossly intact PSYCH: no anxiety or agitation, appropriate mood and affect. ASSESSMENT/PLAN: Left frontoparietal lobe glioblastoma -S/P stereotactic brain tumor biopsy with laser interstitial therapy -Rehabilitation of neuro deficits by primary team -Monitoring of sodium levels to keep within 135, 145 range -follow-up with Dr. Katarina Moreno in [place] June 03 at 10:30 AM Intracranial vasogenic edema -Continue Decadron weaning to 2 mg twice a day till weaned off by oncologist -Continue Keppra for seizure prophylaxis till weaned off by oncologist Diabetes mellitus type 2 -Finger stick checks prior to meals and at bedtime -Continue Diabetic diet -Metformin 1000 mg every. 12 hours -Trulicity every week. Has been relabeled for use while here Paroxysmal atrial fibrillation -S/P cardiac ablation -Rate control with beta aden -Restart anticoagulation therapy with Xarelto on the 10th of this month DVT prophylaxis -Anticoagulation therapy contraindicated in the setting of recent cerebral instrumentation VS,Fishbone, I+O VS, Fishbone, I+O Laboratory Tests 06/01/19 06:38 Red Blood Count 4.20, Mean Corpuscular Volume 84.8, Mean Corpuscular Hemoglobin 28.1, Mean Corpuscular Hemoglobin Concent 33.1, Red Cell Distribution Width 15.0 H, Calcium Level 8.8, Aspartate Amino Transf (AST/SGOT) 8, Alanine Aminotransferase (ALT/SGPT) 34, Alkaline Phosphatase 59, Total Bilirubin 0.3, Total Protein 5.1 L, Albumin 2.7 L Vital Signs Date Time Temp Pulse Resp B/P (MAP) Pulse Ox O2 Delivery O2 Flow Rate FiO2 06/01/19 09:42 65 110/55 06/01/19 05:29 97.3 18 97 I&O- Last 24 Hours up to 6 AM 06/01/19 06:00 Intake Total 720 ml Output Total 500 ml Balance 220 ml [facility] Jun 01, 2019 11:54
[2019-06-01 14:00] VITALS: BP 112/56
[2019-06-01 20:00] VITALS: BP 125/65
[2019-06-01] MEDS ORDERED: traZODone 25MG PER 1/2 TABLET PO SCH (21:00)
[2019-06-01] MEDS: SENNA 8.6 MG TAB (SENOKOT) PO SCH (21:05)
[2019-06-01] MEDS: PRAVASTATIN 20 MG TAB PO SCH (21:05)
[2019-06-02 05:24] VITALS: BP 119/58
[2019-06-02] MEDS: GABAPENTIN 100 MG CAP PO SCH ×2 (08:28→20:26)
[2019-06-02] MEDS: FLUTICASONE PROP 0.05% NASAL SPRAY 16 GM (FLONASE) NARES SCH (08:28)
[2019-06-02] MEDS: metFORMIN XR 500MG TAB *GLUCOPHAGE XR PO SCH ×2 (08:29→17:41)
[2019-06-02] MEDS: levETIRAcetam 250MG TABLET (KEPPRA) PO SCH (08:29)
[2019-06-02] MEDS: CALCIUM/VITAMIN D 500 MG TAB PO SCH (08:29)
[2019-06-02] MEDS: SODIUM CHLORIDE 1 GM TAB PO SCH ×2 (08:29→20:28)
[2019-06-02] MEDS: SPIRONOLACTONE 12.5MG PER 1/2 TABLET PO SCH (08:29)
[2019-06-02] MEDS: NEBIVOLOL 5 MG TAB (BYSTOLIC) PO SCH (08:29)
[2019-06-02] MEDS: PANTOPRAZOLE 40MG TAB (PROTONIX) PO SCH (08:29)
[2019-06-02] MEDS: MAGNESIUM OXIDE 400 MG TAB (MAG-OX) PO SCH (08:30)
[2019-06-02] MEDS: HEPARIN SOD (PORCINE) 5000 UNITS/ML VIAL SC SCH ×2 (08:30→20:26)
[2019-06-02] MEDS: HumaLOG INSULIN (NovoLOG) PER UNIT SC SCH ×4 (08:30→20:02)
[2019-06-02] MEDS: DOCUSATE SODIUM 100 MG CAP PO SCH ×2 (08:30→20:27)
[2019-06-02] MEDS: POLYVINYL ALCOHOL OPHTH SOLN 15 ML(LIQUITEARS) OU SCH ×3 (08:31→20:30)
[2019-06-02] MEDS: ADVAIR HFA 230/21MCG INHALER INH SCH ×2 (08:31→21:00)
--- NOTE | 2019-06-02 11:39 | IPNPDOC ---
PM&R Progress Note DATE OF SERVICE: Jun 02, 2019 It Application Development Manager Progress Note Subjective: Patient reports she did not sleep well last night, record shows she did get trazodone, but id not help. She reports she feels anxious and had recently weaned herself off of Lexapro. She is open to trying this medication again. REVIEW OF SYSTEMS: The following is a completed review of systems and has been reviewed. Review of systems otherwise unremarkable. PAIN: Patient self reports no pain EYES: No recent vision changes EARS, NOSE, & THROAT: No throat pain, or dysphagia, or rhinorrhea CARDIOVASCULAR: Denies chest pain or palpitations PULMONARY: Denies shortness of breath GASTROINTESTINAL: Denies constipation/diarrhea GENITOURINARY: no dysuria MUSCULOSKELETAL: right upper extremity weakness NEUROLOGICAL: right upper extremity weakness, apraxia SKIN: Skull incision PSYCHIATRIC: Unremarkable All other review of systems found to be negative. PHYSICAL EXAMINATION: VITAL SIGNS: Please see below. GENERAL: Pleasant and cooperative. No acute distress. HEENT: PERRL. Extraocular movements intact. Clear conjunctiva, +TINNER AUTOMATIC shunt CARDIOVASCULAR: Regular rate and rhythm. No murmurs, rubs, or gallops LUNGS: Clear to auscultation bilaterally. No wheezes. No rhonchi ABDOMEN: Soft, nontender, nondistended. Positive bowel sounds. Normal active bowel sounds NEUROLOGICAL: Alert and oriented times three. Cranial nerves II through XII grossly intact. Sensation grossly intact to light touch all four limbs (-) babinkski, no clonus +apraxia when asked to move her limbs EXTREMITIES: 5\5 strength left upper extremities, 4/5 RUE >3/5 strength right lower extremity(apraxic) >4/5 strength in left lower extremity (apraxic) SKIN: coronal skull incision c/d/i ASSESSMENT:73-year-old F with past medical history of new onset RUE weakness who presents status post brain biopsy, found to have grade 4 GBM. PLAN: 1. Rehab: PT- fall prevention, improve safety with ambulation and transfers, OT- strengthen RUE, teach compensatory strategies, enhance ADl management DIRECTOR OF PLACEMENT- assess for cognitive dysfunction and treat 2. Neuro: recent dx of grade 4 glioblastoma multiforme- c/u Keppra and Decadron taper per d/c recs, monitor for seizure activity 3. Heme/Onc: [facility] lung and breast cancer, now with GBM and possible meningioma, will be treated by Dr. Mcarthur- appointment 06/03/19 4. Cardiac: pmh Afib, Xarelto to be restarted 06/05/19, c/u Cardizem, Bystolic, and Aldactone, medicine consulted to assist in management -HLD- statin 5. resp: encourage incentive spirometry 6. Endo: pmh DM c/u metformin and ISS, and trulicity 7. Pain: gabapentin and tylenol 8. GI: optimize bowel care 9. : monitor PVRs 10. Hyponatremia: c/u salt tabs and taper 11. DVT ppx: heparin to be stopped once Xarelto started and TEDs 12. Psych: will start Lexapro for anxiety and increase trazodone to 50 mg 11. Dispo: TBD Allergies Coded Allergies: doxycycline (Verified Allergy, Intermediate, rash, 01/21/19) MEMO Inhibitors (Verified Allergy, Unknown, 01/21/19) NSAIDS (Non-Steroidal Anti-Inflamma (Verified Allergy, Unknown, 01/21/19) lidocaine (Verified Adverse Reaction, Severe, increased pulse, decreased bp, 01/21/19) NOTE: PATIENT HAS RECEIVED LIDOCAINE & BUPIVACAINE SEVERAL TIMES WHILE AT [facility] w/o PROBLEM procaine (Verified Adverse Reaction, Severe, increased pulse, decreased bp, 01/21/19) Vital Signs Vital Signs Date Time Temp Pulse Resp B/P (MAP) Pulse Ox O2 Delivery O2 Flow Rate FiO2 06/02/19 08:29 77 119/58 06/02/19 05:24 97.7 18 100 Laboratory Data Labs 24H Laboratory Tests 2 06/01/19 11:47: Bedside Glucose (Misc Panel) 201H 06/01/19 17:21: Bedside Glucose (Misc Panel) 182H 06/01/19 19:56: Bedside Glucose (Misc Panel) 227H 06/02/19 05:44: Bedside Glucose (Misc Panel) 262H Current Medications Current Medications Current Medications Medications (Trade) Dose Ordered Sig/Haley Route PRN Reason Start Time Stop Time Status Last Admin Dose Admin Acetaminophen (Tylenol Tab) 650 mg Q4HP PRN PO fever/MILD PAIN (PS 1-4) 05/31/19 13:30 Artificial Tears (Akwa Tears) 2 drop TID OU 05/31/19 16:00 06/02/19 08:31 Bisacodyl (Dulcolax Suppository) 10 mg DAILYPRN PRN [place] CONSTIPATION 05/31/19 13:30 Calcium/Vitamin D (Oscal D) 1,000 mg DAILY PO 05/31/19 09:00 06/02/19 08:29 Dexamethasone (Decadron) 2 mg Q12H PO 06/10/19 06:00 Dexamethasone (Decadron) 3 mg Q12H PO 06/06/19 06:00 06/09/19 23:59 Dexamethasone (Decadron) 4 mg Q12H PO 06/02/19 06:00 06/05/19 23:59 06/02/19 05:46 Dexamethasone (Decadron) 4 mg Q8H PO 05/31/19 14:00 06/01/19 23:59 DC 06/01/19 21:05 Dextrose (Dextrose 50%) 25 ml ASDIRECTED PRN IV SEE LABEL COMMENTS 05/31/19 13:45 Diltiazem HCl (Cardizem Cd) 240 mg DAILY PO 06/01/19 09:00 06/02/19 08:29 Docusate Sodium (Colace) 100 mg BID PO 05/31/19 21:00 06/02/19 08:30 Fluticasone Propionate (Flonase 0.05% Nasal [place]) 2 SPRAYS IN EACH NOSTRIL DAILY NARES 06/01/19 09:00 06/02/19 08:28 Gabapentin (Neurontin) 200 mg BID PO 05/31/19 21:00 06/02/19 08:28 Glucagon (Glucagon) 1 mg ASDIRECTED PRN SC SEE LABEL COMMENTS 05/31/19 13:45 Glucose (Glucose) 16 GM ASDIRECTED PRN PO SEE LABEL COMMENTS 05/31/19 13:45 Heparin Sodium (Porcine) (Heparin) 5,000 units Q12H SC 05/31/19 21:00 06/04/19 23:59 06/02/19 08:30 Home Med (Med Rec Complete!) ASDIRECTED XX 05/31/19 15:00 05/31/19 15:18 DC Insulin Human Lispro (HumaLOG INSULIN) SEE PROTOCOL TABLE AC SC 05/31/19 17:30 06/02/19 08:30 Insulin Human Lispro (HumaLOG INSULIN) SEE PROTOCOL TABLE QHS SC 05/31/19 21:00 Levetiracetam (Keppra) 250 mg DAILY PO 06/09/19 09:00 06/15/19 23:59 Levetiracetam (Keppra) 500 mg BID PO 05/31/19 21:00 06/01/19 23:59 DC 06/01/19 21:05 Levetiracetam (Keppra) 500 mg DAILY PO 06/02/19 09:00 06/08/19 23:59 06/02/19 08:29 Magnesium Oxide (Mag-Ox) 400 mg DAILY PO 06/01/19 09:00 06/02/19 08:30 Metformin HCl (Glucophage Xr) 1,000 mg BID@0800,1800 PO 05/31/19 18:00 06/02/19 08:29 Miscellaneous (Unresolved Patient Own Med Order) SEE LABEL COMMENTS DAILY XX 06/01/19 09:00 06/01/19 18:25 DC Nebivolol (Bystolic) 2.5 mg DAILY PO 06/01/19 09:00 06/02/19 08:29 Oxycodone HCl (Roxicodone, Oxyir) 2.5 mg Q4HP PRN PO PAIN 05/31/19 13:45 Pantoprazole Sodium (Protonix) 40 mg DAILY PO 06/01/19 09:00 06/02/19 08:29 Patient Own Medication (Patient'S Own Med) 0.75MG We@0900 SC 06/02/19 09:00 Pravastatin Sodium (Pravachol) 40 mg QHS PO 05/31/19 21:00 06/01/19 21:05 Rivaroxaban (Xarelto) 20 mg DAILY@18 PO 06/05/19 18:00 Salmeterol Xinafoate/ Fluticasone (Advair Hfa 230/ 21) 2 puff BID INH 05/31/19 21:00 06/02/19 08:31 Senna (Senokot) 1 tab QHS PO 05/31/19 21:00 06/01/19 21:05 Sodium Chloride (Sodium Chloride) 1 gm BID PO 06/01/19 21:00 06/02/19 08:29 Sodium Chloride (Sodium Chloride) 2 gm TID PO 05/31/19 16:00 06/01/19 11:19 DC 06/01/19 09:40 Spironolactone (Aldactone) 12.5 mg DAILY PO 06/01/19 09:00 06/02/19 08:29 Trazodone HCl (Desyrel) 25 mg QHS PO 06/01/19 21:00 06/01/19 21:05 ES DESAI MD Jun 02, 2019 11:39
--- NOTE | 2019-06-02 12:00 | IPNPDOC ---
Text Note Date of Service The patient was seen on 06/02/19. NOTE Objective: Pastoral team at bedside at time of evaluation. denies headache, chest pain, SOB GENERAL: NAD SKIN : Warm, dry intact HEENT: Atraumatic, normocephalic, PERRL, moist mucous membrane CARDIOVASCULAR: Regular rate and rhythm, S1S2, no JVD, no edema, distal pulses + palpable RESP: CTAB, no accessory muscle use noted ABDOMEN: BS+ non distended non tender MS: no joint deformities NEURO: Alert and oriented x 3, CN2-12 grossly intact PSYCH: no anxiety or agitation, appropriate mood and affect. ASSESSMENT/PLAN: Left frontoparietal lobe glioblastoma -S/P stereotactic brain tumor biopsy with laser interstitial therapy -Rehabilitation of neuro deficits by primary team -continued monitoring of sodium levels to keep within 135-145 range -already has follow-up with Dr. Katarina Moreno in [place] tomorrow June 03 at 10:30 AM Intracranial vasogenic edema -no symptoms, no headache. -Continue Decadron weaning to 2 mg twice a day till weaned off by oncologist -Continue Keppra for seizure prophylaxis till weaned off by oncologist -continue seizure precautions Diabetes mellitus type 2 -uncontrolled at this time, likely due to steroid therapy -start low dose basal therapy -Finger stick checks prior to meals and at bedtime -Continue Diabetic diet -Metformin 1000 mg every. 12 hours -continue Trulicity every week Paroxysmal atrial fibrillation -S/P cardiac ablation -Rate is controlled with beta aden -Restart anticoagulation therapy with Xarelto on the of this month DVT prophylaxis -Anticoagulation therapy contraindicated in the setting of recent cerebral instrumentation VS,Fishbone, I+O VS, Fishbone, I+O Vital Signs Date Time Temp Pulse Resp B/P (MAP) Pulse Ox O2 Delivery O2 Flow Rate FiO2 06/02/19 08:29 77 119/58 06/02/19 05:24 97.7 18 100 I&O- Last 24 Hours up to 6 AM 06/02/19 05:59 Intake Total 960 ml Output Total 300 ml Balance 660 ml URIAH SEAMAN Jun 02, 2019 12:00
[2019-06-02] MEDS: TRULICITY 0.75 MG/0.5 ML SC SCH (12:25)
[2019-06-02] MEDS: LEVEMIR (INSULIN DETEMIR) 1 UNITS/0.01ML SC SCH (12:32)
[2019-06-02 14:00] VITALS: BP 108/65
[2019-06-02 20:00] VITALS: BP 126/56
[2019-06-02] MEDS: SENNA 8.6 MG TAB (SENOKOT) PO SCH (20:27)
[2019-06-02] MEDS: PRAVASTATIN 20 MG TAB PO SCH (20:27)
[2019-06-02] MEDS: traZODone 50 MG TAB PO SCH (20:27)
[2019-06-02] MEDS: ACETAMINOPHEN TAB 650MG DOSE (2X325MG) PO PRN (20:28)
[2019-06-02] MEDS: ESCITALOPRAM OXALATE 10 MG TAB (LEXAPRO) PO SCH (20:28)
[2019-06-03 06:00] VITALS: BP 125/58
[2019-06-03] MEDS: ACETAMINOPHEN TAB 650MG DOSE (2X325MG) PO PRN (06:14)
[2019-06-03 06:36] LABS: HEMATOCRIT 33.9 % (36.0-47.0); HEMOGLOBIN 11.2 g/dl (12.0-15.5); MEAN CORPUSCULAR HEMOGLOBIN 27.7 pg (27.0-33.0); MEAN CORPUSCULAR VOLUME 83.9 fl (80.0-96.0); PLATELET COUNT, AUTOMATED 172 10^3/uL (150-450); RED BLOOD COUNT 4.04 10^6/uL (4.00-5.40); WHITE BLOOD COUNT 18.3 10^3/uL (4.0-10.0)
[2019-06-03 06:56] LABS: BLOOD UREA NITROGEN 35 MG/DL (7-18); CALCIUM LEVEL 8.8 MG/DL (8.8-10.2); CARBON DIOXIDE LEVEL 20 MEQ/L (21-32); CHLORIDE LEVEL 107 MEQ/L (98-107); CREATININE FOR GFR 0.84 MG/DL (0.55-1.30); GLOMERULAR FILTRATION RATE > 60.0 (>39); GLUCOSE, FASTING 173 MG/DL (70-100); POTASSIUM SERUM 4.9 MEQ/L (3.5-5.1); SODIUM LEVEL 137 MEQ/L (136-145)
[2019-06-03 07:05] LABS: LYMPHOCYTES 14 % (16-52); MONOCYTES 2 % (0-8); NEUTROPHILS 84 % (35-75); PLATELET ESTIMATE NORMAL (NORMAL)
[2019-06-03] MEDS: ADVAIR HFA 230/21MCG INHALER INH SCH ×2 (07:08→19:54)
[2019-06-03] MEDS: DOCUSATE SODIUM 100 MG CAP PO SCH ×2 (08:15→21:40)
[2019-06-03] MEDS: levETIRAcetam 250MG TABLET (KEPPRA) PO SCH (08:15)
[2019-06-03] MEDS: CALCIUM/VITAMIN D 500 MG TAB PO SCH (08:15)
[2019-06-03] MEDS: LEVEMIR (INSULIN DETEMIR) 1 UNITS/0.01ML SC SCH (08:15)
[2019-06-03] MEDS: HumaLOG INSULIN (NovoLOG) PER UNIT SC SCH ×4 (08:15→21:00)
[2019-06-03] MEDS: HEPARIN SOD (PORCINE) 5000 UNITS/ML VIAL SC SCH ×2 (08:16→21:39)
[2019-06-03] MEDS: SPIRONOLACTONE 12.5MG PER 1/2 TABLET PO SCH (08:16)
[2019-06-03] MEDS: SODIUM CHLORIDE 1 GM TAB PO SCH ×2 (08:16→21:39)
[2019-06-03] MEDS: metFORMIN XR 500MG TAB *GLUCOPHAGE XR PO SCH ×2 (08:16→17:20)
[2019-06-03] MEDS: NEBIVOLOL 5 MG TAB (BYSTOLIC) PO SCH (08:16)
[2019-06-03] MEDS: GABAPENTIN 100 MG CAP PO SCH ×2 (08:17→21:39)
[2019-06-03] MEDS: PANTOPRAZOLE 40MG TAB (PROTONIX) PO SCH (08:17)
[2019-06-03] MEDS: MAGNESIUM OXIDE 400 MG TAB (MAG-OX) PO SCH (08:17)
[2019-06-03] MEDS: FLUTICASONE PROP 0.05% NASAL SPRAY 16 GM (FLONASE) NARES SCH (08:18)
[2019-06-03] MEDS: POLYVINYL ALCOHOL OPHTH SOLN 15 ML(LIQUITEARS) OU SCH ×3 (08:18→21:40)
--- NOTE | 2019-06-03 09:45 | IPNPDOC ---
PM&R Progress Note DATE OF SERVICE: Jun 03, 2019 Atomic Process Engineer Progress Note Subjective: Patient seen in her room with and friend bedside. She states she slept very well and that she is ready for her oncology appointment. REVIEW OF SYSTEMS: The following is a completed review of systems and has been reviewed. Review of systems otherwise unremarkable. PAIN: Patient self reports no pain EYES: No recent vision changes EARS, NOSE, & THROAT: No throat pain, or dysphagia, or rhinorrhea CARDIOVASCULAR: Denies chest pain or palpitations PULMONARY: Denies shortness of breath GASTROINTESTINAL: Denies constipation/diarrhea GENITOURINARY: no dysuria MUSCULOSKELETAL: right upper extremity weakness NEUROLOGICAL: right upper extremity weakness, apraxia SKIN: Skull incision PSYCHIATRIC: Unremarkable All other review of systems found to be negative. PHYSICAL EXAMINATION: VITAL SIGNS: Please see below. GENERAL: Pleasant and cooperative. No acute distress. HEENT: PERRL. Extraocular movements intact. Clear conjunctiva, +RAMP SUPERVISOR shunt CARDIOVASCULAR: Regular rate and rhythm. No murmurs, rubs, or gallops LUNGS: Clear to auscultation bilaterally. No wheezes. No rhonchi ABDOMEN: Soft, nontender, nondistended. Positive bowel sounds. Normal active bowel sounds NEUROLOGICAL: Alert and oriented times three. Cranial nerves II through XII grossly intact. Sensation grossly intact to light touch all four limbs (-) babinkski, no clonus +apraxia when asked to move her limbs EXTREMITIES: 5\5 strength left upper extremities, 4/5 RUE >3/5 strength right lower extremity(apraxic) >4/5 strength in left lower extremity (apraxic) SKIN: coronal skull incision c/d/i ASSESSMENT:73-year-old F with past medical history of new onset RUE weakness who presents status post brain biopsy, found to have grade 4 GBM. PLAN: 1. Rehab: PT- fall prevention, improve safety with ambulation and transfers- walking with RW, having difficulty with functional transfers, OT- strengthen RUE, teach compensatory strategies, enhance ADl management GRAIN PROCESSOR- assess for cognitive dysfunction and treat 2. Neuro: recent dx of grade 4 glioblastoma multiforme- c/u Keppra and Decadron taper per d/c recs, monitor for seizure activity 3. Heme/Onc: [facility] lung and breast cancer, now with GBM and possible meningioma, will be treated by Dr. Mcarthur- appointment 8/8/19 4. Cardiac: pmh Afib, Xarelto to be restarted 06/05/19, c/u Cardizem, Bystolic, and Aldactone, medicine consulted to assist in management -HLD- statin 5. resp: encourage incentive spirometry 6. Endo: pmh DM c/u metformin and ISS, and trulicity 7. Pain: gabapentin and tylenol 8. GI: optimize bowel care 9. : monitor PVRs 10. Hyponatremia: c/u salt tabs and taper 11. DVT ppx: heparin to be stopped once Xarelto started on 06/05/19 and TEDs 12. Psych: c/u Lexapro for anxiety and trazodone to 50 mg-sleeping better 11. Dispo: TBD Allergies Coded Allergies: doxycycline (Verified Allergy, Intermediate, rash, 01/21/19) MEMO Inhibitors (Verified Allergy, Unknown, 01/21/19) NSAIDS (Non-Steroidal Anti-Inflamma (Verified Allergy, Unknown, 01/21/19) lidocaine (Verified Adverse Reaction, Severe, increased pulse, decreased bp, 01/21/19) NOTE: PATIENT HAS RECEIVED LIDOCAINE & BUPIVACAINE SEVERAL TIMES WHILE AT [facility] w/o PROBLEM procaine (Verified Adverse Reaction, Severe, increased pulse, decreased bp, 01/21/19) Vital Signs Vital Signs Date Time Temp Pulse Resp B/P (MAP) Pulse Ox O2 Delivery O2 Flow Rate FiO2 06/03/19 08:18 60 125/58 06/03/19 06:00 98.3 18 98 Laboratory Data CBC/BMP Laboratory Tests 06/03/19 06:17 Red Blood Count 4.04, Mean Corpuscular Volume 83.9, Mean Corpuscular Hemoglobin 27.7, Mean Corpuscular Hemoglobin Concent 33.0, Red Cell Distribution Width 15.4 H, Calcium Level 8.8 Labs 24H Laboratory Tests 2 06/02/19 11:57: Bedside Glucose (Misc Panel) 185H 06/02/19 16:45: Bedside Glucose (Misc Panel) 195H 06/02/19 19:58: Bedside Glucose (Misc Panel) 199H 06/03/19 06:17: Immature Granulocyte % (Auto) , Nucleated Red Blood Cells % (auto) 0.0, Neutrophils 84H, Lymphocytes (Manual) 14L, Monocytes (Manual) 2, Platelet Estimate NORMAL, Red Blood Cell Morphology NORMAL, Anion Gap 10, Glomerular Filtration Rate > 60.0, Blood Urea Nitrogen 35H, Creatinine 0.84, Sodium Level 137, Potassium Level 4.9, Chloride Level 107, Carbon Dioxide Level 20L, Calcium Level 8.8 Current Medications Current Medications Current Medications Medications (Trade) Dose Ordered Sig/Haley Route PRN Reason Start Time Stop Time Status Last Admin Dose Admin Acetaminophen (Tylenol Tab) 650 mg Q4HP PRN PO fever/MILD PAIN (PS 1-4) 05/31/19 13:30 06/03/19 06:14 Artificial Tears (Akwa Tears) 2 drop TID OU 05/31/19 16:00 06/03/19 08:18 Bisacodyl (Dulcolax Suppository) 10 mg DAILYPRN PRN [place] CONSTIPATION 05/31/19 13:30 Calcium/Vitamin D (Oscal D) 1,000 mg DAILY PO 05/31/19 09:00 06/03/19 08:15 Dexamethasone (Decadron) 2 mg Q12H PO 06/10/19 06:00 Dexamethasone (Decadron) 3 mg Q12H PO 06/06/19 06:00 06/09/19 23:59 Dexamethasone (Decadron) 4 mg Q12H PO 06/02/19 06:00 06/05/19 23:59 06/03/19 05:52 Dexamethasone (Decadron) 4 mg Q8H PO 05/31/19 14:00 06/01/19 23:59 DC 06/01/19 21:05 Dextrose (Dextrose 50%) 25 ml ASDIRECTED PRN IV SEE LABEL COMMENTS 05/31/19 13:45 Diltiazem HCl (Cardizem Cd) 240 mg DAILY PO 06/01/19 09:00 06/03/19 08:18 Docusate Sodium (Colace) 100 mg BID PO 05/31/19 21:00 06/03/19 08:15 Escitalopram Oxalate (Lexapro) 10 mg QHS PO 06/02/19 21:00 06/02/19 20:28 Fluticasone Propionate (Flonase 0.05% Nasal [facility]) 2 SPRAYS IN EACH NOSTRIL DAILY NARES 06/01/19 09:00 06/02/19 08:28 Gabapentin (Neurontin) 200 mg BID PO 05/31/19 21:00 06/03/19 08:17 Glucagon (Glucagon) 1 mg ASDIRECTED PRN SC SEE LABEL COMMENTS 05/31/19 13:45 Glucose (Glucose) 16 GM ASDIRECTED PRN PO SEE LABEL COMMENTS 05/31/19 13:45 Heparin Sodium (Porcine) (Heparin) 5,000 units Q12H SC 05/31/19 21:00 06/04/19 23:59 06/03/19 08:16 Home Med (Med Rec Complete!) ASDIRECTED XX 05/31/19 15:00 05/31/19 15:18 DC Insulin Detemir (Levemir Insulin) 10 units DAILY SC 06/02/19 09:00 06/03/19 08:15 Insulin Human Lispro (HumaLOG INSULIN) SEE PROTOCOL TABLE AC SC 05/31/19 17:30 06/03/19 08:15 Insulin Human Lispro (HumaLOG INSULIN) SEE PROTOCOL TABLE QHS SC 05/31/19 21:00 Levetiracetam (Keppra) 250 mg DAILY PO 06/09/19 09:00 06/15/19 23:59 Levetiracetam (Keppra) 500 mg BID PO 05/31/19 21:00 06/01/19 23:59 DC 06/01/19 21:05 Levetiracetam (Keppra) 500 mg DAILY PO 06/02/19 09:00 06/08/19 23:59 06/03/19 08:15 Magnesium Oxide (Mag-Ox) 400 mg DAILY PO 06/01/19 09:00 06/03/19 08:17 Metformin HCl (Glucophage Xr) 1,000 mg BID@0800,1800 PO 05/31/19 18:00 06/03/19 08:16 Miscellaneous (Unresolved Patient Own Med Order) SEE LABEL COMMENTS DAILY XX 06/01/19 09:00 06/01/19 18:25 DC Nebivolol (Bystolic) 2.5 mg DAILY PO 06/01/19 09:00 06/02/19 08:29 Oxycodone HCl (Roxicodone, Oxyir) 2.5 mg Q4HP PRN PO PAIN 05/31/19 13:45 Pantoprazole Sodium (Protonix) 40 mg DAILY PO 06/01/19 09:00 8/8/19 08:17 Patient Own Medication (Patient'S Own Med) 0.75MG We@0900 SC 06/02/19 09:00 06/02/19 12:25 Pravastatin Sodium (Pravachol) 40 mg QHS PO 05/31/19 21:00 06/02/19 20:27 Rivaroxaban (Xarelto) 20 mg DAILY@18 PO 06/05/19 18:00 Salmeterol Xinafoate/ Fluticasone (Advair Hfa 230/ 21) 2 puff BID INH 05/31/19 21:00 06/03/19 07:08 Senna (Senokot) 1 tab QHS PO 05/31/19 21:00 06/02/19 20:27 Sodium Chloride (Sodium Chloride) 1 gm BID PO 06/01/19 21:00 06/03/19 08:16 Sodium Chloride (Sodium Chloride) 2 gm TID PO 05/31/19 16:00 06/01/19 11:19 DC 06/01/19 09:40 Spironolactone (Aldactone) 12.5 mg DAILY PO 06/01/19 09:00 06/03/19 08:16 Trazodone HCl (Desyrel) 25 mg QHS PO 06/01/19 21:00 06/02/19 14:35 DC 06/01/19 21:05 Trazodone HCl (Desyrel) 50 mg QHS PO 06/02/19 21:00 06/02/19 20:27 ES DESAI MD Jun 03, 2019 09:45
--- NOTE | 2019-06-03 11:20 | IPNPDOC ---
Text Note Date of Service The patient was seen on 06/03/19. NOTE Objective: Working with OT at time of assessment. States she had better sleep last night.. denies headache, chest pain, SOB GENERAL: NAD SKIN : Warm, dry intact HEENT: Atraumatic, normocephalic, PERRL, moist mucous membrane CARDIOVASCULAR: Regular rate and rhythm, S1S2, no JVD, no edema, distal pulses + palpable RESP: CTAB, no accessory muscle use noted ABDOMEN: BS+ non distended non tender MS: no joint deformities NEURO: Alert and oriented x 3, CN2-12 grossly intact PSYCH: no anxiety or agitation, appropriate mood and affect. ASSESSMENT/PLAN: Left frontoparietal lobe glioblastoma -S/P stereotactic brain tumor biopsy with laser interstitial therapy -Rehabilitation of neuro deficits by primary team -continued monitoring of sodium levels to keep within 135-145 range - follow-up with Dr. Katarina Moreno today, follow recommendations Intracranial vasogenic edema -no symptoms, no headache. -Continue Decadron weaning to 2 mg twice a day till weaned off by oncologist -Continue Keppra for seizure prophylaxis till weaned off by oncologist -continue seizure precautions Diabetes mellitus type 2 -Added levemir to regimen with improved blood glucose readings -continued on steroid therapy -conmtinue low dose basal therapy -continue finger stick checks prior to meals and at bedtime -Continue Diabetic diet -Metformin 1000 mg every. 12 hours -continue Trulicity every week Hyponatremia -continued on Na tablets -within normal range at this time Paroxysmal atrial fibrillation -S/P cardiac ablation -Rate is controlled with beta aden -will be restarted on anticoagulation therapy with Xarelto on the of this [facility] DVT prophylaxis -Anticoagulation therapy contraindicated in the setting of recent cerebral instrumentation VS,Fishbone, I+O VS, Fishbone, I+O Laboratory Tests 06/03/19 06:17 Red Blood Count 4.04, Mean Corpuscular Volume 83.9, Mean Corpuscular Hemoglobin 27.7, Mean Corpuscular Hemoglobin Concent 33.0, Red Cell Distribution Width 15.4 H, Calcium Level 8.8 Vital Signs Date Time Temp Pulse Resp B/P (MAP) Pulse Ox O2 Delivery O2 Flow Rate FiO2 06/03/19 08:18 60 125/58 06/03/19 06:00 98.3 18 98 I&O- Last 24 Hours up to 6 AM 06/03/19 06:00 Intake Total 1270 ml Balance 1270 ml URIAH SEAMAN SAMPLE TESTER GRINDER Jun 03, 2019 11:20
[2019-06-03 14:00] VITALS: BP 132/61
[2019-06-03 20:00] VITALS: BP 118/58
[2019-06-03] MEDS: ESCITALOPRAM OXALATE 10 MG TAB (LEXAPRO) PO SCH (21:39)
[2019-06-03] MEDS: PRAVASTATIN 20 MG TAB PO SCH (21:39)
[2019-06-03] MEDS: SENNA 8.6 MG TAB (SENOKOT) PO SCH (21:40)
[2019-06-03] MEDS: traZODone 50 MG TAB PO SCH (21:40)
[2019-06-03 22:09] VITALS: BP 124/68
[2019-06-03] MEDS ORDERED: ACETAMINOPHEN 500 MG TAB PO ONE (22:30)
[2019-06-04 06:00] VITALS: BP 114/60
[2019-06-04] MEDS: ADVAIR HFA 230/21MCG INHALER INH SCH ×2 (08:00→19:40)
[2019-06-04] MEDS: POLYVINYL ALCOHOL OPHTH SOLN 15 ML(LIQUITEARS) OU SCH ×3 (08:46→20:55)
[2019-06-04] MEDS: PANTOPRAZOLE 40MG TAB (PROTONIX) PO SCH (08:47)
[2019-06-04] MEDS: levETIRAcetam 250MG TABLET (KEPPRA) PO SCH (08:47)
[2019-06-04] MEDS: FLUTICASONE PROP 0.05% NASAL SPRAY 16 GM (FLONASE) NARES SCH (08:47)
[2019-06-04] MEDS: metFORMIN XR 500MG TAB *GLUCOPHAGE XR PO SCH ×2 (08:50→17:47)
[2019-06-04] MEDS: DOCUSATE SODIUM 100 MG CAP PO SCH ×2 (08:50→20:52)
[2019-06-04] MEDS: SODIUM CHLORIDE 1 GM TAB PO SCH ×2 (08:50→20:51)
[2019-06-04] MEDS: GABAPENTIN 100 MG CAP PO SCH ×2 (08:50→20:52)
[2019-06-04] MEDS: NEBIVOLOL 5 MG TAB (BYSTOLIC) PO SCH (08:50)
[2019-06-04] MEDS: SPIRONOLACTONE 12.5MG PER 1/2 TABLET PO SCH (08:51)
[2019-06-04] MEDS: CALCIUM/VITAMIN D 500 MG TAB PO SCH (08:51)
[2019-06-04] MEDS: HEPARIN SOD (PORCINE) 5000 UNITS/ML VIAL SC SCH ×2 (08:51→20:52)
[2019-06-04] MEDS: MAGNESIUM OXIDE 400 MG TAB (MAG-OX) PO SCH (08:51)
[2019-06-04] MEDS: HumaLOG INSULIN (NovoLOG) PER UNIT SC SCH ×4 (08:52→20:53)
[2019-06-04] MEDS: LEVEMIR (INSULIN DETEMIR) 1 UNITS/0.01ML SC SCH (08:53)
--- NOTE | 2019-06-04 11:35 | IPNPDOC ---
Text Note Date of Service The patient was seen on 06/04/19. NOTE Subjective: Seen during PT, .States she fells to the floor last night but had staff around to support her fall. Did not hit her head. Denies headache, chest pain, SOB Objective GENERAL: NAD SKIN : Warm, dry intact HEENT: head sutures present, normocephalic, PERRL, moist mucous membrane CARDIOVASCULAR: Regular rate and rhythm, S1S2, no JVD, no edema, distal pulses + palpable RESP: CTAB, no accessory muscle use noted ABDOMEN: BS+ non distended non tender MS: no joint deformities NEURO: Alert and oriented x 3, CN2-12 grossly intact PSYCH: no anxiety or agitation, appropriate mood and affect. ASSESSMENT/PLAN: Left frontoparietal lobe glioblastoma -S/P stereotactic brain tumor biopsy with laser interstitial therapy -Rehabilitation of neuro deficits by primary team -continued monitoring of sodium levels to keep within 135-145 range -followed by local oncology group Intracranial vasogenic edema -no new neurologic symptoms -Continued on Decadron with weaning to 2 mg twice a day till weaned off by oncologist -Continue Keppra for seizure prophylaxis till weaned off by oncologist -continue seizure precautions Diabetes mellitus type 2 -continue levemir -continued on steroid therapy -continue finger stick checks prior to meals and at bedtime -Continue Diabetic diet -Metformin 1000 mg every. 12 hours -continue Trulicity every week Hyponatremia -continued on Na tablets -within normal range at this time Paroxysmal atrial fibrillation -S/P cardiac ablation -Rate is controlled with beta aden - restart anticoagulation therapy with Xarelto on the of this month DVT prophylaxis -Anticoagulation therapy contraindicated in the setting of recent cerebral instrumentation VS,Fishbone, I+O VS, Fishbone, I+O Vital Signs Date Time Temp Pulse Resp B/P (MAP) Pulse Ox O2 Delivery O2 Flow Rate FiO2 06/04/19 08:51 76 114/60 06/04/19 06:00 98.6 18 98 I&O- Last 24 Hours up to 6 AM 06/04/19 06:00 Intake Total 1500 ml Balance 1500 ml URIAH SEAMANP Jun 04, 2019 11:35
[2019-06-04 14:00] VITALS: BP 110/56
[2019-06-04 17:22] VITALS: BP 116/60
[2019-06-04 20:00] VITALS: BP 136/58
[2019-06-04] MEDS: SENNA 8.6 MG TAB (SENOKOT) PO SCH (20:52)
[2019-06-04] MEDS: PRAVASTATIN 20 MG TAB PO SCH (20:52)
[2019-06-04] MEDS: ESCITALOPRAM OXALATE 10 MG TAB (LEXAPRO) PO SCH (20:52)
[2019-06-04] MEDS: traZODone 50 MG TAB PO SCH (20:52)
[2019-06-05 04:43] VITALS: BP 137/66
[2019-06-05] MEDS: ADVAIR HFA 230/21MCG INHALER INH SCH ×2 (07:17→19:13)
[2019-06-05] MEDS: levETIRAcetam 250MG TABLET (KEPPRA) PO SCH (08:38)
[2019-06-05] MEDS: DOCUSATE SODIUM 100 MG CAP PO SCH ×2 (08:38→20:14)
[2019-06-05] MEDS: HumaLOG INSULIN (NovoLOG) PER UNIT SC SCH ×4 (08:38→19:57)
[2019-06-05] MEDS: LEVEMIR (INSULIN DETEMIR) 1 UNITS/0.01ML SC SCH (08:38)
[2019-06-05] MEDS: SODIUM CHLORIDE 1 GM TAB PO SCH ×2 (08:39→20:13)
[2019-06-05] MEDS: MAGNESIUM OXIDE 400 MG TAB (MAG-OX) PO SCH (08:39)
[2019-06-05] MEDS: PANTOPRAZOLE 40MG TAB (PROTONIX) PO SCH (08:39)
[2019-06-05] MEDS: GABAPENTIN 100 MG CAP PO SCH ×2 (08:39→20:13)
[2019-06-05] MEDS: metFORMIN XR 500MG TAB *GLUCOPHAGE XR PO SCH ×2 (08:39→17:34)
[2019-06-05] MEDS: CALCIUM/VITAMIN D 500 MG TAB PO SCH (08:39)
[2019-06-05] MEDS: SPIRONOLACTONE 12.5MG PER 1/2 TABLET PO SCH (08:39)
[2019-06-05] MEDS: NEBIVOLOL 5 MG TAB (BYSTOLIC) PO SCH (08:39)
[2019-06-05] MEDS: FLUTICASONE PROP 0.05% NASAL SPRAY 16 GM (FLONASE) NARES SCH (08:40)
[2019-06-05] MEDS: POLYVINYL ALCOHOL OPHTH SOLN 15 ML(LIQUITEARS) OU SCH ×3 (08:40→20:14)
[2019-06-05 14:00] VITALS: BP 109/52
[2019-06-05] MEDS: RIVAROXABAN 20 MG TAB (XARELTO) PO SCH (17:34)
[2019-06-05 20:00] VITALS: BP 116/59
[2019-06-05] MEDS: ESCITALOPRAM OXALATE 10 MG TAB (LEXAPRO) PO SCH (20:13)
[2019-06-05] MEDS: PRAVASTATIN 20 MG TAB PO SCH (20:13)
[2019-06-05] MEDS: traZODone 50 MG TAB PO SCH (20:14)
[2019-06-05] MEDS: SENNA 8.6 MG TAB (SENOKOT) PO SCH (20:14)
[2019-06-06 06:00] VITALS: BP 126/64
[2019-06-06 06:30] LABS: HEMATOCRIT 36.1 % (36.0-47.0); HEMOGLOBIN 11.9 g/dl (12.0-15.5); MEAN CORPUSCULAR HEMOGLOBIN 28.2 pg (27.0-33.0); MEAN CORPUSCULAR VOLUME 85.5 fl (80.0-96.0); PLATELET COUNT, AUTOMATED 151 10^3/uL (150-450); RED BLOOD COUNT 4.22 10^6/uL (4.00-5.40); WHITE BLOOD COUNT 20.1 10^3/uL (4.0-10.0)
[2019-06-06 06:51] LABS: BLOOD UREA NITROGEN 31 MG/DL (7-18); CALCIUM LEVEL 8.3 MG/DL (8.8-10.2); CARBON DIOXIDE LEVEL 22 MEQ/L (21-32); CHLORIDE LEVEL 104 MEQ/L (98-107); GLOMERULAR FILTRATION RATE > 60.0 (>39); GLUCOSE, FASTING 137 MG/DL (70-100); POTASSIUM SERUM 4.7 MEQ/L (3.5-5.1); SODIUM LEVEL 136 MEQ/L (136-145)
--- NOTE | 2019-06-06 06:59 | IPN ---
DATE: 06/05/2019 73-year-old female who had a left frontoparietal lobe glioblastoma. She had a stereotactic brain tumor biopsy and laser interstitial therapy. She is here for rehabilitation. She is followed by [facility]. She fell out of bed on the 8th. She did not hit her head. She has not fallen since. She continues to participate with therapy. Her sodium is being monitored to sustain 135 to 145 range. LABORATORY STUDIES: Sodium 138, potassium 4.9, chloride 107, CO2 20, anion gap is 10, BUN 35, creatinine 0.84. She is receiving steroids. Her white count is up slightly at 18.3. Hemoglobin 11.2, hematocrit 33.9, platelets are 172. She remains afebrile. Blood sugars are being monitored. Fasting this morning was 152. 183 at lunch. Her Xarelto has been restarted. She has a history of hypocholesterolemia and continues on a statin. She had no specific complaints today. OBJECTIVE: Blood pressure 137/66, pulse 85, respirations 18. Temperature 98.4, oxygen saturation 98% on room air. Patient is alert and oriented times three. Pupils equal, reactive to light. Extraocular movements (EOMs) intact. Cornea and sclerae clear. Conjunctivae normal. No facial asymmetry. Pharynx, tongue and gums pink and moist. Tongue is midline. NECK: Neck is supple without lymphadenopathy. No thyromegaly, no goiter. CHEST: Chest is clear to auscultation without wheeze or retraction. HEART: Heart is regular. ABDOMEN: Benign. Bowel sounds positive. /RECTAL: Not done. Extremities: No cyanosis, clubbing, or edema. Peripheral pulses equal and palpable bilaterally. Skin is warm and dry. IMPRESSION: Left frontoparietal lobe glioblastoma status post stereotactic brain tumor biopsy with laser interstitial therapy. Continue rehabilitation by primary team. Continue monitoring the sodium level to maintain between 135 and 145. Continue followup with oncology group. Intracranial vasogenic edema. No new neurologic symptoms. Continue on Decadron and wean as per oncology. Continue Keppra for seizures prophylaxis until weaned off by oncology. Continue seizure precautions. Diabetes type 2. Continue Levemir. Patient is on steroid therapy. Continue fingersticks with coverage. Continue consistent carbohydrate diet. Continue metformin and Trulicity. Hyponatremia. Continues on sodium tablets. Monitor sodium daily to keep within 135 and 145 range. Paroxysmal atrial fibrillation. Status post cardiac ablation. Rate controlled. Continue beta aden and she is to restart today Xarelto on the .
[2019-06-06 07:21] LABS: ANISOCYTOSIS 1+; LYMPHOCYTES 16 % (16-52); MONOCYTES 2 % (0-8); MYELOCYTES 2 % (0-0); NEUTROPHILS 79 % (35-75); PLATELET ESTIMATE NORMAL (NORMAL)
[2019-06-06] MEDS: ADVAIR HFA 230/21MCG INHALER INH SCH ×2 (07:22→19:32)
[2019-06-06] MEDS: POLYVINYL ALCOHOL OPHTH SOLN 15 ML(LIQUITEARS) OU SCH ×3 (09:00→20:32)
[2019-06-06] MEDS: FLUTICASONE PROP 0.05% NASAL SPRAY 16 GM (FLONASE) NARES SCH (09:00)
[2019-06-06] MEDS: LEVEMIR (INSULIN DETEMIR) 1 UNITS/0.01ML SC SCH (09:03)
[2019-06-06] MEDS: HumaLOG INSULIN (NovoLOG) PER UNIT SC SCH ×4 (09:03→19:50)
[2019-06-06] MEDS: DOCUSATE SODIUM 100 MG CAP PO SCH ×2 (09:03→20:27)
[2019-06-06] MEDS: SPIRONOLACTONE 12.5MG PER 1/2 TABLET PO SCH (09:03)
[2019-06-06] MEDS: metFORMIN XR 500MG TAB *GLUCOPHAGE XR PO SCH ×2 (09:03→17:21)
[2019-06-06] MEDS: PANTOPRAZOLE 40MG TAB (PROTONIX) PO SCH (09:04)
[2019-06-06] MEDS: GABAPENTIN 100 MG CAP PO SCH ×2 (09:04→20:26)
[2019-06-06] MEDS: levETIRAcetam 250MG TABLET (KEPPRA) PO SCH (09:04)
[2019-06-06] MEDS: CALCIUM/VITAMIN D 500 MG TAB PO SCH (09:04)
[2019-06-06] MEDS: MAGNESIUM OXIDE 400 MG TAB (MAG-OX) PO SCH (09:04)
[2019-06-06] MEDS: NEBIVOLOL 5 MG TAB (BYSTOLIC) PO SCH (09:05)
[2019-06-06] MEDS: SODIUM CHLORIDE 1 GM TAB PO SCH ×2 (09:05→20:27)
[2019-06-06] MEDS ORDERED: traZODone 25MG PER 1/2 TABLET PO PRN (10:15)
[2019-06-06 14:00] VITALS: BP 120/63
[2019-06-06] MEDS: RIVAROXABAN 20 MG TAB (XARELTO) PO SCH (17:19)
[2019-06-06 20:07] VITALS: BP 110/55
[2019-06-06] MEDS: ESCITALOPRAM OXALATE 10 MG TAB (LEXAPRO) PO SCH (20:26)
[2019-06-06] MEDS: SENNA 8.6 MG TAB (SENOKOT) PO SCH (20:27)
[2019-06-06] MEDS: PRAVASTATIN 20 MG TAB PO SCH (20:27)
[2019-06-06] MEDS: ACETAMINOPHEN TAB 650MG DOSE (2X325MG) PO PRN (20:28)
[2019-06-07 06:42] VITALS: BP 123/57
[2019-06-07 07:09] LABS: HEMOGLOBIN 11.3 g/dl (12.0-15.5); MEAN CORPUSCULAR HEMOGLOBIN 28.2 pg (27.0-33.0); MEAN CORPUSCULAR HGB CONC 33.2 g/dl (32.0-36.5); MEAN CORPUSCULAR VOLUME 84.8 fl (80.0-96.0); PLATELET COUNT, AUTOMATED 134 10^3/uL (150-450); RED BLOOD COUNT 4.01 10^6/uL (4.00-5.40); WHITE BLOOD COUNT 16.2 10^3/uL (4.0-10.0)
[2019-06-07 07:30] LABS: BLOOD UREA NITROGEN 28 MG/DL (7-18); CALCIUM LEVEL 8.5 MG/DL (8.8-10.2); CARBON DIOXIDE LEVEL 23 MEQ/L (21-32); CHLORIDE LEVEL 103 MEQ/L (98-107); CREATININE FOR GFR 0.79 MG/DL (0.55-1.30); GLOMERULAR FILTRATION RATE > 60.0 (>39); GLUCOSE, FASTING 142 MG/DL (70-100); POTASSIUM SERUM 4.9 MEQ/L (3.5-5.1); SODIUM LEVEL 135 MEQ/L (136-145)
[2019-06-07 07:35] LABS: ATYPICAL LYMPH 1 % (0-5); LYMPHOCYTES 9 % (16-52); MONOCYTES 3 % (0-8); NEUTROPHILS 84 % (35-75)
[2019-06-07 07:36] LABS: PLATELET ESTIMATE NORMAL (NORMAL)
[2019-06-07] MEDS: ADVAIR HFA 230/21MCG INHALER INH SCH ×2 (07:54→21:41)
[2019-06-07] MEDS: DOCUSATE SODIUM 100 MG CAP PO SCH ×2 (08:53→20:05)
[2019-06-07] MEDS: NEBIVOLOL 5 MG TAB (BYSTOLIC) PO SCH (08:54)
[2019-06-07] MEDS: CALCIUM/VITAMIN D 500 MG TAB PO SCH (08:56)
[2019-06-07] MEDS: GABAPENTIN 100 MG CAP PO SCH ×2 (08:56→20:05)
[2019-06-07] MEDS: metFORMIN XR 500MG TAB *GLUCOPHAGE XR PO SCH ×2 (08:56→17:39)
[2019-06-07] MEDS: MAGNESIUM OXIDE 400 MG TAB (MAG-OX) PO SCH (08:56)
[2019-06-07] MEDS: PANTOPRAZOLE 40MG TAB (PROTONIX) PO SCH (08:56)
[2019-06-07] MEDS: LEVEMIR (INSULIN DETEMIR) 1 UNITS/0.01ML SC SCH (08:57)
[2019-06-07] MEDS: levETIRAcetam 250MG TABLET (KEPPRA) PO SCH (08:57)
[2019-06-07] MEDS: HumaLOG INSULIN (NovoLOG) PER UNIT SC SCH ×4 (08:58→19:54)
[2019-06-07] MEDS: FLUTICASONE PROP 0.05% NASAL SPRAY 16 GM (FLONASE) NARES SCH (09:00)
[2019-06-07] MEDS: SPIRONOLACTONE 12.5MG PER 1/2 TABLET PO SCH (09:02)
[2019-06-07] MEDS: SODIUM CHLORIDE 1 GM TAB PO SCH ×2 (09:02→20:05)
[2019-06-07] MEDS: POLYVINYL ALCOHOL OPHTH SOLN 15 ML(LIQUITEARS) OU SCH ×3 (09:02→20:07)
--- NOTE | 2019-06-07 10:34 | IPNPDOC ---
Text Note Date of Service The patient was seen on 06/07/19. NOTE Subjective: complains of feeling tired, staff report buckling of knee over the weekend with loss of balance again. Objective GENERAL: NAD SKIN : Warm, dry intact HEENT: head sutures have been removed, normocephalic, PERRL, moist mucous membrane CARDIOVASCULAR: Regular rate and rhythm, S1S2, no JVD, no edema, distal pulses + palpable RESP: CTAB, no accessory muscle use noted ABDOMEN: BS+ non distended non tender MS: no joint deformities NEURO: Alert and oriented x 3, CN2-12 grossly intact PSYCH: no anxiety or agitation, appropriate mood and affect. ASSESSMENT/PLAN: Left frontoparietal lobe glioblastoma -S/P stereotactic brain tumor biopsy with laser interstitial therapy -Rehabilitation of neuro deficits by primary team -followed by oncology team of [facility] during hospitalization Intracranial vasogenic edema -complains of tiredness -Decadron with weaning to 2 mg twice a day till weaned off by oncologist -Silvina for seizure prophylaxis till weaned off by oncologist -continue seizure precautions Diabetes mellitus type 2 -continue levemir -continued on steroid therapy -continue finger stick checks prior to meals and at bedtime -Continue Diabetic diet -Metformin 1000 mg every. 12 hours -continue Trulicity every friday Hyponatremia -135 borderline normal -continued on Na tablets Paroxysmal atrial fibrillation -S/P cardiac ablation -Rate is controlled with beta adne - restarted on Xarelto the -no signs/symptoms of bleeding noted DVT prophylaxis -fully anticoagulated VS,Fishbone, I+O VS, Fishbone, I+O Laboratory Tests 06/07/19 06:25 Red Blood Count 4.01, Mean Corpuscular Volume 84.8, Mean Corpuscular Hemoglobin 28.2, Mean Corpuscular Hemoglobin Concent 33.2, Red Cell Distribution Width 15.9 H, Calcium Level 8.5 L Vital Signs Date Time Temp Pulse Resp B/P (MAP) Pulse Ox O2 Delivery O2 Flow Rate FiO2 06/07/19 08:57 80 123/57 06/07/19 06:42 97.4 18 99 I&O- Last 24 Hours up to 6 AM 06/07/19 05:59 Intake Total 440 ml Balance 440 ml URIAH 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
[2019-06-07 14:00] VITALS: BP 103/55
[2019-06-07] MEDS: RIVAROXABAN 20 MG TAB (XARELTO) PO SCH (17:38)
[2019-06-07 20:00] VITALS: BP 102/55
[2019-06-07] MEDS: ESCITALOPRAM OXALATE 10 MG TAB (LEXAPRO) PO SCH (20:05)
[2019-06-07] MEDS: SENNA 8.6 MG TAB (SENOKOT) PO SCH (20:06)
[2019-06-07] MEDS: PRAVASTATIN 20 MG TAB PO SCH (20:06)
[2019-06-07] MEDS: ACETAMINOPHEN TAB 650MG DOSE (2X325MG) PO PRN (20:06)
[2019-06-08 05:44] VITALS: BP 114/55
[2019-06-08] MEDS: metFORMIN XR 500MG TAB *GLUCOPHAGE XR PO SCH ×2 (08:52→18:37)
[2019-06-08] MEDS: LEVEMIR (INSULIN DETEMIR) 1 UNITS/0.01ML SC SCH (08:53)
[2019-06-08] MEDS: SODIUM CHLORIDE 1 GM TAB PO SCH ×2 (08:53→21:21)
[2019-06-08] MEDS: HumaLOG INSULIN (NovoLOG) PER UNIT SC SCH ×4 (08:53→20:07)
[2019-06-08] MEDS: DOCUSATE SODIUM 100 MG CAP PO SCH ×2 (08:53→21:21)
[2019-06-08] MEDS: MAGNESIUM OXIDE 400 MG TAB (MAG-OX) PO SCH (08:54)
[2019-06-08] MEDS: CALCIUM/VITAMIN D 500 MG TAB PO SCH (08:54)
[2019-06-08] MEDS: NEBIVOLOL 5 MG TAB (BYSTOLIC) PO SCH (08:55)
[2019-06-08] MEDS: PANTOPRAZOLE 40MG TAB (PROTONIX) PO SCH (08:55)
[2019-06-08] MEDS: SPIRONOLACTONE 12.5MG PER 1/2 TABLET PO SCH (08:55)
[2019-06-08] MEDS: GABAPENTIN 100 MG CAP PO SCH ×2 (08:55→21:21)
[2019-06-08] MEDS: levETIRAcetam 250MG TABLET (KEPPRA) PO SCH (08:55)
[2019-06-08] MEDS: FLUTICASONE PROP 0.05% NASAL SPRAY 16 GM (FLONASE) NARES SCH (08:56)
[2019-06-08] MEDS: POLYVINYL ALCOHOL OPHTH SOLN 15 ML(LIQUITEARS) OU SCH ×3 (08:56→21:26)
[2019-06-08] MEDS: ADVAIR HFA 230/21MCG INHALER INH SCH ×2 (08:57→21:03)
--- NOTE | 2019-06-08 11:30 | IPNPDOC ---
Text Note Date of Service The patient was seen on 06/08/19. NOTE Subjective: Seen during therapy. Still complains of tiredness, denies chills, fever, chest pain, SOB. Has not had further falls. Objective GENERAL: NAD SKIN : Warm, dry intact HEENT: head sutures have been removed, normocephalic, moist mucous membrane CARDIOVASCULAR: Regular rate and rhythm, S1S2, no JVD, no edema, distal pulses + palpable RESP: CTAB, no accessory muscle use noted ABDOMEN: BS+ non distended non tender MS: no joint deformities NEURO: Alert and oriented x 3, CN2-12 grossly intact PSYCH: no anxiety or agitation, appropriate mood and affect. ASSESSMENT/PLAN: Left frontoparietal lobe glioblastoma -S/P stereotactic brain tumor biopsy with laser interstitial therapy -Rehabilitation of by primary team -follow up appointment with oncology today Intracranial vasogenic edema -no headaches, -continued on Decadron with weaning to 2 mg twice a day till weaned off by oncologist -Silvina for seizure prophylaxis till weaned off by oncologist -continue seizure precautions Diabetes mellitus type 2 -monitoring prior to meals and at bedtime -continued on levemir -calorie controlled diet -Metformin 1000 mg every. 12 hours -continue Trulicity every friday Hyponatremia -135 borderline normal -continued on Na tablets Paroxysmal atrial fibrillation -S/P cardiac ablation -Rate is controlled with beta aden - restarted on Xarelto the -no signs/symptoms of bleeding -hgb stable DVT prophylaxis -fully anticoagulated VS,Fishbone, I+O VS, Fishbone, I+O Vital Signs Date Time Temp Pulse Resp B/P (MAP) Pulse Ox O2 Delivery O2 Flow Rate FiO2 06/08/19 08:56 72 114/55 06/08/19 05:44 97.7 18 97 I&O- Last 24 Hours up to 6 AM 06/08/19 06:00 Intake Total 1160 ml Output Total 350 ml Balance 810 ml URIAH SEAMANP Jun 08, 2019 11:30
--- NOTE | 2019-06-08 12:22 | IPNPDOC ---
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 She is able to participate in therapy. She denies dysuria. REVIEW OF SYSTEMS: The following is a completed review of systems and has been reviewed. Review of systems otherwise unremarkable. PAIN: Patient self reports no pain EYES: No recent vision changes EARS, NOSE, & THROAT: No throat pain, or dysphagia, or rhinorrhea CARDIOVASCULAR: Denies chest pain or palpitations PULMONARY: Denies shortness of breath GASTROINTESTINAL: Denies constipation/diarrhea GENITOURINARY: no dysuria MUSCULOSKELETAL: right upper extremity weakness NEUROLOGICAL: right upper extremity weakness, apraxia SKIN: Skull incision PSYCHIATRIC: Unremarkable All other review of systems found to be negative. PHYSICAL EXAMINATION: VITAL SIGNS: Please see below. GENERAL: Pleasant and cooperative. No acute distress. HEENT: PERRL. Extraocular movements intact. Clear conjunctiva, +APPAREL TRIMMINGS SALES REPRESENTATIVE shunt CARDIOVASCULAR: Regular rate and rhythm. No murmurs, rubs, or gallops LUNGS: Clear to auscultation bilaterally. No wheezes. No rhonchi ABDOMEN: Soft, nontender, nondistended. Positive bowel sounds. Normal active bowel sounds NEUROLOGICAL: Alert and oriented times three. Cranial nerves II through XII grossly intact. Sensation grossly intact to light touch all four limbs (-) babinkski, no clonus +apraxia when asked to move her limbs EXTREMITIES: 5\5 strength left upper extremities, 4/5 RUE >3/5 strength right lower extremity(apraxic) >4/5 strength in left lower extremity (apraxic) SKIN: coronal skull incision c/d/i ASSESSMENT:73-year-old F with past medical history of new onset RUE weakness who presents status post brain biopsy, found to have grade 4 GBM. PLAN: 1. 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 Neuro: recent dx of grade 4 glioblastoma multiforme- c/u Keppra and Decadron (increased taper back up to 9mg daily after being halved from 12mg-->6mg total as suspect rapid decrease is causing increased buckling in right limb) 3. Heme/Onc: pmh lung and breast cancer, now with GBM and possible meningioma, will be treated by Dr. Mcarthur-s/p appointment 06/03/19, plan for f/u 06/08/19 for radiation planning 4. Cardiac: pmh Afib, Xarelto restarted 06/05/19, c/u Cardizem, Bystolic, and Aldactone, medicine consulted to assist in management -HLD- statin 5. resp: encourage incentive spirometry 6. Endo: pmh DM c/u metformin and ISS, and trulicity 7. Pain: gabapentin and tylenol 8. GI: optimize bowel care 9. /ID: monitor PVRs, repeat UA ordered for slight regression in function and blood cultures, leukocytosis most likely from Decadron 10. Hyponatremia: c/u salt tabs and taper 11. DVT ppx: heparin to be stopped once Xarelto started on 06/05/19 and TEDs 12. Psych: c/u Lexapro for anxiety and will decrease trazodone to 25mg prn in case it is contributing to daytime fatigue and weakness 11. Dispo: tenetaively 06/11 to home, however progressing slowly and will need to train caregiver for safe transfer home from wheelchair level Allergies Coded Allergies: doxycycline (Verified Allergy, Intermediate, rash, 01/21/19) MEMO Inhibitors (Verified Allergy, Unknown, 01/21/19) NSAIDS (Non-Steroidal Anti-Inflamma (Verified Allergy, Unknown, 01/21/19) lidocaine (Verified Adverse Reaction, Severe, increased pulse, decreased bp, 01/21/19) NOTE: PATIENT HAS RECEIVED LIDOCAINE & BUPIVACAINE SEVERAL TIMES WHILE AT [facility] w/o PROBLEM procaine (Verified Adverse Reaction, Severe, increased pulse, decreased bp, 01/21/19) Vital Signs Vital Signs Date Time Temp Pulse Resp B/P (MAP) Pulse Ox O2 Delivery O2 Flow Rate FiO2 06/08/19 08:56 72 114/55 06/08/19 05:44 97.7 18 97 Laboratory Data Labs 24H Laboratory Tests 2 06/07/19 17:07: Bedside Glucose (Misc Panel) 112H 06/07/19 19:43: Bedside Glucose (Misc Panel) 107 06/08/19 06:03: Bedside Glucose (Misc Panel) 135H Microbiology Microbiology 06/04/19 Blood Culture - Preliminary, Resulted No Growth after 72 hours. All specime... 06/04/19 Blood Culture - Preliminary, Resulted No Growth after 72 hours. All specime... 06/07/19 Urine Culture, Received Pending Current Medications Current Medications Current Medications Medications (Trade) Dose Ordered Sig/Haley Route PRN Reason Start Time Stop Time Status Last Admin Dose Admin Acetaminophen (Tylenol Tab) 650 mg Q4HP PRN PO fever/MILD PAIN (PS 1-4) 05/31/19 13:30 06/07/19 20:06 Artificial Tears (Akwa Tears) 2 drop TID OU 05/31/19 16:00 06/08/19 08:56 Bisacodyl (Dulcolax Suppository) 10 mg DAILYPRN PRN [place] CONSTIPATION 05/31/19 13:30 Calcium/Vitamin D (Oscal D) 1,000 mg DAILY PO 05/31/19 09:00 06/08/19 08:54 Dexamethasone (Decadron) 2 mg Q12H PO 06/10/19 06:00 06/10/19 06:00 DC Dexamethasone (Decadron) 3 mg Q12H PO 06/06/19 06:00 06/06/19 10:18 DC 06/06/19 05:44 Dexamethasone (Decadron) 3 mg TID PO 06/06/19 16:00 06/08/19 08:55 Dexamethasone (Decadron) 4 mg Q12H PO 06/02/19 06:00 06/05/19 23:59 DC 06/05/19 17:34 Dexamethasone (Decadron) 4 mg Q8H PO 05/31/19 14:00 06/01/19 23:59 DC 06/01/19 21:05 Dextrose (Dextrose 50%) 25 ml ASDIRECTED PRN IV SEE LABEL COMMENTS 05/31/19 13:45 Diltiazem HCl (Cardizem Cd) 240 mg DAILY PO 06/01/19 09:00 06/08/19 08:56 Docusate Sodium (Colace) 100 mg BID PO 05/31/19 21:00 06/08/19 08:53 Escitalopram Oxalate (Lexapro) 10 mg QHS PO 06/02/19 21:00 06/07/19 20:05 Fluticasone Propionate (Flonase 0.05% Nasal [place]) 2 SPRAYS IN EACH NOSTRIL DAILY NARES 06/01/19 09:00 06/02/19 08:28 Gabapentin (Neurontin) 200 mg BID PO 05/31/19 21:00 06/08/19 08:55 Glucagon (Glucagon) 1 mg ASDIRECTED PRN SC SEE LABEL COMMENTS 05/31/19 13:45 Glucose (Glucose) 16 GM ASDIRECTED PRN PO SEE LABEL COMMENTS 05/31/19 13:45 Heparin Sodium (Porcine) (Heparin) 5,000 units Q12H SC 05/31/19 21:00 06/04/19 23:59 DC 06/04/19 20:52 Home Med (Med Rec Complete!) ASDIRECTED XX 05/31/19 15:00 05/31/19 15:18 DC Insulin Detemir (Levemir Insulin) 10 units DAILY SC 06/02/19 09:00 06/08/19 08:53 Insulin Human Lispro (HumaLOG INSULIN) SEE PROTOCOL TABLE AC SC 05/31/19 17:30 06/08/19 08:53 Insulin Human Lispro (HumaLOG INSULIN) SEE PROTOCOL TABLE QHS SC 05/31/19 21:00 Levetiracetam (Keppra) 250 mg DAILY PO 06/09/19 09:00 06/15/19 23:59 Levetiracetam (Keppra) 500 mg BID PO 05/31/19 21:00 06/01/19 23:59 DC 06/01/19 21:05 Levetiracetam (Keppra) 500 mg DAILY PO 06/02/19 09:00 06/08/19 23:59 06/08/19 08:55 Magnesium Oxide (Mag-Ox) 400 mg DAILY PO 06/01/19 09:00 06/08/19 08:54 Metformin HCl (Glucophage Xr) 1,000 mg BID@0800,1800 PO 05/31/19 18:00 06/08/19 08:52 Miscellaneous (Unresolved Patient Own Med Order) SEE LABEL COMMENTS DAILY XX 06/01/19 09:00 06/01/19 18:25 DC Nebivolol (Bystolic) 2.5 mg DAILY PO 06/01/19 09:00 06/08/19 08:55 Oxycodone HCl (Roxicodone, Oxyir) 2.5 mg Q4HP PRN PO PAIN 05/31/19 13:45 06/07/19 10:59 DC Pantoprazole Sodium (Protonix) 40 mg DAILY PO 06/01/19 09:00 06/08/19 08:55 Patient Own Medication (Patient'S Own Med) 0.75MG We@0900 SC 06/02/19 09:00 06/02/19 12:25 Pravastatin Sodium (Pravachol) 40 mg QHS PO 05/31/19 21:00 06/07/19 20:06 Rivaroxaban (Xarelto) 20 mg DAILY@18 PO 06/05/19 18:00 06/07/19 17:38 Salmeterol Xinafoate/ Fluticasone (Advair Hfa 230/ ) 2 puff BID INH 05/31/19 21:00 06/08/19 08:57 Senna (Senokot) 1 tab QHS PO 05/31/19 21:00 06/07/19 20:06 Sodium Chloride (Sodium Chloride) 1 gm BID PO 06/01/19 21:00 06/08/19 08:53 Sodium Chloride (Sodium Chloride) 2 gm TID PO 05/31/19 16:00 06/01/19 11:19 DC 06/01/19 09:40 Spironolactone (Aldactone) 12.5 mg DAILY PO 06/01/19 09:00 06/08/19 08:55 Trazodone HCl (Desyrel) 25 mg QHS PO 06/08/19 21:00 Trazodone HCl (Desyrel) 25 mg QHS PO 06/01/19 21:00 06/02/19 14:35 DC 06/01/19 21:05 Trazodone HCl (Desyrel) 25 mg QHSP PRN PO INSOMNIA 06/06/19 10:15 06/08/19 09:48 DC Trazodone HCl (Desyrel) 50 mg QHS PO 06/02/19 21:00 06/06/19 10:18 DC 06/05/19 20:14 ES DESAI MD Jun 08, 2019 12:22
--- NOTE | 2019-06-08 12:25 | IPNPDOC ---
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 REVIEW OF SYSTEMS: The following is a completed review of systems and has been reviewed. Review of systems otherwise unremarkable. PAIN: Patient self reports no pain EYES: No recent vision changes EARS, NOSE, & THROAT: No throat pain, or dysphagia, or rhinorrhea CARDIOVASCULAR: Denies chest pain or palpitations PULMONARY: Denies shortness of breath GASTROINTESTINAL: Denies constipation/diarrhea GENITOURINARY: no dysuria MUSCULOSKELETAL: right upper extremity weakness NEUROLOGICAL: right upper extremity weakness, apraxia SKIN: Skull incision PSYCHIATRIC: Unremarkable All other review of systems found to be negative. PHYSICAL EXAMINATION: VITAL SIGNS: Please see below. GENERAL: Pleasant and cooperative. No acute distress. HEENT: PERRL. Extraocular movements intact. Clear conjunctiva, +AGILE COACH shunt CARDIOVASCULAR: Regular rate and rhythm. No murmurs, rubs, or gallops LUNGS: Clear to auscultation bilaterally. No wheezes. No rhonchi ABDOMEN: Soft, nontender, nondistended. Positive bowel sounds. Normal active bowel sounds NEUROLOGICAL: Alert and oriented times three. Cranial nerves II through XII grossly intact. Sensation grossly intact to light touch all four limbs (-) babinkski, no clonus +apraxia when asked to move her limbs EXTREMITIES: 5\5 strength left upper extremities, 4/5 RUE >3/5 strength right lower extremity(apraxic) >4/5 strength in left lower extremity (apraxic) SKIN: coronal skull incision c/d/i ASSESSMENT:73-year-old F with past medical history of new onset RUE weakness who presents status post brain biopsy, found to have grade 4 GBM. PLAN: 1. 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 Neuro: recent dx of grade 4 glioblastoma multiforme- c/u Keppra and Decadron (increased taper back up to 9mg daily after being halved from 12mg-->6mg total as suspect rapid decrease is causing increased buckling in right limb) 3. Heme/Onc: pmh lung and breast cancer, now with GBM and possible meningioma, will be treated by Dr. Mcarthur-s/p appointment 06/03/19, plan for f/u 06/08/19 for radiation planning -will order CT head to rule out hemorrhage or worsening edema 4. Cardiac: pmh Afib, Xarelto restarted 06/05/19, c/u Cardizem, Bystolic, and Aldactone, medicine consulted to assist in management -HLD- statin 5. resp: encourage incentive spirometry 6. Endo: pmh DM c/u metformin and ISS, and trulicity 7. Pain: gabapentin and tylenol 8. GI: optimize bowel care 9. /ID: monitor PVRs, repeat UA ordered for slight regression in function and blood cultures, leukocytosis most likely from Decadron 10. Hyponatremia: c/u salt tabs and taper 11. DVT ppx: heparin to be stopped once Xarelto started on 06/05/19 and TEDs 12. Psych: c/u Lexapro for anxiety and will change trazodone to 25mg standing to asssit in sleep as she slept poorly last night 11. Dispo: tenetaively 06/11 to home, however progressing slowly and will need to train caregiver for safe transfer home from wheelchair level Allergies Coded Allergies: doxycycline (Verified Allergy, Intermediate, rash, 01/21/19) MEMO Inhibitors (Verified Allergy, Unknown, 01/21/19) NSAIDS (Non-Steroidal Anti-Inflamma (Verified Allergy, Unknown, 01/21/19) lidocaine (Verified Adverse Reaction, Severe, increased pulse, decreased bp, 01/21/19) NOTE: PATIENT HAS RECEIVED LIDOCAINE & BUPIVACAINE SEVERAL TIMES WHILE AT [facility] w/o PROBLEM procaine (Verified Adverse Reaction, Severe, increased pulse, decreased bp, 01/21/19) Vital Signs Vital Signs Date Time Temp Pulse Resp B/P (MAP) Pulse Ox O2 Delivery O2 Flow Rate FiO2 06/08/19 08:56 72 114/55 06/08/19 05:44 97.7 18 97 Laboratory Data Labs 24H Laboratory Tests 2 06/07/19 17:07: Bedside Glucose (Misc Panel) 112H 06/07/19 19:43: Bedside Glucose (Misc Panel) 107 06/08/19 06:03: Bedside Glucose (Misc Panel) 135H Microbiology Microbiology 06/04/19 Blood Culture - Preliminary, Resulted No Growth after 72 hours. All specime... 06/04/19 Blood Culture - Preliminary, Resulted No Growth after 72 hours. All specime... 06/07/19 Urine Culture, Received Pending Current Medications Current Medications Current Medications Medications (Trade) Dose Ordered Sig/Haley Route PRN Reason Start Time Stop Time Status Last Admin Dose Admin Acetaminophen (Tylenol Tab) 650 mg Q4HP PRN PO fever/MILD PAIN (PS 1-4) 05/31/19 13:30 06/07/19 20:06 Artificial Tears (Akwa Tears) 2 drop TID OU 05/31/19 16:00 06/08/19 08:56 Bisacodyl (Dulcolax Suppository) 10 mg DAILYPRN PRN [place] CONSTIPATION 05/31/19 13:30 Calcium/Vitamin D (Oscal D) 1,000 mg DAILY PO 05/31/19 09:00 06/08/19 08:54 Dexamethasone (Decadron) 2 mg Q12H PO 06/10/19 06:00 06/10/19 06:00 DC Dexamethasone (Decadron) 3 mg Q12H PO 06/06/19 06:00 06/06/19 10:18 DC 06/06/19 05:44 Dexamethasone (Decadron) 3 mg TID PO 06/06/19 16:00 06/08/19 08:55 Dexamethasone (Decadron) 4 mg Q12H PO 06/02/19 06:00 06/05/19 23:59 DC 06/05/19 17:34 Dexamethasone (Decadron) 4 mg Q8H PO 05/31/19 14:00 06/01/19 23:59 DC 06/01/19 21:05 Dextrose (Dextrose 50%) 25 ml ASDIRECTED PRN IV SEE LABEL COMMENTS 05/31/19 13:45 Diltiazem HCl (Cardizem Cd) 240 mg DAILY PO 06/01/19 09:00 06/08/19 08:56 Docusate Sodium (Colace) 100 mg BID PO 05/31/19 21:00 06/08/19 08:53 Escitalopram Oxalate (Lexapro) 10 mg QHS PO 06/02/19 21:00 06/07/19 20:05 Fluticasone Propionate (Flonase 0.05% Nasal [place]) 2 SPRAYS IN EACH NOSTRIL DAILY NARES 06/01/19 09:00 06/02/19 08:28 Gabapentin (Neurontin) 200 mg BID PO 05/31/19 21:00 06/08/19 08:55 Glucagon (Glucagon) 1 mg ASDIRECTED PRN SC SEE LABEL COMMENTS 05/31/19 13:45 Glucose (Glucose) 16 GM ASDIRECTED PRN PO SEE LABEL COMMENTS 05/31/19 13:45 Heparin Sodium (Porcine) (Heparin) 5,000 units Q12H SC 05/31/19 21:00 06/04/19 23:59 DC 06/04/19 20:52 Home Med (Med Rec Complete!) ASDIRECTED XX 05/31/19 15:00 05/31/19 15:18 DC Insulin Detemir (Levemir Insulin) 10 units DAILY SC 06/02/19 09:00 06/08/19 08:53 Insulin Human Lispro (HumaLOG INSULIN) SEE PROTOCOL TABLE AC SC 05/31/19 17:30 06/08/19 08:53 Insulin Human Lispro (HumaLOG INSULIN) SEE PROTOCOL TABLE QHS SC 05/31/19 21:00 Levetiracetam (Keppra) 250 mg DAILY PO 06/09/19 09:00 06/15/19 23:59 Levetiracetam (Keppra) 500 mg BID PO 05/31/19 21:00 06/01/19 23:59 DC 06/01/19 21:05 Levetiracetam (Keppra) 500 mg DAILY PO 06/02/19 09:00 06/08/19 23:59 06/08/19 08:55 Magnesium Oxide (Mag-Ox) 400 mg DAILY PO 06/01/19 09:00 06/08/19 08:54 Metformin HCl (Glucophage Xr) 1,000 mg BID@0800,1800 PO 05/31/19 18:00 06/08/19 08:52 Miscellaneous (Unresolved Patient Own Med Order) SEE LABEL COMMENTS DAILY XX 06/01/19 09:00 06/01/19 18:25 DC Nebivolol (Bystolic) 2.5 mg DAILY PO 06/01/19 09:00 06/08/19 08:55 Oxycodone HCl (Roxicodone, Oxyir) 2.5 mg Q4HP PRN PO PAIN 05/31/19 13:45 06/07/19 10:59 DC Pantoprazole Sodium (Protonix) 40 mg DAILY PO 06/01/19 09:00 06/08/19 08:55 Patient Own Medication (Patient'S Own Med) 0.75MG We@0900 SC 06/02/19 09:00 06/02/19 12:25 Pravastatin Sodium (Pravachol) 40 mg QHS PO 05/31/19 21:00 06/07/19 20:06 Rivaroxaban (Xarelto) 20 mg DAILY@18 PO 06/05/19 18:00 06/07/19 17:38 Salmeterol Xinafoate/ Fluticasone (Advair Hfa 230/ 21) 2 puff BID INH 05/31/19 21:00 06/08/19 08:57 Senna (Senokot) 1 tab QHS PO 05/31/19 21:00 06/07/19 20:06 Sodium Chloride (Sodium Chloride) 1 gm BID PO 06/01/19 21:00 06/08/19 08:53 Sodium Chloride (Sodium Chloride) 2 gm TID PO 05/31/19 16:00 06/01/19 11:19 DC 06/01/19 09:40 Spironolactone (Aldactone) 12.5 mg DAILY PO 06/01/19 09:00 06/08/19 08:55 Trazodone HCl (Desyrel) 25 mg QHS PO 06/08/19 21:00 Trazodone HCl (Desyrel) 25 mg QHS PO 06/01/19 21:00 06/02/19 14:35 DC 06/01/19 21:05 Trazodone HCl (Desyrel) 25 mg QHSP PRN PO INSOMNIA 06/06/19 10:15 06/08/19 09:48 DC Trazodone HCl (Desyrel) 50 mg QHS PO 06/02/19 21:00 06/06/19 10:18 DC 06/05/19 20:14 ES DESAI MD Jun 08, 2019 12:25
[2019-06-08 14:45] VITALS: BP 106/55
[2019-06-08] MEDS: RIVAROXABAN 20 MG TAB (XARELTO) PO SCH (18:37)
[2019-06-08 20:00] VITALS: BP 111/57
[2019-06-08] MEDS: SENNA 8.6 MG TAB (SENOKOT) PO SCH (21:21)
[2019-06-08] MEDS: traZODone 25MG PER 1/2 TABLET PO SCH (21:21)
[2019-06-08] MEDS: ESCITALOPRAM OXALATE 10 MG TAB (LEXAPRO) PO SCH (21:21)
[2019-06-08] MEDS: PRAVASTATIN 20 MG TAB PO SCH (21:22)
[2019-06-08] MEDS: ACETAMINOPHEN TAB 650MG DOSE (2X325MG) PO PRN (21:26)
[2019-06-09 06:00] VITALS: BP 93/55
--- NOTE | 2019-06-09 07:39 | REP ---
CT HEAD WITHOUT CONTRAST: Reason for examination is edema/hemorrhage in the setting of GBM and blood thinner. COMPARISON: Outside CT head of 05/27/2019 and outside MRI brain with and without contrast of 05/15/2019 labeled [facility] system. TECHNIQUE: Axial CT scan of the head was performed without contrast. No reformats in the coronal or sagittal planes. FINDINGS: A right frontal approach PLUMBER shunt catheter is re-demonstrated, the tip of the catheter terminates within the right lateral ventricle frontal horn, similar to prior. There is no hydrocephalus. There has been resolution of pneumocephalus since the prior examination. There is no measurable extra-axial fluid collection. 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 There is a 22 x 18 mm ovoid lesion within the posterior frontal region on the left, which is well-circumscribed with central 10 x 8 mm ovoid hyperdensity centrally within this structure, likely representing patient's known mass with surrounding capsule, presumable related to intervention. There is surrounding edema within the adjacent parenchyma with mild local mass effect, similar to prior. There is no midline shift. The basal cisterns are patent. There is no new intracranial hemorrhage. There is similar appearance of an ovoid dense extra-axial lesion along the right sphenoid ring, consistent with known meningioma. No new parenchymal lesion is identified. The [place] ocular lenses have been removed. The visualized paranasal sinuses and mastoid air cells are clear. IMPRESSION: 1. Similar appearance of a left posterior frontal hyperdense lesion with well-circumscribed surrounding capsule, presumable due to postsurgical changes. There is local surrounding edema with mild mass effect, similar to prior. No midline shift. Pneumocephalus has resolved. 2. Similar appearance of hyperdense extra-axial lesion along the right sphenoid wing, consistent with a meningioma. 3. Right frontal approach PLUMBER shunt terminating within the right lateral ventricle, similar in position. Electronically Signed by Henri Raya MD 06/09/2019 11:10 A
[2019-06-09] MEDS: ADVAIR HFA 230/21MCG INHALER INH SCH ×2 (07:47→21:00)
[2019-06-09] MEDS: GABAPENTIN 100 MG CAP PO SCH ×2 (08:26→20:47)
[2019-06-09] MEDS: HumaLOG INSULIN (NovoLOG) PER UNIT SC SCH ×4 (08:27→20:49)
[2019-06-09] MEDS: LEVEMIR (INSULIN DETEMIR) 1 UNITS/0.01ML SC SCH (08:27)
[2019-06-09] MEDS: CALCIUM/VITAMIN D 500 MG TAB PO SCH (08:27)
[2019-06-09] MEDS: PANTOPRAZOLE 40MG TAB (PROTONIX) PO SCH (08:27)
[2019-06-09] MEDS: MAGNESIUM OXIDE 400 MG TAB (MAG-OX) PO SCH (08:28)
[2019-06-09] MEDS: metFORMIN XR 500MG TAB *GLUCOPHAGE XR PO SCH ×2 (08:28→17:30)
[2019-06-09] MEDS: levETIRAcetam 250MG TABLET (KEPPRA) PO SCH (08:28)
[2019-06-09] MEDS: DOCUSATE SODIUM 100 MG CAP PO SCH ×2 (08:28→20:48)
[2019-06-09] MEDS: SODIUM CHLORIDE 1 GM TAB PO SCH ×2 (08:28→20:48)
[2019-06-09] MEDS: SPIRONOLACTONE 12.5MG PER 1/2 TABLET PO SCH (08:33)
[2019-06-09] MEDS: NEBIVOLOL 5 MG TAB (BYSTOLIC) PO SCH (08:34)
[2019-06-09] MEDS: FLUTICASONE PROP 0.05% NASAL SPRAY 16 GM (FLONASE) NARES SCH (08:35)
[2019-06-09] MEDS: POLYVINYL ALCOHOL OPHTH SOLN 15 ML(LIQUITEARS) OU SCH ×3 (08:35→20:50)
[2019-06-09] MEDS: LevoFLOXacin 750 MG TABLET PO SCH (11:48)
[2019-06-09] MEDS: LACTOBACILLUS ACIDOPHILUS CAP (BACID) PO SCH ×3 (11:50→20:48)
--- NOTE | 2019-06-09 12:46 | IPNPDOC ---
PM&R Progress Note DATE OF SERVICE: Jun 09, 2019 Staff Psychologist Progress Note Subjective: Patient seen in bathroom during OT stating she had chills last night and was not surprised to find out she had a UTI. She is agreeable to having it treated. REVIEW OF SYSTEMS: The following is a completed review of systems and has been reviewed. Review of systems otherwise unremarkable. PAIN: Patient self reports no pain EYES: No recent vision changes EARS, NOSE, & THROAT: No throat pain, or dysphagia, or rhinorrhea CARDIOVASCULAR: Denies chest pain or palpitations PULMONARY: Denies shortness of breath GASTROINTESTINAL: Denies constipation/diarrhea GENITOURINARY: no dysuria MUSCULOSKELETAL: right upper extremity weakness NEUROLOGICAL: right upper extremity weakness, apraxia SKIN: Skull incision PSYCHIATRIC: Unremarkable All other review of systems found to be negative. PHYSICAL EXAMINATION: VITAL SIGNS: Please see below. GENERAL: Pleasant and cooperative. No acute distress. HEENT: PERRL. Extraocular movements intact. Clear conjunctiva, +ADJUNCT PROFESSOR OF [employer] shunt CARDIOVASCULAR: Regular rate and rhythm. No murmurs, rubs, or gallops LUNGS: Clear to auscultation bilaterally. No wheezes. No rhonchi ABDOMEN: Soft, nontender, nondistended. Positive bowel sounds. Normal active bowel sounds NEUROLOGICAL: Alert and oriented times three. Cranial nerves II through XII grossly intact. Sensation grossly intact to light touch all four limbs (-) babinkski, no clonus +apraxia when asked to move her limbs EXTREMITIES: 5\5 strength left upper extremities, 4/5 RUE >3/5 strength right lower extremity(apraxic) >4/5 strength in left lower extremity (apraxic) SKIN: coronal skull incision c/d/i ASSESSMENT:73-year-old F with past medical history of new onset RUE weakness who presents status post brain biopsy, found to have grade 4 GBM. PLAN: 1. 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 Neuro: recent dx of grade 4 glioblastoma multiforme- c/u Keppra and Decadron (increased taper back up to 9mg daily after being halved from 12mg-->6mg total as suspect rapid decrease is causing increased buckling in right limb)-stable 3. Heme/Onc: pmh lung and breast cancer, now with GBM and possible meningioma, will be treated by Dr. Mcarthur and at [place] [id number] for radiation -repeat CT negative for hemorrhage 4. Cardiac: pmh Afib, Xarelto restarted 06/05/19, c/u Cardizem, Bystolic, and Aldactone, medicine consulted to assist in management -HLD- statin 5. resp: encourage incentive spirometry 6. Endo: pmh DM c/u metformin and ISS, and trulicity 7. Pain: gabapentin and tylenol 8. GI: optimize bowel care 9. /ID: monitor PVRs -Urine cx +klebsiella and pseudominas- will start Levaquin for 10 days course, q48h- patient denies dysuria, but did have chills last night, and given recent brain surgery will treat -blood cultures negative x2 06/04/19 10. Hyponatremia: c/u salt tabs and taper 11. DVT ppx: Xarelto started on 06/05/19 and TEDs 12. Psych: c/u Lexapro for anxiety and trazodone to 25mg standing 11. Dispo: tentatively 06/11 to home, however progressing slowly and will need to train caregiver for safe transfer home from wheelchair level Allergies Coded Allergies: doxycycline (Verified Allergy, Intermediate, rash, 01/21/19) MEMO Inhibitors (Verified Allergy, Unknown, 01/21/19) NSAIDS (Non-Steroidal Anti-Inflamma (Verified Allergy, Unknown, 01/21/19) lidocaine (Verified Adverse Reaction, Severe, increased pulse, decreased bp, 01/21/19) NOTE: PATIENT HAS RECEIVED LIDOCAINE & BUPIVACAINE SEVERAL TIMES WHILE AT [facility] w/o PROBLEM procaine (Verified Adverse Reaction, Severe, increased pulse, decreased bp, 01/21/19) Vital Signs Vital Signs Date Time Temp Pulse Resp B/P (MAP) Pulse Ox O2 Delivery O2 Flow Rate FiO2 06/09/19 08:34 74 116/56 06/09/19 06:00 97.9 18 98 Laboratory Data Labs 24H Laboratory Tests 2 06/08/19 17:42: Bedside Glucose (Misc Panel) 189H 06/08/19 19:35: Bedside Glucose (Misc Panel) 171H 06/09/19 06:22: Bedside Glucose (Misc Panel) 179H 06/09/19 11:24: Bedside Glucose (Misc Panel) 165H Microbiology Microbiology 06/04/19 Blood Culture - Preliminary, Resulted No Growth after 72 hours. All specime... 06/04/19 Blood Culture - Preliminary, Resulted No Growth after 72 hours. All specime... 06/07/19 Urine Culture - Final, Complete Pseudomonas Aeruginosa Klebsiella Pneumoniae Current Medications Current Medications Current Medications Medications (Trade) Dose Ordered Sig/Haley Route PRN Reason Start Time Stop Time Status Last Admin Dose Admin Acetaminophen (Tylenol Tab) 650 mg Q4HP PRN PO fever/MILD PAIN (PS 1-4) 05/31/19 13:30 06/08/19 21:26 Artificial Tears (Akwa Tears) 2 drop TID OU 05/31/19 16:00 06/08/19 21:26 Bisacodyl (Dulcolax Suppository) 10 mg DAILYPRN PRN [place] CONSTIPATION 05/31/19 13:30 Calcium/Vitamin D (Oscal D) 1,000 mg DAILY PO 05/31/19 09:00 06/09/19 08:27 Dexamethasone (Decadron) 2 mg Q12H PO 06/10/19 06:00 06/10/19 06:00 DC Dexamethasone (Decadron) 3 mg Q12H PO 06/06/19 06:00 06/06/19 10:18 DC 06/06/19 05:44 Dexamethasone (Decadron) 3 mg TID PO 06/06/19 16:00 06/09/19 08:29 Dexamethasone (Decadron) 4 mg Q12H PO 06/02/19 06:00 06/05/19 23:59 DC 06/05/19 17:34 Dexamethasone (Decadron) 4 mg Q8H PO 05/31/19 14:00 06/01/19 23:59 DC 06/01/19 21:05 Dextrose (Dextrose 50%) 25 ml ASDIRECTED PRN IV SEE LABEL COMMENTS 05/31/19 13:45 Diltiazem HCl (Cardizem Cd) 240 mg DAILY PO 06/01/19 09:00 06/09/19 08:34 Docusate Sodium (Colace) 100 mg BID PO 05/31/19 21:00 06/09/19 08:28 Escitalopram Oxalate (Lexapro) 10 mg QHS PO 06/02/19 21:00 06/08/19 21:21 Fluticasone Propionate (Flonase 0.05% Nasal [place]) 2 SPRAYS IN EACH NOSTRIL DAILY NARES 06/01/19 09:00 06/02/19 08:28 Gabapentin (Neurontin) 200 mg BID PO 05/31/19 21:00 06/09/19 08:26 Glucagon (Glucagon) 1 mg ASDIRECTED PRN SC SEE LABEL COMMENTS 05/31/19 13:45 Glucose (Glucose) 16 GM ASDIRECTED PRN PO SEE LABEL COMMENTS 05/31/19 13:45 Heparin Sodium (Porcine) (Heparin) 5,000 units Q12H SC 05/31/19 21:00 06/04/19 23:59 DC 06/04/19 20:52 Home Med (Med Rec Complete!) ASDIRECTED XX 05/31/19 15:00 05/31/19 15:18 DC Insulin Detemir (Levemir Insulin) 10 units DAILY SC 06/02/19 09:00 06/09/19 08:27 Insulin Human Lispro (HumaLOG INSULIN) SEE PROTOCOL TABLE AC SC 05/31/19 17:30 06/09/19 11:48 Insulin Human Lispro (HumaLOG INSULIN) SEE PROTOCOL TABLE QHS [place] 05/31/19 21:00 Lactobacillus Acidophilus (Bacid) 1 ea TID PO 06/09/19 09:00 06/09/19 11:50 Levetiracetam (Keppra) 250 mg DAILY PO 06/09/19 09:00 06/15/19 23:59 06/09/19 08:28 Levetiracetam (Keppra) 500 mg BID PO 05/31/19 21:00 06/01/19 23:59 DC 06/01/19 21:05 Levetiracetam (Keppra) 500 mg DAILY PO 06/02/19 09:00 06/08/19 23:59 DC 06/08/19 08:55 Levofloxacin (Levaquin) 750 mg Q48H PO 06/09/19 06:00 06/17/19 06:01 06/09/19 11:48 Magnesium Oxide (Mag-Ox) 400 mg DAILY PO 06/01/19 09:00 06/09/19 08:28 Metformin HCl (Glucophage Xr) 1,000 mg BID@0800,1800 PO 05/31/19 18:00 06/09/19 08:28 Miscellaneous (Unresolved Patient Own Med Order) SEE LABEL COMMENTS DAILY XX 06/01/19 09:00 06/01/19 18:25 DC Nebivolol (Bystolic) 2.5 mg DAILY PO 06/01/19 09:00 06/09/19 08:34 Oxycodone HCl (Roxicodone, Oxyir) 2.5 mg Q4HP PRN PO PAIN 05/31/19 13:45 06/07/19 10:59 DC Pantoprazole Sodium (Protonix) 40 mg DAILY PO 06/01/19 09:00 06/09/19 08:27 Patient Own Medication (Patient'S Own Med) 0.75MG We@0900 SC 06/02/19 09:00 06/02/19 12:25 Pravastatin Sodium (Pravachol) 40 mg QHS PO 05/31/19 21:00 06/08/19 21:22 Rivaroxaban (Xarelto) 20 mg DAILY@18 PO 06/05/19 18:00 06/08/19 18:37 Salmeterol Xinafoate/ Fluticasone (Advair Hfa 230/ 21) 2 puff BID INH 05/31/19 21:00 06/09/19 07:47 Senna (Senokot) 1 tab QHS PO 05/31/19 21:00 06/08/19 21:21 Sodium Chloride (Sodium Chloride) 1 gm BID PO 06/01/19 21:00 06/09/19 08:28 Sodium Chloride (Sodium Chloride) 2 gm TID PO 05/31/19 16:00 06/01/19 11:19 DC 06/01/19 09:40 Spironolactone (Aldactone) 12.5 mg DAILY PO 06/01/19 09:00 06/09/19 08:33 Trazodone HCl (Desyrel) 25 mg QHS PO 06/08/19 21:00 06/08/19 21:21 Trazodone HCl (Desyrel) 25 mg QHS PO 06/01/19 21:00 06/02/19 14:35 DC 8/6/19 21:05 Trazodone HCl (Desyrel) 25 mg QHSP PRN PO INSOMNIA 06/06/19 10:15 06/08/19 09:48 DC Trazodone HCl (Desyrel) 50 mg QHS PO 06/02/19 21:00 06/06/19 10:18 DC 06/05/19 20:14 ES DESAI MD Jun 09, 2019 12:46
--- NOTE | 2019-06-09 13:39 | IPNPDOC ---
Text Note Date of Service The patient was seen on 06/09/19. NOTE Subjective: denies discomfort at this time only tiredness. No chest pain, no SOB, denies headache. Objective CT brain completed yesterday showed 20 to by 18 mm ovoid lesion within the posterior frontal region on the left, well-circumscribed with central 10 x 8 mm ovoid hyperdensity likely representing patient's known mass with [id number] para 0 menopausal related to intervention. There were no new changes GENERAL: up to chair at bedside, present. NAD SKIN : Warm, dry intact HEENT: head sutures have been removed, normocephalic, moist mucous membrane CARDIOVASCULAR: Regular rate and rhythm, S1S2, no JVD, no edema, distal pulses + palpable RESP: CTAB, no accessory muscle use noted ABDOMEN: BS+ non distended non tender MS: no joint deformities NEURO: Alert and oriented x 3, CN2-12 grossly intact PSYCH: no anxiety or agitation, appropriate mood and affect. ASSESSMENT/PLAN: Left frontoparietal lobe glioblastoma -S/P stereotactic brain tumor biopsy with laser interstitial therapy -Rehabilitation of by primary team -followed by oncology UTI -Urine culture positive for Klebsiella and Pseudomonas -Started on antibiotic therapy (levaquin)by primary team -Monitor response to therapy Intracranial vasogenic edema -no headaches, -continued on Decadron with weaning to 2 mg twice a day till weaned off by oncologist -Silvina for seizure prophylaxis till weaned off by oncologist -continue seizure precautions Diabetes mellitus type 2 -monitoring prior to meals and at bedtime -continued on basal insulin while on steroid therapy -calorie controlled diet -Metformin 1000 mg every. 12 hours, Trulicity weekly Hyponatremia -135 borderline normal -continued on Na tablets Paroxysmal atrial fibrillation -S/P cardiac ablation -Rate is controlled with beta aden -restarted on Xarelto the -no signs/symptoms of bleeding -hgb stable DVT prophylaxis -fully anticoagulated VS,Fishbone, I+O VS, Fishbone, I+O Vital Signs Date Time Temp Pulse Resp B/P (MAP) Pulse Ox O2 Delivery O2 Flow Rate FiO2 06/09/19 08:34 74 116/56 06/09/19 06:00 97.9 18 98 I&O- Last 24 Hours up to 6 AM 06/09/19 06:00 Intake Total 1100 ml Balance 1100 ml URIAH SEAMAN. [facility] Jun 09, 2019 13:39
[2019-06-09] MEDS: TRULICITY 0.75 MG/0.5 ML SC SCH (13:52)
[2019-06-09 14:00] VITALS: BP 113/58
[2019-06-09] MEDS: RIVAROXABAN 20 MG TAB (XARELTO) PO SCH (17:30)
[2019-06-09 20:00] VITALS: BP 114/60
[2019-06-09] MEDS: ESCITALOPRAM OXALATE 10 MG TAB (LEXAPRO) PO SCH (20:47)
[2019-06-09] MEDS: SENNA 8.6 MG TAB (SENOKOT) PO SCH (20:47)
[2019-06-09] MEDS: PRAVASTATIN 20 MG TAB PO SCH (20:48)
[2019-06-09] MEDS: traZODone 25MG PER 1/2 TABLET PO SCH (20:48)
[2019-06-10 05:57] VITALS: BP 107/58
[2019-06-10] MEDS: ADVAIR HFA 230/21MCG INHALER INH SCH ×2 (07:30→19:54)
[2019-06-10] MEDS: HumaLOG INSULIN (NovoLOG) PER UNIT SC SCH ×4 (07:49→20:32)
[2019-06-10] MEDS: MAGNESIUM OXIDE 400 MG TAB (MAG-OX) PO SCH (07:50)
[2019-06-10] MEDS: DOCUSATE SODIUM 100 MG CAP PO SCH ×2 (07:50→20:31)
[2019-06-10] MEDS: LEVEMIR (INSULIN DETEMIR) 1 UNITS/0.01ML SC SCH (07:50)
[2019-06-10] MEDS: metFORMIN XR 500MG TAB *GLUCOPHAGE XR PO SCH ×2 (07:51→18:15)
[2019-06-10] MEDS: LACTOBACILLUS ACIDOPHILUS CAP (BACID) PO SCH ×3 (07:51→20:30)
[2019-06-10] MEDS: PANTOPRAZOLE 40MG TAB (PROTONIX) PO SCH (07:51)
[2019-06-10] MEDS: SODIUM CHLORIDE 1 GM TAB PO SCH (07:51)
[2019-06-10] MEDS: levETIRAcetam 250MG TABLET (KEPPRA) PO SCH (07:51)
[2019-06-10] MEDS: GABAPENTIN 100 MG CAP PO SCH ×2 (07:51→20:31)
[2019-06-10] MEDS: CALCIUM/VITAMIN D 500 MG TAB PO SCH (07:51)
[2019-06-10] MEDS: NEBIVOLOL 5 MG TAB (BYSTOLIC) PO SCH (07:53)
[2019-06-10] MEDS: SPIRONOLACTONE 12.5MG PER 1/2 TABLET PO SCH (07:53)
[2019-06-10] MEDS: POLYVINYL ALCOHOL OPHTH SOLN 15 ML(LIQUITEARS) OU SCH ×3 (07:54→20:32)
[2019-06-10] MEDS: FLUTICASONE PROP 0.05% NASAL SPRAY 16 GM (FLONASE) NARES SCH (07:54)
[2019-06-10 07:59] LABS: BLOOD UREA NITROGEN 24 MG/DL (7-18); CALCIUM LEVEL 8.3 MG/DL (8.8-10.2); CARBON DIOXIDE LEVEL 24 MEQ/L (21-32); CHLORIDE LEVEL 107 MEQ/L (98-107); CREATININE FOR GFR 0.64 MG/DL (0.55-1.30); GLOMERULAR FILTRATION RATE > 60.0 (>39); GLUCOSE, FASTING 140 MG/DL (70-100); SODIUM LEVEL 139 MEQ/L (136-145)
[2019-06-10 08:11] LABS: HEMATOCRIT 33.7 % (36.0-47.0); HEMOGLOBIN 11.1 g/dl (12.0-15.5); MEAN CORPUSCULAR HEMOGLOBIN 28.8 pg (27.0-33.0); MEAN CORPUSCULAR HGB CONC 32.9 g/dl (32.0-36.5); MEAN CORPUSCULAR VOLUME 87.3 fl (80.0-96.0); PLATELET COUNT, AUTOMATED 117 10^3/uL (150-450); RED BLOOD COUNT 3.86 10^6/uL (4.00-5.40); WHITE BLOOD COUNT 10.6 10^3/uL (4.0-10.0)
[2019-06-10 10:02] LABS: ATYPICAL LYMPH 2 % (0-5); LYMPHOCYTES 15 % (16-52); METAMYELOCYTES 1 % (0-0); MONOCYTES 2 % (0-8); NEUTROPHILS 75 % (35-75)
[2019-06-10 10:03] LABS: ANISOCYTOSIS 1+; HYPOCHROMASIA 1+; PLATELET ESTIMATE DECREASED (NORMAL); POIKILOCYTOSIS 1+
--- NOTE | 2019-06-10 11:41 | IPNPDOC ---
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 She reports feeling overwhelmed by the outburst, but was reassured that Decadron can heighten emotions and that her reaction was normal especially in the setting of he recent diagnosis. She is agreeable to going to [place] or [facility] for more rehab while getting her radiation. REVIEW OF SYSTEMS: The following is a completed review of systems and has been reviewed. Review of systems otherwise unremarkable. PAIN: Patient self reports no pain EYES: No recent vision changes EARS, NOSE, & THROAT: No throat pain, or dysphagia, or rhinorrhea CARDIOVASCULAR: Denies chest pain or palpitations PULMONARY: Denies shortness of breath GASTROINTESTINAL: Denies constipation/diarrhea GENITOURINARY: no dysuria MUSCULOSKELETAL: right upper extremity weakness NEUROLOGICAL: right upper extremity weakness, apraxia SKIN: Skull incision PSYCHIATRIC: Unremarkable All other review of systems found to be negative. PHYSICAL EXAMINATION: VITAL SIGNS: Please see below. GENERAL: Pleasant and cooperative. No acute distress. HEENT: PERRL. Extraocular movements intact. Clear conjunctiva, +COOKING TEACHER shunt CARDIOVASCULAR: Regular rate and rhythm. No murmurs, rubs, or gallops LUNGS: Clear to auscultation bilaterally. No wheezes. No rhonchi ABDOMEN: Soft, nontender, nondistended. Positive bowel sounds. Normal active bowel sounds NEUROLOGICAL: Alert and oriented times three. Cranial nerves II through XII grossly intact. Sensation grossly intact to light touch all four limbs (-) babinkski, no clonus +apraxia when asked to move her limbs EXTREMITIES: 5\5 strength left upper extremities, 4/5 RUE >3/5 strength right lower extremity(apraxic) >4/5 strength in left lower extremity (apraxic) SKIN: coronal skull incision c/d/i ASSESSMENT:73-year-old F with past medical history of new onset RUE weakness who presents status post brain biopsy, found to have grade 4 GBM. PLAN: 1. 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 Neuro: recent dx of grade 4 glioblastoma multiforme- c/u Keppra and Decadron (increased taper back up to 9mg daily after being halved from 12mg-->6mg total as suspect rapid decrease is causing increased buckling in right limb)-stable 3. Heme/Onc: pmh lung and breast cancer, now with GBM and possible meningioma, will be treated by Dr. Mcarthur and at [facility] for radiation -repeat CT negative for hemorrhage 4. Cardiac: pmh Afib, Xarelto restarted 06/05/19, c/u Cardizem, Bystolic, and Aldactone, medicine consulted to assist in management -HLD- statin 5. resp: encourage incentive spirometry 6. Endo: pmh DM c/u metformin and ISS, and trulicity 7. Pain: gabapentin and tylenol 8. GI: optimize bowel care 9. /ID: monitor PVRs -Urine cx +klebsiella and pseudomonas- c/u Levaquin for 10 days course, q48h, leukocytosis improving -blood cultures negative x2 06/04/19 10. Hyponatremia: sodium 139, will d/c salt tabs and recheck 11. DVT ppx: Xarelto started on 06/05/19 and TEDs 12. Psych: c/u Lexapro for anxiety and trazodone to 25mg standing 11. Dispo: plan for discharge to [facility] for further rehab, given patient's fluctuation in assistance level and upcoming cancer treatment, she will need ongoing medical attention and rehab Allergies Coded Allergies: doxycycline (Verified Allergy, Intermediate, rash, 01/21/19) MEMO Inhibitors (Verified Allergy, Unknown, 01/21/19) NSAIDS (Non-Steroidal Anti-Inflamma (Verified Allergy, Unknown, 01/21/19) lidocaine (Verified Adverse Reaction, Severe, increased pulse, decreased bp, 01/21/19) NOTE: PATIENT HAS RECEIVED LIDOCAINE & BUPIVACAINE SEVERAL TIMES WHILE AT [facility] w/o PROBLEM procaine (Verified Adverse Reaction, Severe, increased pulse, decreased bp, 01/21/19) Vital Signs Vital Signs Date Time Temp Pulse Resp B/P (MAP) Pulse Ox O2 Delivery O2 Flow Rate FiO2 06/10/19 07:53 70 107/52 06/10/19 05:57 97.9 18 99 Laboratory Data CBC/BMP Laboratory Tests 8/15/19 06:13 Red Blood Count 3.86 L, Mean Corpuscular Volume 87.3, Mean Corpuscular Hemoglobin 28.8, Mean Corpuscular Hemoglobin Concent 32.9, Red Cell Distribution Width 15.9 H, Calcium Level 8.3 L Labs 24H Laboratory Tests 2 06/09/19 17:01: Bedside Glucose (Misc Panel) 142H 06/09/19 19:44: Bedside Glucose (Misc Panel) 185H 06/10/19 06:13: Immature Granulocyte % (Auto) , Nucleated Red Blood Cells % (auto) 0.0, Neutrophils 75, Band Neutrophils 5, Lymphocytes (Manual) 15L, Monocytes (Manual) 2, Metamyelocytes 1H, Atypical Lymphocytes 2, Platelet Estimate DECREASED, Hypochromasia 1+, Poikilocytosis 1+, Anisocytosis 1+, Anion Gap 8, Glomerular Filtration Rate > 60.0, Blood Urea Nitrogen 24H, Creatinine 0.64, Sodium Level 139, Potassium Level 4.0, Chloride Level 107, Carbon Dioxide Level 24, Calcium Level 8.3L 06/10/19 07:35: Bedside Glucose (Misc Panel) 118H 06/10/19 11:30: Bedside Glucose (Misc Panel) 145H Microbiology Microbiology 06/04/19 Blood Culture - Final, Complete NO GROWTH AFTER 5 DAYS 06/04/19 Blood Culture - Final, Complete NO GROWTH AFTER 5 DAYS 06/07/19 Urine Culture - Final, Complete Pseudomonas Aeruginosa Klebsiella Pneumoniae Current Medications Current Medications Current Medications Medications (Trade) Dose Ordered Sig/Haley Route PRN Reason Start Time Stop Time Status Last Admin Dose Admin Acetaminophen (Tylenol Tab) 650 mg Q4HP PRN PO fever/MILD PAIN (PS 1-4) 05/31/19 13:30 06/08/19 21:26 Artificial Tears (Akwa Tears) 2 drop TID OU 05/31/19 16:00 06/08/19 21:26 Bisacodyl (Dulcolax Suppository) 10 mg DAILYPRN PRN [place] CONSTIPATION 05/31/19 13:30 Calcium/Vitamin D (Oscal D) 1,000 mg DAILY PO 05/31/19 09:00 06/10/19 07:51 Dexamethasone (Decadron) 2 mg Q12H PO 06/10/19 06:00 06/10/19 06:00 DC Dexamethasone (Decadron) 3 mg Q12H PO 06/06/19 06:00 06/06/19 10:18 DC 06/06/19 05:44 Dexamethasone (Decadron) 3 mg TID PO 06/06/19 16:00 06/10/19 07:50 Dexamethasone (Decadron) 4 mg Q12H PO 06/02/19 06:00 06/05/19 23:59 DC 06/05/19 17:34 Dexamethasone (Decadron) 4 mg Q8H PO 05/31/19 14:00 06/01/19 23:59 DC 06/01/19 21:05 Dextrose (Dextrose 50%) 25 ml ASDIRECTED PRN IV SEE LABEL COMMENTS 05/31/19 13:45 Diltiazem HCl (Cardizem Cd) 240 mg DAILY PO 06/01/19 09:00 06/09/19 08:34 Docusate Sodium (Colace) 100 mg BID PO 05/31/19 21:00 06/10/19 07:50 Escitalopram Oxalate (Lexapro) 10 mg QHS PO 06/02/19 21:00 06/09/19 20:47 Fluticasone Propionate (Flonase 0.05% Nasal [place]) 2 SPRAYS IN EACH NOSTRIL DAILY NARES 06/01/19 09:00 06/02/19 08:28 Gabapentin (Neurontin) 200 mg BID PO 05/31/19 21:00 06/10/19 07:51 Glucagon (Glucagon) 1 mg ASDIRECTED PRN SC SEE LABEL COMMENTS 05/31/19 13:45 Glucose (Glucose) 16 GM ASDIRECTED PRN PO SEE LABEL COMMENTS 05/31/19 13:45 Heparin Sodium (Porcine) (Heparin) 5,000 units Q12H SC 05/31/19 21:00 06/04/19 23:59 DC 06/04/19 20:52 Home Med (Med Rec Complete!) ASDIRECTED XX 05/31/19 15:00 05/31/19 15:18 DC Insulin Detemir (Levemir Insulin) 10 units DAILY SC 06/02/19 09:00 06/10/19 07:50 Insulin Human Lispro (HumaLOG INSULIN) SEE PROTOCOL TABLE AC SC 05/31/19 17:30 06/10/19 07:49 Insulin Human Lispro (HumaLOG INSULIN) SEE PROTOCOL TABLE QHS SC 05/31/19 21:00 Lactobacillus Acidophilus (Bacid) 1 ea TID PO 06/09/19 09:00 06/10/19 07:51 Levetiracetam (Keppra) 250 mg DAILY PO 06/09/19 09:00 06/15/19 23:59 06/10/19 07:51 Levetiracetam (Keppra) 500 mg BID PO 05/31/19 21:00 06/01/19 23:59 DC 06/01/19 21:05 Levetiracetam (Keppra) 500 mg DAILY PO 06/02/19 09:00 06/08/19 23:59 DC 06/08/19 08:55 Levofloxacin (Levaquin) 750 mg Q48H PO 06/09/19 06:00 06/17/19 06:01 06/09/19 11:48 Magnesium Oxide (Mag-Ox) 400 mg DAILY PO 06/01/19 09:00 06/10/19 07:50 Metformin HCl (Glucophage Xr) 1,000 mg BID@0800,1800 PO 05/31/19 18:00 06/10/19 07:51 Miscellaneous (Unresolved Patient Own Med Order) SEE LABEL COMMENTS DAILY XX 06/01/19 09:00 06/01/19 18:25 DC Nebivolol (Bystolic) 2.5 mg DAILY PO 06/01/19 09:00 06/09/19 08:34 Oxycodone HCl (Roxicodone, Oxyir) 2.5 mg Q4HP PRN PO PAIN 05/31/19 13:45 06/07/19 10:59 DC Pantoprazole Sodium (Protonix) 40 mg DAILY PO 06/01/19 09:00 06/10/19 07:51 Patient Own Medication (Patient'S Own Med) 0.75MG We@0900 SC 06/02/19 09:00 06/09/19 13:52 Pravastatin Sodium (Pravachol) 40 mg QHS PO 05/31/19 21:00 06/09/19 20:48 Rivaroxaban (Xarelto) 20 mg DAILY@18 PO 06/05/19 18:00 06/09/19 17:30 Salmeterol Xinafoate/ Fluticasone (Advair Hfa 230/ 21) 2 puff BID INH 05/31/19 21:00 06/10/19 07:30 Senna (Senokot) 1 tab QHS PO 05/31/19 21:00 06/09/19 20:47 Sodium Chloride (Sodium Chloride) 1 gm BID PO 06/01/19 21:00 06/10/19 07:51 Sodium Chloride (Sodium Chloride) 2 gm TID PO 05/31/19 16:00 06/01/19 11:19 DC 06/01/19 09:40 Spironolactone (Aldactone) 12.5 mg DAILY PO 06/01/19 09:00 06/09/19 08:33 Trazodone HCl (Desyrel) 25 mg QHS PO 06/08/19 21:00 06/09/19 20:48 Trazodone HCl (Desyrel) 25 mg QHS PO 06/01/19 21:00 06/02/19 14:35 DC 06/01/19 21:05 Trazodone HCl (Desyrel) 25 mg QHSP PRN PO INSOMNIA 06/06/19 10:15 06/08/19 09:48 DC Trazodone HCl (Desyrel) 50 mg QHS PO 06/02/19 21:00 06/06/19 10:18 DC 06/05/19 20:14 ES DESAI MD Jun 10, 2019 11:41
[2019-06-10 14:00] VITALS: BP 122/60
--- NOTE | 2019-06-10 15:27 | IPNPDOC ---
Text Note Date of Service The patient was seen on 06/10/19. NOTE Subjective: Working with therapy at time of assessment. No chest pain, no SOB, denies headache. Objective GENERAL: up to chair at bedside,NAD SKIN : Warm, dry intact HEENT: normocephalic, moist mucous membrane CARDIOVASCULAR: Regular rate and rhythm, S1S2, no JVD, no edema, distal pulses + palpable RESP: CTAB, no accessory muscle use noted ABDOMEN: BS+ non distended non tender MS: no joint deformities NEURO: Alert and oriented x 3, CN2-12 grossly intact PSYCH: no anxiety or agitation, appropriate mood and affect. ASSESSMENT/PLAN: Left frontoparietal lobe glioblastoma -S/P stereotactic brain tumor biopsy with laser interstitial therapy -Rehabilitation of by primary team -radiation therapy planned post rehabilitation-mapping completed UTI -Urine culture positive for Klebsiella and Pseudomonas -continue antibiotic therapy -Monitor response to therapy Intracranial vasogenic edema -no headaches, -continued on Decadron with weaning to 2 mg twice a day till weaned off by o ncologist Jaye for seizure prophylaxis till weaned off by oncologist -continue seizure precautions Diabetes mellitus type 2 -monitoring prior to meals and at bedtime -continued on basal insulin while on steroid therapy -calorie controlled diet -Metformin 1000 mg every. 12 hours, Trulicity weekly Hyponatremia -within normal limits -continued on Na tablets Paroxysmal atrial fibrillation -S/P cardiac ablation -continue beta aden -continue Xarelto -no signs/symptoms of bleeding -hgb stable DVT prophylaxis -fully anticoagulated with xarelto VS,Fishbone, I+O VS, Fishbone, I+O Laboratory Tests 06/10/19 06:13 Red Blood Count 3.86 L, Mean Corpuscular Volume 87.3, Mean Corpuscular Hemoglobin 28.8, Mean Corpuscular Hemoglobin Concent 32.9, Red Cell Distribution Width 15.9 H, Calcium Level 8.3 L Vital Signs Date Time Temp Pulse Resp B/P (MAP) Pulse Ox O2 Delivery O2 Flow Rate FiO2 06/10/19 07:53 70 107/52 06/10/19 05:57 97.9 18 99 I&O- Last 24 Hours up to 6 AM 06/10/19 06:00 Intake Total 440 ml Output Total 1 ml Balance 439 ml URIAH SEAMANP Jun 10, 2019 15:27
[2019-06-10] MEDS: RIVAROXABAN 20 MG TAB (XARELTO) PO SCH (18:14)
[2019-06-10 20:00] VITALS: BP 115/63
[2019-06-10] MEDS: traZODone 25MG PER 1/2 TABLET PO SCH (20:30)
[2019-06-10] MEDS: SENNA 8.6 MG TAB (SENOKOT) PO SCH (20:31)
[2019-06-10] MEDS: ESCITALOPRAM OXALATE 10 MG TAB (LEXAPRO) PO SCH (20:31)
[2019-06-10] MEDS: PRAVASTATIN 20 MG TAB PO SCH (20:31)
[2019-06-11] MEDS: LevoFLOXacin 750 MG TABLET PO SCH (05:21)
[2019-06-11 05:52] VITALS: BP 121/63
[2019-06-11] MEDS: ADVAIR HFA 230/21MCG INHALER INH SCH ×2 (08:06→19:22)
[2019-06-11] MEDS: metFORMIN XR 500MG TAB *GLUCOPHAGE XR PO SCH (09:29)
[2019-06-11] MEDS: levETIRAcetam 250MG TABLET (KEPPRA) PO SCH (09:29)
[2019-06-11] MEDS: SPIRONOLACTONE 12.5MG PER 1/2 TABLET PO SCH (09:30)
[2019-06-11] MEDS: CALCIUM/VITAMIN D 500 MG TAB PO SCH (09:30)
[2019-06-11] MEDS: MAGNESIUM OXIDE 400 MG TAB (MAG-OX) PO SCH (09:30)
[2019-06-11] MEDS: DOCUSATE SODIUM 100 MG CAP PO SCH ×2 (09:30→21:59)
[2019-06-11] MEDS: PANTOPRAZOLE 40MG TAB (PROTONIX) PO SCH (09:30)
[2019-06-11] MEDS: GABAPENTIN 100 MG CAP PO SCH ×2 (09:30→22:00)
[2019-06-11] MEDS: NEBIVOLOL 5 MG TAB (BYSTOLIC) PO SCH (09:30)
[2019-06-11] MEDS: LACTOBACILLUS ACIDOPHILUS CAP (BACID) PO SCH ×3 (09:30→22:00)
[2019-06-11] MEDS: FLUTICASONE PROP 0.05% NASAL SPRAY 16 GM (FLONASE) NARES SCH (09:31)
[2019-06-11] MEDS: LEVEMIR (INSULIN DETEMIR) 1 UNITS/0.01ML SC SCH (09:31)
[2019-06-11] MEDS: HumaLOG INSULIN (NovoLOG) PER UNIT SC SCH ×4 (09:31→21:00)
[2019-06-11] MEDS: POLYVINYL ALCOHOL OPHTH SOLN 15 ML(LIQUITEARS) OU SCH ×3 (09:31→22:02)
--- NOTE | 2019-06-11 10:33 | IPNPDOC ---
PM&R Progress Note DATE OF SERVICE: Jun 11, 2019 Binding Stitcher Progress Note Subjective: Patient reports she slept very well and feels at peace. She understands that if she does start chemo soon it will limit her ability to transition to [facility], but will now have an answer until her appointment with Dr. Shannon Friday. She had a low FS this morning. She reports being pleased to have the use of her right hand back. REVIEW OF SYSTEMS: The following is a completed review of systems and has been reviewed. Review of systems otherwise unremarkable. PAIN: Patient self reports no pain EYES: No recent vision changes EARS, NOSE, & THROAT: No throat pain, or dysphagia, or rhinorrhea CARDIOVASCULAR: Denies chest pain or palpitations PULMONARY: Denies shortness of breath GASTROINTESTINAL: Denies constipation/diarrhea GENITOURINARY: no dysuria MUSCULOSKELETAL: right upper extremity weakness NEUROLOGICAL: right upper extremity weakness, apraxia SKIN: Skull incision PSYCHIATRIC: Unremarkable All other review of systems found to be negative. PHYSICAL EXAMINATION: VITAL SIGNS: Please see below. GENERAL: Pleasant and cooperative. No acute distress. HEENT: PERRL. Extraocular movements intact. Clear conjunctiva, +BOARDING SPECIALIST shunt CARDIOVASCULAR: Regular rate and rhythm. No murmurs, rubs, or gallops LUNGS: Clear to auscultation bilaterally. No wheezes. No rhonchi ABDOMEN: Soft, nontender, nondistended. Positive bowel sounds. Normal active bowel sounds NEUROLOGICAL: Alert and oriented times three. Cranial nerves II through XII grossly intact. Sensation grossly intact to light touch all four limbs (-) babinkski, no clonus +apraxia when asked to move her limbs EXTREMITIES: 5\5 strength left upper extremities, 4/5 RUE >3/5 strength right lower extremity(apraxic) >4/5 strength in left lower extremity (apraxic) SKIN: coronal skull incision c/d/i ASSESSMENT:73-year-old F with past medical history of new onset RUE weakness who presents status post brain biopsy, found to have grade 4 GBM. PLAN: 1. Rehab: PT- fall prevention, improve safety with ambulation and transfers- walking with RW, having difficulty with functional transfers, knee buckling improving OT- strengthen RUE, teach compensatory strategies, enhance ADl management CREDIT REFERENCE CLERK- assess for cognitive dysfunction and treat 2. Neuro: recent dx of grade 4 glioblastoma multiforme- c/u Jose Gra and Decadron c/u 3mg TID for 7 days total, then taper to 2mg TID 3. Heme/Onc: [facility] lung and breast cancer, now with GBM and possible meningioma, will be treated by Dr. Mcarthur and at [facility] for radiation- appointment with Dr. shannon at [facility] to discuss possibility of chemotherapy 06/14/19 -repeat CT negative for hemorrhage 4. Cardiac: pmh Afib, Xarelto restarted 06/05/19, c/u Cardizem, Bystolic, and Aldactone, medicine consulted to assist in management -HLD- statin 5. resp: encourage incentive spirometry 6. Endo: pmh DM, low FS, will decrease metformin to 500mg BID, c/u ISS, and trulicity 7. Pain: gabapentin and tylenol 8. GI: optimize bowel care 9. /ID: monitor PVRs -Urine cx +klebsiella and pseudomonas- c/u Levaquin for 10 days course, q48h, leukocytosis improving -blood cultures negative x2 06/04/19 10. Hyponatremia: sodium 139, d/c'd salt tabs and recheck 11. DVT ppx: Xarelto started on 06/05/19 and TEDs 12. Psych: c/u Lexapro for anxiety and trazodone to 25mg standing 11. Dispo: plan for discharge to [facility] for further rehab if possible given patient's fluctuation in assistance level and upcoming cancer treatment, she will need ongoing medical attention and rehab, will have more information regarding chemotherapy 06/14/19 Allergies Coded Allergies: doxycycline (Verified Allergy, Intermediate, rash, 01/21/19) MEMO Inhibitors (Verified Allergy, Unknown, 01/21/19) NSAIDS (Non-Steroidal Anti-Inflamma (Verified Allergy, Unknown, 01/21/19) lidocaine (Verified Adverse Reaction, Severe, increased pulse, decreased bp, 01/21/19) NOTE: PATIENT HAS RECEIVED LIDOCAINE & BUPIVACAINE SEVERAL TIMES WHILE AT [facility] w/o PROBLEM procaine (Verified Adverse Reaction, Severe, increased pulse, decreased bp, 01/21/19) Vital Signs Vital Signs Date Time Temp Pulse Resp B/P (MAP) Pulse Ox O2 Delivery O2 Flow Rate FiO2 06/11/19 09:30 102 152/77 06/11/19 05:52 97.1 18 100 Laboratory Data Labs 24H Laboratory Tests 2 06/10/19 11:30: Bedside Glucose (Misc Panel) 145H 06/10/19 16:28: Bedside Glucose (Misc Panel) 129H 06/10/19 19:25: Bedside Glucose (Misc Panel) 146H 06/11/19 05:46: Bedside Glucose (Misc Panel) 151H Microbiology Microbiology 06/04/19 Blood Culture - Final, Complete NO GROWTH AFTER 5 DAYS 06/04/19 Blood Culture - Final, Complete NO GROWTH AFTER 5 DAYS 06/07/19 Urine Culture - Final, Complete Pseudomonas Aeruginosa Klebsiella Pneumoniae Current Medications Current Medications Current Medications Medications (Trade) Dose Ordered Sig/Haley Route PRN Reason Start Time Stop Time Status Last Admin Dose Admin Acetaminophen (Tylenol Tab) 650 mg Q4HP PRN PO fever/MILD PAIN (PS 1-4) 05/31/19 13:30 06/08/19 21:26 Artificial Tears (Akwa Tears) 2 drop TID OU 05/31/19 16:00 06/11/19 09:31 Bisacodyl (Dulcolax Suppository) 10 mg DAILYPRN PRN [place] CONSTIPATION 05/31/19 13:30 Calcium/Vitamin D (Oscal D) 1,000 mg DAILY PO 05/31/19 09:00 06/11/19 09:30 Dexamethasone (Decadron) 2 mg Q12H PO 06/10/19 06:00 06/10/19 06:00 DC Dexamethasone (Decadron) 3 mg Q12H PO 06/06/19 06:00 06/06/19 10:18 DC 06/06/19 05:44 Dexamethasone (Decadron) 3 mg TID PO 06/06/19 16:00 06/11/19 09:29 Dexamethasone (Decadron) 4 mg Q12H PO 06/02/19 06:00 06/05/19 23:59 DC 06/05/19 17:34 Dexamethasone (Decadron) 4 mg Q8H PO 05/31/19 14:00 06/01/19 23:59 DC 06/01/19 21:05 Dextrose (Dextrose 50%) 25 ml ASDIRECTED PRN IV SEE LABEL COMMENTS 05/31/19 13:45 Diltiazem HCl (Cardizem Cd) 240 mg DAILY PO 06/01/19 09:00 06/11/19 09:30 Docusate Sodium (Colace) 100 mg BID PO 05/31/19 21:00 06/11/19 09:30 Escitalopram Oxalate (Lexapro) 10 mg QHS PO 06/02/19 21:00 06/10/19 20:31 Fluticasone Propionate (Flonase 0.05% Nasal [place]) 2 SPRAYS IN EACH NOSTRIL DAILY NARES 06/01/19 09:00 06/11/19 09:31 Gabapentin (Neurontin) 200 mg BID PO 05/31/19 21:00 06/11/19 09:30 Glucagon (Glucagon) 1 mg ASDIRECTED PRN SC SEE LABEL COMMENTS 05/31/19 13:45 Glucose (Glucose) 16 GM ASDIRECTED PRN PO SEE LABEL COMMENTS 05/31/19 13:45 Heparin Sodium (Porcine) (Heparin) 5,000 units Q12H SC 05/31/19 21:00 06/04/19 23:59 DC 06/04/19 20:52 Home Med (Med Rec Complete!) ASDIRECTED XX 05/31/19 15:00 05/31/19 15:18 DC Insulin Detemir (Levemir Insulin) 10 units DAILY SC 06/02/19 09:00 06/11/19 09:31 Insulin Human Lispro (HumaLOG INSULIN) SEE PROTOCOL TABLE AC SC 05/31/19 17:30 06/11/19 09:31 Insulin Human Lispro (HumaLOG INSULIN) SEE PROTOCOL TABLE QHS SC 05/31/19 21:00 Lactobacillus Acidophilus (Bacid) 1 ea TID PO 06/09/19 09:00 06/11/19 09:30 Levetiracetam (Keppra) 250 mg DAILY PO 06/09/19 09:00 06/15/19 23:59 06/11/19 09:29 Levetiracetam (Keppra) 500 mg BID PO 05/31/19 21:00 06/01/19 23:59 DC 06/01/19 21:05 Levetiracetam (Keppra) 500 mg DAILY PO 06/02/19 09:00 06/08/19 23:59 DC 06/08/19 08:55 Levofloxacin (Levaquin) 750 mg Q48H PO 06/09/19 06:00 06/17/19 06:01 06/11/19 05:21 Magnesium Oxide (Mag-Ox) 400 mg DAILY PO 06/01/19 09:00 06/11/19 09:30 Metformin HCl (Glucophage Xr) 1,000 mg BID@0800,1800 PO 05/31/19 18:00 06/11/19 09:29 Miscellaneous (Unresolved Patient Own Med Order) SEE LABEL COMMENTS DAILY XX 06/01/19 09:00 06/01/19 18:25 DC Nebivolol (Bystolic) 2.5 mg DAILY PO 06/01/19 09:00 06/11/19 09:30 Oxycodone HCl (Roxicodone, Oxyir) 2.5 mg Q4HP PRN PO PAIN 05/31/19 13:45 06/07/19 10:59 DC Pantoprazole Sodium (Protonix) 40 mg DAILY PO 06/01/19 09:00 06/11/19 09:30 Patient Own Medication (Patient'S Own Med) 0.75MG We@0900 SC 06/02/19 09:00 06/09/19 13:52 Pravastatin Sodium (Pravachol) 40 mg QHS PO 05/31/19 21:00 06/10/19 20:31 Rivaroxaban (Xarelto) 20 mg DAILY@18 PO 06/05/19 18:00 06/10/19 18:14 Salmeterol Xinafoate/ Fluticasone (Advair Hfa 230/ 21) 2 puff BID INH 05/31/19 21:00 06/11/19 08:06 Senna (Senokot) 1 tab QHS PO 05/31/19 21:00 06/10/19 20:31 Sodium Chloride (Sodium Chloride) 1 gm BID PO 06/01/19 21:00 06/10/19 11:38 DC 06/10/19 07:51 Sodium Chloride (Sodium Chloride) 2 gm TID PO 05/31/19 16:00 06/01/19 11:19 DC 06/01/19 09:40 Spironolactone (Aldactone) 12.5 mg DAILY PO 06/01/19 09:00 06/11/19 09:30 Trazodone HCl (Desyrel) 25 mg QHS PO 06/08/19 21:00 06/10/19 20:30 Trazodone HCl (Desyrel) 25 mg QHS PO 06/01/19 21:00 06/02/19 14:35 DC 06/01/19 21:05 Trazodone HCl (Desyrel) 25 mg QHSP PRN PO INSOMNIA 06/06/19 10:15 06/08/19 09:48 DC Trazodone HCl (Desyrel) 50 mg QHS PO 06/02/19 21:00 06/06/19 10:18 DC 06/05/19 20:14 ES DESAI MD Jun 11, 2019 10:33
[2019-06-11 14:00] VITALS: BP 98/68
[2019-06-11] MEDS: RIVAROXABAN 20 MG TAB (XARELTO) PO SCH (17:01)
[2019-06-11] MEDS ORDERED: metFORMIN XR 500MG TAB *GLUCOPHAGE XR PO SCH (18:00)
[2019-06-11 20:00] VITALS: BP 117/58
[2019-06-11] MEDS: SENNA 8.6 MG TAB (SENOKOT) PO SCH (21:00)
[2019-06-11] MEDS: ESCITALOPRAM OXALATE 10 MG TAB (LEXAPRO) PO SCH (22:00)
[2019-06-11] MEDS: ACETAMINOPHEN TAB 650MG DOSE (2X325MG) PO PRN (22:00)
[2019-06-11] MEDS: traZODone 25MG PER 1/2 TABLET PO SCH (22:00)
[2019-06-11] MEDS: PRAVASTATIN 20 MG TAB PO SCH (22:01)
[2019-06-12 06:00] VITALS: BP 99/56
[2019-06-12 07:23] LABS: BASO % 0.1 % (0.0-1.0); HEMATOCRIT 32.6 % (36.0-47.0); HEMOGLOBIN 10.9 g/dl (12.0-15.5); LYMPH # 0.7 10^3/uL (1.5-4.5); LYMPH % 8.3 % (24.0-44.0); MEAN CORPUSCULAR HEMOGLOBIN 29.1 pg (27.0-33.0); MEAN CORPUSCULAR HGB CONC 33.4 g/dl (32.0-36.5); MEAN CORPUSCULAR VOLUME 87.2 fl (80.0-96.0); MONO # 0.5 10^3/uL (0.0-0.8); MONO % 5.9 % (0.0-5.0); NEUTROPHILS # 6.4 10^3/uL (1.8-7.7); NEUTROPHILS % 80.9 % (36.0-66.0); PLATELET COUNT, AUTOMATED 113 10^3/uL (150-450); RED BLOOD COUNT 3.74 10^6/uL (4.00-5.40); WHITE BLOOD COUNT 7.9 10^3/uL (4.0-10.0)
[2019-06-12 07:52] LABS: BLOOD UREA NITROGEN 22 MG/DL (7-18); CALCIUM LEVEL 8.2 MG/DL (8.8-10.2); CARBON DIOXIDE LEVEL 23 MEQ/L (21-32); CHLORIDE LEVEL 107 MEQ/L (98-107); CREATININE FOR GFR 0.64 MG/DL (0.55-1.30); GLOMERULAR FILTRATION RATE > 60.0 (>39); GLUCOSE, FASTING 131 MG/DL (70-100); POTASSIUM SERUM 3.7 MEQ/L (3.5-5.1); SODIUM LEVEL 139 MEQ/L (136-145)
[2019-06-12] MEDS: ADVAIR HFA 230/21MCG INHALER INH SCH ×2 (08:06→20:39)
[2019-06-12] MEDS: CALCIUM/VITAMIN D 500 MG TAB PO SCH (08:53)
[2019-06-12] MEDS: HumaLOG INSULIN (NovoLOG) PER UNIT SC SCH ×4 (08:53→20:25)
[2019-06-12] MEDS: LACTOBACILLUS ACIDOPHILUS CAP (BACID) PO SCH ×3 (08:53→21:31)
[2019-06-12] MEDS: SPIRONOLACTONE 12.5MG PER 1/2 TABLET PO SCH (08:54)
[2019-06-12] MEDS: NEBIVOLOL 5 MG TAB (BYSTOLIC) PO SCH (08:54)
[2019-06-12] MEDS: levETIRAcetam 250MG TABLET (KEPPRA) PO SCH (08:54)
[2019-06-12] MEDS: PANTOPRAZOLE 40MG TAB (PROTONIX) PO SCH (08:54)
[2019-06-12] MEDS: DOCUSATE SODIUM 100 MG CAP PO SCH ×2 (08:54→21:00)
[2019-06-12] MEDS: MAGNESIUM OXIDE 400 MG TAB (MAG-OX) PO SCH (08:55)
[2019-06-12] MEDS: LEVEMIR (INSULIN DETEMIR) 1 UNITS/0.01ML SC SCH (08:55)
[2019-06-12] MEDS: GABAPENTIN 100 MG CAP PO SCH ×2 (08:55→21:31)
[2019-06-12] MEDS: POLYVINYL ALCOHOL OPHTH SOLN 15 ML(LIQUITEARS) OU SCH ×3 (08:55→21:32)
[2019-06-12] MEDS: FLUTICASONE PROP 0.05% NASAL SPRAY 16 GM (FLONASE) NARES SCH (08:55)
[2019-06-12 14:00] VITALS: BP 196/88
[2019-06-12 15:22] VITALS: BP 114/56
[2019-06-12] MEDS: RIVAROXABAN 20 MG TAB (XARELTO) PO SCH (16:57)
[2019-06-12 20:00] VITALS: BP 120/68
[2019-06-12] MEDS: SENNA 8.6 MG TAB (SENOKOT) PO SCH (21:00)
[2019-06-12] MEDS: PRAVASTATIN 20 MG TAB PO SCH (21:31)
[2019-06-12] MEDS: traZODone 25MG PER 1/2 TABLET PO SCH (21:31)
[2019-06-12] MEDS: ACETAMINOPHEN TAB 650MG DOSE (2X325MG) PO PRN (21:31)
[2019-06-12] MEDS: ESCITALOPRAM OXALATE 10 MG TAB (LEXAPRO) PO SCH (21:31)
[2019-06-13] MEDS: LevoFLOXacin 750 MG TABLET PO SCH (05:11)
[2019-06-13 06:00] VITALS: BP 138/62
[2019-06-13] MEDS: ADVAIR HFA 230/21MCG INHALER INH SCH ×2 (07:23→20:07)
[2019-06-13] MEDS: GABAPENTIN 100 MG CAP PO SCH ×2 (08:46→21:08)
[2019-06-13] MEDS: PANTOPRAZOLE 40MG TAB (PROTONIX) PO SCH (08:46)
[2019-06-13] MEDS: SPIRONOLACTONE 12.5MG PER 1/2 TABLET PO SCH (08:47)
[2019-06-13] MEDS: CALCIUM/VITAMIN D 500 MG TAB PO SCH (08:47)
[2019-06-13] MEDS: DOCUSATE SODIUM 100 MG CAP PO SCH ×2 (08:47→21:08)
[2019-06-13] MEDS: LACTOBACILLUS ACIDOPHILUS CAP (BACID) PO SCH ×3 (08:47→21:08)
[2019-06-13] MEDS: NEBIVOLOL 5 MG TAB (BYSTOLIC) PO SCH (08:47)
[2019-06-13] MEDS: HumaLOG INSULIN (NovoLOG) PER UNIT SC SCH ×4 (08:48→21:00)
[2019-06-13] MEDS: levETIRAcetam 250MG TABLET (KEPPRA) PO SCH (08:48)
[2019-06-13] MEDS: MAGNESIUM OXIDE 400 MG TAB (MAG-OX) PO SCH (08:48)
[2019-06-13] MEDS: LEVEMIR (INSULIN DETEMIR) 1 UNITS/0.01ML SC SCH (08:48)
[2019-06-13] MEDS: FLUTICASONE PROP 0.05% NASAL SPRAY 16 GM (FLONASE) NARES SCH (08:49)
[2019-06-13] MEDS: POLYVINYL ALCOHOL OPHTH SOLN 15 ML(LIQUITEARS) OU SCH ×3 (08:49→21:00)
[2019-06-13 14:00] VITALS: BP 145/65
[2019-06-13] MEDS: RIVAROXABAN 20 MG TAB (XARELTO) PO SCH (17:14)
[2019-06-13] MEDS: SENNA 8.6 MG TAB (SENOKOT) PO SCH (19:49)
[2019-06-13 20:00] VITALS: BP 112/55
[2019-06-13] MEDS: ESCITALOPRAM OXALATE 10 MG TAB (LEXAPRO) PO SCH (21:08)
[2019-06-13] MEDS: traZODone 25MG PER 1/2 TABLET PO SCH (21:08)
[2019-06-13] MEDS: PRAVASTATIN 20 MG TAB PO SCH (21:08)
[2019-06-13] MEDS: ACETAMINOPHEN TAB 650MG DOSE (2X325MG) PO PRN (21:11)
[2019-06-14 05:49] VITALS: BP 111/58
[2019-06-14] MEDS: DOCUSATE SODIUM 100 MG CAP PO SCH ×2 (06:19→22:33)
[2019-06-14] MEDS: SPIRONOLACTONE 12.5MG PER 1/2 TABLET PO SCH (06:21)
[2019-06-14] MEDS: LEVEMIR (INSULIN DETEMIR) 1 UNITS/0.01ML SC SCH (06:58)
[2019-06-14] MEDS: HumaLOG INSULIN (NovoLOG) PER UNIT SC SCH ×4 (07:00→21:00)
[2019-06-14] MEDS: PANTOPRAZOLE 40MG TAB (PROTONIX) PO SCH (07:00)
[2019-06-14] MEDS: levETIRAcetam 250MG TABLET (KEPPRA) PO SCH (07:00)
[2019-06-14] MEDS: LACTOBACILLUS ACIDOPHILUS CAP (BACID) PO SCH ×3 (07:00→22:33)
[2019-06-14] MEDS: GABAPENTIN 100 MG CAP PO SCH ×2 (07:01→22:33)
[2019-06-14] MEDS: CALCIUM/VITAMIN D 500 MG TAB PO SCH (07:01)
[2019-06-14] MEDS: MAGNESIUM OXIDE 400 MG TAB (MAG-OX) PO SCH (07:01)
[2019-06-14] MEDS: NEBIVOLOL 5 MG TAB (BYSTOLIC) PO SCH (07:02)
[2019-06-14] MEDS: ACETAMINOPHEN TAB 650MG DOSE (2X325MG) PO PRN (07:02)
[2019-06-14] MEDS: FLUTICASONE PROP 0.05% NASAL SPRAY 16 GM (FLONASE) NARES SCH (07:02)
[2019-06-14] MEDS: POLYVINYL ALCOHOL OPHTH SOLN 15 ML(LIQUITEARS) OU SCH ×3 (07:03→21:00)
[2019-06-14 14:00] VITALS: BP 105/53
--- NOTE | 2019-06-14 17:04 | IPNPDOC ---
PM&R Progress Note DATE OF SERVICE: Jun 14, 2019 Night Shift Manager Progress Note Subjective: Patient reporting she feels peaceful again today and states that since her metformin was stopped her appetite is much better. REVIEW OF SYSTEMS: The following is a completed review of systems and has been reviewed. Review of systems otherwise unremarkable. PAIN: Patient self reports no pain EYES: No recent vision changes EARS, NOSE, & THROAT: No throat pain, or dysphagia, or rhinorrhea CARDIOVASCULAR: Denies chest pain or palpitations PULMONARY: Denies shortness of breath GASTROINTESTINAL: Denies constipation/diarrhea GENITOURINARY: no dysuria MUSCULOSKELETAL: right upper extremity weakness NEUROLOGICAL: right upper extremity weakness, apraxia SKIN: Skull incision PSYCHIATRIC: Unremarkable All other review of systems found to be negative. PHYSICAL EXAMINATION: VITAL SIGNS: Please see below. GENERAL: Pleasant and cooperative. No acute distress. HEENT: PERRL. Extraocular movements intact. Clear conjunctiva, +COLLECTIONS CLERK shunt CARDIOVASCULAR: Regular rate and rhythm. No murmurs, rubs, or gallops LUNGS: Clear to auscultation bilaterally. No wheezes. No rhonchi ABDOMEN: Soft, nontender, nondistended. Positive bowel sounds. Normal active bowel sounds NEUROLOGICAL: Alert and oriented times three. Cranial nerves II through XII grossly intact. Sensation grossly intact to light touch all four limbs (-) babinkski, no clonus +apraxia when asked to move her limbs EXTREMITIES: 5\5 strength left upper extremities, 4/5 RUE >3/5 strength right lower extremity(apraxic) >4/5 strength in left lower extremity (apraxic) SKIN: coronal skull incision c/d/i ASSESSMENT:73-year-old F with past medical history of new onset RUE weakness who presents status post brain biopsy, found to have grade 4 GBM. PLAN: 1. 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 Neuro: recent dx of grade 4 glioblastoma multiforme- c/u Keppra and Decadron c/u 3mg TID for 7 days total, then taper to 2mg TID 3. Heme/Onc: [facility] lung and breast cancer, now with GBM and possible meningioma, will be treated by Dr. Mcarthur and at [facility] for radiation- appointment with Dr. shannon at [facility] today, f/u appointment with Dr. Polanco 06/16/19 to coordinate chemo and radiation -repeat CT negative for hemorrhage 4. Cardiac: pmh Afib, Xarelto restarted 06/05/19, c/u Cardizem, Bystolic, and Aldactone, medicine consulted to assist in management -HLD- statin 5. resp: encourage incentive spirometry 6. Endo: pmh DM, low FS, d/c'd metform for low FS, c/u ISS, and trulicity 7. Pain: gabapentin and tylenol 8. GI: optimize bowel care 9. /ID: monitor PVRs -Urine cx +klebsiella and pseudomonas- c/u Levaquin for 10 days course, q48h, leukocytosis improving -blood cultures negative x2 06/04/19 10. Hyponatremia: sodium 139, d/c'd salt tabs and recheck 11. DVT ppx: Xarelto started on 06/05/19 and TEDs 12. Psych: c/u Lexapro for anxiety and trazodone to 25mg standing 11. Dispo: plan for discharge to [facility] for further rehab if possible given patient's fluctuation in assistance level and upcoming cancer treatment, she will need ongoing medical attention and rehab, will have more information regarding chemotherapy/radiation 06/16/19 Allergies Coded Allergies: doxycycline (Verified Allergy, Intermediate, rash, 01/21/19) MEMO Inhibitors (Verified Allergy, Unknown, 01/21/19) NSAIDS (Non-Steroidal Anti-Inflamma (Verified Allergy, Unknown, 01/21/19) lidocaine (Verified Adverse Reaction, Severe, increased pulse, decreased bp, 01/21/19) NOTE: PATIENT HAS RECEIVED LIDOCAINE & BUPIVACAINE SEVERAL TIMES WHILE AT [facility] w/o PROBLEM procaine (Verified Adverse Reaction, Severe, increased pulse, decreased bp, 01/21/19) Vital Signs Vital Signs Date Time Temp Pulse Resp B/P (MAP) Pulse Ox O2 Delivery O2 Flow Rate FiO2 06/14/19 14:00 97.0 65 18 105/53 (70) 99 Laboratory Data Labs 24H Laboratory Tests 2 06/13/19 20:09: Bedside Glucose (Misc Panel) 209H 06/14/19 06:13: Bedside Glucose (Misc Panel) 164H 06/14/19 11:59: Bedside Glucose (Misc Panel) 117H 06/14/19 16:42: Bedside Glucose (Misc Panel) 218H Microbiology Microbiology 06/04/19 Blood Culture - Final, Complete NO GROWTH AFTER 5 DAYS 06/04/19 Blood Culture - Final, Complete NO GROWTH AFTER 5 DAYS 06/07/19 Urine Culture - Final, Complete Pseudomonas Aeruginosa Klebsiella Pneumoniae Current Medications Current Medications Current Medications Medications (Trade) Dose Ordered Sig/Haley Route PRN Reason Start Time Stop Time Status Last Admin Dose Admin Acetaminophen (Tylenol Tab) 650 mg Q4HP PRN PO fever/MILD PAIN (PS 1-4) 05/31/19 13:30 06/14/19 07:02 Artificial Tears (Akwa Tears) 2 drop TID OU 05/31/19 16:00 06/14/19 07:03 Bisacodyl (Dulcolax Suppository) 10 mg DAILYPRN PRN [place] CONSTIPATION 05/31/19 13:30 Calcium/Vitamin D (Oscal D) 1,000 mg DAILY PO 05/31/19 09:00 06/14/19 07:01 Dexamethasone (Decadron) 1 mg TID PO 06/21/19 09:00 Dexamethasone (Decadron) 2 mg Q12H PO 06/10/19 06:00 06/10/19 06:00 DC Dexamethasone (Decadron) 2 mg TID PO 06/14/19 09:00 06/20/19 23:00 06/14/19 07:07 Dexamethasone (Decadron) 3 mg Q12H PO 06/06/19 06:00 06/06/19 10:18 DC 06/06/19 05:44 Dexamethasone (Decadron) 3 mg TID PO 06/06/19 16:00 06/13/19 23:00 DC 06/13/19 21:08 Dexamethasone (Decadron) 4 mg Q12H PO 06/02/19 06:00 06/05/19 23:59 DC 06/05/19 17:34 Dexamethasone (Decadron) 4 mg Q8H PO 05/31/19 14:00 06/01/19 23:59 DC 06/01/19 21:05 Dextrose (Dextrose 50%) 25 ml ASDIRECTED PRN IV SEE LABEL COMMENTS 05/31/19 13:45 Diltiazem HCl (Cardizem Cd) 240 mg DAILY PO 06/01/19 09:00 06/14/19 07:01 Docusate Sodium (Colace) 100 mg BID PO 05/31/19 21:00 06/13/19 21:08 Escitalopram Oxalate (Lexapro) 10 mg QHS PO 06/02/19 21:00 06/13/19 21:08 Fluticasone Propionate (Flonase 0.05% Nasal [place]) 2 SPRAYS IN EACH NOSTRIL DAILY NARES 06/01/19 09:00 06/12/19 08:55 Gabapentin (Neurontin) 200 mg BID PO 05/31/19 21:00 06/14/19 07:01 Glucagon (Glucagon) 1 mg ASDIRECTED PRN SC SEE LABEL COMMENTS 05/31/19 13:45 Glucose (Glucose) 16 GM ASDIRECTED PRN PO SEE LABEL COMMENTS 05/31/19 13:45 Heparin Sodium (Porcine) (Heparin) 5,000 units Q12H SC 05/31/19 21:00 06/04/19 23:59 DC 06/04/19 20:52 Home Med (Med Rec Complete!) ASDIRECTED XX 05/31/19 15:00 05/31/19 15:18 DC Insulin Detemir (Levemir Insulin) 10 units DAILY SC 06/02/19 09:00 06/14/19 06:58 Insulin Human Lispro (HumaLOG INSULIN) SEE PROTOCOL TABLE AC SC 05/31/19 17:30 06/14/19 12:15 Insulin Human Lispro (HumaLOG INSULIN) SEE PROTOCOL TABLE QHS SC 05/31/19 21:00 Lactobacillus Acidophilus (Bacid) 1 ea TID PO 06/09/19 09:00 06/14/19 07:00 Levetiracetam (Keppra) 250 mg DAILY PO 06/09/19 09:00 06/15/19 23:59 06/14/19 07:00 Levetiracetam (Keppra) 500 mg BID PO 05/31/19 21:00 06/01/19 23:59 DC 06/01/19 21:05 Levetiracetam (Keppra) 500 mg DAILY PO 06/02/19 09:00 06/08/19 23:59 DC 06/08/19 08:55 Levofloxacin (Levaquin) 750 mg Q48H PO 06/09/19 06:00 06/17/19 06:01 06/13/19 05:11 Magnesium Oxide (Mag-Ox) 400 mg DAILY PO 06/01/19 09:00 06/14/19 07:01 Metformin HCl (Glucophage Xr) 500 mg BID@0800,1800 PO 06/11/19 18:00 06/12/19 07:36 DC 06/11/19 17:02 Metformin HCl (Glucophage Xr) 1,000 mg BID@0800,1800 PO 05/31/19 18:00 06/11/19 14:03 DC 06/11/19 09:29 Miscellaneous (Unresolved Patient Own Med Order) SEE LABEL COMMENTS DAILY XX 06/01/19 09:00 06/01/19 18:25 DC Nebivolol (Bystolic) 2.5 mg DAILY PO 06/01/19 09:00 06/14/19 07:02 Oxycodone HCl (Roxicodone, Oxyir) 2.5 mg Q4HP PRN PO PAIN 05/31/19 13:45 06/07/19 10:59 DC Pantoprazole Sodium (Protonix) 40 mg DAILY PO 06/01/19 09:00 06/14/19 07:00 Patient Own Medication (Patient'S Own Med) 0.75MG We@0900 SC 06/02/19 09:00 06/09/19 13:52 Pravastatin Sodium (Pravachol) 40 mg QHS PO 05/31/19 21:00 06/13/19 21:08 Rivaroxaban (Xarelto) 20 mg DAILY@18 PO 06/05/19 18:00 06/13/19 17:14 Salmeterol Xinafoate/ Fluticasone (Advair Hfa 230/ 21) 2 puff BID INH 05/31/19 21:00 06/13/19 20:07 Senna (Senokot) 1 tab QHS PO 05/31/19 21:00 06/10/19 20:31 Sodium Chloride (Sodium Chloride) 1 gm BID PO 06/01/19 21:00 06/10/19 11:38 DC 06/10/19 07:51 Sodium Chloride (Sodium Chloride) 2 gm TID PO 05/31/19 16:00 06/01/19 11:19 DC 06/01/19 09:40 Spironolactone (Aldactone) 12.5 mg DAILY PO 06/01/19 09:00 06/13/19 08:47 Trazodone HCl (Desyrel) 25 mg QHS PO 06/08/19 21:00 06/13/19 21:08 Trazodone HCl (Desyrel) 25 mg QHS PO 06/01/19 21:00 06/02/19 14:35 DC 06/01/19 21:05 Trazodone HCl (Desyrel) 25 mg QHSP PRN PO INSOMNIA 06/06/19 10:15 06/08/19 09:48 DC Trazodone HCl (Desyrel) 50 mg QHS PO 06/02/19 21:00 06/06/19 10:18 DC 06/05/19 20:14 ES DESAI MD Jun 14, 2019 17:04
[2019-06-14] MEDS: RIVAROXABAN 20 MG TAB (XARELTO) PO SCH (17:13)
[2019-06-14] MEDS: ADVAIR HFA 230/21MCG INHALER INH SCH (20:12)
--- NOTE | 2019-06-14 21:04 | IPN ---
DATE: 06/14/2019 The patient was seen on 06/14/2019. She was sitting up in bed in no acute distress, feeling well. Her blood culture on 06/03/2019 was no growth after 5 days; on 06/04/2019, no growth after 5 days. She had a urine culture 06/07/2019 growing Pseudomonas and Klebsiella, and she is on day #3 of levofloxacin every 48 hours. She has no complaints of dysuria or frequency. Her white count on 06/12/2019 was 7.9. Sodium was good at 139, will recheck in the morning. She has been afebrile. Vital signs have been stable. OBJECTIVE: Blood pressure 105/53, pulse 65, respirations 18, temperature 97, oxygen saturation (O2 sat) 98% on room air. The patient is alert and oriented times three. Pupils equal and react to light. Pharynx: Tongue and gums pink and moist. Tongue is midline. Neck is supple without lymphadenopathy. No thyromegaly. No goiter. Carotids 2+ without bruits. Chest is clear to auscultation without wheeze or retractions. Heart is regular. Abdomen: Benign. Bowel sounds positive. Genital/Rectal: Not done. Extremities: No cyanosis, clubbing or edema. Peripheral pulses equal and palpable bilaterally. IMPRESSION/PLAN: Left frontoparietal lobe glioblastoma. Rehab continues per primary team. Urinary tract infection (UTI). Continue levofloxacin as ordered. Intracranial vasogenic edema. She continues to complain of no headaches. She continues on Decadron, weaning as per oncology. She continue on Keppra, weaning by oncology. She has not had any recent seizures. Diabetes, type 2. Continues on metformin and Trulicity, insulin and coverage. Fasting this morning was 164. Hyponatremia. Currently he continues within normal limits. On 06/12/2019, was 139. Paroxysmal atrial fibrillation with status post ablation. Continues on beta aden and Xarelto. Hemoglobin stable. No signs or symptoms of bleeding. Deep vein thrombosis (DVT) prophylaxis. Fully anticoagulated on Xarelto.
[2019-06-14 22:00] VITALS: BP 97/54
[2019-06-14] MEDS: PRAVASTATIN 20 MG TAB PO SCH (22:33)
[2019-06-14] MEDS: traZODone 25MG PER 1/2 TABLET PO SCH (22:33)
[2019-06-14] MEDS: ESCITALOPRAM OXALATE 10 MG TAB (LEXAPRO) PO SCH (22:33)
[2019-06-14] MEDS: SENNA 8.6 MG TAB (SENOKOT) PO SCH (22:34)
[2019-06-15 06:00] VITALS: BP 100/54
[2019-06-15 06:31] LABS: HEMATOCRIT 31.8 % (36.0-47.0); HEMOGLOBIN 10.6 g/dl (12.0-15.5); MEAN CORPUSCULAR HEMOGLOBIN 29.6 pg (27.0-33.0); MEAN CORPUSCULAR HGB CONC 33.3 g/dl (32.0-36.5); MEAN CORPUSCULAR VOLUME 88.8 fl (80.0-96.0); PLATELET COUNT, AUTOMATED 125 10^3/uL (150-450); RED BLOOD COUNT 3.58 10^6/uL (4.00-5.40); WHITE BLOOD COUNT 7.6 10^3/uL (4.0-10.0)
[2019-06-15] MEDS: LevoFLOXacin 750 MG TABLET PO SCH (06:37)
[2019-06-15 06:55] LABS: BLOOD UREA NITROGEN 22 MG/DL (7-18); CALCIUM LEVEL 8.2 MG/DL (8.8-10.2); CARBON DIOXIDE LEVEL 26 MEQ/L (21-32); CHLORIDE LEVEL 109 MEQ/L (98-107); CREATININE FOR GFR 0.52 MG/DL (0.55-1.30); GLOMERULAR FILTRATION RATE > 60.0 (>39); GLUCOSE, FASTING 193 MG/DL (70-100); POTASSIUM SERUM 3.9 MEQ/L (3.5-5.1); SODIUM LEVEL 142 MEQ/L (136-145)
[2019-06-15 06:57] LABS: LYMPHOCYTES 11 % (16-52); MONOCYTES 1 % (0-8); NEUTROPHILS 88 % (35-75); PLATELET ESTIMATE NORMAL (NORMAL)
[2019-06-15] MEDS: ADVAIR HFA 230/21MCG INHALER INH SCH ×2 (07:26→19:34)
[2019-06-15] MEDS: CALCIUM/VITAMIN D 500 MG TAB PO SCH (08:26)
[2019-06-15] MEDS: PANTOPRAZOLE 40MG TAB (PROTONIX) PO SCH (08:26)
[2019-06-15] MEDS: GABAPENTIN 100 MG CAP PO SCH ×2 (08:26→20:19)
[2019-06-15] MEDS: LACTOBACILLUS ACIDOPHILUS CAP (BACID) PO SCH ×3 (08:26→20:19)
[2019-06-15] MEDS: DOCUSATE SODIUM 100 MG CAP PO SCH ×2 (08:26→20:19)
[2019-06-15] MEDS: levETIRAcetam 250MG TABLET (KEPPRA) PO SCH (08:26)
[2019-06-15] MEDS: MAGNESIUM OXIDE 400 MG TAB (MAG-OX) PO SCH (08:26)
[2019-06-15] MEDS: HumaLOG INSULIN (NovoLOG) PER UNIT SC SCH ×4 (08:28→20:20)
[2019-06-15] MEDS: SPIRONOLACTONE 12.5MG PER 1/2 TABLET PO SCH (08:28)
[2019-06-15] MEDS: FLUTICASONE PROP 0.05% NASAL SPRAY 16 GM (FLONASE) NARES SCH (08:29)
[2019-06-15] MEDS: LEVEMIR (INSULIN DETEMIR) 1 UNITS/0.01ML SC SCH (08:29)
[2019-06-15] MEDS: POLYVINYL ALCOHOL OPHTH SOLN 15 ML(LIQUITEARS) OU SCH ×3 (08:29→20:20)
[2019-06-15] MEDS: NEBIVOLOL 5 MG TAB (BYSTOLIC) PO SCH (08:29)
--- NOTE | 2019-06-15 12:19 | IPN ---
DATE: 06/15/2019 The patient is being seen for the hospitalist group. She is on day #4 of Levaquin renally dosed for Pseudomonas Klebsiella urinary tract infection (UTI). She has a left frontoparietal glioblastoma. On Decadron and Keppra from oncology. Blood sugar being monitored while on the steroids. On Xarelto for thromboembolic prophylaxis for atrial fibrillation. She denies any chest pain, shortness of breath, fever, chills, palpitations. PHYSICAL EXAMINATION: Vital signs stable. Afebrile. General appearance: Alert, conversant, in no distress. Lungs: Clear. Heart: Irregular rate and rhythm. Abdomen: Soft, nontender. No peripheral edema. Moves arms and legs with equal strength. LABS: CBC unremarkable. Electrolytes unremarkable. Blood sugars have been in the mid 100s. PLAN: 1. Continue her Levaquin as day #4 renally dosed. Probably should provide 10 days of therapy due to her steroid therapy/immunosuppression. 2. Diabetes. Blood sugar reasonably controlled on current regimen. 3. Atrial fibrillation. Anticoagulated with Xarelto and diltiazem for rate control. 4. Hyperlipidemia. Continue pravastatin 40 mg daily.
[2019-06-15 14:00] VITALS: BP 103/59
--- NOTE | 2019-06-15 15:52 | IPNPDOC ---
PM&R Progress Note DATE OF SERVICE: Jun 15, 2019 Lead Security Officer Progress Note Subjective: Patient seen in therapy reporting she feels she is getting stronger and is interested in a hopsital bed if she does go home, but is set on [place] and hoping this will work itself out. REVIEW OF SYSTEMS: The following is a completed review of systems and has been reviewed. Review of systems otherwise unremarkable. PAIN: Patient self reports no pain EYES: No recent vision changes EARS, NOSE, & THROAT: No throat pain, or dysphagia, or rhinorrhea CARDIOVASCULAR: Denies chest pain or palpitations PULMONARY: Denies shortness of breath GASTROINTESTINAL: Denies constipation/diarrhea GENITOURINARY: no dysuria MUSCULOSKELETAL: right upper extremity weakness NEUROLOGICAL: right upper extremity weakness, apraxia SKIN: Skull incision PSYCHIATRIC: Unremarkable All other review of systems found to be negative. PHYSICAL EXAMINATION: VITAL SIGNS: Please see below. GENERAL: Pleasant and cooperative. No acute distress. HEENT: PERRL. Extraocular movements intact. Clear conjunctiva, +DUST COLLECTOR shunt CARDIOVASCULAR: Regular rate and rhythm. No murmurs, rubs, or gallops LUNGS: Clear to auscultation bilaterally. No wheezes. No rhonchi ABDOMEN: Soft, nontender, nondistended. Positive bowel sounds. Normal active bowel sounds NEUROLOGICAL: Alert and oriented times three. Cranial nerves II through XII grossly intact. Sensation grossly intact to light touch all four limbs (-) babinkski, no clonus +apraxia when asked to move her limbs EXTREMITIES: 5\5 strength left upper extremities, 4/5 RUE >3/5 strength right lower extremity(apraxic) >4/5 strength in left lower extremity (apraxic) SKIN: coronal skull incision c/d/i ASSESSMENT:73-year-old F with past medical history of new onset RUE weakness who presents status post brain biopsy, found to have grade 4 GBM. PLAN: 1. Rehab: PT- fall prevention, improve safety with ambulation and transfers- walking with RW, having difficulty with functional transfers, knee buckling improving OT- strengthen RUE, teach compensatory strategies, enhance ADl management BUTTER GRADER- assess for cognitive dysfunction and treat 2. Neuro: recent dx of grade 4 glioblastoma multiforme- c/u Keppra and Decadron c/u taper of 2mg TID x 7 days, then taper 3. Heme/Onc: [facility] lung and breast cancer, now with GBM and possible meningioma, will be treated by Dr. Mcarthur and at [facility] for radiation- appointment with Dr. shannon at [facility] today, f/u appointment with Dr. Polanco 06/16/19 to coordinate chemo and radiation -repeat CT negative for hemorrhage 4. Cardiac: pmh Afib, Xarelto restarted 06/05/19, c/u Cardizem, Bystolic, and Aldactone, medicine consulted to assist in management -HLD- statin 5. resp: encourage incentive spirometry 6. Endo: pmh DM, low FS, d/c'd metformin for low FS, c/u ISS, and trulicity 7. Pain: gabapentin and tylenol 8. GI: optimize bowel care 9. /ID: monitor PVRs -Urine cx +klebsiella and pseudomonas- c/u Levaquin for 10 days course, q48h, leukocytosis improving -blood cultures negative x2 06/04/19 10. Hyponatremia: sodium 139, d/c'd salt tabs-resolved 11. DVT ppx: Xarelto started on 06/05/19 and TEDs 12. Psych: c/u Lexapro for anxiety and trazodone to 25mg standing 11. Dispo: plan for discharge to [facility] for further rehab if possible given patient's fluctuation in assistance level and upcoming cancer treatment, she will need ongoing medical attention and rehab, will have more information regarding chemotherapy/radiation 06/16/19 Allergies Coded Allergies: doxycycline (Verified Allergy, Intermediate, rash, 01/21/19) MEMO Inhibitors (Verified Allergy, Unknown, 01/21/19) NSAIDS (Non-Steroidal Anti-Inflamma (Verified Allergy, Unknown, 01/21/19) lidocaine (Verified Adverse Reaction, Severe, increased pulse, decreased bp, 01/21/19) NOTE: PATIENT HAS RECEIVED LIDOCAINE & BUPIVACAINE SEVERAL TIMES WHILE AT [facility] w/o PROBLEM procaine (Verified Adverse Reaction, Severe, increased pulse, decreased bp, 01/21/19) Vital Signs Vital Signs Date Time Temp Pulse Resp B/P (MAP) Pulse Ox O2 Delivery O2 Flow Rate FiO2 06/15/19 14:00 98.6 74 18 103/59 (74) 97 Laboratory Data CBC/BMP Laboratory Tests 06/15/19 06:11 Red Blood Count 3.58 L, Mean Corpuscular Volume 88.8, Mean Corpuscular Hemoglobin 29.6, Mean Corpuscular Hemoglobin Concent 33.3, Red Cell Distribution Width 16.7 H, Calcium Level 8.2 L Labs 24H Laboratory Tests 2 06/14/19 16:42: Bedside Glucose (Misc Panel) 218H 06/14/19 19:53: Bedside Glucose (Misc Panel) 190H 06/15/19 06:11: Immature Granulocyte % (Auto) , Nucleated Red Blood Cells % (auto) 0.0, Neutrophils 88H, Lymphocytes (Manual) 11L, Monocytes (Manual) 1, Platelet Estimate NORMAL, Red Blood Cell Morphology NORMAL, Anion Gap 7L, Glomerular Filtration Rate > 60.0, Blood Urea Nitrogen 22H, Creatinine 0.52L, Sodium Level 142, Potassium Level 3.9, Chloride Level 109H, Carbon Dioxide Level 26, Calcium Level 8.2L 06/15/19 11:15: Bedside Glucose (Misc Panel) 167H Microbiology Microbiology 06/07/19 Urine Culture - Final, Complete Pseudomonas Aeruginosa Klebsiella Pneumoniae Current Medications Current Medications Current Medications Medications (Trade) Dose Ordered Sig/Haley Route PRN Reason Start Time Stop Time Status Last Admin Dose Admin Acetaminophen (Tylenol Tab) 650 mg Q4HP PRN PO fever/MILD PAIN (PS 1-4) 05/31/19 13:30 06/14/19 07:02 Artificial Tears (Akwa Tears) 2 drop TID OU 05/31/19 16:00 06/14/19 07:03 Bisacodyl (Dulcolax Suppository) 10 mg DAILYPRN PRN [place] CONSTIPATION 05/31/19 13:30 Calcium/Vitamin D (Oscal D) 1,000 mg DAILY PO 05/31/19 09:00 06/15/19 08:26 Dexamethasone (Decadron) 1 mg TID PO 06/21/19 09:00 Dexamethasone (Decadron) 2 mg Q12H PO 06/10/19 06:00 06/10/19 06:00 DC Dexamethasone (Decadron) 2 mg TID PO 06/14/19 09:00 06/20/19 23:00 06/15/19 08:26 Dexamethasone (Decadron) 3 mg Q12H PO 06/06/19 06:00 06/06/19 10:18 DC 06/06/19 05:44 Dexamethasone (Decadron) 3 mg TID PO 06/06/19 16:00 06/13/19 23:00 DC 06/13/19 21:08 Dexamethasone (Decadron) 4 mg Q12H PO 06/02/19 06:00 06/05/19 23:59 DC 06/05/19 17:34 Dexamethasone (Decadron) 4 mg Q8H PO 05/31/19 14:00 06/01/19 23:59 DC 06/01/19 21:05 Dextrose (Dextrose 50%) 25 ml ASDIRECTED PRN IV SEE LABEL COMMENTS 05/31/19 13:45 Diltiazem HCl (Cardizem Cd) 240 mg DAILY PO 06/01/19 09:00 06/14/19 07:01 Docusate Sodium (Colace) 100 mg BID PO 05/31/19 21:00 06/15/19 08:26 Escitalopram Oxalate (Lexapro) 10 mg QHS PO 06/02/19 21:00 06/14/19 22:33 Fluticasone Propionate (Flonase 0.05% Nasal [place]) 2 SPRAYS IN EACH NOSTRIL DAILY NARES 06/01/19 09:00 06/12/19 08:55 Gabapentin (Neurontin) 200 mg BID PO 05/31/19 21:00 06/15/19 08:26 Glucagon (Glucagon) 1 mg ASDIRECTED PRN SC SEE LABEL COMMENTS 05/31/19 13:45 Glucose (Glucose) 16 GM ASDIRECTED PRN PO SEE LABEL COMMENTS 05/31/19 13:45 Heparin Sodium (Porcine) (Heparin) 5,000 units Q12H SC 05/31/19 21:00 06/04/19 23:59 DC 06/04/19 20:52 Home Med (Med Rec Complete!) ASDIRECTED XX 05/31/19 15:00 05/31/19 15:18 DC Insulin Detemir (Levemir Insulin) 10 units DAILY SC 06/02/19 09:00 06/15/19 08:29 Insulin Human Lispro (HumaLOG INSULIN) SEE PROTOCOL TABLE AC SC 05/31/19 17:30 06/15/19 12:35 Insulin Human Lispro (HumaLOG INSULIN) SEE PROTOCOL TABLE QHS SC 05/31/19 21:00 Lactobacillus Acidophilus (Bacid) 1 ea TID PO 06/09/19 09:00 06/15/19 08:26 Levetiracetam (Keppra) 250 mg DAILY PO 06/09/19 09:00 06/15/19 23:59 06/15/19 08:26 Levetiracetam (Keppra) 500 mg BID PO 05/31/19 21:00 06/01/19 23:59 DC 06/01/19 21:05 Levetiracetam (Keppra) 500 mg DAILY PO 06/02/19 09:00 06/08/19 23:59 DC 06/08/19 08:55 Levofloxacin (Levaquin) 750 mg Q48H PO 06/09/19 06:00 06/17/19 06:01 06/15/19 06:37 Magnesium Oxide (Mag-Ox) 400 mg DAILY PO 06/01/19 09:00 06/15/19 08:26 Metformin HCl (Glucophage Xr) 500 mg BID@0800,1800 PO 06/11/19 18:00 06/12/19 07:36 DC 06/11/19 17:02 Metformin HCl (Glucophage Xr) 1,000 mg BID@0800,1800 PO 05/31/19 18:00 06/11/19 14:03 DC 06/11/19 09:29 Miscellaneous (Unresolved Clarification Entry) SEE LABEL COMMENTS DAILY XX 06/15/19 09:00 Cancel Miscellaneous (Unresolved Patient Own Med Order) SEE LABEL COMMENTS DAILY XX 06/01/19 09:00 06/01/19 18:25 DC Nebivolol (Bystolic) 2.5 mg DAILY PO 06/01/19 09:00 06/14/19 07:02 Oxycodone HCl (Roxicodone, Oxyir) 2.5 mg Q4HP PRN PO PAIN 05/31/19 13:45 06/07/19 10:59 DC Pantoprazole Sodium (Protonix) 40 mg DAILY PO 06/01/19 09:00 06/15/19 08:26 Patient Own Medication (Patient'S Own Med) 0.75MG We@0900 SC 06/02/19 09:00 06/09/19 13:52 Pravastatin Sodium (Pravachol) 40 mg QHS PO 05/31/19 21:00 06/14/19 22:33 Rivaroxaban (Xarelto) 20 mg DAILY@18 PO 06/05/19 18:00 06/14/19 17:13 Salmeterol Xinafoate/ Fluticasone (Advair Hfa 230/ 21) 2 puff BID INH 05/31/19 21:00 06/15/19 07:26 Senna (Senokot) 1 tab QHS PO 05/31/19 21:00 06/14/19 22:34 Sodium Chloride (Sodium Chloride) 1 gm BID PO 06/01/19 21:00 06/10/19 11:38 DC 06/10/19 07:51 Sodium Chloride (Sodium Chloride) 2 gm TID PO 05/31/19 16:00 06/01/19 11:19 DC 06/01/19 09:40 Spironolactone (Aldactone) 12.5 mg DAILY PO 06/01/19 09:00 06/13/19 08:47 Trazodone HCl (Desyrel) 25 mg QHS PO 06/08/19 21:00 06/14/19 22:33 Trazodone HCl (Desyrel) 25 mg QHS PO 06/01/19 21:00 06/02/19 14:35 DC 06/01/19 21:05 Trazodone HCl (Desyrel) 25 mg QHSP PRN PO INSOMNIA 06/06/19 10:15 06/08/19 09:48 DC Trazodone HCl (Desyrel) 50 mg QHS PO 06/02/19 21:00 06/06/19 10:18 DC 06/05/19 20:14 ES DESAI MD Jun 15, 2019 15:52
[2019-06-15] MEDS: RIVAROXABAN 20 MG TAB (XARELTO) PO SCH (17:31)
[2019-06-15] MEDS: ESCITALOPRAM OXALATE 10 MG TAB (LEXAPRO) PO SCH (20:19)
[2019-06-15] MEDS: PRAVASTATIN 20 MG TAB PO SCH (20:19)
[2019-06-15] MEDS: SENNA 8.6 MG TAB (SENOKOT) PO SCH (20:19)
[2019-06-15] MEDS: traZODone 25MG PER 1/2 TABLET PO SCH (20:19)
[2019-06-15 22:00] VITALS: BP 107/51
[2019-06-16 06:00] VITALS: BP 107/53
[2019-06-16] MEDS: ADVAIR HFA 230/21MCG INHALER INH SCH ×2 (08:18→19:30)
[2019-06-16] MEDS: SPIRONOLACTONE 12.5MG PER 1/2 TABLET PO SCH (08:34)
[2019-06-16] MEDS: NEBIVOLOL 5 MG TAB (BYSTOLIC) PO SCH (08:34)
[2019-06-16] MEDS: PANTOPRAZOLE 40MG TAB (PROTONIX) PO SCH (08:35)
[2019-06-16] MEDS: LEVEMIR (INSULIN DETEMIR) 1 UNITS/0.01ML SC SCH (08:35)
[2019-06-16] MEDS: DOCUSATE SODIUM 100 MG CAP PO SCH ×2 (08:35→21:21)
[2019-06-16] MEDS: HumaLOG INSULIN (NovoLOG) PER UNIT SC SCH ×4 (08:35→21:00)
[2019-06-16] MEDS: MAGNESIUM OXIDE 400 MG TAB (MAG-OX) PO SCH (08:36)
[2019-06-16] MEDS: LACTOBACILLUS ACIDOPHILUS CAP (BACID) PO SCH ×3 (08:36→21:21)
[2019-06-16] MEDS: CALCIUM/VITAMIN D 500 MG TAB PO SCH (08:36)
[2019-06-16] MEDS: FLUTICASONE PROP 0.05% NASAL SPRAY 16 GM (FLONASE) NARES SCH (08:36)
[2019-06-16] MEDS: GABAPENTIN 100 MG CAP PO SCH ×2 (08:36→21:22)
[2019-06-16] MEDS: POLYVINYL ALCOHOL OPHTH SOLN 15 ML(LIQUITEARS) OU SCH ×3 (08:36→21:22)
[2019-06-16] MEDS: TRULICITY 0.75 MG/0.5 ML SC SCH (08:37)
--- NOTE | 2019-06-16 09:27 | IPNPDOC ---
PM&R Progress Note DATE OF SERVICE: Jun 16, 2019 Thinner Sprayer Progress Note Subjective: Patient seen in her room with her stating she continues to feel better and is ready to begin her cancer treatments. Her appetite is improving. REVIEW OF SYSTEMS: The following is a completed review of systems and has been reviewed. Review of systems otherwise unremarkable. PAIN: Patient self reports no pain EYES: No recent vision changes EARS, NOSE, & THROAT: No throat pain, or dysphagia, or rhinorrhea CARDIOVASCULAR: Denies chest pain or palpitations PULMONARY: Denies shortness of breath GASTROINTESTINAL: Denies constipation/diarrhea GENITOURINARY: no dysuria MUSCULOSKELETAL: right upper extremity weakness NEUROLOGICAL: right upper extremity weakness, apraxia SKIN: Skull incision PSYCHIATRIC: Unremarkable All other review of systems found to be negative. PHYSICAL EXAMINATION: VITAL SIGNS: Please see below. GENERAL: Pleasant and cooperative. No acute distress. HEENT: PERRL. Extraocular movements intact. Clear conjunctiva, +YEAST PUSHER shunt CARDIOVASCULAR: Regular rate and rhythm. No murmurs, rubs, or gallops LUNGS: Clear to auscultation bilaterally. No wheezes. No rhonchi ABDOMEN: Soft, nontender, nondistended. Positive bowel sounds. Normal active bowel sounds NEUROLOGICAL: Alert and oriented times three. Cranial nerves II through XII obed sly intact. Sensation grossly intact to light touch all four limbs (-) babinkski, no clonus +apraxia when asked to move her limbs EXTREMITIES: 5\5 strength left upper extremities, 4/5 RUE >3/5 strength right lower extremity(apraxic) >4/5 strength in left lower extremity (apraxic) SKIN: coronal skull incision c/d/i ASSESSMENT:73-year-old F with past medical history of new onset RUE weakness who presents status post brain biopsy, found to have grade 4 GBM. PLAN: 1. Rehab: PT- fall prevention, improve safety with ambulation and transfers- walking with RW, having difficulty with functional transfers, knee buckling improving OT- strengthen RUE, teach compensatory strategies, enhance ADl management WARRANT CLERK- assess for cognitive dysfunction and treat 2. Neuro: recent dx of grade 4 glioblastoma multiforme- c/u Keppra and Decadron c/u taper of 2mg TID x 7 days, then taper 3. [facility], now with GBM and possible meningioma, will be treated by Dr. Mcarthur and at [facility] for radiation- appointment with Dr. shannon at [facility] today, f/u appointment with Dr. Polanco 06/16/19 to coordinate chemo and radiation -repeat CT negative for hemorrhage 4. Cardiac: pmh Afib, Xarelto restarted 06/05/19, c/u Cardizem, Bystolic, and Aldactone, medicine consulted to assist in management -HLD- statin 5. resp: encourage incentive spirometry 6. Endo: pmh DM, low FS, d/c'd metformin for low FS, c/u ISS, and trulicity 7. Pain: gabapentin and tylenol 8. GI: optimize bowel care 9. /ID: monitor PVRs -Urine cx +klebsiella and pseudomonas- c/u Levaquin for 10 days course, q48h last dose 06/17/19, leukocytosis improving -blood cultures negative x2 06/04/19 10. Hyponatremia: sodium 139, d/c'd salt tabs-resolved 11. DVT ppx: Xarelto started on 06/05/19 and TEDs 12. Psych: c/u Lexapro for anxiety and trazodone to 25mg standing 11. Dispo: plan for discharge to [facility] for further rehab if possible given patie nt's fluctuation in assistance level and upcoming cancer treatment, she will need ongoing medical attention and rehab, will have more information regarding chemotherapy/radiation 06/16/19 scheduled for today Allergies Coded Allergies: doxycycline (Verified Allergy, Intermediate, rash, 01/21/19) MEMO Inhibitors (Verified Allergy, Unknown, 01/21/19) NSAIDS (Non-Steroidal Anti-Inflamma (Verified Allergy, Unknown, 01/21/19) lidocaine (Verified Adverse Reaction, Severe, increased pulse, decreased bp, 01/21/19) NOTE: PATIENT HAS RECEIVED LIDOCAINE & BUPIVACAINE SEVERAL TIMES WHILE AT [facility] w/o PROBLEM procaine (Verified Adverse Reaction, Severe, increased pulse, decreased bp, 01/21/19) Vital Signs Vital Signs Date Time Temp Pulse Resp B/P (MAP) Pulse Ox O2 Delivery O2 Flow Rate FiO2 06/16/19 08:34 73 107/53 06/16/19 06:00 98.0 18 100 Laboratory Data Labs 24H Laboratory Tests 2 06/15/19 11:15: Bedside Glucose (Misc Panel) 167H 06/15/19 16:29: Bedside Glucose (Misc Panel) 191H 06/15/19 19:32: Bedside Glucose (Misc Panel) 281H 06/16/19 06:22: Bedside Glucose (Misc Panel) 148H Microbiology Microbiology 06/07/19 Urine Culture - Final, Complete Pseudomonas Aeruginosa Klebsiella Pneumoniae Current Medications Current Medications Current Medications Medications (Trade) Dose Ordered Sig/Haley Route PRN Reason Start Time Stop Time Status Last Admin Dose Admin Acetaminophen (Tylenol Tab) 650 mg Q4HP PRN PO fever/MILD PAIN (PS 1-4) 05/31/19 13:30 06/14/19 07:02 Artificial Tears (Akwa Tears) 2 drop TID OU 05/31/19 16:00 06/14/19 07:03 Bisacodyl (Dulcolax Suppository) 10 mg DAILYPRN PRN [place] CONSTIPATION 05/31/19 13:30 Calcium/Vitamin D (Oscal D) 1,000 mg DAILY PO 05/31/19 09:00 06/16/19 08:36 Dexamethasone (Decadron) 1 mg TID PO 06/21/19 09:00 Dexamethasone (Decadron) 2 mg Q12H PO 06/10/19 06:00 06/10/19 06:00 DC Dexamethasone (Decadron) 2 mg TID PO 06/14/19 09:00 06/20/19 23:00 06/16/19 08:36 Dexamethasone (Decadron) 3 mg Q12H PO 06/06/19 06:00 06/06/19 10:18 DC 06/06/19 05:44 Dexamethasone (Decadron) 3 mg TID PO 06/06/19 16:00 06/13/19 23:00 DC 06/13/19 21:08 Dexamethasone (Decadron) 4 mg Q12H PO 06/02/19 06:00 06/05/19 23:59 DC 06/05/19 17:34 Dexamethasone (Decadron) 4 mg Q8H PO 05/31/19 14:00 06/01/19 23:59 DC 06/01/19 21:05 Dextrose (Dextrose 50%) 25 ml ASDIRECTED PRN IV SEE LABEL COMMENTS 05/31/19 13:45 Diltiazem HCl (Cardizem Cd) 240 mg DAILY PO 06/01/19 09:00 06/14/19 07:01 Docusate Sodium (Colace) 100 mg BID PO 05/31/19 21:00 06/16/19 08:35 Escitalopram Oxalate (Lexapro) 10 mg QHS PO 06/02/19 21:00 06/15/19 20:19 Fluticasone Propionate (Flonase 0.05% Nasal [place]) 2 SPRAYS IN EACH NOSTRIL DAILY NARES 06/01/19 09:00 06/12/19 08:55 Gabapentin (Neurontin) 200 mg BID PO 05/31/19 21:00 06/16/19 08:36 Glucagon (Glucagon) 1 mg ASDIRECTED PRN SC SEE LABEL COMMENTS 05/31/19 13:45 Glucose (Glucose) 16 GM ASDIRECTED PRN PO SEE LABEL COMMENTS 05/31/19 13:45 Heparin Sodium (Porcine) (Heparin) 5,000 units Q12H SC 05/31/19 21:00 06/04/19 23:59 DC 06/04/19 20:52 Home Med (Med Rec Complete!) ASDIRECTED XX 05/31/19 15:00 05/31/19 15:18 DC Insulin Detemir (Levemir Insulin) 10 units DAILY SC 06/02/19 09:00 06/16/19 08:35 Insulin Human Lispro (HumaLOG INSULIN) SEE PROTOCOL TABLE AC SC 05/31/19 17:30 06/16/19 08:35 Insulin Human Lispro (HumaLOG INSULIN) SEE PROTOCOL TABLE QHS SC 05/31/19 21:00 06/15/19 20:20 Lactobacillus Acidophilus (Bacid) 1 ea TID PO 06/09/19 09:00 06/16/19 08:36 Levetiracetam (Keppra) 250 mg DAILY PO 06/09/19 09:00 06/15/19 23:59 DC 06/15/19 08:26 Levetiracetam (Keppra) 500 mg BID PO 05/31/19 21:00 06/01/19 23:59 DC 06/01/19 21:05 Levetiracetam (Keppra) 500 mg DAILY PO 06/02/19 09:00 06/08/19 23:59 DC 06/08/19 08:55 Levofloxacin (Levaquin) 750 mg Q48H PO 06/09/19 06:00 06/15/19 15:45 DC 06/15/19 06:37 Magnesium Oxide (Mag-Ox) 400 mg DAILY PO 06/01/19 09:00 06/16/19 08:36 Metformin HCl (Glucophage Xr) 500 mg BID@0800,1800 PO 06/11/19 18:00 06/12/19 07:36 DC 06/11/19 17:02 Metformin HCl (Glucophage Xr) 1,000 mg BID@0800,1800 PO 05/31/19 18:00 06/11/19 14:03 DC 06/11/19 09:29 Miscellaneous (Unresolved Clarification Entry) SEE LABEL COMMENTS DAILY XX 06/15/19 09:00 Cancel Miscellaneous (Unresolved Patient Own Med Order) SEE LABEL COMMENTS DAILY XX 06/01/19 09:00 06/01/19 18:25 DC Nebivolol (Bystolic) 2.5 mg DAILY PO 06/01/19 09:00 06/14/19 07:02 Oxycodone HCl (Roxicodone, Oxyir) 2.5 mg Q4HP PRN PO PAIN 05/31/19 13:45 06/07/19 10:59 DC Pantoprazole Sodium (Protonix) 40 mg DAILY PO 06/01/19 09:00 06/16/19 08:35 Patient Own Medication (Patient'S Own Med) 0.75MG We@0900 SC 06/02/19 09:00 06/09/19 13:52 Pravastatin Sodium (Pravachol) 40 mg QHS PO 05/31/19 21:00 06/15/19 20:19 Rivaroxaban (Xarelto) 20 mg DAILY@18 PO 06/05/19 18:00 06/15/19 17:31 Salmeterol Xinafoate/ Fluticasone (Advair Hfa 230/ 21) 2 puff BID INH 05/31/19 21:00 06/16/19 08:18 Senna (Senokot) 1 tab QHS PO 05/31/19 21:00 06/15/19 20:19 Sodium Chloride (Sodium Chloride) 1 gm BID PO 06/01/19 21:00 06/10/19 11:38 DC 06/10/19 07:51 Sodium Chloride (Sodium Chloride) 2 gm TID PO 05/31/19 16:00 06/01/19 11:19 DC 06/01/19 09:40 Spironolactone (Aldactone) 12.5 mg DAILY PO 06/01/19 09:00 06/13/19 08:47 Trazodone HCl (Desyrel) 25 mg QHS PO 06/08/19 21:00 06/15/19 20:19 Trazodone HCl (Desyrel) 25 mg QHS PO 06/01/19 21:00 06/02/19 14:35 DC 06/01/19 21:05 Trazodone HCl (Desyrel) 25 mg QHSP PRN PO INSOMNIA 06/06/19 10:15 06/08/19 09:48 DC Trazodone HCl (Desyrel) 50 mg QHS PO 06/02/19 21:00 06/06/19 10:18 DC 06/05/19 20:14 ES DESAI MD Jun 16, 2019 09:27
[2019-06-16] MEDS ORDERED: TRUL10IN SC (13:12)
[2019-06-16 16:00] VITALS: BP 132/67
[2019-06-16] MEDS ORDERED: [UNRECOGNIZED DRUG - CODE] PO (16:15)
[2019-06-16] MEDS ORDERED: TEMO20CA PO (16:15)
[2019-06-16] MEDS: RIVAROXABAN 20 MG TAB (XARELTO) PO SCH (16:53)
[2019-06-16 20:00] VITALS: BP 98/52
[2019-06-16] MEDS: SENNA 8.6 MG TAB (SENOKOT) PO SCH (21:21)
[2019-06-16] MEDS: traZODone 25MG PER 1/2 TABLET PO SCH (21:21)
[2019-06-16] MEDS: ESCITALOPRAM OXALATE 10 MG TAB (LEXAPRO) PO SCH (21:21)
[2019-06-16] MEDS: PRAVASTATIN 20 MG TAB PO SCH (21:22)
[2019-06-16] MEDS: ACETAMINOPHEN TAB 650MG DOSE (2X325MG) PO PRN (21:24)
[2019-06-17 06:00] VITALS: BP 127/58
[2019-06-17] MEDS: HumaLOG INSULIN (NovoLOG) PER UNIT SC SCH (07:32)
[2019-06-17] MEDS: LEVEMIR (INSULIN DETEMIR) 1 UNITS/0.01ML SC SCH (07:32)
[2019-06-17] MEDS: DOCUSATE SODIUM 100 MG CAP PO SCH (07:33)
[2019-06-17] MEDS: MAGNESIUM OXIDE 400 MG TAB (MAG-OX) PO SCH (07:33)
[2019-06-17] MEDS: LACTOBACILLUS ACIDOPHILUS CAP (BACID) PO SCH (07:33)
[2019-06-17] MEDS: PANTOPRAZOLE 40MG TAB (PROTONIX) PO SCH (07:33)
[2019-06-17] MEDS: GABAPENTIN 100 MG CAP PO SCH (07:33)
[2019-06-17] MEDS: CALCIUM/VITAMIN D 500 MG TAB PO SCH (07:33)
[2019-06-17 07:34] VITALS: BP 127/58
[2019-06-17] MEDS: SPIRONOLACTONE 12.5MG PER 1/2 TABLET PO SCH (07:34)
[2019-06-17] MEDS: FLUTICASONE PROP 0.05% NASAL SPRAY 16 GM (FLONASE) NARES SCH (07:34)
[2019-06-17] MEDS: NEBIVOLOL 5 MG TAB (BYSTOLIC) PO SCH (07:34)
[2019-06-17] MEDS: POLYVINYL ALCOHOL OPHTH SOLN 15 ML(LIQUITEARS) OU SCH (07:34)
[2019-06-17] MEDS: ADVAIR HFA 230/21MCG INHALER INH SCH (08:30)
[2019-06-17] MEDS ORDERED: LevoFLOXacin 750 MG TABLET PO ONE (09:00)
[2019-06-17] MEDS ORDERED: RISATAB3 PO (10:18)
[2019-06-17] MEDS ORDERED: ESCI10TA2 PO (10:18)
[2019-06-17] MEDS ORDERED: GLUC1INJ21 SC (10:18)
[2019-06-17] MEDS ORDERED: XARE20TA PO (10:18)
[2019-06-17] MEDS ORDERED: GABA-1171 PO (10:18)
[2019-06-17] MEDS ORDERED: INSUDET SC (10:18)
[2019-06-17] MEDS ORDERED: PANT40TA3 PO (10:18)
[2019-06-17] MEDS ORDERED: ALDA25TA2 PO (10:18)
[2019-06-17] MEDS ORDERED: SENN18TA PO (10:18)
[2019-06-17] MEDS ORDERED: DEXA1TA PO (10:18)
[2019-06-17] MEDS ORDERED: BYST5TAB2 PO (10:18)
[2019-06-17] MEDS ORDERED: BISA10SU PR (10:18)
[2019-06-17] MEDS ORDERED: FLUTISP NARES (10:18)
[2019-06-17] MEDS ORDERED: CARD120C3 PO (10:18)
[2019-06-17] MEDS ORDERED: LIQU1.4S OU (10:18)
[2019-06-17] MEDS ORDERED: MAG400TA PO (10:18)
[2019-06-17] MEDS ORDERED: INSUHUMDS SC ×2 (10:18)
[2019-06-17] MEDS ORDERED: ADVA230A INH (10:18)
[2019-06-17] MEDS ORDERED: DEXA2TA PO (10:18)
[2019-06-17] MEDS ORDERED: ACET1TAB55 PO (10:18)
[2019-06-17] MEDS ORDERED: PRAV1TAB39 PO (10:18)
[2019-06-17] MEDS ORDERED: COLA100C5 PO (10:18)
[2019-06-17] MEDS ORDERED: CALCD50TA PO (10:18)
[2019-06-17] MEDS ORDERED: TRAZ-252 PO (10:18)
[2019-06-17] MEDS ORDERED: Patient Own Medication SC (10:19)
--- NOTE | 2019-06-17 18:39 | PMRDS ---
DATE OF ADMISSION: 05/31/2019 DATE OF DISCHARGE: 06/17/2019 CHIEF COMPLAINT/DISCHARGE DIAGNOSIS: Glioblastoma brain tumor with gait impairment. 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 MRI on 05/16/2019 showed "heterogeneously thick rim irregular enhancing lesion in the left frontal parietal region with surrounding vasogenic edema likely represents metastasis given the patient's history, however, infection is another possibility, although less likely, not typical on the diffusion-weighted magnetic resonance imaging (DWI)....right greater sphenoid meningioma." She underwent an elective stereotactic brain biopsy with laser interstitial therapy, no intraoperative complications with postoperative CT head on 05/26/2019 showing "status post stereotactic brain biopsy with postsurgical tension pneumocephalus, focal hyperdense lesion with surrounding vasogenic edema in the left frontoparietal lobe, no evidence of acute intracranial hemorrhage or large territorial infarct." Subsequent imaging showed a diminishment size of a postoperative pneumocephalus. She was started on Keppra and Decadron with tapering dosing. She had significant hyponatremia and was started on sodium tablets. Brain biopsy pathology showed grade IV glioblastoma and an appointment was made for her to be seen by radiation oncologist, Dr. Mcarthur, on 06/03/2019. She was evaluated by therapy and found to have deficits in ambulation and activity of daily living (ADL) management, deemed medically appropriate for discharge to acute rehabilitation unit (ARU) on 05/31/2019. PAST MEDICAL HISTORY: As per history of present illness (HPI). HOSPITAL COURSE: The patient was admitted and enrolled in a comprehensive physical therapy (PT), occupational therapy (OT), speech and language pathology program. She received 24-hour nursing supervision and weekly team meetings were held to discuss her progress. The patient was maintained on Decadron and Keppra, both of which were tapered during her hospital course with improvement overall in her right upper extremity strength and overall apraxia. The patient was treated for a urinary tract infection positive for Klebsiella and Pseudomonas with a 10-day course of Levaquin renally dosed with overall improvement in her leukocytosis and blood cultures negative times two. Her hyponatremia also resolved and the salt tablets were discontinued. She was started on her Xarelto on 06/05/[address] head on 06/08/2019 did not show any hemorrhaging or worsening of edema. The patient initially had difficulty sleeping, was started back on her Lexapro at night and provided with trazodone with resolution of her insomnia. Her fingersticks were well-controlled. Her metformin was gradually decreased for low fingersticks and ultimately discontinued. After which, the patient reported an improvement in her appetite and general feeling of wellness. She attended multiple oncologic and radiation appointments and was deemed medically and functionally safe and appropriate to be discharged to short-term rehabilitation where she will undergo chemotherapy and radiation therapy. DISCHARGE MEDICATIONS: As per discharge instructions. FUNCTIONAL HISTORY ON DISCHARGE: The patient was minimum to modified assist for [id number], standby assist for wheelchair mobility, able to ambulate 100 feet standby assist with occasional buckling of her right knee, and in occupational therapy, she was standby assist for upper body dressing, contact guard for lower body dressing. Thank you for this referral.
== END 2019-06-17 11:05 | DRG 54 ==
LOC: M PM&R 12:47
PROVIDERS: ADMIT Physical Medicine & Rehabilitation; ATTEND Physical Medicine & Rehabilitation
DX: C71.9 Malignant neoplasm of brain, unspecified (principal); G93.6 Cerebral edema; E87.1 Hypo-osmolality and hyponatremia; N39.0 Urinary tract infection, site not specified; I48.0 Paroxysmal atrial fibrillation; R26.89 Other abnormalities of gait and mobility; D64.9 Anemia, unspecified; J45.909 Unspecified asthma, uncomplicated; E78.5 Hyperlipidemia, unspecified; E11.9 Type 2 diabetes mellitus without complications; G93.89 Other specified disorders of brain; R48.2 Apraxia; M62.81 Muscle weakness (generalized); B96.1 Klebsiella pneumoniae [K. pneumoniae] as the cause of diseases classified elsewhere; B96.5 Pseudomonas (aeruginosa) (mallei) (pseudomallei) as the cause of diseases classified elsewhere; Z98.49 Cataract extraction status, unspecified eye; Z90.49 Acquired absence of other specified parts of digestive tract; Z90.710 Acquired absence of both cervix and uterus; Z98.2 Presence of cerebrospinal fluid drainage device; Z96.651 Presence of right artificial knee joint; Z92.3 Personal history of irradiation; Z85.3 Personal history of malignant neoplasm of breast; Z85.118 Personal history of other malignant neoplasm of bronchus and lung; Z90.11 Acquired absence of right breast and nipple; Z90.2 Acquired absence of lung [part of]; Z98.1 Arthrodesis status; Z87.891 Personal history of nicotine dependence; Z79.84 Long term (current) use of oral hypoglycemic drugs; Z79.899 Other long term (current) drug therapy; Z88.1 Allergy status to other antibiotic agents; Z88.5 Allergy status to narcotic agent; Z88.6 Allergy status to analgesic agent; Z88.8 Allergy status to other drugs, medicaments and biological substances

== ENCOUNTER 2019-06-19 19:52 | Emergency (ER) | payer MEDICARE, BC, OTHER ==
[~2019-06-19 19:52] MED LIST changes: +ACET1TAB55 PO; +ADVA115A INH; +ALDA25TA2 PO; +BISA10SU PR; +BYST5TAB2 PO; +CALCD50TA PO; +CARD120C3 PO; +DEXA1TA PO; +DEXA2TA PO; +DEXA4TA PO; +ESCI10TA2 PO; +FLUT15.820 NARES; -FLUT50SP21 NARES; +FLUTISP NARES; +GLUC1INJ21 SC; +KEPP1TAB PO; +LIQU1.4S OU; +MAG400TA PO; +METF-791 PO; +PANT40TA3 PO; +PRAV1TAB39 PO; +Patient Own Medication SC; +RISATAB3 PO; +SENN18TA PO; +SENN8.6T58 PO; +SODI1TAB12 PO; +TEMO20CA PO; +TRAZ-252 PO; +[UNRECOGNIZED DRUG - CODE] PO
[2019-06-19 20:27] LABS: HEMATOCRIT 28.8 % (36.0-47.0); HEMOGLOBIN 9.5 g/dl (12.0-15.5); MEAN CORPUSCULAR HEMOGLOBIN 29.1 pg (27.0-33.0); MEAN CORPUSCULAR VOLUME 88.3 fl (80.0-96.0); PLATELET COUNT, AUTOMATED 138 10^3/uL (150-450); RED BLOOD COUNT 3.26 10^6/uL (4.00-5.40); WHITE BLOOD COUNT 7.6 10^3/uL (4.0-10.0)
[2019-06-19 20:39] LABS: INR 1.28; PROTHROMBIN TIME 15.7 SECONDS (11.8-14.0)
[2019-06-19 20:40] LABS: PARTIAL THROMBOPLASTIN TIME 23.6 SECONDS (25.0-38.4)
[2019-06-19] MEDS: NS 500 ML IV ONE (20:41)
[2019-06-19 20:49] LABS: LYMPHOCYTES 14 % (16-44); METAMYELOCYTES 2 % (0-0); NEUTROPHILS 84 % (28-66)
[2019-06-19 20:50] LABS: ANISOCYTOSIS 1+; PLATELET ESTIMATE DECREASED (NORMAL)
[2019-06-19 20:56] LABS: BLOOD UREA NITROGEN 31 MG/DL (7-18); CALCIUM LEVEL 8.2 MG/DL (8.8-10.2); CARBON DIOXIDE LEVEL 19 MEQ/L (21-32); CHLORIDE LEVEL 107 MEQ/L (98-107); CREATININE FOR GFR 0.77 MG/DL (0.55-1.30); GLOMERULAR FILTRATION RATE > 60.0 (>39); GLUCOSE, FASTING 270 MG/DL (70-100); POTASSIUM SERUM 4.1 MEQ/L (3.5-5.1); SODIUM LEVEL 140 MEQ/L (136-145)
[2019-06-19 20:57] LABS: ALBUMIN 2.6 GM/DL (3.2-5.2); ALT/SGPT 74 U/L (12-78); BILIRUBIN,DIRECT 0.1 MG/DL (0.0-0.2); BILIRUBIN,TOTAL 0.4 MG/DL (0.2-1.0); CK-MB VALUE MASS < 1.0 NG/ML (<3.6); CPK CREATINE PHOSPHOKINASE 27 U/L (26-192); LIPASE 374 U/L (73-393); TOTAL PROTEIN 4.8 GM/DL (6.4-8.2); TROPONIN I < 0.02 NG/ML (< 0.10)
[2019-06-19 21:18] LABS: APPEARANCE, URINE CLEAR (CLEAR); BACTERIA, URINE AUTO NEGATIVE (NEGATIVE); BILIRUBIN, URINE AUTO NEGATIVE (NEGATIVE); BLOOD, URINE BLOOD NEGATIVE (NEGATIVE); COLOR, URINE YELLOW (YELLOW); GLUCOSE, URINE (UA) AUTO 3+ mg/dL (NEGATIVE); KETONE, URINE AUTO TRACE mg/dL (NEGATIVE); LEUKOCYTE ESTERASE, URINE AUTO NEGATIVE (NEGATIVE); NITRITE, URINE AUTO NEGATIVE (NEGATIVE); PROTEIN, URINE AUTO NEGATIVE (NEGATIVE); RBC, URINE AUTO 3 /HPF (0-3); SQUAMOUS EPITHELIAL CELL UR AU 0 /HPF (0-6); UROBILINOGEN, URINE AUTO 0.2 mg/dL (0.0-2.0); WBC, URINE AUTO 2 /HPF (0-3)
[2019-06-19] MEDS ORDERED: BASA100I SC (21:51)
[2019-06-19] MEDS ORDERED: ESCI10TA2 PO (21:51)
[2019-06-19] MEDS ORDERED: MILKSUS10 PO (21:51)
[2019-06-19] MEDS ORDERED: COLA100C5 PO (21:51)
[2019-06-19] MEDS ORDERED: DULC10SU2 PR (21:51)
[2019-06-19] MEDS ORDERED: CALC1TAB30 PO (21:51)
[2019-06-19] MEDS ORDERED: BYST2.5T2 PO (21:51)
[2019-06-19] MEDS ORDERED: GLUC1KIT SC (21:51)
[2019-06-19] MEDS ORDERED: ATOR1TAB19 PO (21:51)
[2019-06-19] MEDS ORDERED: ENEMENE PR (21:51)
[2019-06-19] MEDS ORDERED: DEXA1TA PO (21:51)
[2019-06-19] MEDS ORDERED: LIQU1.4S OU (21:51)
[2019-06-19] MEDS ORDERED: RISATAB3 PO (21:51)
[2019-06-19] MEDS ORDERED: DEXA2TA PO (21:51)
[2019-06-19] MEDS ORDERED: ACET-908 PO (21:51)
[2019-06-19] MEDS ORDERED: PANT-23 PO (21:51)
[2019-06-19] MEDS ORDERED: MULTTAB62 PO (21:51)
[2019-06-19] MEDS ORDERED: ZOFR8TAB24 PO (21:51)
[2019-06-19] MEDS ORDERED: SYMB16INH INH (21:51)
[2019-06-19] MEDS ORDERED: TRAZ-252 PO (21:51)
[2019-06-19] MEDS: MAALOX 30 ML SUSP *UDC PO ONE (22:04)
[2019-06-20 01:30] VITALS: BP 113/57
[2019-06-20 01:32] LABS: CK-MB VALUE MASS < 1.0 NG/ML (<3.6); CPK CREATINE PHOSPHOKINASE 15 U/L (26-192); MB/CK RELATIVE INDEX 6.67 (< OR =4); TROPONIN I < 0.02 NG/ML (< 0.10)
--- NOTE | 2019-06-20 07:17 | ECGEPIP ---
[facility] - ED Test Date: 2019-06-19 Pat Name: SON BUCKNER Department: Room: - Gender: Female Television Parts Tester: juan francisco : 1945 Requested By: ARRON MCINTOSH Order Number: [id number] Reading MD: Janette Bird Measurements Intervals [place] Rate: 60 P: 2 OR: 133 QRS: 13 QRSD: 86 T: 39 QT: 405 QTc: 405 Interpretive Statements SINUS RHYTHM SIMILAR 05/14/19 Electronically Signed on 06-20-2019 7:16:39 EDT by Janette Bird
--- NOTE | 2019-06-20 07:20 | ECGEPIP ---
[facility] - ED Test Date: 2019-06-19 Pat Name: SON BUCKNER Department: Room: - Gender: Female Pantograph Machine Operator: juan francisco : 1945 Requested By: ARRON MCINTOSH Order Number: [id number] Reading MD: Janette Bird Measurements Intervals [place] Rate: 61 P: 142 MA: 105 QRS: 8 QRSD: 86 T: 41 QT: 399 QTc: 404 Interpretive Statements SINUS RHYTHM WITH SHORT MA INTERVAL Electronically Signed on 06-20-2019 7:20:04 EDT by Janette Bird
--- NOTE | 2019-06-20 10:51 | REP ---
Portable chest, 08:35 p.m., single AP view with the patient sitting: Comparison is 07/15/2016. Lung conner are clear. Cardiac size is mildly enlarged, unchanged. The ela and mediastinum are unremarkable. There is thoracic scoliosis convex right, unchanged. There are surgical clips in the right axilla, unchanged. There is a SECURITIES ATTORNEY shunt on the right, unchanged. Impression: There are no acute cardiopulmonary findings. There are chronic changes as described. Electronically Signed by Jordan Jerry MD 06/20/2019 08:24 A
== END 2019-06-20 02:05 | disposition home or self-care (01) ==
LOC: M ED 19:52
DX: K21.9 Gastro-esophageal reflux disease without esophagitis (principal); I48.91 Unspecified atrial fibrillation; I10 Essential (primary) hypertension; E11.9 Type 2 diabetes mellitus without complications; D64.9 Anemia, unspecified; M19.90 Unspecified osteoarthritis, unspecified site; Z85.841 Personal history of malignant neoplasm of brain; Z85.118 Personal history of other malignant neoplasm of bronchus and lung; Z98.2 Presence of cerebrospinal fluid drainage device; D33.4 Benign neoplasm of spinal cord; Z88.8 Allergy status to other drugs, medicaments and biological substances; Z88.1 Allergy status to other antibiotic agents; Z88.4 Allergy status to anesthetic agent; Z79.899 Other long term (current) drug therapy; Z79.01 Long term (current) use of anticoagulants; Z79.4 Long term (current) use of insulin; Z79.51 Long term (current) use of inhaled steroids

== ENCOUNTER → 2019-06-24 | Outpatient (REF) ==
[~2019-06-24] MED LIST changes: +ACET-908 PO; +ACET650T3 PO; +ALBU83IN NEB; +ATOR1TAB19 PO; +BACT800T5 PO; +BASA100I SC; +CALC1TAB30 PO; +CEFD1CAP8 PO; +CEFD300CAP FT; +CVS100LI4 PO; +DECA4TAB PO; +DULC10SU2 PR; +ENEMENE PR; +FIBE625T PO; +FLON1SPR NARES; +GLUC1KIT SC; +HYOS125TA PO; +LASI20TA3 PO; +LORA0.5T5 PO; +MILKSUS10 PO; +MORP20SO3 PO; +MULTTAB62 PO; +NEUR100C PO; +PANT-23 PO; +SYMB16INH INH; +TEMO1CAP PO; +TEMO1CAP7 PO; +VITA50005 PO; +XARE10TA PO; +ZOFR8TAB24 PO
[2019-06-24 07:40] LABS: BLOOD UREA NITROGEN 23 MG/DL (7-18); CALCIUM LEVEL 8.7 MG/DL (8.8-10.2); CARBON DIOXIDE LEVEL 27 MEQ/L (21-32); CHLORIDE LEVEL 108 MEQ/L (98-107); CREATININE FOR GFR 0.54 MG/DL (0.55-1.30); GLOMERULAR FILTRATION RATE > 60.0 (>39); GLUCOSE, FASTING 136 MG/DL (70-100); MAGNESIUM LEVEL 2.3 MG/DL (1.8-2.4); POTASSIUM SERUM 4.2 MEQ/L (3.5-5.1); SODIUM LEVEL 142 MEQ/L (136-145)
[2019-06-24 08:02] LABS: HEMOGLOBIN A1c 6.7 %
[2019-06-24 10:56] LABS: TOTAL 25(OH) VITAMIN D 64.6 NG/ML (30.0-100.0)
== END ==
LOC: SKLAB5 07:47
PROVIDERS: ATTEND Internal Medicine
DX: I10 Essential (primary) hypertension (principal); E11.9 Type 2 diabetes mellitus without complications; D64.9 Anemia, unspecified

== ENCOUNTER 2019-06-25 13:29 | Outpatient (RCR) | payer MEDICARE, BC, OTHER ==
--- NOTE | 2019-06-23 08:31 | RADONC ---
RADIATION ONCOLOGY PROGRESS NOTE DATE: 06/21/2019 CHART NUMBER: [id number] Ms. Ramirez underwent her first fraction of radiation today to her brain tumor. She received a dose of 180 cGy. The patient tolerated her first fraction without difficulty. The patient's review of systems is unchanged. PHYSICAL EXAMINATION Clearly, there was no change secondary to radiation as this was her first fraction. The remainder of her physical exam remained unchanged as well. Ms. Ramirez tolerated her first treatment without difficulty and radiation will continue as scheduled.
[~2019-06-25 13:29] MED LIST changes: -ACET650T3 PO; -ALBU83IN NEB; -BACT800T5 PO; -CEFD1CAP8 PO; -CEFD300CAP FT; -CVS100LI4 PO; -DECA4TAB PO; -FIBE625T PO; -FLON1SPR NARES; -HYOS125TA PO; -LASI20TA3 PO; -LORA0.5T5 PO; -MORP20SO3 PO; -NEUR100C PO; -TEMO1CAP PO; -TEMO1CAP7 PO; -VITA50005 PO; -XARE10TA PO
== END 2019-06-26 ==
LOC: M ONCR 13:29
PROVIDERS: ATTEND Radiology Radiation Oncology
DX: C71.9 Malignant neoplasm of brain, unspecified (principal)

== ENCOUNTER → 2019-07-05 | Outpatient (REF) ==
[~2019-07-05] MED LIST changes: +ACET650T3 PO; +ALBU83IN NEB; +BACT800T5 PO; +CEFD1CAP8 PO; +CEFD300CAP FT; +CVS100LI4 PO; +DECA4TAB PO; +FIBE625T PO; +FLON1SPR NARES; +HYOS125TA PO; +LASI20TA3 PO; +LORA0.5T5 PO; +MORP20SO3 PO; +NEUR100C PO; +TEMO1CAP PO; +TEMO1CAP7 PO; +VITA50005 PO; +XARE10TA PO
[2019-07-05 08:31] LABS: BLOOD UREA NITROGEN 15 MG/DL (7-18); CALCIUM LEVEL 8.5 MG/DL (8.8-10.2); CARBON DIOXIDE LEVEL 25 MEQ/L (21-32); CHLORIDE LEVEL 108 MEQ/L (98-107); GLOMERULAR FILTRATION RATE > 60.0 (>39); GLUCOSE, FASTING 94 MG/DL (70-100); POTASSIUM SERUM 4.1 MEQ/L (3.5-5.1); SODIUM LEVEL 143 MEQ/L (136-145)
--- NOTE | 2019-07-05 15:34 | REP ---
Chest, one view Indication: Fever/crackles left lower lobe Comparison: Portable chest x-ray of 06/19/2019. Findings: There is an similar appearance of a partially imaged DOCUMENT MANAGEMENT SPECIALIST shunt catheter overlying the right hemithorax. The cardiac silhouette is mildly enlarged but unchanged. There is normal pulmonary vascularity. There is ill-defined density along the diaphragm, likely within the left lower lobe and lingula and new since the prior study. The right costophrenic angles is sharp. There is mild blunting of the left. There is diffuse bone demineralization. There are surgical clips are seen within the right axilla. There is a metallic hardware of lumbar fusion. Impression: Left lower lobe and probable lingular infiltrate, new since the prior study. Electronically Signed by Henri Raya MD 07/05/2019 03:26 P
== END ==
LOC: SKLAB5 07:47
PROVIDERS: ATTEND Internal Medicine
DX: R60.9 Edema, unspecified (principal); R50.9 Fever, unspecified; R91.8 Other nonspecific abnormal finding of lung field

== ENCOUNTER 2019-07-07 14:12 | Inpatient (IN) | payer MEDICARE, BC, OTHER ==
[~2019-07-07] VITALS: Ht 157.5 cm; Wt 57.0 kg
[~2019-07-07 14:12] MED LIST changes: -ALBU83IN NEB; -CEFD1CAP8 PO; -CEFD300CAP FT; -CVS100LI4 PO; -FIBE625T PO; -LASI20TA3 PO
[2019-07-07] MEDS ORDERED: FIBE625T PO (14:50)
[2019-07-07] MEDS ORDERED: CEFD300CAP FT (15:29)
[2019-07-07] MEDS ORDERED: CEFD1CAP8 PO (15:29)
[2019-07-07] MEDS ORDERED: ALBU83IN NEB (15:29)
[2019-07-07] MEDS ORDERED: CVS100LI4 PO (15:29)
[2019-07-07 16:02] LABS: BASO % 0.3 % (0.0-1.0); EOS % 0.1 % (0.0-3.0); HEMATOCRIT 21.2 % (36.0-47.0); LYMPH # 0.7 10^3/uL (1.5-5.0); LYMPH % 9.3 % (24.0-44.0); MEAN CORPUSCULAR HEMOGLOBIN 29.7 pg (27.0-33.0); MEAN CORPUSCULAR HGB CONC 31.1 g/dl (32.0-36.5); MEAN CORPUSCULAR VOLUME 95.5 fl (80.0-96.0); MONO # 0.7 10^3/uL (0.0-0.8); NEUTROPHILS # 5.8 10^3/uL (1.5-8.5); NEUTROPHILS % 79.4 % (36.0-66.0); PLATELET COUNT, AUTOMATED 235 10^3/uL (150-450); RED BLOOD COUNT 2.22 10^6/uL (4.00-5.40); WHITE BLOOD COUNT 7.2 10^3/uL (4.0-10.0)
[2019-07-07 16:04] LABS: INR 1.63; PROTHROMBIN TIME 19.1 SECONDS (11.8-14.0)
[2019-07-07 16:05] LABS: PARTIAL THROMBOPLASTIN TIME 38.2 SECONDS (25.0-38.4)
[2019-07-07 16:09] LABS: HEMOGLOBIN 6.6 g/dl (12.0-15.5)
[2019-07-07 16:32] LABS: ALBUMIN 1.9 GM/DL (3.2-5.2); ALT/SGPT 23 U/L (12-78); BILIRUBIN,DIRECT < 0.1 MG/DL (0.0-0.2); BILIRUBIN,TOTAL 0.3 MG/DL (0.2-1.0); BLOOD UREA NITROGEN 20 MG/DL (7-18); CALCIUM LEVEL 8.1 MG/DL (8.8-10.2); CARBON DIOXIDE LEVEL 27 MEQ/L (21-32); CHLORIDE LEVEL 107 MEQ/L (98-107); CK-MB VALUE MASS < 1.0 NG/ML (<3.6); CPK CREATINE PHOSPHOKINASE 16 U/L (26-192); CREATININE FOR GFR 0.65 MG/DL (0.55-1.30); GLOMERULAR FILTRATION RATE > 60.0 (>39); GLUCOSE, FASTING 141 MG/DL (70-100); MB/CK RELATIVE INDEX 6.25 (< OR =4); NT-PRO BNP 970 PG/ML (<450); POTASSIUM SERUM 3.9 MEQ/L (3.5-5.1); SODIUM LEVEL 143 MEQ/L (136-145); TOTAL PROTEIN 4.9 GM/DL (6.4-8.2); TROPONIN I < 0.02 NG/ML (< 0.10)
[2019-07-07] MEDS ORDERED: BISACODYL 10 MG SUPP PR PRN (18:00)
[2019-07-07] MEDS ORDERED: MOM 30ML SUSPENSION UDC PO PRN (18:00)
[2019-07-07] MEDS ORDERED: ALBUTEROL SULFATE 2.5 MG/0.5 ML INH NEB SOLN NEB PRN (18:15)
[2019-07-07] MEDS ORDERED: GLUCOSE 4 GM CHEW TABLET PO PRN (18:15)
[2019-07-07] MEDS ORDERED: FUROSEMIDE 20 MG/2 ML VIAL (J1940) IV ONE (18:15)
[2019-07-07] MEDS ORDERED: GLUCAGON FOR INJ 1 MG VIAL (J1610) SC PRN (18:15)
[2019-07-07] MEDS ORDERED: DEXTROSE 50% 50 ML SYRINGE IV PRN (18:15)
[2019-07-07] MEDS ORDERED: PILL CUTTER 1 EACH XX PRN (18:30)
--- NOTE | 2019-07-07 19:09 | REP ---
CHEST, PORTABLE: AP portable view of the chest is performed and compared to multiple prior exams, most recently 07/05/2019. There is mild cardiomegaly. There are mildly increased interstitial markings diffusely bilaterally which appears stable compared to prior studies dating back to 04/2019. Mediastinal silhouette is unchanged. Multiple metallic clips overlie the right chest wall. Shunt catheter traverses vertically across the right chest. IMPRESSION: Mild cardiomegaly. Stable chronic interstitial densities diffusely bilaterally. Electronically Signed by Jordan Noel MD 07/08/2019 10:56 A
[2019-07-07 19:34] LABS: FERRITIN 97 NG/ML (8-252); IRON (FE) 7 UG/DL (50-170); PERCENT SATURATION 3.2 % (13.2-45.0); TOTAL IRON BINDING CAPACITY 218 UG/DL (250-450)
[2019-07-07 19:42] LABS: FOLATE 17.7 NG/ML; VITAMIN B12 LEVEL 241 PG/ML
[2019-07-07] MEDS ORDERED: cefTRIAXone SOD 1 GM in D5W MINI-BAG PLUS 50 ML IV SCH (20:00)
[2019-07-07] MEDS: ALBUTEROL SULFATE 2.5 MG/0.5 ML INH NEB SOLN NEB SCH (20:00)
[2019-07-07] MEDS ORDERED: TEMOZOLOMIDE 100 MG PO SCH (21:00)
[2019-07-07] MEDS: HumaLOG INSULIN (NovoLOG) PER UNIT SC SCH (21:00)
[2019-07-07] MEDS: SYMBICORT 160/4.5MCG INHALER 6GM INH SCH (21:00)
[2019-07-07 21:16] VITALS: BP 121/58
[2019-07-07 22:16] VITALS: BP 137/63
[2019-07-07] MEDS: PIPERACILLIN/TAZOBACTAM SOD 3.375 GM in D5W MINI-BAG PLUS 50 ML IV SCH (22:31)
[2019-07-07] MEDS: SENOKOT S TAB PO SCH (22:32)
[2019-07-07] MEDS: traZODone 50 MG TAB PO SCH (22:32)
[2019-07-07] MEDS: GABAPENTIN 100 MG CAP PO SCH (22:32)
[2019-07-07] MEDS: ESCITALOPRAM OXALATE 10 MG TAB (LEXAPRO) PO SCH (22:32)
--- NOTE | 2019-07-07 22:59 | HPEPDOC ---
General Date of Admission Jul 07, 2019 at 17:54 Date of Service: Jul 07, 2019 Chief Complaint The patient is a 74-year-old female admitted with a reason for visit of Anemia Glioblastoma Multiforme. 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 She underwent an elective stereotactic brain biopsy with laser interstitial therapy, no intraoperative complications with postoperative CT head on 05/26/2019 showing "status post stereotactic brain biopsy with postsurgical tension pneumocephalus, focal hyperdense lesion with surrounding vasogenic edema in the left frontoparietal lobe, no evidence of acute intracranial hemorrhage or large territorial infarct." Subsequent imaging showed a diminishment size of a postoperative pneumocephalus was treated with decadron and keppra then was in our ARU from 05/31 to 06/17 then discharged to sub acute rehab on 06/17. She is now undergoing chemotherapy and RT and is at [facility] getting rehabilitation from 06/17/19. She developed bilateral pedal swelling for the past 7 days and about 2 days ago had fever and dyspnea and was diagnosed with LLL pneumonia after a CXR and started on cefdinir. She had her routine RT yesterday and today she had her scheduled blood work as per oncology and was found to have a low hemoglobin of 6.9 so was sent to the ED for blood transfusion. On arrival to ED she was mildly hypoxic to 86% to 895 in room air so was put on oxygen . Blood work in the ed confirmed a HB of 6.6 and so she was admitted for anemia and LLL anemia. She denied any overt bleeding from anywhere. She does have some chronic cough but no increase in phlegm production. Patient reported that she had a fever of 100.6 at the [place] 2 days ago. Home Medications Scheduled Albuterol Sulf (Albuterol Sulfate) 2.5 Mg/3 Ml Vial.neb, 1 VIAL NEB Q6H, (Reported) 0500, 1100, 1700, 2300 Atorvastatin Calcium (Atorvastatin Calcium) 10 Mg Tablet, 10 MG PO DAILY, (Reported) Budesonide/Formoterol (Symbicort 160-4.5 Mcg Inhaler) 6 Gm Hfa.aer.ad, 2 PUFF INH BID, (Reported) Calcium Carbonate/Vitamin D3 (Calcium 500-Vit D3 200 Caplet) 1 Each Tablet, 1 TAB PO BID, (Reported) Calcium Polycarbophil (Fibercon) 625 Mg Tablet, 1,250 MG PO DAILY, (Reported) Cefdinir (Cefdinir) 300 Mg Capsule, 300 MG PO BID, (Reported) 6 DAYS STARTED ON 07/06 Docusate Sodium (Colace) 100 Mg Capsule, 100 MG PO BID, (Reported) Ergocalciferol (Vitamin D2) (Drisdol) 50,000 Unit Cap, 50,000 UNIT PO QWEEK, (Reported) TU Escitalopram Oxalate (Escitalopram Oxalate) 10 Mg Tablet, 10 MG PO QHS, (Reported) Furosemide (Lasix) 20 Mg Tablet, 20 MG PO DAILY Gabapentin (Gabapentin) 100 Mg Cap, 200 MG PO BID, (Reported) Glucagon,Human Recombinant (Glucagon Emergency Kit) 1 Mg Vial, 1 MG SC ASDIRECTED, (Reported) Guaifenesin (Tussin) 100 Mg/5 Ml Liquid, 20 ML PO Q8H, (Reported) 0600, 1400, 2000 Insulin Glargine,Hum.rec.anlog (Basaglar Kwikpen U-100) 100 Unit/1 Ml Insuln.pen, 12 UNIT SC QAM, (Reported) GIVE AT 0730 L.acidoph/L.bulg/B.bif/S.therm (Rubina-Bid Caplet) 1 Each Tablet, 1 TAB PO TID, (Reported) 0800, 1300, 2000 Lutein/Zeaxanthin (Lutein-Zeaxanthin 25-5 mg Sfgl) 1 Cap Cap, 1 CAP PO DAILY, (Reported) Magnesium Oxide (Magnesium Oxide) 400 Mg Tablet, 400 MG PO DAILY, (Reported) Multivitamin with Minerals (Multivitamins with Minerals) 1 Each Tablet, 1 TAB PO DAILY, (Reported) Nebivolol HCl (Bystolic) 2.5 Mg Tablet, 2.5 MG PO DAILY, (Reported) Ondansetron HCl (Zofran) 8 Mg Tablet, 8 MG PO QHS, (Reported) GIVE AT 2000, 1 HOUR PRIOR TO TEMODAR NEW ORDER 06/19/2019 Pantoprazole Sodium (Pantoprazole Sodium) 40 Mg Tablet.dr, 40 MG PO DAILY, (Reported) 0900 Polyvinyl Alcohol (Liquitears) 15 Ml Drops, 2 DROP OU BID, (Reported) Spironolactone (Spironolactone) 25 Mg Tab, 12.5 MG PO DAILY, (Reported) Trazodone HCl (Trazodone HCl) 50 Mg Tablet, 25 MG PO QHS, (Reported) [Patient Own Medication] 1 EA EA, 0 EA SC We@0900 trulicity Scheduled PRN Acetaminophen (Acetaminophen) 325 Mg Tablet, 650 MG PO Q4H PRN for PAIN / FEVER, (Reported) Albuterol Sulfate (Ventolin Hfa) 108 Mcg/Act Aer, 2 PUFF INH Q4H PRN for SHORTNESS OF BREATH, (Reported) Bisacodyl (Dulcolax) 10 Mg Supp.rect, 10 MG NE DAILY PRN for CONSTIPATION, (Reported) Fluticasone Propionate (Fluticasone Propionate) 15.8 Ml [place].susp, 2 SPRAY NARES DAILY PRN for NASAL CONGESTION, (Reported) Magnesium Hydroxide (Milk of Magnesia) 400 Mg/5 Ml Oral.susp, 30 ML PO DAILY PRN for CONSTIPATION, (Reported) Sennosides (Senna) 8.6 Mg Tablet, 1 TABS PO QHS PRN for CONSTIPATION, (Reported) Sodium Phosphate,Lyon-Dibasic (Enema) 133 Ml Enema, 1 SYLVIA NE DAILY PRN for CONSTIPATION, (Reported) Miscellaneous Medications Cefdinir (Cefdinir) 300 Mg Capsule, 300 MG FT, (Reported) Allergies Coded Allergies: doxycycline (Verified Allergy, Intermediate, rash, 06/19/19) MEMO Inhibitors (Verified Allergy, Unknown, 06/19/19) NSAIDS (Non-Steroidal Anti-Inflamma (Verified Allergy, Unknown, 06/19/19) lidocaine (Verified Adverse Reaction, Severe, increased pulse, decreased bp, 06/19/19) NOTE: PATIENT HAS RECEIVED LIDOCAINE & BUPIVACAINE SEVERAL TIMES WHILE AT [facility] w/o PROBLEM procaine (Verified Adverse Reaction, Severe, increased pulse, decreased bp, 06/19/19) Past Medical History Medical History GBM, Diabetes, hypertension, hyperlipidemia, chronic obstructive pulmonary disease (COPD), h/o obstructive sleep apnea now resolved after loss of 75 LBS , lung cancer status post right lobectomy, pulmonary hypertension, atrial fibri llation on Xarelto, right breast cancer s/p mastectomy, normal pressure hydrocephalus (NPH) with a ventriculoperitoneal (OFFSET PRESS OPERATOR APPRENTICE) shunt, spinal cord schwannomas s/p resection, neuropathy, and gastroesophageal reflux disease, Recent diagnosis of glioblastoma multiforme stage 4 on the left with right sided weakness diagnosed in April 2019 , chronic anemia for at least 2 years needing intermittent blood transfusions, iron deficiency Surgical History appendectomy hysterectomy oophorectomy lumber fusion OFFSET PRESS OPERATOR APPRENTICE shunt for NPH on the right 1987, right radical mastectomy. status post right upper lobe lobectomy 2011. Spinal schwannoma, status post surgical correction approximately 2011. right knee replacement cardiac ablation left knee arthroscopy Family History Significant Family History: Diabetes (father), Heart disease (father), Hypertension (father), Other (CVA in father) Social History * Smoker: Denies Alcohol: Denies Drugs: denies A-FIB/CHADSVASC A-FIB History Current/History of A-Fib/PAF?: Yes Current PO Anticoag Therapy: Yes Review of Systems Constitutional: Reports: Fever, Night Sweats, Weakness, Fatigue; Denies: Chills Eyes: Denies: Pain, Vision change ENT: Denies: Head Aches, Ear Pain, Dysphagia Skin: Denies: Rash, Lesions, Breakdown Pulmonary: Reports: Dyspnea, Cough Cardiovascular: Denies: Chest Pain, Palpitations, Orthopnea Gastrointestinal: Reports: Constipation; Denies: Nausea, Vomiting, Abdominal Pain, Diarrhea, Melena, Hematochezia Genitourinary: Denies: Dysuria, Frequency, Incontinence, Retention Hematologic: Denies: Bruising, Bleeding Excessively Musculoskeletal: Denies: Neck Pain, Back Pain, Joint Pain, Muscle Pain, Spasms Neurological: Reports: Weakness (right sided upper . lower); Denies: Confusion, Seizures Physical Examination General Exam: Positive: Alert, Cooperative, No Acute Distress Eye Exam: Positive: Conjunctiva & lids normal, EOMI ENT Exam: Positive: Atraumatic, Mucous membr. moist/pink, Pharynx Normal Neck Exam: Positive: Supple; Negative: JVD, thyromegaly Chest Exam: Positive: Rales, Other (bilateral coarse brath sounds. Basal crackles) Heart Exam: Positive: Rate Normal, Regular Rhythm, Normal S1, Normal S2; Negative: Murmurs, Rubs Telemetry: Positive: No significant arrhythmia Abdomen Exam: Positive: Normal bowel sounds, Soft; Negative: Tenderness, Hepatospenomegaly Extremity Exam: Positive: Edema (3+ bipedal edema); Negative: Clubbing, Cyanosis Skin Exam: Positive: Nl turgor and temperature; Negative: Breakdown, Lesion Vital Signs Vital Signs Date Time Temp Pulse Resp B/P (MAP) Pulse Ox O2 Delivery O2 Flow Rate FiO2 07/07/19 18:06 82 24 95/54 (68) 96 Nasal Cannula 2.0 07/07/19 14:23 97.7 Laboratory Data Labs 24H Laboratory Tests 2 07/07/19 15:40: Immature Granulocyte % (Auto) 1.9, White Blood Count 7.2, Red Blood Count 2.22L, Hemoglobin 6.6*L, Hematocrit 21.2L, Mean Corpuscular Volume 95.5, Mean Corpuscu lar Hemoglobin 29.7, Mean Corpuscular Hemoglobin Concent 31.1L, Red Cell Distribution Width 22.4H, Platelet Count 235, Neutrophils (%) (Auto) 79.4H, Lymphocytes (%) (Auto) 9.3L, Monocytes (%) (Auto) 9.0H, Eosinophils (%) (Auto) 0.1, Basophils (%) (Auto) 0.3, Neutrophils # (Auto) 5.8, Lymphocytes # (Auto) 0.7L, Monocytes # (Auto) 0.7, Eosinophils # (Auto) 0.0, Basophils # (Auto) 0.0, Nucleated Red Blood Cells % (auto) 0.4H, Prothrombin Time 19.1H, Prothromb Time International Ratio 1.63, Activated Partial Thromboplast Time 38.2, Anion Gap 9, Glomerular Filtration Rate > 60.0, Lactic Acid Level 1.5, Calcium Level 8.1L, Aspartate Amino Transf (AST/SGOT) 10, Alanine Aminotransferase (ALT/SGPT) 23, Alkaline Phosphatase 83, Total Bilirubin 0.3, Direct Bilirubin < 0.1, Total Creatine Kinase 16L, Creatine Kinase MB < 1.0, Creatine Kinase MB Relative Index 6.25H, Troponin I < 0.02, MB-Cat-G-Type Natriuretic Peptide 970H, Total Protein 4.9L, Albumin 1.9L, Albumin/Globulin Ratio 0.63L, Thyroid Stimulating Hormone (TSH) 0.830 CBC/BMP Laboratory Tests 07/07/19 15:40 Red Blood Count 2.22 L, Mean Corpuscular Volume 95.5, Mean Corpuscular Hemoglobin 29.7, Mean Corpuscular Hemoglobin Concent 31.1 L, Red Cell Distribution Width 22.4 H, Neutrophils (%) (Auto) 79.4 H, Lymphocytes (%) (Auto) 9.3 L, Monocytes (%) (Auto) 9.0 H, Eosinophils (%) (Auto) 0.1, Basophils (%) (Auto) 0.3, Neutrophils # (Auto) 5.8, Lymphocytes # (Auto) 0.7 L, Monocytes # (Auto) 0.7, Eosinophils # (Auto) 0.0, Basophils # (Auto) 0.0 Microbiology Microbiology 07/07/19 Blood Culture, Received Pending 07/07/19 Blood Culture, Received Pending Assessment/Plan 74 year old female with PMH of Diabetes, paroxysmal afib, hypertension, hyperlipidemia, refractory anemia iron deficiency from unknown cause receiving blood transfusions for 2 years, breast cancer s/p right radical mastectomy, RUL lng cancer s/p lobectomy, 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 She underwent an elective stereotactic brain biopsy with laser interstitial therapy, no intraoperative complications with postoperative CT head on 05/26/2019 showing "status post stereotactic brain biopsy with postsurgical tension pneumocephalus, focal hyperdense lesion with surrounding vasogenic edema in the left frontoparietal lobe, no evidence of acute intracranial hemorrhage or large territorial infarct." Subsequent imaging showed a diminishment size of a postoperative pneumocephalus was treated with decadron and keppra then was in our ARU from 05/31 to 06/17 then discharged to sub acute rehab on 06/17. She is now undergoing chemotherapy and RT and is at [facility] getting rehabilitation from 06/17/19. She developed bilateral pedal swelling for the past 7 days and about 2 days ago had fever and dyspnea and was diagnosed with LLL pneumonia after a CXR and started on cefdinir. She had her routine RT yesterday and today she had her scheduled blood work as per oncology and was found to have a low hemoglobin of 6.9 so was sent to the ED for blood transfusion. On arrival to ED she was mildly hypoxic to 86% to 895 in room air so was put on oxygen . Blood work in the ed confirmed a HB of 6.6 and so she was admitted for anemia and LLL anemia. She denied any overt bleeding from anywhere. She does have some chronic cough but no increase in phlegm production. Patient reported that she had a fever of 100.6 at the [place] 2 days ago. Refractory anemia Has been following with oncology for 2 years receiveing intermittent PRBC transfusions. No evidence of bleeding EGD and colonoscopy negative non correcting despite iron repletion following evidence of microcytic anemia and iron deficiency in 2018 will transfuse 2 units of PRBC with lasix in between and then prn if hypoxia increases check HH q 6hours and transfuse more if required. Will hold xarelto will get iron panel, vit B12 and Folate levels. Left lower lobe pneumonia will give zosyn sputum culture if available Hypoxia due to pneumonia, COPD and possibly severe anemia/ high output heart failure will give lasix, oxygen supplementation continue albuterol and symbicort. CHF Acute due to severe anemia and high output heart failure along with severe hypoalbuminemia. will give IV lasix and continue spironolactone. will hold diltiazem to give better BP to use higher doses of lasix. Diabetes lispro as per sliding scale Hypertension now hypotensive will hold diltiazem will try to continue nebivolol with hold parameters COPD with Pulmonary hypertension continue albuterol and symbicort oxygen as needed Afib continue nebivolol but will hold diltiazem due to hypotension hold xarelto due to severe anemia check fecal occult blood. Glioblastoma Multiforme stage 4 Nhi was developing hand weakness, dropping things, saw her primary care physician, and because of the symptoms was sent to the emergency room 05/14/2019; and ultimately, she transferred to [facility] when head CT without contrast confirmed a new left frontoparietal mass with surrounding vasogenic edema measuring 1.7 cm with the edema up to 4 cm and presence of a ventriculoperitoneal shunt. had stereotactic biopsy showed GBM currently getting oral chemotherapy and RT 09/25 Personal history of breast cancer, approximately 1987, status post right radical mastectomy. No adjuvant treatment. Personal history of right upper lobe lung adenocarcinoma, status post lobectomy 2011. Spinal schwannoma, status post surgical correction approximately 2011. Status post radiation treatment under Dr. Burgos, [facility]. An 11 mm right inferior renal mass on CT and MRI non hypermetabolic on PET, but on MRI suspicious for neoplasm, stable History of BRANDON in the past now that is resolved after loss of 75 LBs Plan / VTE VTE Prophylaxis Ordered?: Yes OLEG TOMLINSON MD Jul 07, 2019 19:16
[2019-07-07] MEDS: ONDANSETRON 4 MG ORAL DISINTEGRATING TAB (Q0162 PER 1MG) PO PRN (23:10)
[2019-07-08] VITALS (7 sets, daily range): BP systolic 95–105; BP diastolic 46–62
[2019-07-08 01:41] LABS: HEMATOCRIT 29.2 % (36.0-47.0)
[2019-07-08 01:45] LABS: HEMOGLOBIN 9.5 g/dl (12.0-15.5)
[2019-07-08] MEDS: PIPERACILLIN/TAZOBACTAM SOD 3.375 GM in D5W MINI-BAG PLUS 50 ML IV SCH ×4 (03:16→21:01)
[2019-07-08] MEDS: ALBUTEROL SULFATE 2.5 MG/0.5 ML INH NEB SOLN NEB SCH ×4 (04:44→17:57)
[2019-07-08 05:31] LABS: BASO % 0.1 % (0.0-1.0); EOS % 0.4 % (0.0-3.0); HEMATOCRIT 27.3 % (36.0-47.0); HEMOGLOBIN 8.9 g/dl (12.0-15.5); LYMPH # 0.8 10^3/uL (1.5-5.0); LYMPH % 10.6 % (24.0-44.0); MEAN CORPUSCULAR HGB CONC 32.6 g/dl (32.0-36.5); MEAN CORPUSCULAR VOLUME 88.9 fl (80.0-96.0); MONO # 0.7 10^3/uL (0.0-0.8); MONO % 9.3 % (0.0-5.0); NEUTROPHILS % 77.5 % (36.0-66.0); PLATELET COUNT, AUTOMATED 236 10^3/uL (150-450); RED BLOOD COUNT 3.07 10^6/uL (4.00-5.40); WHITE BLOOD COUNT 7.8 10^3/uL (4.0-10.0)
[2019-07-08 05:52] LABS: BLOOD UREA NITROGEN 17 MG/DL (7-18); CALCIUM LEVEL 8.5 MG/DL (8.8-10.2); CARBON DIOXIDE LEVEL 27 MEQ/L (21-32); CHLORIDE LEVEL 106 MEQ/L (98-107); CREATININE FOR GFR 0.63 MG/DL (0.55-1.30); GLOMERULAR FILTRATION RATE > 60.0 (>39); GLUCOSE, FASTING 129 MG/DL (70-100); POTASSIUM SERUM 3.9 MEQ/L (3.5-5.1); SODIUM LEVEL 140 MEQ/L (136-145)
--- NOTE | 2019-07-08 07:27 | ECGEPIP ---
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
[2019-07-08] MEDS: SYMBICORT 160/4.5MCG INHALER 6GM INH SCH ×2 (07:34→17:57)
[2019-07-08] MEDS: HumaLOG INSULIN (NovoLOG) PER UNIT SC SCH ×4 (08:22→21:00)
[2019-07-08] MEDS: GABAPENTIN 100 MG CAP PO SCH ×2 (08:23→21:02)
[2019-07-08] MEDS: SPIRONOLACTONE 12.5MG PER 1/2 TABLET PO SCH (08:23)
[2019-07-08] MEDS: FUROSEMIDE 20 MG/2 ML VIAL (J1940) IV SCH ×2 (08:23→16:04)
[2019-07-08] MEDS: SENOKOT S TAB PO SCH ×2 (08:24→21:03)
[2019-07-08] MEDS: NEBIVOLOL 5 MG TAB (BYSTOLIC) PO SCH (08:24)
[2019-07-08] MEDS: PANTOPRAZOLE 40MG TAB (PROTONIX) PO SCH (08:24)
[2019-07-08] MEDS: ATORVASTATIN 10 MG TAB PO SCH (08:24)
[2019-07-08] MEDS: MAGNESIUM OXIDE 400 MG TAB (MAG-OX) PO SCH (08:24)
[2019-07-08] MEDS ORDERED: FUROSEMIDE 20 MG/2 ML VIAL (J1940) IV SCH (09:00)
[2019-07-08 12:14] LABS: HEMATOCRIT 30.7 % (36.0-47.0); HEMOGLOBIN 9.9 g/dl (12.0-15.5)
--- NOTE | 2019-07-08 13:24 | IPNPDOC ---
Subjective Date Seen The patient was seen on 07/08/19. Subjective Chief Complaint/HPI feeling much better today though still requiring oxygen, says her leg swelling is much lower. denies any sob or chest pain , No fever or chills. no abdominal pain , nausea or vomiting or diarrhea. Objective Physical Examination General Exam: Positive: Alert, Cooperative, No Acute Distress Eye Exam: Positive: Conjunctiva & lids normal, EOMI ENT Exam: Positive: Atraumatic, Mucous membr. moist/pink, Pharynx Normal Neck Exam: Positive: Supple; Negative: JVD, thyromegaly Chest Exam: Positive: Rales, Other (bilateral coarse brath sounds. Basal crackles) Heart Exam: Positive: Rate Normal, Regular Rhythm, Normal S1, Normal S2; Negative: Murmurs, Rubs Telemetry: Positive: No significant arrhythmia Abdomen Exam: Positive: Normal bowel sounds, Soft; Negative: Tenderness, Hepatospenomegaly Extremity Exam: Positive: Edema (3+ bipedal edema); Negative: Clubbing, Cyanosis Skin Exam: Positive: Nl turgor and temperature; Negative: Breakdown, Lesion Assessment /Plan Assessment 74 year old female with PMH of Diabetes, paroxysmal afib, hypertension, hyperlip idemia, refractory anemia iron deficiency from unknown cause receiving blood transfusions for 2 years, breast cancer s/p right radical mastectomy, RUL lng cancer s/p lobectomy, 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 She underwent an elective stereotactic brain biopsy with laser interstitial therapy, no intraoperative complications with postoperative CT head on 05/26/2019 showing "status post stereotactic brain biopsy with postsurgical tension pneumocephalus, focal hyperdense lesion with surrounding vasogenic edema in the left frontoparietal lobe, no evidence of acute intracranial hemorrhage or large territorial infarct." Subsequent imaging showed a diminishment size of a postoperative pneumocephalus was treated with decadron and keppra then was in our ARU from 05/31 to 06/17 then discharged to sub acute rehab on 06/17. She is now undergoing chemotherapy and RT and is at [facility] getting rehabilitation from 06/17/19. She developed bilateral pedal swelling for the past 7 days and about 2 days ago had fever and dyspnea and was diagnosed with LLL pneumonia after a CXR and started on cefdinir. She had her routine RT yesterday and today she had her scheduled blood work as per oncology and was found to have a low hemoglobin of 6.9 so was sent to the ED for blood transfusion. On arrival to ED she was mildly hypoxic to 86% to 895 in room air so was put on oxygen . Blood work in the ed confirmed a HB of 6.6 and so she was admitted for anemia and LLL anemia. She denied any overt bleeding from anywhere. She does have some chronic cough but no increase in phlegm production. Patient reported that she had a fever of 100.6 at the [facility] 2 days ago. Refractory anemia Has been following with oncology for 2 years receiveing intermittent PRBC transfusions. No evidence of bleeding EGD and colonoscopy negative non correcting despite iron repletion following evidence of microcytic anemia and iron deficiency in 2018 s/p 2 units of prbc check HH q 6hours and transfuse more if required. iron panel, vit B12 and Folate levels. Noted will start vit b12 Left lower lobe pneumonia will give zosyn sputum culture if available Hypoxia due to pneumonia, COPD and possibly severe anemia/ high output heart failure will give lasix, oxygen supplementation continue albuterol and symbicort. CHF Acute due to severe anemia and high output heart failure along with severe hypoalbuminemia. IV lasix and continue spironolactone. will hold diltiazem to give better BP to use higher doses of lasix. Diabetes lispro as per sliding scale Hypertension now hypotensive will hold diltiazem will try to continue nebivolol with hold parameters COPD with Pulmonary hypertension continue albuterol and symbicort oxygen as needed Afib continue nebivolol but will hold diltiazem due to hypotension hold xarelto due to severe anemia check fecal occult blood. Glioblastoma Multiforme stage 4 Nhi was developing hand weakness, dropping things, saw her primary care physician, and because of the symptoms was sent to the emergency room 05/14/2019; and ultimately, she transferred to [facility] when head CT without contrast confirmed a new left frontoparietal mass with surrounding vasogenic edema measuring 1.7 cm with the edema up to 4 cm and presence of a ventriculoperitoneal shunt. had stereotactic biopsy showed GBM currently getting oral chemotherapy and RT 09/25 Personal history of breast cancer, approximately 1987, status post right radical mastectomy. No adjuvant treatment. Personal history of right upper lobe lung adenocarcinoma, status post lobectomy 2011. Spinal schwannoma, status post surgical correction approximately 2011. Status post radiation treatment under Dr. Burgos [facility]. An 11 mm right inferior renal mass on CT and MRI non hypermetabolic on PET, but on MRI suspicious for neoplasm, stable History of BRANDON in the past now that is resolved after loss of 75 LBs Plan/VTE VTE Prophylaxis Ordered?: Yes VS, I&O, 24H, Fishbone Vital Signs/I&O Vital Signs Date Time Temp Pulse Resp B/P (MAP) Pulse Ox O2 Delivery O2 Flow Rate FiO2 07/08/19 12:00 98.5 85 16 95/49 (64) 97 3.0 07/07/19 20:30 Nasal Cannula I&O- Last 24 Hours up to 6 AM 07/08/19 06:00 Intake Total 750 ml Output Total 1650 ml Balance -900 ml Laboratory Data 24H LABS Laboratory Tests 2 07/07/19 15:40: Immature Granulocyte % (Auto) 1.9, White Blood Count 7.2, Red Blood Count 2.22L, Hemoglobin 6.6*L, Hematocrit 21.2L, Mean Corpuscular Volume 95.5, Mean Corpuscular Hemoglobin 29.7, Mean Corpuscular Hemoglobin Concent 31.1L, Red Cell Distribution Width 22.4H, Platelet Count 235, Neutrophils (%) (Auto) 79.4H, Lymphocytes (%) (Auto) 9.3L, Monocytes (%) (Auto) 9.0H, Eosinophils (%) (Auto) 0.1, Basophils (%) (Auto) 0.3, Neutrophils # (Auto) 5.8, Lymphocytes # (Auto) 0.7L, Monocytes # (Auto) 0.7, Eosinophils # (Auto) 0.0, Basophils # (Auto) 0.0, Nucleated Red Blood Cells % (auto) 0.4H, Prothrombin Time 19.1H, Prothromb Time International Ratio 1.63, Activated Partial Thromboplast Time 38.2, Anion Gap 9, Glomerular Filtration Rate > 60.0, Lactic Acid Level 1.5, Calcium Level 8.1L, Iron Level 7L, Total Iron Binding Capacity 218L, Transferrin % Saturation 3.2L, Ferritin 97, Aspartate Amino Transf (AST/SGOT) 10, Alanine Aminotransferase (ALT/SGPT) 23, Alkaline Phosphatase 83, Total Bilirubin 0.3, Direct Bilirubin < 0.1, Total Creatine Kinase 16L, Creatine Kinase MB < 1.0, Creatine Kinase MB Relative Index 6.25H, Troponin I < 0.02, QS-Mgv-M-Type Natriuretic Peptide 970H, Total Protein 4.9L, Albumin 1.9L, Albumin/Globulin Ratio 0.63L, Vitamin B12 Level 241, Folate 17.7, Thyroid Stimulating Hormone (TSH) 0.830 07/07/19 22:01: Bedside Glucose (Misc Panel) 165H 07/08/19 05:04: Immature Granulocyte % (Auto) 2.1, White Blood Count 7.8, Red Blood Count 3.07L, Hemoglobin 8.9L, Hematocrit 27.3L, Mean Corpuscular Volume 88.9, Mean Corpuscular Hemoglobin 29.0, Mean Corpuscular Hemoglobin Concent 32.6, Red Cell Distribution Width 19.9H, Platelet Count 236, Neutrophils (%) (Auto) 77.5H, Lymphocytes (%) (Auto) 10.6L, Monocytes (%) (Auto) 9.3H, Eosinophils (%) (Auto) 0.4, Basophils (%) (Auto) 0.1, Neutrophils # (Auto) 6.0, Lymphocytes # (Auto) 0.8L, Monocytes # (Auto) 0.7, Eosinophils # (Auto) 0.0, Basophils # (Auto) 0.0, Nucleated Red Blood Cells % (auto) 0.5H, Anion Gap 7L, Glomerular Filtration Rate > 60.0, Calcium Level 8.5L, Blood Urea Nitrogen 17, Creatinine 0.63, Sodium Level 140, Potassium Level 3.9, Chloride Level 106, Carbon Dioxide Level 27 07/08/19 11:47: Bedside Glucose (Misc Panel) 111H CBC/BMP Laboratory Tests 07/07/19 15:40 Red Blood Count 2.22 L, Mean Corpuscular Volume 95.5, Mean Corpuscular Hemoglobin 29.7, Mean Corpuscular Hemoglobin Concent 31.1 L, Red Cell Distribution Width 22.4 H, Neutrophils (%) (Auto) 79.4 H, Lymphocytes (%) (Auto) 9.3 L, Monocytes (%) (Auto) 9.0 H, Eosinophils (%) (Auto) 0.1, Basophils (%) (Auto) 0.3, Neutrophils # (Auto) 5.8, Lymphocytes # (Auto) 0.7 L, Monocytes # (Auto) 0.7, Eosinophils # (Auto) 0.0, Basophils # (Auto) 0.0 07/08/19 00:49 07/08/19 05:04 Red Blood Count 3.07 L, Mean Corpuscular Volume 88.9, Mean Corpuscular Hemoglobin 29.0, Mean Corpuscular Hemoglobin Concent 32.6, Red Cell Distribution Width 19.9 H, Neutrophils (%) (Auto) 77.5 H, Lymphocytes (%) (Auto) 10.6 L, Monocytes (%) (Auto) 9.3 H, Eosinophils (%) (Auto) 0.4, Basophils (%) (Auto) 0.1, Neutrophils # (Auto) 6.0, Lymphocytes # (Auto) 0.8 L, Monocytes # (Auto) 0.7, Eosinophils # (Auto) 0.0, Basophils # (Auto) 0.0, Calcium Level 8.5 L 07/08/19 11:53 Microbiology Microbiology 07/07/19 Blood Culture, Received Pending 07/07/19 Blood Culture, Received Pending OLEG TOMLINSON MD Jul 08, 2019 13:24
[2019-07-08] MEDS: CYANOCOBALAMIN 500 MCG TAB PO SCH (16:04)
[2019-07-08 18:09] LABS: HEMATOCRIT 31.9 % (36.0-47.0); HEMOGLOBIN 10.7 g/dl (12.0-15.5)
[2019-07-08] MEDS ORDERED: TEMOZOLOMIDE 20 MG PO SCH (21:00)
[2019-07-08] MEDS: ESCITALOPRAM OXALATE 10 MG TAB (LEXAPRO) PO SCH (21:02)
[2019-07-08] MEDS: traZODone 50 MG TAB PO SCH (21:03)
[2019-07-09 00:37] LABS: HEMOGLOBIN 9.2 g/dl (12.0-15.5)
[2019-07-09 00:38] LABS: HEMATOCRIT 27.8 % (36.0-47.0)
[2019-07-09] MEDS: ALBUTEROL SULFATE 2.5 MG/0.5 ML INH NEB SOLN NEB SCH ×2 (02:00→07:15)
[2019-07-09] MEDS: PIPERACILLIN/TAZOBACTAM SOD 3.375 GM in D5W MINI-BAG PLUS 50 ML IV SCH ×2 (03:13→09:20)
[2019-07-09 04:00] VITALS: BP 105/58
[2019-07-09 05:50] LABS: BLOOD UREA NITROGEN 18 MG/DL (7-18); CALCIUM LEVEL 8.8 MG/DL (8.8-10.2); CARBON DIOXIDE LEVEL 26 MEQ/L (21-32); CHLORIDE LEVEL 109 MEQ/L (98-107); CREATININE FOR GFR 0.52 MG/DL (0.55-1.30); GLOMERULAR FILTRATION RATE > 60.0 (>39); GLUCOSE, FASTING 100 MG/DL (70-100); POTASSIUM SERUM 3.5 MEQ/L (3.5-5.1); SODIUM LEVEL 144 MEQ/L (136-145)
[2019-07-09 06:35] LABS: BASO % 0.7 % (0.0-1.0); EOS % 0.7 % (0.0-3.0); HEMOGLOBIN 9.7 g/dl (12.0-15.5); LYMPH # 0.8 10^3/uL (1.5-5.0); LYMPH % 13.8 % (24.0-44.0); MEAN CORPUSCULAR HEMOGLOBIN 29.8 pg (27.0-33.0); MEAN CORPUSCULAR HGB CONC 32.3 g/dl (32.0-36.5); MONO # 0.5 10^3/uL (0.0-0.8); MONO % 7.7 % (0.0-5.0); NEUTROPHILS # 4.5 10^3/uL (1.5-8.5); NEUTROPHILS % 74.4 % (36.0-66.0); PLATELET COUNT, AUTOMATED 242 10^3/uL (150-450); RED BLOOD COUNT 3.26 10^6/uL (4.00-5.40)
[2019-07-09] MEDS: SYMBICORT 160/4.5MCG INHALER 6GM INH SCH (07:14)
[2019-07-09] MEDS: HumaLOG INSULIN (NovoLOG) PER UNIT SC SCH (07:30)
[2019-07-09] MEDS ORDERED: LASI20TA3 PO ×2 (07:52→11:06)
[2019-07-09 08:00] VITALS: BP 106/51
[2019-07-09] MEDS: CYANOCOBALAMIN 500 MCG TAB PO SCH (09:24)
[2019-07-09] MEDS: SPIRONOLACTONE 12.5MG PER 1/2 TABLET PO SCH (09:24)
[2019-07-09] MEDS: SENOKOT S TAB PO SCH (09:24)
[2019-07-09] MEDS: MAGNESIUM OXIDE 400 MG TAB (MAG-OX) PO SCH (09:24)
[2019-07-09] MEDS: ATORVASTATIN 10 MG TAB PO SCH (09:24)
[2019-07-09] MEDS: GABAPENTIN 100 MG CAP PO SCH (09:24)
[2019-07-09] MEDS: PANTOPRAZOLE 40MG TAB (PROTONIX) PO SCH (09:24)
[2019-07-09 09:25] VITALS: BP 106/51
[2019-07-09] MEDS: NEBIVOLOL 5 MG TAB (BYSTOLIC) PO SCH (09:25)
[2019-07-09] MEDS: FUROSEMIDE 20 MG/2 ML VIAL (J1940) IV SCH (09:26)
--- NOTE | 2019-07-09 10:07 | DSES ---
DATE OF ADMISSION: 07/07/2019 DATE OF DISCHARGE: 07/09/2019 PRIMARY DISCHARGE DIAGNOSIS: 1. Left lower lobe pneumonia. 2. Hypoxia secondary to left lower pneumonia and severe anemia high output heart failure. 3. Congestive heart failure with preserved ejection fraction. EF is 65-70% with moderate tricuspid regurgitation. 4. Glioblastoma multiforme. 5. Diabetes. 6. Hypertension. 7. COPD with pulmonary hypertension. 8. Atrial fibrillation held Xarelto due to severe anemia. 9. Personal history of breast cancer 1997, status post radical mastectomy. Right upper lobe adenocarcinoma status-post lobectomy 2011. 10. Spinal Schwannoma with surgical correction 2011. 11. Right inferior renal mass suspicious for neoplasm on PET scan 11 mm, hypermetabolic. 12. History of BRANDON in the past that is resolved. DISCHARGE MEDICATIONS: Patient may receive her home dose of Omnicef 300 mg twice a day, Lasix 20 mg, acetaminophen 650 every 4 hours as needed, albuterol every 6 hours 2 puffs every 4 as needed, atorvastatin 10 daily, Dulcolax 10 mg as needed, Symbicort 2 puffs inhaled twice a day, calcium with vitamin D 1 tab twice a day, FiberCon 1.2 grams daily, Colace 100 mg twice a day, Drisdol 50,000 units weekly, citalopram 10 mg at bedtime., fluticasone 2 sprays daily as needed, gabapentin 200 mg twice a day, glucagon as directed, Tussin 20 mL every 8 hours, basaglar insulin 12 units every morning, lutein 1 cap by mouth daily, milk of mag as needed daily, mag ox 400 daily, multivitamin 1 tablet daily, Bystolic 2.5 daily, Zofran 8 mg at bedtime, Protonix 40 daily, Xarelto 20 mg every evening have been held. Hemoccult stool to be obtained as outpatient. Temodar to be held until resumed by her oncologist. DISCHARGE INSTRUCTIONS: 1. Hemoccult stool to be obtained and referral to GI once the patient is stable from her heart failure for a colonoscopy. Patient is not to take her Temodar until seeing her chemotherapy until seen by Dr. Nu Jonhs. Laboratory data on discharge white count 6, hemoglobin 9.7, hematocrit 30, platelet count 242, sodium 144, potassium 3.5, chloride 109, Bicarbonate 26, BUN 16, creatinine 100, 2 sets of blood cultures were negative. Chest x-ray on 07/07/2019, chronic interstitial densities diffusely bilaterally. HOSPITAL COURSE: This 74-year old female presented to the emergency room with complaints of shortness of breath in her lower extremities and swelling. She was admitted for refractory anemia, symptomatic requiring blood transfusion of 2 units. Hemoccult stool was not available. Patient will need hemoccult to be checked as outpatient and referral to GI. She was found to have a left lower lobe pneumonia with persistent hypoxia secondary to COPD and high output heart failure. She has a history of diastolic dysfunction with preserved ejection fraction and was kept on intravenous Lasix while her Cardizem was held to improve patient's blood pressure. Patient diuresed well with improvement. Her atrial fibrillation was rate controlled on nebivolol despite holding the diltiazem. Xarelto was held due to severe anemia requiring blood transfusion. Hemoccult stool was not available during this admission and will need to be rechecked as outpatient and referred to gastroenterology for colonoscopy. Patient's chemotherapy medication has been held due to acute infection with pneumonia. She has passed a home safety evaluation and is discharged back to rehabilitation. Time spent on discharge 30 minutes. MTDD
[2019-07-09] MEDS: ONDANSETRON 4 MG ORAL DISINTEGRATING TAB (Q0162 PER 1MG) PO PRN (10:33)
[2019-07-20] MEDS ORDERED: [UNRECOGNIZED DRUG - CODE] PO (14:26)
[2019-08-03] MEDS ORDERED: [UNRECOGNIZED DRUG - CODE] PO (09:19)
[2019-08-03] MEDS ORDERED: TEMO1CAP PO ×2 (10:15→10:17)
[2019-09-27] MEDS ORDERED: [UNRECOGNIZED DRUG - CODE] PO (14:35)
[2019-09-27] MEDS ORDERED: PRAV40TA2 PO (14:35)
[2019-09-27] MEDS ORDERED: FLON1SPR NARES (14:35)
[2019-09-27] MEDS ORDERED: NEUR100C PO (14:35)
[2019-09-27] MEDS ORDERED: TEMO1CAP7 PO (14:58)
[2019-10-05] MEDS ORDERED: TEMO1CAP7 PO (15:38)
[2019-10-23] MEDS ORDERED: LORA0.5T5 PO (09:00)
== END 2019-07-09 11:58 | DRG 811 ==
LOC: M ED 14:12 → M ED INP 17:54 → M PCU 20:51
PROVIDERS: ADMIT Internal Medicine Nephrology; ATTEND General Practice
PROC: 30233N1 Transfusion of Nonautologous Red Blood Cells into Peripheral Vein, Percutaneous Approach (ICD-10-PCS; principal; 2019-07-07)
DX: D46.4 Refractory anemia, unspecified (principal); I50.33 Acute on chronic diastolic (congestive) heart failure; J18.9 Pneumonia, unspecified organism; C71.9 Malignant neoplasm of brain, unspecified; G91.2 (Idiopathic) normal pressure hydrocephalus; J44.0 Chronic obstructive pulmonary disease with (acute) lower respiratory infection; I48.0 Paroxysmal atrial fibrillation; E11.9 Type 2 diabetes mellitus without complications; I36.0 Nonrheumatic tricuspid (valve) stenosis; I27.20 Pulmonary hypertension, unspecified; I11.0 Hypertensive heart disease with heart failure; N28.89 Other specified disorders of kidney and ureter; Z85.3 Personal history of malignant neoplasm of breast; D50.9 Iron deficiency anemia, unspecified; Z90.11 Acquired absence of right breast and nipple; Z85.118 Personal history of other malignant neoplasm of bronchus and lung; E78.5 Hyperlipidemia, unspecified; Z79.899 Other long term (current) drug therapy; Z79.4 Long term (current) use of insulin; Z88.6 Allergy status to analgesic agent; Z88.8 Allergy status to other drugs, medicaments and biological substances

== ENCOUNTER → 2019-07-07 | Outpatient (REF) ==
[~2019-07-07] MED LIST changes: -ACET650T3 PO; -BACT800T5 PO; -DECA4TAB PO; -FLON1SPR NARES; -HYOS125TA PO; -LORA0.5T5 PO; -MORP20SO3 PO; -NEUR100C PO; -TEMO1CAP PO; -TEMO1CAP7 PO; -VITA50005 PO; -XARE10TA PO
[2019-07-07 12:53] LABS: HEMATOCRIT 22.1 % (36.0-47.0); MEAN CORPUSCULAR HEMOGLOBIN 30.1 pg (27.0-33.0); MEAN CORPUSCULAR HGB CONC 31.2 g/dl (32.0-36.5); MEAN CORPUSCULAR VOLUME 96.5 fl (80.0-96.0); PLATELET COUNT, AUTOMATED 236 10^3/uL (150-450); RED BLOOD COUNT 2.29 10^6/uL (4.00-5.40); WHITE BLOOD COUNT 7.3 10^3/uL (4.0-10.0)
[2019-07-07 12:58] LABS: HEMOGLOBIN 6.9 g/dl (12.0-15.5)
[2019-07-07 13:14] LABS: BLOOD UREA NITROGEN 18 MG/DL (7-18); CALCIUM LEVEL 8.9 MG/DL (8.8-10.2); CARBON DIOXIDE LEVEL 27 MEQ/L (21-32); CHLORIDE LEVEL 109 MEQ/L (98-107); CREATININE FOR GFR 0.66 MG/DL (0.55-1.30); GLOMERULAR FILTRATION RATE > 60.0 (>39); GLUCOSE, FASTING 136 MG/DL (70-100); NT-PRO BNP 1016 PG/ML (<450); POTASSIUM SERUM 4.4 MEQ/L (3.5-5.1); SODIUM LEVEL 143 MEQ/L (136-145)
== END ==
LOC: SKLAB5 11:48
PROVIDERS: ATTEND Internal Medicine
DX: R06.02 Shortness of breath (principal)

== ENCOUNTER → 2019-07-15 | Outpatient (REF) ==
[~2019-07-15] MED LIST changes: +ALBU83IN NEB; +CEFD1CAP8 PO; +CEFD300CAP FT; +CVS100LI4 PO; +FIBE625T PO; +LASI20TA3 PO
[2019-07-15 09:58] LABS: HEMOGLOBIN 10.3 g/dl (12.0-15.5); MEAN CORPUSCULAR HEMOGLOBIN 28.5 pg (27.0-33.0); MEAN CORPUSCULAR HGB CONC 30.3 g/dl (32.0-36.5); MEAN CORPUSCULAR VOLUME 94.2 fl (80.0-96.0); PLATELET COUNT, AUTOMATED 493 10^3/uL (150-450); RED BLOOD COUNT 3.61 10^6/uL (4.00-5.40); WHITE BLOOD COUNT 8.5 10^3/uL (4.0-10.0)
[2019-07-15 10:24] LABS: BLOOD UREA NITROGEN 14 MG/DL (7-18); CALCIUM LEVEL 9.6 MG/DL (8.8-10.2); CARBON DIOXIDE LEVEL 27 MEQ/L (21-32); CHLORIDE LEVEL 108 MEQ/L (98-107); CREATININE FOR GFR 0.75 MG/DL (0.55-1.30); GLOMERULAR FILTRATION RATE > 60.0 (>39); GLUCOSE, FASTING 104 MG/DL (70-100); POTASSIUM SERUM 3.6 MEQ/L (3.5-5.1); SODIUM LEVEL 144 MEQ/L (136-145)
== END ==
LOC: SKLAB5 07:10
PROVIDERS: ATTEND Internal Medicine
DX: D64.9 Anemia, unspecified (principal); I10 Essential (primary) hypertension

== ENCOUNTER → 2019-07-16 | Outpatient (REF) | LOC: SKLAB5 11:22 | PROVIDERS: ATTEND Internal Medicine | DX: D64.9 Anemia, unspecified (principal) ==

== ENCOUNTER → 2019-07-21 | Outpatient (REF) | LOC: SKLAB5 09:20 | PROVIDERS: ATTEND Internal Medicine | DX: D64.9 Anemia, unspecified (principal) ==

== ENCOUNTER → 2019-07-22 | Outpatient (REF) ==
[2019-07-22 08:36] LABS: HEMATOCRIT 34.1 % (36.0-47.0); HEMOGLOBIN 10.5 g/dl (12.0-15.5); MEAN CORPUSCULAR HEMOGLOBIN 28.9 pg (27.0-33.0); MEAN CORPUSCULAR HGB CONC 30.8 g/dl (32.0-36.5); MEAN CORPUSCULAR VOLUME 93.9 fl (80.0-96.0); PLATELET COUNT, AUTOMATED 451 10^3/uL (150-450); RED BLOOD COUNT 3.63 10^6/uL (4.00-5.40); WHITE BLOOD COUNT 10.7 10^3/uL (4.0-10.0)
== END ==
LOC: SKLAB5 08:16
PROVIDERS: ATTEND Internal Medicine
DX: D64.9 Anemia, unspecified (principal)

== ENCOUNTER → 2019-07-26 | Outpatient (RCR) | payer MEDICARE, BC, OTHER ==
--- NOTE | 2019-06-30 09:54 | RADONC ---
RADIATION ONCOLOGY PROGRESS NOTE DATE OF SERVICE: 06/29/2019 CHART NUMBER: [id number]. PROGRESS NOTE: Nhi Ramirez with a diagnosis of a glioblastoma multiforme is currently receiving local regional radiotherapy to the tumor with margin. She is also on temozolomide. The treatments have been fairly well tolerated, and she is at a dose of 1200 cGy of an anticipated 6000 cGy. She denies any nausea, vomiting, headache, or seizure activity. She still has weakness involving her right side and is on physical therapy. Otherwise, she has real complaints referable to her disease or to her treatments. Her energy level is significantly diminished. EXAMINATION FINDINGS: Weakness on her right side as per her first evaluation. She denies any burning, headache, or significant skin irritation. There has been no hair loss thus far. IMPRESSION: Tolerating therapy well. PLAN: Treatments to continue.
--- NOTE | 2019-07-06 09:19 | RADONC ---
RADIATION ONCOLOGY PROGRESS NOTE DATE: 07/05/2019 CHART #: [id number] Nhi Ramirez with a glioblastoma multiforme is currently receiving local regional radiation therapy and to date she has achieved a dose of 2000 cGy of a proposed 6000 cGy and is tolerating her radiotherapy well. She continues to remain in the hospital for physical therapy and is progressing quite nicely. She denies any nausea, vomiting, or headache, although yesterday she did have a mild headache which lasted for approximately 2 hours, but resolved without any pain medication. She feels that her energy level is improving. Her main complaint is that of fatigue. She feels that she is making significant progress with her physical therapy with improved right-sided strength. EXAMINATION FINDINGS: Indeed, the right sided weakness has improved. There is no palpable lymphadenopathy is appreciated. Lungs are clear. The remainder of the physical examination is unchanged. IMPRESSION: Tolerating therapy well with clinical improvement of her right-sided weakness. PLAN: Treatments to continue.
--- NOTE | 2019-07-14 13:07 | RADONC ---
RADIATION ONCOLOGY PROGRESS NOTE DATE: 07/12/2019 CHART #: [id number] Ms. Ramirez is presently at a dose of 2800 cGy to her brain and is tolerating treatments quite well at this point with no complaints related to her radiation therapy. She is having no headaches or other problems at this time. REVIEW OF SYSTEMS: The patient's review of systems is noncontributory. Denies nausea, vomiting, fevers, chills, night sweats, diplopia, headaches, anxiety or depression, anorexia, weight loss, visual disturbances, chest pain, urinary or bowel difficulties, bone pain, or neurological problems. PHYSICAL EXAMINATION: The patient's skin is in good condition with no evidence of radiation change present. She is presenting in a wheelchair. The remainder of her physical exam remains unchanged. Ms. Ramirez is tolerating treatments quite well and radiation will continue as scheduled.
--- NOTE | 2019-07-21 06:32 | RADONC ---
RADIATION ONCOLOGY PROGRESS NOTE DATE: 07/19/2019 CHART NUMBER: [id number] Ms. Ramirez is presently at a dose of 3800 cGy to her brain and is tolerating treatments quite well at this point with no complaints related to her radiation therapy. She is having no headaches or other problems. REVIEW OF SYSTEMS: The patient's review of systems is unchanged. She continues have some physical deficits, especially mobility but it is otherwise unchanged. PHYSICAL EXAMINATION: The patient's skin is in good condition with no evidence of radiation change present. There is no moist or dry desquamation. The remainder of her physical exam is unchanged as well. Ms. Ramirez is tolerating treatments quite well and radiation will continue as scheduled.
--- NOTE | 2019-07-27 08:19 | RADONC ---
RADIATION ONCOLOGY PROGRESS NOTE DATE: 07/26/2019 CHART #: [id number] Nurse Ramirez is presently at a dose of 4800 cGy to her brain tumor and is tolerating treatments quite well at this point with no significant difficulties related to her radiation therapy. She is having no headaches or other problems other than fatigue. REVIEW OF SYSTEMS: The patient's review of systems is positive for fatigue, but is otherwise noncontributory. Denies nausea, vomiting, fevers, chills, night sweats, diplopia, headaches, anxiety or depression, anorexia, weight loss, visual disturbances, chest pain, urinary or bowel difficulties, bone pain, or neurological problems. PHYSICAL EXAMINATION: The patient's skin is in good condition with no evidence of moist or dry desquamation. She is beginning to lose some hair. The remainder of her physical exam remains unchanged. Nurse Ramirez is tolerating treatments quite well and radiation will continue as scheduled.
== END ==
LOC: M ONCR 06-29 13:30
PROVIDERS: ATTEND Radiology Radiation Oncology
DX: C71.9 Malignant neoplasm of brain, unspecified (principal)

== ENCOUNTER → 2019-07-27 | Outpatient (REF) ==
[2019-07-27 13:57] LABS: BASO # 0.1 10^3/uL (0.0-0.2); EOS # 0.2 10^3/uL (0.0-0.5); EOS % 2.8 % (0.0-3.0); HEMOGLOBIN 10.9 g/dl (12.0-15.5); LYMPH # 1.3 10^3/uL (1.5-5.0); LYMPH % 15.9 % (24.0-44.0); MEAN CORPUSCULAR HEMOGLOBIN 29.3 pg (27.0-33.0); MEAN CORPUSCULAR HGB CONC 31.1 g/dl (32.0-36.5); MEAN CORPUSCULAR VOLUME 94.1 fl (80.0-96.0); MONO % 12.2 % (0.0-5.0); NEUTROPHILS # 5.4 10^3/uL (1.5-8.5); PLATELET COUNT, AUTOMATED 351 10^3/uL (150-450); RED BLOOD COUNT 3.72 10^6/uL (4.00-5.40); WHITE BLOOD COUNT 8.1 10^3/uL (4.0-10.0)
[2019-07-27 14:23] LABS: ALBUMIN 2.8 GM/DL (3.2-5.2); ALT/SGPT 16 U/L (12-78); AMYLASE 62 U/L (25-115); BILIRUBIN,TOTAL 0.2 MG/DL (0.2-1.0); BLOOD UREA NITROGEN 14 MG/DL (7-18); CALCIUM LEVEL 9.1 MG/DL (8.8-10.2); CARBON DIOXIDE LEVEL 30 MEQ/L (21-32); CHLORIDE LEVEL 107 MEQ/L (98-107); CREATININE FOR GFR 0.84 MG/DL (0.55-1.30); GLOMERULAR FILTRATION RATE > 60.0 (>39); GLUCOSE, FASTING 91 MG/DL (70-100); LIPASE 152 U/L (73-393); POTASSIUM SERUM 3.6 MEQ/L (3.5-5.1); SODIUM LEVEL 143 MEQ/L (136-145); TOTAL PROTEIN 7.2 GM/DL (6.4-8.2)
[2019-07-27 17:29] LABS: APPEARANCE, URINE CLEAR (CLEAR); BACTERIA, URINE AUTO NEGATIVE (NEGATIVE); BILIRUBIN, URINE AUTO NEGATIVE (NEGATIVE); BLOOD, URINE BLOOD NEGATIVE (NEGATIVE); COLOR, URINE YELLOW (YELLOW); GLUCOSE, URINE (UA) AUTO NEGATIVE (NEGATIVE); KETONE, URINE AUTO NEGATIVE (NEGATIVE); LEUKOCYTE ESTERASE, URINE AUTO NEGATIVE (NEGATIVE); NITRITE, URINE AUTO NEGATIVE (NEGATIVE); PROTEIN, URINE AUTO NEGATIVE (NEGATIVE); RBC, URINE AUTO 1 /HPF (0-3); SPECIFIC GRAVITY URINE AUTO 1.011 (1.002-1.035); SQUAMOUS EPITHELIAL CELL UR AU 0 /HPF (0-6); UROBILINOGEN, URINE AUTO 0.2 mg/dL (0.0-2.0); WBC, URINE AUTO 0 /HPF (0-3)
== END ==
LOC: SKLAB5 11:45
PROVIDERS: ATTEND Internal Medicine
DX: R10.9 Unspecified abdominal pain (principal)

== ENCOUNTER → 2019-07-29 | Outpatient (CLI) | payer MEDICARE, BC, OTHER ==
[~2019-07-29] MED LIST changes: +BACT800T5 PO; +GASTROGRAFIN SOLUTION 30ML (Q9963) As Ordered ONE; +ISOVUE-370 76% 100ML VIAL (Q9967) As Ordered ONE; +TEMO1CAP PO
--- NOTE | 2019-07-29 15:35 | REP ---
REASON FOR EXAM: Bilateral abdominal pain. History of breast, lung, and brain carcinoma likely metastatic breast cancer. COMPARISON: Multiple, the latest prior obtained at [facility], 05/15/2019. CONTRAST: 100 mL Isovue 370. There is a patchy opacity in the right lung base lateral basal segment. This represents a change from the prior exam. There is a patchy and nodular left lung base density. This too represents a change from the prior exam. Scattered bibasilar curvilinear densities are noted status quo consistent with fibrotic changes. Note is again made of bibasilar cylindrical bronchiectasis status quo. There is four chamber cardiac enlargement. There are no pleural or pericardial effusions. Note is again made of a ventriculoperitoneal shunt catheter terminating in the right lower quadrant, but again seen doubling back upon itself in the right upper quadrant. The liver, gallbladder, spleen, pancreas, adrenal glands, and kidneys are essentially unchanged. The spleen is again seen to be somewhat globular in shape, but no frankly enlarged. There is an unchanged tiny nodule in the right adrenal gland which measures 1.1 cm. Note is again made of tiny renal cortical cysts status quo in the inferior pole of the right kidney there is a round enhancing 1.2 cm sized lesion which is exophytic to the inferior pole and is essentially unchanged possibly slightly larger. When this is compared to an older abdominal CT of 06/08/2018 it appears stable. It is also stable compared to the CT examination obtained 09/05/2017. The abdominal aorta and paraaortic regions are stable. Multiple nonenlarged paraaortic lymph nodes are noted status quo. No free fluid or free air is seen in the abdomen. The bowel loops and their mesenteries are within normal limits. CT PELVIS: There is a trace amount of free pelvic fluid. The pelvic bowel loops and their mesenteries are within normal limits. The urinary bladder is somewhat distended. There is no evidence of a pelvic mass or adenopathy. Bone window technique throughout the exam again shows postoperative changes with bilateral transpedicular screws L3 and L4 with unchanged L3 upon L4 and L4 upon L5 spondylolisthesis. Spinal, hip, and sacroiliac joint degenerative changes are also noted status quo. IMPRESSION: 1. New lung base findings as described above. Acute infectious etiology and/or neoplastic change cannot be ruled out. CT chest followup is recommended. 2. Stable renal cysts and stable solid enhancing renal nodule as described above. 3. Ventriculoperitoneal shunt catheter as described above. 4. Urinary bladder distension of uncertain etiology. 5. Other findings as described above. Electronically Signed by Rey Ortez DO 07/29/2019 04:44 P
== END ==
LOC: M RAD 10:55
PROVIDERS: ATTEND Nurse Practitioner Family
DX: R10.32 Left lower quadrant pain (principal); R10.31 Right lower quadrant pain; N28.1 Cyst of kidney, acquired; Z98.2 Presence of cerebrospinal fluid drainage device; N32.89 Other specified disorders of bladder; R91.8 Other nonspecific abnormal finding of lung field
CPT/HCPCS: 74177; Q9963; Q9967

== ENCOUNTER 2019-08-03 13:36 | Outpatient (RCR) | payer MEDICARE, BC, OTHER ==
--- NOTE | 2019-08-03 11:23 | RADONC ---
RADIATION ONCOLOGY PROGRESS NOTE DATE: 08/02/2019 CHART NUMBER: [id number] PROGRESS NOTE: Nurse Ramirez is presently at a dose of 5800 cGy to her brain tumor and is tolerating treatments quite well at this point with no complaints related to her radiation therapy. She has no discomfort or other problems. REVIEW OF SYSTEMS: The patient's review of systems is unchanged. She is having no headaches or other issues. PHYSICAL EXAMINATION: The patient's skin is in good condition with no evidence of moist or dry desquamation. The remainder of her physical exam remains unchanged. Nurse Ramirez is tolerating treatments quite well and radiation will continue as scheduled.
[~2019-08-03 13:36] MED LIST changes: -BACT800T5 PO; -GASTROGRAFIN SOLUTION 30ML (Q9963) As Ordered ONE; -ISOVUE-370 76% 100ML VIAL (Q9967) As Ordered ONE
--- NOTE | 2019-08-05 07:06 | RADONC ---
RADIATION ONCOLOGY TREATMENT SUMMARY DATE: 08/03/2019 CHART NUMBER: [id number] DIAGNOSIS: Glioblastoma multiforme. GRADE: 4 ECOG PERFORMANCE STATUS: 2-3 TREATMENT SUMMARY: Nurse Ramirez is a delightful 73-year-old white female who unfortunately presented to us with the diagnosis of glioblastoma multiforme. We treated the patient to her brain tumor for a total dose of 6000 cGy delivered in 30 fractions of 200 cGy each over 43 elapsed days from 06/21/2019 through 08/03/2019. The patient's brain tumor was treated on a linear accelerator utilizing a 6 MV photon beam via IMRT treatment planning. Ms. Ramirez tolerated her treatments quite well and was able to complete therapy without difficulties. I have scheduled the patient to see me again in 1 month for further followup. She will also continue to be followed by her other physicians as well. Thank you for allowing us to participate in the care of this very pleasant woman who I have known and been friends of for many years. I will keep you informed of any new developments as they occur. cc: MD Nu Smith MD Collins Kellogg, Jr, MD Michael D. Mix, MD
[2019-08-06] MEDS ORDERED: BACT800T5 PO ×2 (09:28→14:15)
[2019-08-12] MEDS ORDERED: DECA4TAB PO (13:46)
[2019-08-26] MEDS ORDERED: DECA4TAB PO (15:38)
[2019-08-26] MEDS ORDERED: BACT800T5 PO (15:38)
[2019-08-26] MEDS ORDERED: LASI20TA3 PO (15:54)
== END 2019-08-26 ==
LOC: M ONCR 13:36
PROVIDERS: ATTEND Radiology Radiation Oncology
DX: C71.9 Malignant neoplasm of brain, unspecified (principal)

== ENCOUNTER → 2019-08-05 | Outpatient (REF) ==
[~2019-08-05] MED LIST changes: +ACET650T3 PO; +BACT800T5 PO; +DECA4TAB PO; +FLON1SPR NARES; +HYOS125TA PO; +LORA0.5T5 PO; +MORP20SO3 PO; +NEUR100C PO; +TEMO1CAP7 PO; +VITA50005 PO; +XARE10TA PO
== END ==
LOC: SKLAB5 08:30
PROVIDERS: ATTEND Internal Medicine
DX: C71.9 Malignant neoplasm of brain, unspecified (principal)

== ENCOUNTER → 2019-08-06 | Outpatient (CLI) | payer MEDICARE, BC, OTHER ==
[~2019-08-06] MED LIST changes: -ACET650T3 PO; -FLON1SPR NARES; -HYOS125TA PO; -LORA0.5T5 PO; -MORP20SO3 PO; -NEUR100C PO; -TEMO1CAP7 PO; -VITA50005 PO; -XARE10TA PO
--- NOTE | 2019-08-06 16:52 | REP ---
CT chest without contrast: History: New lung density on the right with patchy nodular densities left lung base. Comparison chest x-ray July 07, 2019. Comparison chest CT study May 15, 2019. The patient gives a history of prior breast and lung carcinoma status post right upper lobectomy. Right axillary soft tissues. A ventriculoperitoneal shunt catheter is noted. Mild cardiomegaly is noted. There is a post thoracotomy suture line in the right upper lung parenchyma and clips and sutures are seen in the perihilar region on the right consistent with prior right upper lobectomy. No pulmonary mass lesion is seen. No pleural effusion is noted. There is linear fibrosis versus discoid atelectasis in the left lower lobe posteriorly. This is new from the prior study. There is some linear fibrosis in the right lower lobe posteriorly. No definite infiltrate is seen. No pulmonary mass or significant nodule is appreciated. No pleural or pericardial effusion is appreciated. No adrenal lesion is seen. Impression: Status post thoracotomy and partial pneumonectomy changes on the right. Bilateral lower lobe fibrosis versus atelectasis. Otherwise no acute disease. Electronically Signed by Willam More MD 08/06/2019 04:56 P
== END ==
LOC: M RAD 15:02
PROVIDERS: ATTEND Nurse Practitioner Family
DX: R91.8 Other nonspecific abnormal finding of lung field (principal); Z98.2 Presence of cerebrospinal fluid drainage device

== ENCOUNTER → 2019-08-19 | Outpatient (CLI) | payer MEDICARE, BC, OTHER ==
[~2019-08-19] MED LIST changes: +PROHANCE 279.3MG/ML 15ML VIAL (A9576) As Ordered ONE
--- NOTE | 2019-08-19 18:20 | REP ---
MRI brain: 08/19/2019. Indication: GBM. Comparison: 05/25/2019. Technique: Multiplanar short and long TR sequences of the brain were obtained including post-gadolinium imaging. 11 ml IV ProHance were administered. Findings: There are no areas of restricted diffusion to suggest an acute infarction. The left frontoparietal mass has increased in size with more prominent surrounding vasogenic edema and mild mass effect on the left frontal lobe. The mass now measures 3.3 x 3.0 x 2.5 cm. The surrounding vasogenic edema has increased. There is mild mass effect on the posterior portion of the lateral ventricle. Right frontoparietal approach ventriculostomy shunt catheter is present. Without hydrocephalous. Impression: Increase size of the left frontoparietal neoplasm with increased surrounding vasogenic edema. No shift of midline structures. Electronically Signed by Bhaskar Hitchcock DO 08/19/2019 06:12 P
== END ==
LOC: M RAD 15:53
PROVIDERS: ATTEND Internal Medicine Medical Oncology
DX: C71.8 Malignant neoplasm of overlapping sites of brain (principal); M62.81 Muscle weakness (generalized); G93.6 Cerebral edema
CPT/HCPCS: 70553; A9576

== ENCOUNTER → 2019-09-08 | Outpatient (CLI) | payer MEDICARE, BC, OTHER ==
[~2019-09-08] MED LIST changes: -PROHANCE 279.3MG/ML 15ML VIAL (A9576) As Ordered ONE
--- NOTE | 2019-09-09 08:28 | RADONC ---
RADIATION ONCOLOGY FOLLOWUP NOTE DATE: 09/08/2019 CHART NUMBER: [id number] DIAGNOSIS: Glioblastoma multiforme. GRADE: 4. ECOG PERFORMANCE STATUS: 2/3. FOLLOWUP NOTE: Enedina Ramirez is a delightful 74-year-old white female with the diagnosis of glioblastoma multiforme who is presenting to us today for routine followup visit 1 month post completion of external beam radiation therapy. The patient reports today that generally she is doing quite well although she continues to have fatigue. She is continuing to take her Decadron 4 mg three times a day. She has no other complaints at this time related to her radiation therapy or disease. Indeed she reports she generally feels well other than for the fatigue. The patient's review of systems is positive for the physical limitations, including weakness in her right arm. She is able to walk with a walker. She denies nausea, vomiting, fevers, chills, night sweats, diplopia, headaches, anxiety or depression, anorexia, weight loss, visual disturbances, chest pain, bone pain, or bladder or bowel issues. On physical examination the patient is a chronically ill-appearing white female in no acute distress. HEENT: Exam is normocephalic, atraumatic. Extraocular movements are intact. There is no palpable cervical, supraclavicular, infraclavicular, axillary or inguinal lymphadenopathy present. Her lungs are clear to auscultation and percussion. Her heart has a regular rate and rhythm. Neurologic exam is remarkable for significant weakness in her right upper extremity. ASSESSMENT: The patient is clinically stable at this point. I had a very very lengthy discussion with this patient and her . On 08/19/2019 the patient had an MRI of the brain which was undertaken and compared to a previous study of 05/25/2019 done at an outside institution. I do not have a copy of the 05/25/2019 MRI available to me to review personally. I however did explain to the patient that her radiation treatments only began a month after the 05/25/2019 initial MRI on June 21, 2019. Therefore, considering that this tends to be a fast-growing tumor there must have been perhaps significant growth between the 05/25/2019 MRI and the initiation of treatments 1 month later. In light of this I do not think it possible to attribute any growth to a failure of radiation or to address this growth as happening during radiation. In addition, the MRI dated 08/19/2019 did show significant increase in surrounding vasogenic edema which could explain her symptoms at that time. She was not on Decadron nor did she received Decadron during treatment in light of the fact that during her treatments she had no headaches or other problems. Since she initiated Decadron she feels much better and is having no real problems except for fatigue. I have scheduled the patient to see me and we will continue to see her every 4 weeks at this time. I have recommended a repeat MRI in approximately 2 months or 3 months following her August 19, 2019 MRI. If she develops any symptomatology I have asked her to contact my office and we can do an MRI sooner. Radiation and the results of radiation tend to develop slowly over time and at this point I do not believe we can say that she has had a failure to respond to treatment. We will continue to follow her closely and we will recommend intervention as indicated. After very lengthy discussion, the patient is fully understanding of our discussion points and is in agreement. She will continue to see us on a routine basis every month and will be contacting us if any new developments occur. I will also closely coordinate her care with her medical oncologist, Dr. Nu Johns. cc: Nu Johns MD
== END ==
LOC: M ONCR 13:34
PROVIDERS: ATTEND Radiology Radiation Oncology
DX: C71.9 Malignant neoplasm of brain, unspecified (principal)

== ENCOUNTER 2019-10-19 09:26 | Inpatient (IN) | payer MEDICARE, BC, OTHER ==
[~2019-10-19] VITALS: Ht 154.9 cm; Wt 55.0 kg
[2019-10-19] MEDS: NEBIVOLOL 5 MG TAB (BYSTOLIC) PO SCH (09:00)
[2019-10-19] MEDS: ACETAMINOPHEN 650MG ER TAB (TYLENOL ARTHRITIS) PO SCH ×2 (09:00→21:16)
[~2019-10-19 09:26] MED LIST changes: +FLON1SPR NARES; +FUROSEMIDE 20 MG TAB PO SCH; +NEUR100C PO; +TEMO1CAP7 PO
[2019-10-19] MEDS ORDERED: fentaNYL 100 MCG/2 ML INJECTION (J3010) IV PRN (10:15)
[2019-10-19] MEDS ORDERED: dexameTHASONE 20 MG/5 ML VIAL (J1100) IV ONE (10:15)
[2019-10-19 10:29] LABS: HEMATOCRIT 36.5 % (36.0-47.0); HEMOGLOBIN 11.7 g/dl (12.0-15.5); MEAN CORPUSCULAR HEMOGLOBIN 30.1 pg (27.0-33.0); MEAN CORPUSCULAR HGB CONC 32.1 g/dl (32.0-36.5); MEAN CORPUSCULAR VOLUME 93.8 fl (80.0-96.0); PLATELET COUNT, AUTOMATED 101 10^3/uL (150-450); RED BLOOD COUNT 3.89 10^6/uL (4.00-5.40); WHITE BLOOD COUNT 6.2 10^3/uL (4.0-10.0)
[2019-10-19] MEDS ORDERED: METF500T13 PO (10:47)
[2019-10-19] MEDS ORDERED: XARE10TA PO (10:47)
[2019-10-19] MEDS ORDERED: ONDANSETRON 4MG/2ML VIAL (J2405) IV ONE (11:00)
[2019-10-19 11:05] LABS: ATYPICAL LYMPH 4 % (0-5); LYMPHOCYTES 6 % (16-44); MONOCYTES 4 % (0-5); MYELOCYTES 1 % (0-0); NEUTROPHILS 81 % (28-66); PLATELET ESTIMATE DECREASED (NORMAL)
[2019-10-19 11:06] LABS: ANISOCYTOSIS 1+; CALCIUM LEVEL 8.8 MG/DL (8.8-10.2); CREATININE FOR GFR 1.14 MG/DL (0.55-1.30); GLOMERULAR FILTRATION RATE 49.5 (>39); POTASSIUM SERUM 3.8 MEQ/L (3.5-5.1)
[2019-10-19 11:22] LABS: VENOUS BASE EXCESS 1.1 (-2.0-2.0); VENOUS HCO3 24.6 MEQ/L (23.0-27.0); VENOUS O2 SATURATION 62.3 % (60.0-80.0); VENOUS PARTIAL PRESSURE CO2 35.5 mmHg (38.0-50.0); VENOUS PARTIAL PRESSURE O2 31.6 mmHg (30.0-50.0); VENOUS PH 7.459 UNITS (7.330-7.430); VENOUS STANDARD HCO3 24.7 MEQ/L; VENOUS TOTAL CO2 25.7 MEQ/L (24.0-28.0)
[2019-10-19] MEDS ORDERED: HumuLIN R (REGULAR) INSULIN (NovoLIN R) **100U/ML** PER UNIT IV ONE (11:30)
--- NOTE | 2019-10-19 11:55 | REP ---
Clinical: Increased confusion. Comparison: 06/08/2019 . Findings: Atrophy and microvascular ischemic changes along with stable low density changes in the left frontal lobe are appreciated. A ventriculoperitoneal shunt via right frontal approach extends into the right lateral ventricle and appears stable. There is no evidence for ventriculomegaly. The ventricles and sulci are symmetric. Noel-white differentiation is maintained. There is no evidence for acute intracranial hemorrhage, mass effect, or infarction. No extra-axial fluid collection. Calvarium is relatively intact. Paranasal sinuses and mastoid air cells are clear. Impression: 1. Atrophy and microvascular ischemic changes along with postsurgical changes related to the given history of neoplasm. 2. No acute intracranial hemorrhage, infarction, or mass/mass effect. 3. Findings are stable when compared to 06/25/2019 Electronically Signed by Lebron Barnes MD 10/19/2019 11:47 A
[2019-10-19] MEDS ORDERED: METF-791 PO (12:28)
[2019-10-19] MEDS ORDERED: ACET650T3 PO (12:28)
[2019-10-19] MEDS ORDERED: XARE20TA PO (12:28)
[2019-10-19] MEDS ORDERED: VITA50005 PO (12:28)
[2019-10-19] MEDS ORDERED: TEMO1CAP7 PO (12:29)
[2019-10-19] MEDS ORDERED: NS 500 ML IV ONE ×2 (13:45→14:15)
--- NOTE | 2019-10-19 13:51 | HPEPDOC ---
General Date of Admission 10/19/19 Date of Service: Oct 19, 2019 Attending Physician: OLEG TOMLINSON MD Chief Complaint The patient is a 74-year-old female admitted with a reason for visit of Weakness. Source: Patient, Family Exam Limitations: Clinical conditions (some confusion ) Timing/Duration: This morning Severity: Moderate Associated Symptoms: Other (LBP ) History of Present Illness Mrs. Ramirez is a 74 year old female, brought to the ED due to symptoms of weak ness and incoherent speech which started this morning at home. Mrs. Ramirez appears very sedated in the ED so much of this HPI is from her family and the medical record. stated that his was thought to be having a stroke by the outpatient nursing team and was going to be airlifted per protocol. It sounds as if he was not convinced that she had actually had a stroke and prevented her being airlifted, deciding to bring her to [facility] ED instead. Symptoms started around 9:30 this morning where she was not acting herself, she complained of pain in her abdomen and low back upon being helped out of bed. became alarmed when he was unable to understand when she spoke. Pt has a Hx of glioblastoma multiforme; oncology is Drs. Moreno and Collin. She was started on Decadron 4mg BID in July per Dr. Polanco empirically following reports of worsening R hand weakness, becoming unable to write. Dr. Polanco discussed with pt and her the possibility of disease progression vs. i nflammation s/p radiation therapy causing this weakness. Pt also has a Hx of T2DM; however her blood sugars were previously well-controlled via diet and weight loss. Trulicity and Metformin had been d/c. Following the initiation of Decadron, pt was also advised to resume Metformin 1,000mg BID ~ 2 weeks ago - as her blood sugar outpt was over 300. Pt has reportedly not been allowing her to check her blood sugars at home of late. Pt became more alert as the exam progressed; able to answer questions appropriately. reported that she is much better in the ED vs this morning after receiving fluids. Home Medications Scheduled Acetaminophen (Pain Reliever) 650 Mg Tablet.er, 650 MG PO BID, (Reported) Calcium Carbonate/Vitamin D3 (Calcium 500-Vit D3 200 Caplet) 1 Each Tablet, 1 TAB PO DAILY, (Reported) Dexamethasone (Decadron) 4 Mg Tablet, 4 MG PO BID Ergocalciferol (Vitamin D2) (Vitamin D2) 50,000 Units Cap, 50,000 UNITS PO QWEEK, (Reported) TUESDAYS Escitalopram Oxalate (Escitalopram Oxalate) 10 Mg Tablet, 10 MG PO QHS, (Reported) Furosemide (Lasix) 20 Mg Tablet, 20 MG PO DAILY one tab daily Gabapentin (Gabapentin) 100 Mg Cap, 200 MG PO BID, (Reported) Glucagon,Human Recombinant (Glucagon Emergency Kit) 1 Mg Vial, 1 MG SC ASDIRECTED, (Reported) L.acidoph/L.bulg/B.bif/S.therm (Rubina-Bid Caplet) 1 Each Tablet, 1 TAB PO TID, (Reported) Lutein/Zeaxanthin (Lutein-Zeaxanthin 25-5 mg Sfgl) 1 Cap Cap, 1 CAP PO DAILY, (Reported) Metformin HCl (Metformin HCl ER) 500 Mg Tab.er.24h, 1,000 MG PO BID, (Reported) Multivitamin with Minerals (Multivitamins with Minerals) 1 Each Tablet, 1 TAB PO DAILY, (Reported) Nebivolol HCl (Bystolic) 2.5 Mg Tablet, 2.5 MG PO DAILY, (Reported) Pantoprazole Sodium (Pantoprazole Sodium) 40 Mg Tablet.dr, 40 MG PO DAILY, (Reported) Pravastatin Sodium (Pravastatin Sodium) 40 Mg Tablet, 40 MG PO DAILY, (Reported) Rivaroxaban (Xarelto) 20 Mg Tablet, 20 MG PO QPM, (Reported) Sulfamethoxazole/Trimethoprim (Bactrim Ds Tablet) 1 Each Tablet, 1 TAB PO 3XW Temozolomide (Temozolomide) 250 Mg Capsule, 250 MG PO ASDIRECTED, (Reported) TAKES FOR 5 DAYS, STARTS ON 10/23/19 Scheduled PRN Albuterol Sulf (Albuterol Sulfate) 2.5 Mg/3 Ml Vial.neb, 1 VIAL NEB Q6H PRN for SHORTNESS OF BREATH, (Reported) Albuterol Sulfate (Ventolin Hfa) 108 Mcg/Act Aer, 2 PUFF INH Q4H PRN for SHORTNESS OF BREATH, (Reported) Magnesium Hydroxide (Milk of Magnesia) 400 Mg/5 Ml Oral.susp, 30 ML PO DAILY PRN for CONSTIPATION, (Reported) Ondansetron HCl (Zofran) 8 Mg Tablet, 8 MG PO Q12H PRN for NAUSEA OR VOMITING, (Reported) Trazodone HCl (Trazodone HCl) 50 Mg Tablet, 25 MG PO QHS PRN for SLEEP, (Reported) Allergies Coded Allergies: doxycycline (Verified Allergy, Intermediate, rash, 06/19/19) NSAIDS (Non-Steroidal Anti-Inflamma (Verified Allergy, Unknown, 06/19/19) lidocaine (Verified Adverse Reaction, Severe, increased pulse, decreased bp, 06/19/19) NOTE: PATIENT HAS RECEIVED LIDOCAINE & BUPIVACAINE SEVERAL TIMES WHILE AT [facility] w/o PROBLEM procaine (Verified Adverse Reaction, Severe, increased pulse, decreased bp, 06/19/19) MEMO Inhibitors (Verified Adverse Reaction, Unknown, COUGH, 10/19/19) Past Medical History Medical History GBM, Diabetes, hypertension, hyperlipidemia, COPD, h/o obstructive sleep apnea now resolved after loss of 75 LBS , lung cancer status post right lobectomy, pulmonary hypertension, A-Fib, right breast cancer s/p mastectomy, normal pressure hydrocephalus (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 status post right upper lobe lobectomy 2011. Spinal schwannoma, status post surgical correction approximately 2011. right knee replacement cardiac ablation left knee arthroscopy Family History Significant Family History: Diabetes (Father ), Heart disease (Father), Hypertension (Father), Other (Stroke (Father) ) Social History * Smoker: Denies Alcohol: Denies Drugs: denies A-FIB/CHADSVASC A-FIB History Current/History of A-Fib/PAF?: Yes Current PO Anticoag Therapy: Yes (Xarelto) Review of Systems Constitutional: Denies: Chills, Fever, Night Sweats Eyes: Denies: Pain, Vision change ENT: Denies: Head Aches, Ear Pain, Dysphagia Skin: Denies: Rash, Lesions, Breakdown Pulmonary: Denies: Dyspnea, Cough Cardiovascular: Denies: Chest Pain, Palpitations, Orthopnea, Paroxysmal Noc. Dyspnea, Lt Headedness Gastrointestinal: Denies: Nausea, Vomiting, Abdominal Pain, Diarrhea Genitourinary: Denies: Dysuria, Frequency, Incontinence, Retention Hematologic: Denies: Bruising, Bleeding Excessively Musculoskeletal: Denies: Neck Pain, Back Pain, Joint Pain, Muscle Pain, Spasms Neurological: Denies: Weakness, Numbness, Change in speech, Confusion Psych: Reports: Mood Normal; Denies: Depression, Memory Issues Physical Examination General Exam: Positive: Cooperative, No Acute Distress Eye Exam: Positive: PERRLA, Conjunctiva & lids normal, EOMI ENT Exam: Positive: Atraumatic, Tongue Midline; Negative: Mucous membr. moist/pink (membranes dry and cracked) Neck Exam: Positive: Supple Chest Exam: Positive: Clear to auscultation, Diminished (RUL); Negative: Rales, Rhonchi, Wheezing Heart Exam: Positive: Rate Normal, Normal S1, Normal S2; Negative: Rubs Abdomen Exam: Positive: Normal bowel sounds, Soft; Negative: Tenderness, Hepatospenomegaly Extremity Exam: Positive: Normal pulses; Negative: Clubbing, Cyanosis, Edema Skin Exam: Positive: Nl turgor and temperature Neuro Exam: Positive: Cranial Nerves 3-12 NL, Other (strength 5/5 upper extremities and with resisted plantar flexion b/l feet ) Psych Exam: Positive: Mood NL, Oriented x 3 (over time ) Vital Signs Vital Signs Date Time Temp Pulse Resp B/P (MAP) Pulse Ox O2 Delivery O2 Flow Rate FiO2 10/19/19 12:11 76 99 Room Air 10/19/19 11:56 17 10/19/19 09:56 178/87 (117) 10/19/19 09:37 97.1 Laboratory Data Labs 24H Laboratory Tests 2 10/19/19 10:16: Immature Granulocyte % (Auto) , Nucleated Red Blood Cells % (auto) 0.3H, Neutrophils 81H, Band Neutrophils 4, Lymphocytes (Manual) 6L, Monocytes (Manual) 4, Myelocytes 1H, Atypical Lymphocytes 4, Anisocytosis 1+, Macrocytosis 1+, Platelet Estimate DECREASED, Blood Gas Bicarbonate Standard 24.7, Venous Blood pH 7.459H, Venous Blood Partial Pressure CO2 35.5L, Venous Blood Partial Pressure O2 31.6, Venous Blood Total Carbon Dioxide 25.7, Venous Blood HCO3 24.6, Venous Blood Oxygen Saturation 62.3, Venous Blood Base Excess 1.1, Anion Gap 13, Glomerular Filtration Rate 49.5, Calcium Level 8.8 10/19/19 10:23: Bedside Glucose (Misc Panel) 468H 10/19/19 13:20: Bedside Glucose (Misc Panel) 453H CBC/BMP Laboratory Tests 10/19/19 10:16 Assessment/Plan Mrs. Ramirez is a 74 year old female, brought to the ED due to symptoms of weakness and incoherent speech which started this morning at home. Mrs. Ramirez has a PMHx of T2DM, paroxysmal A-fib, Breast Ca. s/p R radical mastectomy, RUL lung Ca. s/p lobectomy, spinal cord Schwannoma s/p surgery and radiation, NPH with [employer]END[employer] shunt, GBM, stage 4, GERD. stated that his was thought to be having a stroke by the outpatient nursing team and was going to be airlifted per protocol. It sounds as if he was not convinced that she had actually had a stroke and prevented her being airlifted, deciding to bring her to [facility] ED instead. Symptoms started around 9:30 this morning where she was not acting herself, she complained of pain in her abdomen and low back upon being helped out of bed. became alarmed when he was unable to understand when she spoke. Pt has a Hx of glioblastoma multiforme; oncology is Drs. Moreno and Collin. She was started on Decadron 4mg BID in July per Dr. Polanco empirically following reports of worsening R hand weakness, becoming unable to write. Dr. Polanco discussed with pt and her the possibility of disease progression vs. inflammation s/p radiation therapy causing this weakness. Pt also has a Hx of T2DM; however her blood sugars were previously well-controlled via diet and weight loss. Trulicity and Metformin had been d/c. Following the initiation of Decadron, pt was also advised to resume Metformin 1,000mg BID ~ 2 weeks ago - as her blood sugar outpt was over 300. Pt has reportedly not been allowing her to check her blood sugars at home of late. Pt became more alert as the exam progressed; able to answer questions appropriately. reported that she is much better in the ED vs this morning after receiving fluids. 1. Diabetes, uncontrolled - 2/2 to Decadron 4mg BID - Discontinue outpt. Metformin - start Levemir and SS insulin - is sure he can administer this medication at home; provide insulin and diet education and assessment in hospital - consistent carbohydrate diet 2. A-Fib - RRR in ED - H&H stable - Continue Bystolic - Continue Xarelto 3. COPD with Pulmonary HTN - Continue home medications - O2 prn 4. HTN - Continue 5. GBM Stage 4 s/p partial resection and laser therapy - per oncology, right-sided weakness may be attributed to disease progression vs. inflammation s/p radiation therapy (the later appears to be the more likely etiology) - currently taking Decadron which helps - completed radiation therapy 08/03/19 - continues with 5d bursts maintenance chemotherapy (Temozolomide); second dose is due 10/23 - outpt. management per Drs. Moreno and Collin 6. Refractory anemia with iron deficiency - periodic iron infusions for > 2 years - -ve panendoscopy and small bowel biopsy - management per oncology 7. Right renal mass, 11mm - surveillance & management per oncology 8. Remote Hx of breast ca. s/p right radical mastectomy - per oncology no evidence of disease 9. RUL lung c. 2011 s/p lobectomy - per oncology no evidence of disease 10. Schwannoma s/p resection 2011 and radiation - surveillance per oncology 11. GERD - continue Protonix 12. Dehydration - became more lucid with IV fluid resuscitation in the ED - BUN/Cr WNL in the ED - continue NS IV in hospital Dispo: consider discussing Home Health with patient and . They have previously declined assisted living or NH after discussion with Dr. Polanco. Plan / VTE VTE Prophylaxis Ordered?: Yes (On Xarelto) TYREE AZEVEDO PA-C Oct 19, 2019 13:51
[2019-10-19] MEDS ORDERED: ALBUTEROL SULFATE 2.5 MG/0.5 ML INH NEB SOLN NEB PRN (14:00)
[2019-10-19] MEDS ORDERED: ONDANSETRON 4 MG TAB (S0181) PO PRN (14:00)
[2019-10-19] MEDS ORDERED: ALBUTEROL 90 MCG/ACT 8GM HFA INHALER INH PRN (14:00)
[2019-10-19] MEDS ORDERED: NS 1,000 ML IV SCH ×3 (14:15→20:00)
[2019-10-19] MEDS ORDERED: NS 1,000 ML IV ONE (14:30)
[2019-10-19 14:43] VITALS: BP 132/78
[2019-10-19] MEDS ORDERED: GLUCOSE 4 GM CHEW TABLET PO PRN (14:45)
[2019-10-19] MEDS ORDERED: GLUCAGON FOR INJ 1 MG VIAL (J1610) SC PRN (14:45)
[2019-10-19] MEDS ORDERED: DEXTROSE 50% 50 ML SYRINGE IV PRN (14:45)
[2019-10-19] MEDS ORDERED: ONDANSETRON 4MG/2ML VIAL (J2405) IV PRN (15:30)
[2019-10-19] MEDS: PANTOPRAZOLE 40MG TAB (PROTONIX) PO SCH (16:26)
[2019-10-19] MEDS: LEVEMIR (INSULIN DETEMIR) 1 UNITS/0.01ML SC SCH ×2 (16:26→21:17)
[2019-10-19] MEDS: PRAVASTATIN 20 MG TAB PO SCH (16:27)
[2019-10-19] MEDS ORDERED: HumaLOG INSULIN (NovoLOG) PER UNIT SC SCH ×2 (17:30)
[2019-10-19] MEDS: RIVAROXABAN 20 MG TAB (XARELTO) PO SCH (17:37)
[2019-10-19] MEDS: NS 1,000 ML IV SCH (17:45)
[2019-10-19] MEDS ORDERED: HumaLOG INSULIN (NovoLOG) PER UNIT SC ONE (18:00)
[2019-10-19 18:50] LABS: APPEARANCE, URINE CLEAR (CLEAR); BACTERIA, URINE AUTO NEGATIVE (NEGATIVE); BILIRUBIN, URINE AUTO NEGATIVE (NEGATIVE); BLOOD, URINE BLOOD NEGATIVE (NEGATIVE); COLOR, URINE YELLOW (YELLOW); GLUCOSE, URINE (UA) AUTO 3+ mg/dL (NEGATIVE); KETONE, URINE AUTO 1+ mg/dL (NEGATIVE); LEUKOCYTE ESTERASE, URINE AUTO TRACE (NEGATIVE); MUCUS, URINE SMALL (NEGATIVE); NITRITE, URINE AUTO NEGATIVE (NEGATIVE); PROTEIN, URINE AUTO NEGATIVE (NEGATIVE); RBC, URINE AUTO 2 /HPF (0-3); SPECIFIC GRAVITY URINE AUTO 1.031 (1.002-1.035); SQUAMOUS EPITHELIAL CELL UR AU 1 /HPF (0-6); UROBILINOGEN, URINE AUTO 0.2 mg/dL (0.0-2.0); WBC, URINE AUTO 7 /HPF (0-3)
[2019-10-19] MEDS ORDERED: ESCITALOPRAM OXALATE 10 MG TAB (LEXAPRO) PO SCH (21:00)
[2019-10-19] MEDS ORDERED: LEVEMIR (INSULIN DETEMIR) 1 UNITS/0.01ML SC SCH (21:00)
[2019-10-19] MEDS: HumaLOG INSULIN (NovoLOG) PER UNIT SC SCH (21:18)
[2019-10-19 22:00] VITALS: BP 112/61
[2019-10-20 02:00] VITALS: BP 111/62
[2019-10-20 06:00] VITALS: BP 111/53
[2019-10-20 06:42] LABS: HEMATOCRIT 26.7 % (36.0-47.0); MEAN CORPUSCULAR HEMOGLOBIN 30.1 pg (27.0-33.0); MEAN CORPUSCULAR HGB CONC 33.3 g/dl (32.0-36.5); MEAN CORPUSCULAR VOLUME 90.2 fl (80.0-96.0); RED BLOOD COUNT 2.96 10^6/uL (4.00-5.40); WHITE BLOOD COUNT 3.9 10^3/uL (4.0-10.0)
[2019-10-20 07:07] LABS: BLOOD UREA NITROGEN 26 MG/DL (7-18); CALCIUM LEVEL 7.4 MG/DL (8.8-10.2); CARBON DIOXIDE LEVEL 22 MEQ/L (21-32); CHLORIDE LEVEL 116 MEQ/L (98-107); CREATININE FOR GFR 0.48 MG/DL (0.55-1.30); GLOMERULAR FILTRATION RATE > 60.0 (>39); GLUCOSE, FASTING 100 MG/DL (70-100); POTASSIUM SERUM 3.7 MEQ/L (3.5-5.1); SODIUM LEVEL 146 MEQ/L (136-145)
[2019-10-20 07:20] LABS: HEMOGLOBIN 8.9 g/dl (12.0-15.5); PLATELET COUNT, AUTOMATED 64 10^3/uL (150-450)
[2019-10-20] MEDS ORDERED: GABAPENTIN 100 MG CAP PO PRN (09:00)
[2019-10-20] MEDS: ACETAMINOPHEN 650MG ER TAB (TYLENOL ARTHRITIS) PO SCH ×3 (09:42→20:57)
[2019-10-20] MEDS: BACTRIM 160MG/800MG DS TAB PO SCH (09:42)
[2019-10-20] MEDS: PANTOPRAZOLE 40MG TAB (PROTONIX) PO SCH (09:42)
[2019-10-20] MEDS: NS 1,000 ML IV SCH ×3 (09:42→20:20)
[2019-10-20] MEDS: PRAVASTATIN 20 MG TAB PO SCH (09:43)
[2019-10-20] MEDS: LEVEMIR (INSULIN DETEMIR) 1 UNITS/0.01ML SC SCH ×3 (09:43→20:57)
[2019-10-20 10:15] VITALS: BP 113/69
--- NOTE | 2019-10-20 11:09 | IPNPDOC ---
Subjective Date Seen The patient was seen on 10/20/19. Subjective Chief Complaint/HPI Mrs. Ramirez is a 74 year old female, brought to the ED due to symptoms of weakness and incoherent speech which started this morning at home. Pt was found to be Hyperglycemic secondary to Decadron therapy and Dehydrated. Pt is seen in bed this morning after breakfast. She didn't sleep well last night being in hospital vs her own bed; however she denied any new or worsening symptoms this morning. General: Reports: Normal Appetite; Denies: Chills, Night Sweats, Malaise Constitutional: Denies: Chills, Fever, Night Sweats Eyes: Denies: Pain ENT: Denies: Head Aches Skin: Denies: Rash Pulmonary: Denies: Dyspnea, Cough Cardiovascular: Denies: Chest Pain, Palpitations, Lt Headedness Gastrointestinal: Denies: Nausea, Vomiting, Abdominal Pain Genitourinary: Denies: Dysuria Musculoskeletal: Denies: Neck Pain, Back Pain, Joint Pain, Muscle Pain, Spasms Psych: Reports: Mood Normal Objective Physical Examination General Exam: Positive: Cooperative, No Acute Distress Eye Exam: Positive: PERRLA, Conjunctiva & lids normal, EOMI ENT Exam: Positive: Atraumatic, Tongue Midline; Negative: Mucous membr. moist/pink (mucus membranes dry and cracked) Neck Exam: Positive: Supple Chest Exam: Positive: Clear to auscultation, Diminished (RUL); Negative: Rales, Rhonchi, Wheezing Heart Exam: Positive: Rate Normal, Normal S1, Normal S2; Negative: Rubs Abdomen Exam: Positive: Normal bowel sounds, Soft; Negative: Tenderness, Hepatospenomegaly Extremity Exam: Positive: Normal pulses; Negative: Clubbing, Cyanosis, Edema Skin Exam: Positive: Nl turgor and temperature Neuro Exam: Positive: Cranial Nerves 3-12 NL, Other (strength 5/5 upper extremities and with resisted plantar flexion b/l feet ) Psych Exam: Positive: Mood NL, Oriented x 3 (over time ) Assessment /Plan Assessment Mrs. Ramirez is a 74 year old female, brought to the ED due to symptoms of weakness and incoherent speech which started this morning at home. Mrs. Ramirez has a PMHx of T2DM, paroxysmal A-fib, Breast Ca. s/p R radical mastectomy, RUL lung Ca. s/p lobectomy, spinal cord Schwannoma s/p surgery and radiation, NPH with [employer] G[employer]OR shunt, GBM, stage 4, GERD. stated that his was thought to be having a stroke by the outpatient nursing team and was going to be airlifted per protocol. It sounds as if he was not convinced that she had actually had a stroke and prevented her being airlifted, deciding to bring her to [facility] ED instead. Symptoms started around 9:30 this morning where she was not acting herself, she complained of pain in her abdomen and low back upon being helped out of bed. became alarmed when he was unable to understand when she spoke. Pt has a Hx of glioblastoma multiforme; oncology is Drs. Moreno and Collin. She was started on Decadron 4mg BID in July per Dr. Polanco empirically following reports of worsening R hand weakness, becoming unable to write. Dr. Polanco discussed with pt and her the possibility of disease progression vs. inflammation s/p radiation therapy causing this weakness. Pt also has a Hx of T2DM; however her blood sugars were previously well-controlled via diet and weight loss. Trulicity and Metformin had been d/c. Following the initiation of Decadron, pt was also advised to resume Metformin 1,000mg BID ~ 2 weeks ago - as her blood sugar outpt was over 300. Pt has reportedly not been allowing her to check her blood sugars at home of late. Pt became more alert as the exam progressed; able to answer questions appropriately. reported that she is much better in the ED vs this morning after receiving fluids. 1. Diabetes, uncontrolled - 2/2 to Decadron 4mg BID - Discontinue outpt. Metformin - continue Levemir and SS insulin - FBS 100 this morning. May be d/c with insulin if demonstrates he can administer it as Rx - is sure he can administer this medication at home; provide insulin and diet education and assessment in hospital - consistent carbohydrate diet 2. A-Fib - RRR in ED - H&H trending downwards; ?Dilutional - Continue Bystolic - Re-check CBC this afternoon; re-assess Xarelto dosage - consider stool guaiac - consider heme/onc consult prn 3. COPD with Pulmonary HTN - Continue home medications - O2 prn 4. HTN - Continue home medications 5. GBM Stage 4 s/p partial resection and laser therapy - per oncology, right-sided weakness may be attributed to disease progression vs . inflammation s/p radiation therapy (the later appears to be the more likely etiology) - currently taking Decadron which helps - completed radiation therapy 08/03/19 - continues with 5d bursts maintenance chemotherapy (Temozolomide); second dose is due 10/23 - outpt. management per Drs. Moreno and Collin 6. Refractory anemia with iron deficiency - periodic iron infusions for > 2 years - -ve panendoscopy and small bowel biopsy - outpt. management per oncology - Plt count 101 -> 64. ?Dilutional. Repeat CBC this afternoon. - if Plt less than or equal to 50, reduce Xarelto to 10mg; consult with heme/onc. 7. Right renal mass, 11mm - surveillance & management per oncology 8. Remote Hx of breast ca. s/p right radical mastectomy - per oncology no evidence of disease - surveillance & management per oncology 9. RUL lung c. 2012 s/p lobectomy - per oncology no evidence of disease - surveillance & management per oncology 10. Schwannoma s/p resection 2011 and radiation - surveillance & management per oncology 11. GERD - continue Protonix 12. Dehydration - mental health status continues to improve with hydration - continue IV fluids - continue monitoring medically Dispo: consider discussing Home Health with patient and . They have previously declined assisted living or NH after discussion with Dr. Polanco. Plan/VTE VTE Prophylaxis Ordered?: Yes (Xarelto ) VS, I&O, 24H, Fishbone Vital Signs/I&O Vital Signs Date Time Temp Pulse Resp B/P (MAP) Pulse Ox O2 Delivery O2 Flow Rate FiO2 10/20/19 06:00 98.5 68 18 111/53 (72) 97 Room Air I&O- Last 24 Hours up to 6 AM 10/20/19 06:00 Intake Total 610 ml Output Total 0 ml Balance 610 ml Laboratory Data 24H LABS Laboratory Tests 2 10/19/19 13:20: Bedside Glucose (Misc Panel) 453H 10/19/19 16:15: Bedside Glucose (Misc Panel) 534*H 10/19/19 16:43: Bedside Glucose (Misc Panel) 526*H 10/19/19 18:15: Urine Color YELLOW, Urine Appearance CLEAR, Urine pH 6.0, Urine Specific Virgin 1.031, Urine Protein NEGATIVE, Urine Glucose (Auto)(UA) 3+H, Urine Ketones ( Auto) 1+H, Urine Blood NEGATIVE, Urine Nitrite NEGATIVE, Urine Bilirubin NEGATIVE, Urine Urobilinogen 0.2, Urine Leukocyte Esterase (Auto) TRACEH, Urine WBC (Auto) 7H, Urine RBC (Auto) 2, Urine Hyaline Casts (Auto) 0, Urine Bacteria (Auto) NEGATIVE, Urine Squamous Epithelial Cells 1, Urine Mucus (Auto) SMALL, Urine Sperm (Auto) 10/19/19 18:26: Bedside Glucose (Misc Panel) 456H 10/19/19 20:03: Bedside Glucose (Misc Panel) 364H 10/20/19 06:01: Nucleated Red Blood Cells % (auto) 1.0H, Immature Platelet Fraction 2.0, Anion Gap 8, Glomerular Filtration Rate > 60.0, Calcium Level 7.4#L CBC/BMP Laboratory Tests 10/20/19 06:01 TYREE AZEVEDO PA-C Oct 20, 2019 11:09
[2019-10-20 13:12] LABS: HEMATOCRIT 31.9 % (36.0-47.0); HEMOGLOBIN 10.1 g/dl (12.0-15.5); MEAN CORPUSCULAR HEMOGLOBIN 30.1 pg (27.0-33.0); MEAN CORPUSCULAR HGB CONC 31.7 g/dl (32.0-36.5); MEAN CORPUSCULAR VOLUME 94.9 fl (80.0-96.0); PLATELET COUNT, AUTOMATED 111 10^3/uL (150-450); RED BLOOD COUNT 3.36 10^6/uL (4.00-5.40); WHITE BLOOD COUNT 9.3 10^3/uL (4.0-10.0)
[2019-10-20] MEDS: NEBIVOLOL 5 MG TAB (BYSTOLIC) PO SCH (13:30)
[2019-10-20] MEDS: HumaLOG INSULIN (NovoLOG) PER UNIT SC SCH ×3 (13:31→20:20)
[2019-10-20 13:45] LABS: LYMPHOCYTES 10 % (16-44); MONOCYTES 2 % (0-5); NEUTROPHILS 84 % (28-66); PLATELET ESTIMATE DECREASED (NORMAL); POLYCHROMASIA 1+
[2019-10-20 13:46] LABS: ANISOCYTOSIS 1+; POIKILOCYTOSIS 1+
[2019-10-20 14:30] VITALS: BP 111/63
[2019-10-20] MEDS: RIVAROXABAN 20 MG TAB (XARELTO) PO SCH (17:15)
[2019-10-20 20:00] VITALS: BP 108/54
[2019-10-20] MEDS ORDERED: RAMELTEON 8 MG TAB (ROZEREM) PO ONE (21:00)
[2019-10-21 05:28] LABS: HEMATOCRIT 29.9 % (36.0-47.0); HEMOGLOBIN 9.5 g/dl (12.0-15.5); MEAN CORPUSCULAR HGB CONC 31.8 g/dl (32.0-36.5); MEAN CORPUSCULAR VOLUME 94.3 fl (80.0-96.0); RED BLOOD COUNT 3.17 10^6/uL (4.00-5.40); WHITE BLOOD COUNT 4.7 10^3/uL (4.0-10.0)
[2019-10-21 05:35] VITALS: BP 96/49
[2019-10-21 05:46] LABS: BLOOD UREA NITROGEN 22 MG/DL (7-18); CALCIUM LEVEL 7.5 MG/DL (8.8-10.2); CARBON DIOXIDE LEVEL 23 MEQ/L (21-32); CHLORIDE LEVEL 114 MEQ/L (98-107); GLOMERULAR FILTRATION RATE > 60.0 (>39); GLUCOSE, FASTING 91 MG/DL (70-100); POTASSIUM SERUM 3.9 MEQ/L (3.5-5.1); SODIUM LEVEL 144 MEQ/L (136-145)
[2019-10-21 05:55] LABS: PLATELET COUNT, AUTOMATED 73 10^3/uL (150-450)
[2019-10-21 05:58] VITALS: BP 102/70
[2019-10-21 06:26] VITALS: BP 110/66
[2019-10-21] MEDS: HumaLOG INSULIN (NovoLOG) PER UNIT SC SCH (07:30)
[2019-10-21 08:17] VITALS: BP 110/66
[2019-10-21] MEDS: NEBIVOLOL 5 MG TAB (BYSTOLIC) PO SCH (08:17)
[2019-10-21] MEDS: LEVEMIR (INSULIN DETEMIR) 1 UNITS/0.01ML SC SCH (08:17)
[2019-10-21] MEDS: PANTOPRAZOLE 40MG TAB (PROTONIX) PO SCH (08:17)
[2019-10-21] MEDS: PRAVASTATIN 20 MG TAB PO SCH (08:17)
[2019-10-21] MEDS: ACETAMINOPHEN 650MG ER TAB (TYLENOL ARTHRITIS) PO SCH ×2 (08:17→21:00)
[2019-10-21] MEDS: NYSTATIN 100,000 UNITS/GM TOPICAL PWD 15 GM TOP SCH ×2 (09:00→21:13)
[2019-10-21 11:01] LABS: ALBUMIN 2.2 GM/DL (3.2-5.2); ALT/SGPT 60 U/L (12-78); BILIRUBIN,DIRECT < 0.1 MG/DL (0.0-0.2); BILIRUBIN,TOTAL 0.3 MG/DL (0.2-1.0); TOTAL PROTEIN 4.5 GM/DL (6.4-8.2)
[2019-10-21] MEDS ORDERED: HYOSCYAMINE SULFATE 0.125 MG SUBL TABLET PO PRN (12:15)
[2019-10-21] MEDS ORDERED: LORazepam 1 MG TAB PO PRN (12:15)
[2019-10-21] MEDS ORDERED: ONDANSETRON 4 MG ORAL DISINTEGRATING TAB (Q0162 PER 1MG) PO PRN (12:15)
--- NOTE | 2019-10-21 15:30 | IPNPDOC ---
Subjective Date Seen The patient was seen on 10/21/19. Subjective Chief Complaint/HPI Mrs. Ramirez is a 74 year old female, brought to the ED due to symptoms of weakness and incoherent speech which started this morning at home. Pt was found to be Hyperglycemic secondary to Decadron therapy and Dehydrated. Pt is seen in bed this morning with her and family present. She has decided she wants to d/c any treatment for her cancer; this has been her 3rd primary cancer and she does not think she will be strong enough to make it. Pt stated that she has been thinking about this 'for weeks.' She strenuously denied developing worsening depression in the hospital which influenced her decision. Pt and her agree that she is tired and is able to make the decision to stop treatments at this time. She has requested Hospice care in the home, has agreed to [facility] [employer] ADMINISTRATOR only. Pt has signed her MOLST form as healthcare proxy; she is unable to sign herself due to disability. General: Denies: Chills, Night Sweats, Malaise Constitutional: Denies: Chills, Fever Eyes: Denies: Pain ENT: Denies: Head Aches Skin: Denies: Rash Pulmonary: Denies: Dyspnea, Cough Cardiovascular: Denies: Chest Pain, Palpitations Gastrointestinal: Denies: Abdominal Pain Musculoskeletal: Denies: Neck Pain, Back Pain, Joint Pain, Muscle Pain, Spasms Psych: Reports: Mood Normal; Denies: Anxiety, Depression Objective Physical Examination General Exam: Positive: Alert, Cooperative, No Acute Distress Eye Exam: Positive: PERRLA, Conjunctiva & lids normal, EOMI ENT Exam: Positive: Atraumatic, Tongue Midline; Negative: Mucous membr. moist/pink (mucus membranes dry and cracked) Neck Exam: Positive: Supple Chest Exam: Positive: Clear to auscultation, Diminished (RUL); Negative: Rales, Rhonchi, Wheezing Heart Exam: Positive: Rate Normal, Normal S1, Normal S2; Negative: Rubs Abdomen Exam: Positive: Normal bowel sounds, Soft; Negative: Tenderness, Hepatospenomegaly Extremity Exam: Positive: Normal pulses; Negative: Clubbing, Cyanosis, Edema Skin Exam: Positive: Nl turgor and temperature Neuro Exam: Positive: Cranial Nerves 3-12 NL, Other (strength 5/5 upper extre mities and with resisted plantar flexion b/l feet ) Psych Exam: Positive: Mood NL, Oriented x 3 (over time ) Assessment /Plan Assessment Mrs. Ramirez is a 74 year old female, brought to the ED due to symptoms of weakness and incoherent speech which started this morning at home. Mrs. Ramirez has a PMHx of T2DM, paroxysmal A-fib, Breast Ca. s/p R radical mastectomy, RUL lung Ca. 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 stated that his was thought to be having a stroke by the outpatient nursing team and was going to be airlifted per protocol. It sounds as if he was not convinced that she had actually had a stroke and prevented her being airlifted, deciding to bring her to [facility] ED instead. Symptoms started around 9:30 this morning where she was not acting her self, she complained of pain in her abdomen and low back upon being helped out of bed. became alarmed when he was unable to understand when she spoke. Pt has a Hx of glioblastoma multiforme; oncology is Drs. Moreno and Collin. She was started on Decadron 4mg BID in July per Dr. Polanco empirically following reports of worsening R hand weakness, becoming unable to write. Dr. Polanco discus sed with pt and her the possibility of disease progression vs. inflammation s/p radiation therapy causing this weakness. Pt also has a Hx of T2DM; however her blood sugars were previously well-controlled via diet and weight loss. Trulicity and Metformin had been d/c. Following the initiation of Decadron, pt was also advised to resume Metformin 1,000mg BID ~ 2 weeks ago - as her blood sugar outpt was over 300. Pt has reportedly not been allowing her to check her blood sugars at home of late. Pt became more alert as the exam progressed; able to answer questions appropriately. reported that she is much better in the ED vs this morning after receiving fluids. Pt has decided to change her status to DNR/DNI and receive [facility] SYSTEM[employer] ADMINISTRATOR only. She has requested Hospice care in the home and her has signed her MOLST form as healthcare proxy; she is unable to sign herself due to disability. - started Ativan 1mg for anxiety - started ondonsetron 4mg prn nausea/vomiting - discontinue statin, SS Insulin, reduce Levemir to 10MG once per day 1. Diabetes, uncontrolled - 2/2 to Decadron 4mg BID - Discontinue outpt. Metformin - continue Levemir once per day only 2. A-Fib - RRR in ED - H&H trending downwards; ?Dilutional - Continue Bystolic 3. COPD with Pulmonary HTN - Continue home medications - O2 prn 4. HTN - Continue home medications 5. GBM Stage 4 s/p partial resection and laser therapy - per oncology, right-sided weakness may be attributed to disease progression vs. inflammation s/p radiation therapy (the later appears to be the more likely etiology) - currently taking Decadron which helps - completed radiation therapy 08/03/19 - continues with 5d bursts maintenance chemotherapy (Temozolomide); second dose is due 10/23 - outpt. management per Drs. Moreno and Collin - d/c service 6. Refractory anemia with iron deficiency - periodic iron infusions for > 2 years - -ve panendoscopy and small bowel biopsy - outpt. management per oncology - Plt count 101 -> 64. ?Dilutional. Repeat CBC this afternoon. - if Plt less than or equal to 50, reduce Xarelto to 10mg; consult with heme/onc. - d/c service 7. Right renal mass, 11mm - surveillance & management per oncology - d/c service 8. Remote Hx of breast ca. s/p right radical mastectomy - per oncology no evidence of disease - surveillance & management per oncology - d/c service 9. RUL lung c. 2012 s/p lobectomy - per oncology no evidence of disease - surveillance & management per oncology - d/c service 10. Schwannoma s/p resection 2012 and radiation - surveillance & management per oncology - d/c service 11. GERD - continue Protonix 12. Dehydration - d/c IV fluids Dispo: Hospice at home with [facility] [employer] ADMINISTRATOR only Plan/VTE VTE Prophylaxis Ordered?: Yes (Xarelto ) VS, I&O, 24H, Fishbone Vital Signs/I&O Vital Signs Date Time Temp Pulse Resp B/P (MAP) Pulse Ox O2 Delivery O2 Flow Rate FiO2 10/21/19 08:17 63 110/66 10/21/19 06:26 96.3 20 97 Room Air I&O- Last 24 Hours up to 6 AM 10/21/19 06:00 Intake Total 2890 ml Output Total 650 ml Balance 2240 ml Laboratory Data 24H LABS Laboratory Tests 2 10/20/19 16:35: Bedside Glucose (Misc Panel) 292H 10/20/19 19:57: Bedside Glucose (Misc Panel) 234H 10/21/19 05:13: Nucleated Red Blood Cells % (auto) 0.9H, Anion Gap 7L, Glomerular Filtration Rate > 60.0, Calcium Level 7.5L, Total Bilirubin 0.3, Direct Bilirubin < 0.1, Aspartate Amino Transf (AST/SGOT) 30, Alanine Aminotransferase (ALT/SGPT) 60, Alkaline Phosphatase 85, Total Protein 4.5L, Albumin 2.2L, Albumin/Globulin Ratio 0.96L CBC/BMP Laboratory Tests 10/21/19 05:13 TYREE AZEVEDO PA-C Oct 21, 2019 15:30
[2019-10-21] MEDS: RIVAROXABAN 20 MG TAB (XARELTO) PO SCH (17:12)
[2019-10-22] MEDS ORDERED: MORPHINE 10MG/0.5ML ORAL CONCENTRATE SOLUTION U/D SL PRN (07:30)
[2019-10-22] MEDS: BACTRIM 160MG/800MG DS TAB PO SCH (08:38)
[2019-10-22] MEDS: NEBIVOLOL 5 MG TAB (BYSTOLIC) PO SCH (08:39)
[2019-10-22] MEDS: ACETAMINOPHEN 650MG ER TAB (TYLENOL ARTHRITIS) PO SCH ×2 (08:45→20:13)
[2019-10-22] MEDS: PANTOPRAZOLE 40MG TAB (PROTONIX) PO SCH (08:52)
[2019-10-22] MEDS: NYSTATIN 100,000 UNITS/GM TOPICAL PWD 15 GM TOP SCH ×2 (08:52→20:14)
[2019-10-22] MEDS ORDERED: LEVEMIR (INSULIN DETEMIR) 1 UNITS/0.01ML SC SCH ×2 (09:00)
[2019-10-23] MEDS: NEBIVOLOL 5 MG TAB (BYSTOLIC) PO SCH (08:45)
[2019-10-23] MEDS: PANTOPRAZOLE 40MG TAB (PROTONIX) PO SCH (08:45)
[2019-10-23] MEDS: ACETAMINOPHEN 650MG ER TAB (TYLENOL ARTHRITIS) PO SCH (08:49)
[2019-10-23] MEDS: NYSTATIN 100,000 UNITS/GM TOPICAL PWD 15 GM TOP SCH (08:50)
[2019-10-23] MEDS ORDERED: MORP20SO3 PO (09:00)
[2019-10-23] MEDS ORDERED: LORA0.5T11 PO (09:00)
[2019-10-23] MEDS ORDERED: HYOS125TA PO (09:00)
--- NOTE | 2019-10-25 07:05 | DS.PDOC ---
Discharge Summary General Date of Admission Oct 19, 2019 at 13:24 Date of Discharge 10/23/19 Discharge Summary PROCEDURES PERFORMED DURING STAY: [None]. DISCHARGE DIAGNOSES: Uncontrolled hyperglycemia due to decadron. Glioblastoma Multiforme stage 4. SECONDARY DIAGNOSIS: T2DM, paroxysmal A-fib, Breast Ca. s/p R radical mastectomy, RUL lung Ca. 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 COMPLICATIONS/CHIEF COMPLAINT: Dehydration,Glioblastoma Multiform,Hyperglycemia. HISTORY OF PRESENT ILLNESS: See history and physical HOSPITAL COURSE: Mrs. Ramirez is a 74 year old female, brought to the ED due to symptoms of weakness and incoherent speech which started this morning at home. Mrs. Ramirez has a PMHx of T2DM, paroxysmal A-fib, Breast Ca. s/p R radical mastectomy, RUL lung Ca. 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 stated that his was thought to be having a stroke by the outpatient nursing team and was going to be airlifted per protocol. It sounds as if he was not convinced that she had actually had a stroke and prevented her being airlifted, deciding to bring her to [facility] ED instead. Symptoms started around 9:30 this morning where she was not acting herself, she complained of pain in her abdomen and low back upon being helped out of bed. became alarmed when he was unable to understand when she spoke. Pt has a Hx of glioblastoma multiforme; oncology is Drs. Moreno and Collin. She was started on Decadron 4mg BID in July per Dr. Polanco empirically following reports of worsening R hand weakness, becoming unable to write. Dr. Polanco discussed with pt and her the possibility of disease progression vs. inflammation s/p radiation therapy causing this weakness. Pt also has a Hx of T2DM; however her blood sugars were previously well-controlled via diet and weight loss. Trulicity and Metformin had been d/viral. Following the initiation of Decadron, pt was also advised to resume Metformin 1,000mg BID ~ 2 weeks ago - as her blood sugar outpt was over 300. Pt has reportedly not been allowing her to check her blood sugars at home of late. Patient improved after IVF and insulin at the hospital . However patient did not want any further chemotherapy for her cancer and she did not want any further tests done. She opted for transition to Hospice. Patient's wishes were discussed with Dr Johns her oncologist. She has requested Hospice care in the home and her has signed her MOLST form as healthcare proxy; she is unable to sign herself due to disability. [employer]AT[employer] INSTALLER/Hospice started Ativan 1mg for anxiety started ondansetron 4mg prn nausea/vomiting morphine and hyosciamine as epr hospice regimen. Diabetes, uncontrolled 2/2 to Decadron 4mg BID continue Metformin patient did not want any insulin. A-Fib Continue Bystolic discontinued Xarelto COPD with Pulmonary HTN Continue home medications HTN on nebivolol. GBM Stage 4 s/p partial resection and laser therapy per oncology, right-sided weakness may be attributed to disease progression vs. inflammation s/p radiation therapy (the later appears to be the more likely etiology) currently taking Decadron which helps completed radiation therapy 08/03/[address] Johns and she suggested to continue the decadron otherwise she may have Seizures. Refractory anemia with iron deficiency with thrombocytopenia Right renal mass 11mm - surveillance & management per oncology Remote Hx of breast ca. s/p right radical mastectomy per oncology no evidence of disease RUL lung c. 2011 s/p lobectomy Schwannoma s/p resection 2011 and radiation GERD continue Protonix DISCHARGE MEDICATIONS: Please see below. ALLERGIES: Please see below. PHYSICAL EXAMINATION ON DISCHARGE: VITAL SIGNS: Please see below. General Exam: Positive: Alert, Cooperative, No Acute Distress Eye Exam: Positive: PERRLA, Conjunctiva & lids normal, EOMI ENT Exam: Positive: Atraumatic, Tongue Midline; Negative: Mucous membr. moist/pink (mucus membranes dry and cracked) Neck Exam: Positive: Supple Chest Exam: Positive: Clear to auscultation, Diminished (RUL); Negative: Rales, Rhonchi, Wheezing Heart Exam: Positive: Rate Normal, Normal S1, Normal S2; Negative: Rubs Abdomen Exam: Positive: Normal bowel sounds, Soft; Negative: Tenderness, Hepatospenomegaly Extremity Exam: Positive: Normal pulses; Negative: Clubbing, Cyanosis, Edema Skin Exam: Positive: Nl turgor and temperature Neuro Exam: Positive: Cranial Nerves 3-12 NL, Other (strength 5/5 upper extremities and with resisted plantar flexion b/l feet ) Psych Exam: Positive: Mood NL, Oriented x 3 (over time ) ACTIVITY: [As tolerated]. DIET: As tolerated DISPOSITION: 50 Hospice Home. DISCHARGE CONDITION: [Stable]. TIME SPENT ON DISCHARGE: 35 minutes. Vital Signs/I&Os Vital Signs Date Time Temp Pulse Resp B/P (MAP) Pulse Ox O2 Delivery O2 Flow Rate FiO2 10/21/19 08:17 63 110/66 10/21/19 06:26 96.3 20 97 Room Air Discharge Medications Scheduled Acetaminophen (Pain Reliever) 650 Mg Tablet.er, 650 MG PO BID, (Reported) Dexamethasone (Decadron) 4 Mg Tablet, 4 MG PO BID Metformin HCl (Metformin HCl ER) 500 Mg Tab.er.24h, 1,000 MG PO BID, (Reported) Nebivolol HCl (Bystolic) 2.5 Mg Tablet, 2.5 MG PO DAILY, (Reported) Pantoprazole Sodium (Pantoprazole Sodium) 40 Mg Tablet.dr, 40 MG PO DAILY, (Reported) Scheduled PRN Albuterol Sulf (Albuterol Sulfate) 2.5 Mg/3 Ml Vial.neb, 1 VIAL NEB Q6H PRN for SHORTNESS OF BREATH, (Reported) Albuterol Sulfate (Ventolin Hfa) 108 Mcg/Act Aer, 2 PUFF INH Q4H PRN for SHORTNESS OF BREATH, (Reported) Hyoscyamine Sulfate (Hyoscyamine Sulfate) 0.125 Mg Tab.subl, 0.125 MG PO Q4HP PRN for TERMINAL SECRETIONS Use sublingually if unable to swallow Lorazepam (Lorazepam) 0.5 Mg Tablet, 0.5 MG PO Q4HP PRN for ANXIETY/AGITATION Use sublingually if unable to swallow Morphine Sulfate (Morphine Sulfate) 100 Mg/5 Ml Solution, 0.25-1 ML PO Q2H PRN for PAIN OR DYSPNEA Use sublingually if unable to swallow Ondansetron HCl (Zofran) 8 Mg Tablet, 8 MG PO Q12H PRN for NAUSEA OR VOMITING, (Reported) Allergies Coded Allergies: doxycycline (Verified Allergy, Intermediate, rash, 06/19/19) NSAIDS (Non-Steroidal Anti-Inflamma (Verified Allergy, Unknown, 06/19/19) lidocaine (Verified Adverse Reaction, Severe, increased pulse, decreased bp, 06/19/19) NOTE: PATIENT HAS RECEIVED LIDOCAINE & BUPIVACAINE SEVERAL TIMES WHILE AT [facility] w/o PROBLEM procaine (Verified Adverse Reaction, Severe, increased pulse, decreased bp, 06/19/19) MEMO Inhibitors (Verified Adverse Reaction, Unknown, COUGH, 10/19/19) OLEG TOMLINSON MD Oct 25, 2019 07:05
== END 2019-10-23 10:00 | disposition hospice, home (50) | DRG 638 ==
LOC: M ED 09:26 → M ED INP 13:24 → M MS5PR 14:30
PROVIDERS: ADMIT Internal Medicine Nephrology; ATTEND Internal Medicine Nephrology
DX: E11.65 Type 2 diabetes mellitus with hyperglycemia (principal); C71.9 Malignant neoplasm of brain, unspecified; G91.2 (Idiopathic) normal pressure hydrocephalus; E86.0 Dehydration; I48.0 Paroxysmal atrial fibrillation; J44.9 Chronic obstructive pulmonary disease, unspecified; I27.20 Pulmonary hypertension, unspecified; I10 Essential (primary) hypertension; Z85.3 Personal history of malignant neoplasm of breast; K21.9 Gastro-esophageal reflux disease without esophagitis; Z85.118 Personal history of other malignant neoplasm of bronchus and lung; F41.9 Anxiety disorder, unspecified; D50.9 Iron deficiency anemia, unspecified; Z79.899 Other long term (current) drug therapy; Z88.8 Allergy status to other drugs, medicaments and biological substances; E78.5 Hyperlipidemia, unspecified; G47.33 Obstructive sleep apnea (adult) (pediatric); E11.40 Type 2 diabetes mellitus with diabetic neuropathy, unspecified; N28.89 Other specified disorders of kidney and ureter